=== PATIENT | male | born 1960 | race Caucasian/White ===

== ENCOUNTER 2017-11-21 17:58 | Emergency (ER) | payer BC ==
[2017-11-21 19:48] VITALS: BP 130/55
--- NOTE | 2017-11-21 21:09 | EDM.PDOC ---
ED HPI GENERAL MEDICAL PROBLEM - General Chief Complaint: Flank Pain Stated Complaint: HORRIBLE SIDE PAIN [id number] Time Seen by Provider: 11/21/17 20:55 Source of Information: Reports: Patient History Limitations: Reports: No Limitations - History of Present Illness INITIAL COMMENTS - FREE TEXT/NARRATIVE: This 57 yo male patient reports to the ED with right lower back/flank pain. The patient reports that his pain started on Wednesday (11/19/17) and has been intermittent since that time. The patient reports he has a history of kidney stones, but also reports he has had intermittent similar symptoms for the past year. Onset Date: 11/19/17 Duration: Intermittent Location: Reports: Back (right lower back) Quality: Reports: Ache Severity: Moderate Improves with: Reports: None Worsens with: Reports: None Associated Symptoms: Reports: No Other Symptoms Right Flank Pain Score (Numeric/FACES): 7 - Related Data Allergies Allergy/AdvReac Type Severity Reaction Status Date / Time sitagliptin Allergy Cannot Verified 11/21/17 18:54 Remember lisinopril AdvReac Mild Cough Verified 11/21/17 18:54 Home Meds: Home Meds Amiodarone HCl 200 mg PO BID 12/12/14 [History] Digoxin 0.125 mg PO DAILY 12/12/14 [History] Diltiazem HCl [Diltiazem 24Hr ER] 240 mg PO DAILY 12/12/14 [History] Furosemide 40 mg PO BID 12/12/14 [History] Liraglutide [Victoza] 1.8 mg SUBCUT DAILY 12/12/14 [History] Ammonium Lactate [Lac-Hydrin 12% Crm] 1 applic TOP ASDIRECTED PRN 08/04/15 [ History] Aspirin [Halfprin] 81 mg PO BRK 08/04/15 [History] Clobetasol [Temovate 0.05% Crm] 1 applic TOP BID 08/04/15 [History] Insulin Aspart [NovoLOG] 41 unit SUBCUT BID 08/04/15 [History] Nystatin [Nystatin Crm] 1 applic TOP BID 08/04/15 [History] Cyclobenzaprine [Flexeril] 10 mg PO TID PRN 01/18/16 [History] Metoprolol Tartrate [Metoprolol Tartrate] 75 mg PO BID 06/01/17 [History] Omeprazole [Omeprazole] 20 mg PO DAILY 06/01/17 [History] Pantoprazole [ProTONIX] 40 mg PO DAILY 06/01/17 [History] Valsartan 320 mg PO DAILY 06/01/17 [History] Past Medical History HEENT History: Reports: None Other HEENT History: ears are partly plugged Cardiovascular History: Reports: CAD, Heart Failure, High Cholesterol, Hypertension, [place], Pacemaker, SOB on Exertion Respiratory History: Reports: Sleep Apnea Other Respiratory History: Pt wears CPAP machine at night, O2 at night PRN Gastrointestinal History: Reports: GERD Other Gastrointestinal History: ELEVATED LIVER ENZYMES & FATTY LIVER Genitourinary History: Reports: None Musculoskeletal History: Reports: Arthritis, Fracture Other Musculoskeletal History: disk out for last 3 years; LEFT ANKLE FRACTURE Neurological History: Reports: None Psychiatric History: Reports: None Endocrine/Metabolic History: Reports: Diabetes, Type II, Obesity/BMI 30+ Hematologic History: Reports: None Immunologic History: Reports: None Oncologic (Cancer) History: Reports: Other (See Below) Other Oncologic History: testicular Dermatologic History: Reports: Other (See Below) Other Dermatologic History: from taking insulin shots in abdomen - Infectious Disease History Infectious Disease History: Reports: None Other Infectious Disease History: UNCERTAIN OF HISTORY - Past Surgical History Head Surgeries/Procedures: Reports: None HEENT Surgical History: Reports: Cataract Surgery Neurological Surgical History: Reports: None Social & Family History - Family History Cardiac: Reports: Afib, CAD, Heart Failure, High Cholesterol, Hypertension, [place], Stent Respiratory: Reports: COPD Endocrine/Metabolic: Reports: Obesity/MBI 30+ - Tobacco Use Smoking Status *Q: Never Smoker Second Hand Smoke Exposure: No - Caffeine Use Caffeine Use: Reports: None Other Caffeine Use: RARELY USES - Alcohol Use Days Per Week of Alcohol Use: 0 - Recreational Drug Use Recreational Drug Use: No Drug Use in Last 12 Months: No - Living Situation & Occupation Living situation: Reports: Single, with Family Occupation: Employed ED ROS GENERAL - Review of Systems Review Of Systems: ROS reveals no pertinent complaints other than HPI. ED EXAM,LOWER BACK PAIN/INJURY - Physical Exam Exam: See Below Exam Limited By: No Limitations General Appearance: Alert, WD/WN, Mild Distress Eye Exam: Bilateral Eye: EOMI, Normal Inspection, PERRL Ears: Normal External Exam, Normal Canal, Hearing Grossly Normal, Normal TMs Nose: Normal Inspection, Normal Mucosa, No Blood Throat/Mouth: Normal Inspection, Normal Lips, Normal Teeth, Normal Gums, Normal Oropharynx, Normal Voice, No Airway Compromise Head: Atraumatic, Normocephalic Neck: Normal Inspection, Supple, Non-Tender, Full Range of Motion Respiratory/Chest: No Respiratory Distress, Lungs Clear, Normal Breath Sounds, No Accessory Muscle Use, Chest Non-Tender Cardiovascular: Normal Peripheral Pulses, Regular Rate, Rhythm, No Edema, No Gallop, No JVD, No Murmur, No Rub GI/Abdominal: Normal Bowel Sounds, Soft, Non-Tender, No Organomegaly, No Distention, No Abnormal Bruit, No Mass (Male) Exam: Deferred Rectal (Males) Exam: Deferred Back Exam: CVA Tenderness (R), Paraspinal Tenderness (right upper lumbar spine) Extremities: Normal Inspection, Normal Range of Motion, Non-Tender, No Pedal Edema, Normal Capillary Refill Neurological: Alert, Normal Mood/Affect, Normal Dorsiflexion, CN II-XII Intact, Normal Plantar Flexion, Normal Gait, Normal Reflexes, No Motor/Sensory Deficits , Oriented x 3 Psychiatric: Normal Affect, Normal Mood Skin Exam: Warm, Dry, Intact, Normal Color, No Rash Lymphatic: No Adenopathy Course - Vital Signs Last Recorded V/S: Last Vital Signs Temp 35.8 C 11/21/17 19:47 Pulse 62 11/21/17 19:47 Resp 18 11/21/17 19:47 BP 130/55 L 11/21/17 19:47 Pulse Ox 97 11/21/17 19:47 - Orders/Labs/Meds Labs: Laboratory Tests 11/21/17 Range/Units 19:00 Urine Color Yellow (YELLOW) Urine Appearance Clear (CLEAR) Urine pH 5.5 (5.0-9.0) Ur Specific [place] 1.020 (1.005-1.030) Urine Protein Negative (NEGATIVE) Urine Glucose (UA) Negative (NEGATIVE) Urine Ketones Negative (NEGATIVE) Urine Occult Blood Trace-intact H (NEGATIVE) Urine Nitrite Negative (NEGATIVE) Urine Bilirubin Negative (NEGATIVE) Urine Urobilinogen 1.0 (0.2-1.0) mg/dL Ur Leukocyte Esterase Negative (NEGATIVE) Urine RBC 0-5 /HPF Urine WBC 0-5 (0-5/HPF) /HPF Ur Epithelial Cells Few /HPF Urine Bacteria Occasional (0-FEW/HPF) /HPF Departure - Departure Time of Disposition: 21:06 Disposition: Home, Self-Care 01 Condition: Fair Clinical Impression: Low back strain Qualifiers: Encounter type: initial encounter Qualified Code(s): S39.012A - Strain of muscle, fascia and tendon of lower back, initial encounter - Discharge Information Instructions: Back Pain, Adult, [id number] Care Plan Goals: The patient was advised of the examination, lab and CT results during the visit. The patient was encouraged to take his pain medications as directed. The patient was also encouraged to take Aleve for temporary symptom relief. The patient was also encouraged to rest the area of concern with either heat or ice. If the patient has any additional symptoms or concerns, the patient should follow-up with his primary care facility or return to the emergency department.
== END 2017-11-21 21:14 | disposition home or self-care (01) ==
LOC: DL.ED 17:58
DX: S39.012A Strain of muscle, fascia and tendon of lower back, initial encounter (principal); I11.0 Hypertensive heart disease with heart failure; I50.9 Heart failure, unspecified; I25.10 Atherosclerotic heart disease of native coronary artery without angina pectoris; E78.00 Pure hypercholesterolemia, unspecified; G47.30 Sleep apnea, unspecified; E11.9 Type 2 diabetes mellitus without complications; Z79.4 Long term (current) use of insulin; Z79.82 Long term (current) use of aspirin; Z79.899 Other long term (current) drug therapy; Z88.8 Allergy status to other drugs, medicaments and biological substances; X58.XXXA Exposure to other specified factors, initial encounter
CPT/HCPCS: 74176; 81001; 99284

== ENCOUNTER 2017-12-21 13:10 | Emergency (ER) | payer BC ==
[2017-12-21 14:22] VITALS: BP 130/51
--- NOTE | 2017-12-21 15:17 | EDM.PDOC ---
ED HPI GENERAL MEDICAL PROBLEM - General Chief Complaint: Back Pain or Injury Stated Complaint: THREW BACK OUT [id number] Time Seen by Provider: 12/21/17 14:00 Source of Information: Reports: Patient, RN, RN Notes Reviewed History Limitations: Reports: No Limitations - History of Present Illness INITIAL COMMENTS - FREE TEXT/NARRATIVE: Pt presents to the ER with c/o right flank pain/hip pain. Pt states he was pulling his pants up and buttoning them he felt a sharp jolt in the right side of his back. He states this has happened in the past. He states he has no numbness or tingling, involuntary loss of continence. Denies chest pain, sob, N/ V/D, fever or chills. Denies any urinary complications. Onset: Today, Sudden Duration: Constant Location: Reports: Back Quality: Reports: Sharp, Stabbing Severity: Moderate Improves with: Reports: None Worsens with: Reports: Movement Context: Denies: Lifting Associated Symptoms: Reports: No Other Symptoms Lower Back Pain Score (Numeric/FACES): 8 - Related Data Allergies Allergy/AdvReac Type Severity Reaction Status Date / Time sitagliptin Allergy Cannot Verified 12/21/17 14:23 Remember lisinopril AdvReac Mild Cough Verified 12/21/17 14:23 Home Meds: Home Meds Amiodarone HCl 200 mg PO BID 12/12/14 [History] Digoxin 0.125 mg PO DAILY 12/12/14 [History] Diltiazem HCl [Diltiazem 24Hr ER] 240 mg PO DAILY 12/12/14 [History] Furosemide 40 mg PO BID 12/12/14 [History] Liraglutide [Victoza] 1.8 mg SUBCUT DAILY 12/12/14 [History] Ammonium Lactate [Lac-Hydrin 12% Crm] 1 applic TOP ASDIRECTED PRN 08/04/15 [ History] Aspirin [Halfprin] 81 mg PO BRK 08/04/15 [History] Clobetasol [Temovate 0.05% Crm] 1 applic TOP BID 08/04/15 [History] Insulin Aspart [NovoLOG] 41 unit SUBCUT BID 08/04/15 [History] Nystatin [Nystatin Crm] 1 applic TOP BID 08/04/15 [History] Cyclobenzaprine [Flexeril] 10 mg PO TID PRN 01/18/16 [History] Metoprolol Tartrate [Metoprolol Tartrate] 75 mg PO BID 06/01/17 [History] Omeprazole [Omeprazole] 20 mg PO DAILY 06/01/17 [History] Pantoprazole [ProTONIX] 40 mg PO DAILY 06/01/17 [History] Valsartan 320 mg PO DAILY 06/01/17 [History] Past Medical History HEENT History: Reports: None Other HEENT History: ears are partly plugged Cardiovascular History: Reports: CAD, Heart Failure, High Cholesterol, Hypertension, [place], Pacemaker, SOB on Exertion Respiratory History: Reports: Sleep Apnea Other Respiratory History: Pt wears CPAP machine at night, O2 at night PRN Gastrointestinal History: Reports: GERD Other Gastrointestinal History: ELEVATED LIVER ENZYMES & FATTY LIVER Genitourinary History: Reports: None Musculoskeletal History: Reports: Arthritis, Fracture Other Musculoskeletal History: disk out for last 3 years; LEFT ANKLE FRACTURE Neurological History: Reports: None Psychiatric History: Reports: None Endocrine/Metabolic History: Reports: Diabetes, Type II, Obesity/BMI 30+ Hematologic History: Reports: None Immunologic History: Reports: None Oncologic (Cancer) History: Reports: Other (See Below) Other Oncologic History: testicular Dermatologic History: Reports: Other (See Below) Other Dermatologic History: from taking insulin shots in abdomen - Infectious Disease History Infectious Disease History: Reports: None Other Infectious Disease History: UNCERTAIN OF HISTORY - Past Surgical History Head Surgeries/Procedures: Reports: None HEENT Surgical History: Reports: Cataract Surgery Neurological Surgical History: Reports: None Social & Family History - Family History Cardiac: Reports: Afib, CAD, Heart Failure, High Cholesterol, Hypertension, [place], Stent Respiratory: Reports: COPD Endocrine/Metabolic: Reports: Obesity/MBI 30+ - Tobacco Use Smoking Status *Q: Never Smoker Second Hand Smoke Exposure: No - Caffeine Use Caffeine Use: Reports: None Other Caffeine Use: RARELY USES - Alcohol Use Days Per Week of Alcohol Use: 0 - Recreational Drug Use Recreational Drug Use: No Drug Use in Last 12 Months: No - Living Situation & Occupation Living situation: Reports: Single, with Family Occupation: Employed ED ROS GENERAL - Review of Systems Review Of Systems: ROS reveals no pertinent complaints other than HPI. ED EXAM,LOWER BACK PAIN/INJURY - Physical Exam Exam: See Below Exam Limited By: No Limitations General Appearance: Alert, WD/WN, Mild Distress Eye Exam: Bilateral Eye: EOMI, Normal Inspection, PERRL Ears: Normal External Exam, Hearing Grossly Normal Nose: Normal Inspection Throat/Mouth: Normal Inspection, Normal Voice, No Airway Compromise Head: Atraumatic, Normocephalic Neck: Normal Inspection, Supple, Non-Tender, Full Range of Motion Respiratory/Chest: No Respiratory Distress, Lungs Clear, Normal Breath Sounds, No Accessory Muscle Use, Chest Non-Tender Cardiovascular: Normal Peripheral Pulses, Regular Rate, Rhythm, No Edema, No Gallop, No JVD, No Murmur, No Rub GI/Abdominal: Normal Bowel Sounds, Soft, Non-Tender, No Organomegaly, No Distention, No Abnormal Bruit, No Mass (Male) Exam: Deferred Rectal (Males) Exam: Deferred Back Exam: Normal Inspection, CVA Tenderness (R), Decreased Range of Motion Extremities: Normal Inspection, Normal Range of Motion, Non-Tender, No Pedal Edema, Normal Capillary Refill Neurological: Alert, Normal Mood/Affect, Normal Dorsiflexion, CN II-XII Intact, Normal Plantar Flexion, Normal Gait, Normal Reflexes, No Motor/Sensory Deficits , Oriented x 3 Psychiatric: Normal Affect, Normal Mood Skin Exam: Warm, Dry, Intact, Normal Color, No Rash Lymphatic: No Adenopathy Course - Vital Signs Last Recorded V/S: Last Vital Signs Temp 97.8 F 12/21/17 13:50 Pulse 58 L 12/21/17 13:50 Resp 16 12/21/17 13:50 BP 130/51 L 12/21/17 13:50 Pulse Ox 94 L 12/21/17 13:50 - Orders/Labs/Meds Orders: Active Orders 24 hr Category Date Time Status Orphenadrine [Norflex] Med 12/21/17 15:30 Ordered 60 mg IM Q12H Medication Orders Orphenadrine Citrate (Norflex) 60 mg IM Q12H [facility] Labs: Laboratory Tests 12/21/17 Range/Units 14:40 Urine Color Yellow (YELLOW) Urine Appearance Slightly cloudy (CLEAR) Urine pH 6.5 (5.0-9.0) Ur Specific [place] 1.010 (1.005-1.030) Urine Protein Negative (NEGATIVE) Urine Glucose (UA) Negative (NEGATIVE) Urine Ketones Negative (NEGATIVE) Urine Occult Blood Negative (NEGATIVE) Urine Nitrite Negative (NEGATIVE) Urine Bilirubin Negative (NEGATIVE) Urine Urobilinogen 0.2 (0.2-1.0) mg/dL Ur Leukocyte Esterase Negative (NEGATIVE) Urine RBC 5-10 H /HPF Urine WBC 0-5 (0-5/HPF) /HPF Ur Epithelial Cells Few /HPF Urine Mucus Rare /LPF Meds: Medications Generic Name Dose Route Start Last Admin Trade Name Freq PRN Reason Stop Dose Admin Orphenadrine Citrate 60 mg 12/21/17 15:30 Norflex IM Q12H [facility] Discontinued Medications Generic Name Dose Route Start Last Admin Trade Name Freq PRN Reason Stop Dose Admin Ketorolac Tromethamine 60 mg 12/21/17 15:20 Toradol IM 12/21/17 15:21 ONETIME ONE Departure - Departure Time of Disposition: 15:23 Disposition: Home, Self-Care 01 Condition: Fair Clinical Impression: Low back strain Qualifiers: Encounter type: initial encounter Qualified Code(s): S39.012A - Strain of muscle, fascia and tendon of lower back, initial encounter - Discharge Information Instructions: Muscle Strain, [id number], Back Pain, Adult, [id number], Muscle Strain Forms: ED Department Discharge Additional Instructions: RX: Diclofenac, Norflex May take Tylenol as tolerated for pain, but DO NOT take ibuprofen when taking the diclofenac. Follow up with chiropractic and physical therapy Follow up with your primary care facility if no improvement Ice/heat the area as tolerated Rest - My Orders Last 24 Hours: My Active Orders 12/21/17 15:30 Orphenadrine [Norflex] 60 mg IM Q12H - Assessment/Plan Last 24 Hours: My Active Orders 12/21/17 15:30 Orphenadrine [Norflex] 60 mg IM Q12H
[2017-12-21] MEDS ORDERED: Ketorolac 30 MG/ML SDV IM ONE (15:20)
== END 2017-12-21 15:53 | disposition home or self-care (01) ==
LOC: DL.ED 13:10
DX: S39.012A Strain of muscle, fascia and tendon of lower back, initial encounter (principal); I11.0 Hypertensive heart disease with heart failure; I50.9 Heart failure, unspecified; E78.00 Pure hypercholesterolemia, unspecified; E11.9 Type 2 diabetes mellitus without complications; Z88.8 Allergy status to other drugs, medicaments and biological substances; Z79.899 Other long term (current) drug therapy; Z79.4 Long term (current) use of insulin; X58.XXXA Exposure to other specified factors, initial encounter
CPT/HCPCS: 81001; 96372; 99283; J1885; J2360

== ENCOUNTER 2018-02-27 21:04 | Emergency (ER) | payer MEDICARE, BC ==
[2018-02-27 21:25] VITALS: BP 111/75
[2018-02-27] MEDS ORDERED: HYDROmorphone 0.5 MG/0.5 ML Syringe IVPUSH ONE (21:50)
--- NOTE | 2018-02-27 21:58 | EDM.PDOC ---
ED HPI GENERAL MEDICAL PROBLEM - General Chief Complaint: Lower Extremity Injury/Pain Stated Complaint: [id number] NEEDS A SHOT FOR PAIN IN HIP Time Seen by Provider: 02/27/18 21:50 Source of Information: Reports: Patient History Limitations: Reports: No Limitations - History of Present Illness INITIAL COMMENTS - FREE TEXT/NARRATIVE: This 57 yo male patient reports to the ED with right hip pain over the past 2 days. The patient reports he fell while at home 2 days ago and twisted his right leg just after the fall. The patient reports his right hip pain is a 10/ 10 at this time. The patient reports he has had similar symptoms in the past, but normally comes to the ED to get a short of pain medication. The patient reports that he needs a shot of the "strongest pain medication made." The patient report his hip hurts even when sitting still. Duration: Day(s):, Constant, Getting Worse Location: Reports: Lower Extremity, Right (hip) Quality: Reports: Ache, Sharp Severity: Severe Improves with: Reports: None Worsens with: Reports: Movement Context: Reports: Other Associated Symptoms: Reports: No Other Symptoms Right Hip Pain Score (Numeric/FACES): 10 - Related Data Allergies Allergy/AdvReac Type Severity Reaction Status Date / Time sitagliptin Allergy Cannot Verified 02/27/18 21:11 Remember lisinopril AdvReac Mild Cough Verified 02/27/18 21:11 Home Meds: Home Meds Amiodarone HCl 200 mg PO BID 12/12/14 [History] Digoxin 0.125 mg PO DAILY 12/12/14 [History] Diltiazem HCl [Diltiazem 24Hr ER] 240 mg PO DAILY 12/12/14 [History] Furosemide 40 mg PO BID 12/12/14 [History] Liraglutide [Victoza] 1.8 mg SUBCUT DAILY 12/12/14 [History] Ammonium Lactate [Lac-Hydrin 12% Crm] 1 applic TOP ASDIRECTED PRN 08/04/15 [ History] Aspirin [Halfprin] 81 mg PO BRK 08/04/15 [History] Clobetasol [Temovate 0.05% Crm] 1 applic TOP BID 08/04/15 [History] Insulin Aspart [NovoLOG] 41 unit SUBCUT BID 08/04/15 [History] Nystatin [Nystatin Crm] 1 applic TOP BID 08/04/15 [History] Cyclobenzaprine [Flexeril] 10 mg PO TID PRN 01/18/16 [History] Metoprolol Tartrate 75 mg PO BID 06/01/17 [History] Omeprazole 20 mg PO DAILY 06/01/17 [History] Pantoprazole [ProTONIX] 40 mg PO DAILY 06/01/17 [History] Valsartan 320 mg PO DAILY 06/01/17 [History] Past Medical History HEENT History: Reports: None Other HEENT History: ears are partly plugged Cardiovascular History: Reports: CAD, Heart Failure, High Cholesterol, Hypertension, [place], Pacemaker, SOB on Exertion Respiratory History: Reports: Sleep Apnea Other Respiratory History: Pt wears CPAP machine at night, O2 at night PRN Gastrointestinal History: Reports: GERD Other Gastrointestinal History: ELEVATED LIVER ENZYMES & FATTY LIVER Genitourinary History: Reports: None Musculoskeletal History: Reports: Arthritis, Fracture Other Musculoskeletal History: disk out for last 3 years; LEFT ANKLE FRACTURE Neurological History: Reports: None Psychiatric History: Reports: None Endocrine/Metabolic History: Reports: Diabetes, Type II, Obesity/BMI 30+ Hematologic History: Reports: None Immunologic History: Reports: None Oncologic (Cancer) History: Reports: Other (See Below) Other Oncologic History: testicular Dermatologic History: Reports: Other (See Below) Other Dermatologic History: from taking insulin shots in abdomen - Infectious Disease History Infectious Disease History: Reports: None Other Infectious Disease History: UNCERTAIN OF HISTORY - Past Surgical History Head Surgeries/Procedures: Reports: None HEENT Surgical History: Reports: Cataract Surgery Neurological Surgical History: Reports: None Social & Family History - Family History Cardiac: Reports: Afib, CAD, Heart Failure, High Cholesterol, Hypertension, [place], Stent Respiratory: Reports: COPD Endocrine/Metabolic: Reports: Obesity/MBI 30+ - Tobacco Use Smoking Status *Q: Never Smoker Second Hand Smoke Exposure: No - Caffeine Use Caffeine Use: Reports: Soda Other Caffeine Use: RARELY USES - Recreational Drug Use Recreational Drug Use: No - Living Situation & Occupation Living situation: Reports: Single, with Family Occupation: Employed Review of Systems - Review of Systems Review Of Systems: ROS reveals no pertinent complaints other than HPI. ED EXAM, GENERAL - Physical Exam Exam: See Below Exam Limited By: No Limitations General Appearance: Alert, WD/WN, Lethargic, Moderate Distress Eye Exam: Bilateral Eye: EOMI, Normal Inspection, PERRL Ears: Normal External Exam, Normal Canal, Hearing Grossly Normal, Normal TMs Nose: Normal Inspection, Normal Mucosa, No Blood Throat/Mouth: Normal Inspection, Normal Lips, Normal Teeth, Normal Gums, Normal Oropharynx, Normal Voice, No Airway Compromise Head: Atraumatic, Normocephalic Neck: Normal Inspection, Supple, Non-Tender, Full Range of Motion Respiratory/Chest: No Respiratory Distress, Lungs Clear, Normal Breath Sounds, No Accessory Muscle Use, Chest Non-Tender Cardiovascular: Normal Peripheral Pulses, Regular Rate, Rhythm, No Edema, No Gallop, No JVD, No Murmur, No Rub GI/Abdominal: Normal Bowel Sounds, Soft, Non-Tender, No Organomegaly, No Distention, No Abnormal Bruit, No Mass, Other (obese) (Male) Exam: Deferred Rectal (Males) Exam: Deferred Back Exam: Vertebral Tenderness (lower back) Extremities: Leg Pain (right hip pain with movement and palpation) Neurological: Alert, Oriented, CN II-XII Intact, Normal Cognition Psychiatric: Normal Affect, Normal Mood Skin Exam: Warm, Dry, Intact, Normal Color, No Rash Lymphatic: No Adenopathy Course - Vital Signs Last Recorded V/S: Last Vital Signs Temp 36.9 C 02/27/18 21:16 Pulse 63 02/27/18 21:16 Resp 18 02/27/18 21:16 BP 111/75 02/27/18 21:16 Pulse Ox 95 02/27/18 21:16 - Orders/Labs/Meds Orders: Active Orders 24 hr Category Date Time Status Hip Min 1V w Pelvis Rt [CR] Stat Exams 02/27/18 21:48 Taken Meds: Medications Discontinued Medications Generic Name Dose Route Start Last Admin Trade Name Freq PRN Reason Stop Dose Admin Hydromorphone HCl 0.5 mg 02/27/18 21:50 02/27/18 22:08 Dilaudid IVPUSH 02/27/18 21:51 0.5 mg ONETIME ONE Administration Departure - Departure Time of Disposition: 23:13 Disposition: Home, Self-Care 01 Condition: Fair Clinical Impression: Right hip pain Degenerative joint disease of right hip Qualifiers: Osteoarthritis type: unspecified Qualified Code(s): M16.11 - Unilateral primary osteoarthritis, right hip - Discharge Information Instructions: Muscle Strain, [id number], Joint Pain, [id number] Referrals: Devon Beckham MD [Primary Care Provider] - Forms: ED Department Discharge Care Plan Goals: The patient was advised of the examination and x-ray results during the visit. The patient was given an IV dose of pain medication (Dilaudid) while in the ED which improved the pain. If the patient has any additional symptoms or concerns , the patient should follow-up with his primary care facility or return to the emergency department. - My Orders Last 24 Hours: My Active Orders 02/27/18 21:48 Hip Min 1V w Pelvis Rt [CR] Stat - Assessment/Plan Last 24 Hours: My Active Orders 02/27/18 21:48 Hip Min 1V w Pelvis Rt [CR] Stat
== END 2018-02-27 23:27 | disposition home or self-care (01) ==
LOC: DL.ED 21:04
DX: M16.11 Unilateral primary osteoarthritis, right hip (principal); I11.0 Hypertensive heart disease with heart failure; I50.9 Heart failure, unspecified; I25.2 Old myocardial infarction; E11.9 Type 2 diabetes mellitus without complications; K21.9 Gastro-esophageal reflux disease without esophagitis; Z88.8 Allergy status to other drugs, medicaments and biological substances; Z79.899 Other long term (current) drug therapy; Z79.82 Long term (current) use of aspirin; Z79.4 Long term (current) use of insulin
CPT/HCPCS: 73501; 96374; 99283; J1170

== ENCOUNTER 2018-03-16 18:36 | Emergency (ER) | payer MEDICARE, BC ==
[2018-03-16 18:57] VITALS: BP 113/45
--- NOTE | 2018-03-16 19:04 | EDM.PDOC ---
ED HPI GENERAL MEDICAL PROBLEM - General Chief Complaint: Lower Extremity Injury/Pain Stated Complaint: HIP PAIN Time Seen by Provider: 03/16/18 19:00 Source of Information: Reports: Patient History Limitations: Reports: No Limitations - History of Present Illness INITIAL COMMENTS - FREE TEXT/NARRATIVE: long h/o hip problem Tx with IV Rx. denies reinjury. Right Hip Pain Score (Numeric/FACES): 8 - Related Data Allergies Allergy/AdvReac Type Severity Reaction Status Date / Time sitagliptin Allergy Cannot Verified 03/16/18 18:53 Remember lisinopril AdvReac Mild Cough Verified 03/16/18 18:53 Home Meds: Home Meds Amiodarone HCl 200 mg PO BID 12/12/14 [History] Digoxin 0.125 mg PO DAILY 12/12/14 [History] Diltiazem HCl [Diltiazem 24Hr ER] 240 mg PO DAILY 12/12/14 [History] Furosemide 40 mg PO BID 12/12/14 [History] Liraglutide [Victoza] 1.8 mg SUBCUT DAILY 12/12/14 [History] Ammonium Lactate [Lac-Hydrin 12% Crm] 1 applic TOP ASDIRECTED PRN 08/04/15 [ History] Aspirin [Halfprin] 81 mg PO BRK 08/04/15 [History] Clobetasol [Temovate 0.05% Oint] 1 applic TOP BID 08/04/15 [History] Insulin Aspart [NovoLOG] 41 unit SUBCUT BID 08/04/15 [History] Nystatin [Nystatin Crm] 1 applic TOP BID 08/04/15 [History] Cyclobenzaprine [Flexeril] 10 mg PO TID PRN 01/18/16 [History] Metoprolol Tartrate 75 mg PO BID 06/01/17 [History] Omeprazole 20 mg PO DAILY 06/01/17 [History] Pantoprazole [ProTONIX] 40 mg PO DAILY 06/01/17 [History] Valsartan 320 mg PO DAILY 06/01/17 [History] Past Medical History HEENT History: Reports: None Other HEENT History: ears are partly plugged Cardiovascular History: Reports: CAD, Heart Failure, High Cholesterol, Hypertension, [place], Pacemaker, SOB on Exertion Respiratory History: Reports: Sleep Apnea Other Respiratory History: Pt wears CPAP machine at night, O2 at night PRN Gastrointestinal History: Reports: GERD Other Gastrointestinal History: ELEVATED LIVER ENZYMES & FATTY LIVER Genitourinary History: Reports: None Musculoskeletal History: Reports: Arthritis, Fracture Other Musculoskeletal History: disk out for last 3 years; LEFT ANKLE FRACTURE Neurological History: Reports: None Psychiatric History: Reports: None Endocrine/Metabolic History: Reports: Diabetes, Type II, Obesity/BMI 30+ Hematologic History: Reports: None Immunologic History: Reports: None Oncologic (Cancer) History: Reports: Other (See Below) Other Oncologic History: testicular Dermatologic History: Reports: Other (See Below) Other Dermatologic History: from taking insulin shots in abdomen - Infectious Disease History Infectious Disease History: Reports: None Other Infectious Disease History: UNCERTAIN OF HISTORY - Past Surgical History Head Surgeries/Procedures: Reports: None HEENT Surgical History: Reports: Cataract Surgery Neurological Surgical History: Reports: None Social & Family History - Family History Cardiac: Reports: Afib, CAD, Heart Failure, High Cholesterol, Hypertension, [place], Stent Respiratory: Reports: COPD Endocrine/Metabolic: Reports: Obesity/MBI 30+ - Caffeine Use Caffeine Use: Reports: Soda Other Caffeine Use: RARELY USES - Living Situation & Occupation Living situation: Reports: Single, with Family Occupation: Employed Review of Systems - Review of Systems Review Of Systems: ROS reveals no pertinent complaints other than HPI. ED EXAM, GENERAL - Physical Exam Exam: See Below Exam Limited By: No Limitations General Appearance: Alert, WD/WN, Mild Distress, Other (discomfort) Ears: Hearing Grossly Normal Throat/Mouth: Normal Voice, No Airway Compromise Head: Atraumatic Neck: Non-Tender, Full Range of Motion Respiratory/Chest: No Respiratory Distress Cardiovascular: Regular Rate, Rhythm GI/Abdominal: Soft, Non-Tender Neurological: Alert, Oriented, Normal Cognition, No Motor/Sensory Deficits Psychiatric: Anxious Skin Exam: Warm, Dry, Normal Color Lymphatic: No Adenopathy Course - Vital Signs Last Recorded V/S: Last Vital Signs Temp 36.7 C 03/16/18 18:54 Pulse 58 L 03/16/18 18:54 Resp 20 03/16/18 18:54 BP 113/45 L 03/16/18 18:54 Pulse Ox 96 03/16/18 18:54 - Orders/Labs/Meds Meds: Medications Discontinued Medications Generic Name Dose Route Start Last Admin Trade Name Freq PRN Reason Stop Dose Admin Hydromorphone HCl 0.5 mg 05/30/18 18:59 03/16/18 19:07 Dilaudid IVPUSH 03/16/18 19:00 0.5 mg ONETIME ONE Administration Departure - Departure Time of Disposition: 19:17 Disposition: Home, Self-Care 01 Condition: Fair Clinical Impression: Degenerative joint disease of right hip Qualifiers: Osteoarthritis type: unspecified Qualified Code(s): M16.11 - Unilateral primary osteoarthritis, right hip - Discharge Information Instructions: Hip Bursitis, [id number] Forms: ED Department Discharge Additional Instructions: 1) rest 2) follow up with family doctor
[2018-03-16] MEDS: HYDROmorphone 0.5 MG/0.5 ML Syringe IVPUSH ONE (19:07)
== END 2018-03-16 19:19 | disposition home or self-care (01) ==
LOC: DL.ED 18:36
DX: M16.11 Unilateral primary osteoarthritis, right hip (principal); I11.0 Hypertensive heart disease with heart failure; I50.9 Heart failure, unspecified; J44.9 Chronic obstructive pulmonary disease, unspecified; E11.9 Type 2 diabetes mellitus without complications; I25.2 Old myocardial infarction; Z79.82 Long term (current) use of aspirin; Z79.4 Long term (current) use of insulin; Z79.899 Other long term (current) drug therapy; Z88.8 Allergy status to other drugs, medicaments and biological substances
CPT/HCPCS: 96374; 99282; J1170

== ENCOUNTER 2018-12-24 09:13 | Emergency (ER) | payer MEDICARE, BC ==
[2018-12-24 09:21] VITALS: BP 118/70
--- NOTE | 2018-12-24 09:33 | EDM.PDOC ---
ED HPI GENERAL MEDICAL PROBLEM - General Chief Complaint: General Stated Complaint: STOMACH ACHE [id number] Time Seen by Provider: 12/24/18 09:29 Source of Information: Reports: Patient History Limitations: Reports: No Limitations - History of Present Illness INITIAL COMMENTS - FREE TEXT/NARRATIVE: onset last night with eyes not in focus and been sweaty and abd feels uncomfortable. ate breakfast of peanut butter sandwich. denies CP/SOB, denies blurred/double vision. no V/D. - Related Data Allergies Allergy/AdvReac Type Severity Reaction Status Date / Time sitagliptin Allergy Cannot Verified 12/24/18 09:18 Remember lisinopril AdvReac Mild Cough Verified 12/24/18 09:18 Home Meds: Home Meds Amiodarone HCl 200 mg PO BID 12/12/14 [History] Digoxin 0.125 mg PO DAILY 12/12/14 [History] Diltiazem HCl [Diltiazem 24Hr ER] 240 mg PO DAILY 12/12/14 [History] Furosemide 40 mg PO BID 12/12/14 [History] Liraglutide [Victoza] 1.8 mg SUBCUT DAILY 12/12/14 [History] Ammonium Lactate [Lac-Hydrin 12% Crm] 1 applic TOP ASDIRECTED PRN 08/04/15 [ History] Aspirin [Halfprin] 81 mg PO BRK 08/04/15 [History] Clobetasol [Temovate 0.05% Oint] 1 applic TOP BID 08/04/15 [History] Insulin Aspart [NovoLOG] 41 unit SUBCUT BID 08/04/15 [History] Nystatin [Nystatin Crm] 1 applic TOP BID 08/04/15 [History] Cyclobenzaprine [Flexeril] 10 mg PO TID PRN 01/18/16 [History] Metoprolol Tartrate 75 mg PO BID 06/01/17 [History] Omeprazole 20 mg PO DAILY 06/01/17 [History] Pantoprazole [ProTONIX] 40 mg PO DAILY 06/01/17 [History] Valsartan 320 mg PO DAILY 06/01/17 [History] Past Medical History HEENT History: Reports: None Other HEENT History: ears are partly plugged Cardiovascular History: Reports: CAD, Heart Failure, High Cholesterol, Hypertension, [place], Pacemaker, SOB on Exertion Respiratory History: Reports: Sleep Apnea Other Respiratory History: Pt wears CPAP machine at night, O2 at night PRN Gastrointestinal History: Reports: GERD Other Gastrointestinal History: ELEVATED LIVER ENZYMES & FATTY LIVER Genitourinary History: Reports: None Musculoskeletal History: Reports: Arthritis, Fracture Other Musculoskeletal History: disk out for last 3 years; LEFT ANKLE FRACTURE Neurological History: Reports: None Psychiatric History: Reports: None Endocrine/Metabolic History: Reports: Diabetes, Type II, Obesity/BMI 30+ Hematologic History: Reports: None Immunologic History: Reports: None Oncologic (Cancer) History: Reports: Other (See Below) Other Oncologic History: testicular Dermatologic History: Reports: Other (See Below) Other Dermatologic History: from taking insulin shots in abdomen - Infectious Disease History Infectious Disease History: Reports: None Other Infectious Disease History: UNCERTAIN OF HISTORY - Past Surgical History Head Surgeries/Procedures: Reports: None HEENT Surgical History: Reports: Cataract Surgery Neurological Surgical History: Reports: None Social & Family History - Family History Cardiac: Reports: Afib, CAD, Heart Failure, High Cholesterol, Hypertension, [place], Stent Respiratory: Reports: COPD Endocrine/Metabolic: Reports: Obesity/MBI 30+ - Tobacco Use Smoking Status *Q: Never Smoker Second Hand Smoke Exposure: No - Caffeine Use Caffeine Use: Reports: None Other Caffeine Use: RARELY USES - Recreational Drug Use Recreational Drug Use: No - Living Situation & Occupation Living situation: Reports: Single, with Family Occupation: Employed ED ROS GENERAL - Review of Systems Review Of Systems: ROS reveals no pertinent complaints other than HPI. ED EXAM, GENERAL - Physical Exam Exam: See Below Exam Limited By: No Limitations General Appearance: Alert, WD/WN, Mild Distress, Other (general discomfort) Eye Exam: Bilateral Eye: PERRL (pupils ess ER @ 4mm) Ears: Hearing Grossly Normal Throat/Mouth: Normal Voice, No Airway Compromise Head: Atraumatic Neck: Non-Tender, Full Range of Motion Respiratory/Chest: No Respiratory Distress Cardiovascular: Regular Rate, Rhythm GI/Abdominal: Soft, Non-Tender, Other (BS increased). No: Distended, Guarding, Rigid, Rebound, Tender Neurological: Alert, Oriented Psychiatric: Flat Affect Skin Exam: Warm, Dry, Normal Color Lymphatic: No Adenopathy Course - Vital Signs Last Recorded V/S: Last Vital Signs Temp 36.2 C 12/24/18 09:18 Pulse 68 12/24/18 09:18 Resp 18 12/24/18 09:18 BP 118/70 12/24/18 09:18 Pulse Ox 98 12/24/18 09:18 - Orders/Labs/Meds Labs: Laboratory Tests 12/24/18 12/24/18 12/24/18 Range/Units 09:35 09:35 09:35 WBC 9.1 (5.0-10.0) 10^3/uL RBC 4.78 (4.6-6.2) 10^6/uL Hgb 15.0 (14.0-18.0) g/dL Hct 45.5 (40.0-54.0) % MCV 95.2 (80-100) fL MCH 31.4 (27.0-34.0) pg MCHC 33.0 (33.0-35.0) g/dL Plt Count 243 (150-450) 10^3/uL Neut % (Auto) 74.5 (42.2-75.2) % Lymph % (Auto) 11.3 L (20.5-50.1) % [place] % (Auto) 9.6 H (2-8) % Eos % (Auto) 4.3 H (1.0-3.0) % Baso % (Auto) 0.3 (0.0-1.0) % Sodium 139 (135-145) mmol/L Potassium 4.1 (3.6-5.0) mmol/L Chloride 104 (101-111) mmol/L Carbon Dioxide 24.0 (21.0-31.0) mmol/L Anion Gap 15.1 BUN 41 H (7-18) mg/dL Creatinine 1.2 (0.6-1.3) mg/dL Est Cr Clr Drug Dosing 64.92 mL/min Estimated GFR (MDRD) > 60 BUN/Creatinine Ratio 34.16 Glucose 71 L (74-105) mg/dL Calcium 8.6 (8.4-10.2) mg/dl Total Bilirubin 0.8 (0.2-1.0) mg/dL AST 42 (10-42) IU/L ALT 56 (10-60) IU/L Alkaline Phosphatase 67 (42-121) IU/L Total Protein 7.4 (6.7-8.2) g/dl Albumin 3.6 (3.2-5.5) g/dl Globulin 3.8 Albumin/Globulin Ratio 0.95 Digoxin 0.2 (0-2.5) ng/ml - Re-Assessments/Exams Free Text/Narrative Re-Assessment/Exam: 12/24/18 10:51 results discussed with pt who is feeling much better presently. Departure - Departure Time of Disposition: 10:52 Disposition: Home, Self-Care 01 Clinical Impression: Diabetes Qualifiers: Diabetes mellitus type: type 2 Diabetes mellitus complication status: with hyperglycemia Qualified Code(s): E11.65 - Type 2 diabetes mellitus with hyperglycemia; Z79.4 - jail (current) use of insulin - Discharge Information Forms: ED Department Discharge Additional Instructions: 1) follow up with family doctor next week 2) recheck as needed
[2018-12-24 10:01] LABS: ANION GAP 15.1; CHLORIDE,CL 104 mmol/L (101-111); SODIUM,NA 139 mmol/L (135-145)
== END 2018-12-24 10:57 | disposition home or self-care (01) ==
LOC: DL.ED 09:13
DX: E11.65 Type 2 diabetes mellitus with hyperglycemia (principal); I11.0 Hypertensive heart disease with heart failure; I50.9 Heart failure, unspecified; I25.2 Old myocardial infarction; I25.10 Atherosclerotic heart disease of native coronary artery without angina pectoris; Z79.4 Long term (current) use of insulin; Z79.899 Other long term (current) drug therapy
CPT/HCPCS: 36415; 80053; 80162; 85025; 99283

== ENCOUNTER 2019-01-05 09:59 | Emergency (ER) | payer MEDICARE, BC ==
[2019-01-05 10:13] VITALS: BP 101/46
[2019-01-05] MEDS ORDERED: Ketorolac 30 MG/ML SDV IM ONE (10:42)
--- NOTE | 2019-01-05 10:49 | EDM.PDOC ---
ED HPI GENERAL MEDICAL PROBLEM - General Chief Complaint: Back Pain or Injury Stated Complaint: BACK PAINS [id number] Time Seen by Provider: 01/05/19 10:35 Source of Information: Reports: Patient History Limitations: Reports: No Limitations - History of Present Illness INITIAL COMMENTS - FREE TEXT/NARRATIVE: This 58 yo male patient reports to the ED with right lower back pain due to a slip on Wednesday. The patient reports he was unable to get out of bed this morning due to increased pain. The patient reports he has been taking a pain pill since the fall, but it has not taken all of the pain away. The patient has a history of lower back pain. Onset Date: 01/01/19 Duration: Constant, Getting Worse Location: Reports: Back (right lower back) Quality: Reports: Ache, Dull Severity: Moderate Improves with: Reports: None Worsens with: Reports: None Context: Reports: Other Associated Symptoms: Reports: No Other Symptoms Lower Back Pain Score (Numeric/FACES): 8 - Related Data Allergies Allergy/AdvReac Type Severity Reaction Status Date / Time sitagliptin Allergy Cannot Verified 01/05/19 10:14 Remember lisinopril AdvReac Mild Cough Verified 01/05/19 10:14 Home Meds: Home Meds Amiodarone HCl 200 mg PO BID 12/12/14 [History] Digoxin 0.125 mg PO DAILY 12/12/14 [History] Diltiazem HCl [Diltiazem 24Hr ER] 240 mg PO DAILY 12/12/14 [History] Furosemide 40 mg PO BID 12/12/14 [History] Liraglutide [Victoza] 1.8 mg SUBCUT DAILY 12/12/14 [History] Ammonium Lactate [Lac-Hydrin 12% Crm] 1 applic TOP ASDIRECTED PRN 08/04/15 [ History] Aspirin [Halfprin] 81 mg PO BRK 08/04/15 [History] Clobetasol [Temovate 0.05% Oint] 1 applic TOP BID 08/04/15 [History] Insulin Aspart [NovoLOG] 41 unit SUBCUT BID 08/04/15 [History] Nystatin [Nystatin Crm] 1 applic TOP BID 08/04/15 [History] Cyclobenzaprine [Flexeril] 10 mg PO TID PRN 01/18/16 [History] Metoprolol Tartrate 75 mg PO BID 06/01/17 [History] Omeprazole 20 mg PO DAILY 06/01/17 [History] Pantoprazole [ProTONIX] 40 mg PO DAILY 06/01/17 [History] Valsartan 320 mg PO DAILY 06/01/17 [History] Past Medical History HEENT History: Reports: None Other HEENT History: ears are partly plugged Cardiovascular History: Reports: CAD, Heart Failure, High Cholesterol, Hypertension, [place], Pacemaker, SOB on Exertion Respiratory History: Reports: Sleep Apnea Other Respiratory History: Pt wears CPAP machine at night, O2 at night PRN Gastrointestinal History: Reports: GERD Other Gastrointestinal History: ELEVATED LIVER ENZYMES & FATTY LIVER Genitourinary History: Reports: None Musculoskeletal History: Reports: Arthritis, Fracture Other Musculoskeletal History: disk out for last 3 years; LEFT ANKLE FRACTURE Neurological History: Reports: None Psychiatric History: Reports: None Endocrine/Metabolic History: Reports: Diabetes, Type II, Obesity/BMI 30+ Hematologic History: Reports: None Immunologic History: Reports: None Oncologic (Cancer) History: Reports: Other (See Below) Other Oncologic History: testicular Dermatologic History: Reports: Other (See Below) Other Dermatologic History: from taking insulin shots in abdomen - Infectious Disease History Infectious Disease History: Reports: None Other Infectious Disease History: UNCERTAIN OF HISTORY - Past Surgical History Head Surgeries/Procedures: Reports: None HEENT Surgical History: Reports: Cataract Surgery Neurological Surgical History: Reports: None Social & Family History - Family History Cardiac: Reports: Afib, CAD, Heart Failure, High Cholesterol, Hypertension, [place], Stent Respiratory: Reports: COPD Endocrine/Metabolic: Reports: Obesity/MBI 30+ - Tobacco Use Smoking Status *Q: Never Smoker Second Hand Smoke Exposure: No - Caffeine Use Caffeine Use: Reports: None Other Caffeine Use: RARELY USES - Recreational Drug Use Recreational Drug Use: No - Living Situation & Occupation Living situation: Reports: Single, with Family Occupation: Employed ED ROS GENERAL - Review of Systems Review Of Systems: ROS reveals no pertinent complaints other than HPI. ED EXAM,LOWER BACK PAIN/INJURY - Physical Exam Exam: See Below Exam Limited By: No Limitations General Appearance: Alert, WD/WN, Mild Distress Eye Exam: Bilateral Eye: EOMI, Normal Inspection, PERRL Ears: Normal External Exam, Normal Canal, Hearing Grossly Normal, Normal TMs Nose: Normal Inspection, Normal Mucosa, No Blood Throat/Mouth: Normal Inspection, Normal Lips, Normal Teeth, Normal Gums, Normal Oropharynx, Normal Voice, No Airway Compromise Head: Atraumatic, Normocephalic Neck: Normal Inspection, Supple, Non-Tender, Full Range of Motion Respiratory/Chest: No Respiratory Distress, Lungs Clear, Normal Breath Sounds, No Accessory Muscle Use, Chest Non-Tender Cardiovascular: Normal Peripheral Pulses, Regular Rate, Rhythm, No Edema, No Gallop, No JVD, No Murmur, No Rub GI/Abdominal: Normal Bowel Sounds, Soft, Non-Tender, No Organomegaly, No Distention, No Abnormal Bruit, No Mass (Male) Exam: Deferred Rectal (Males) Exam: Deferred Back Exam: Paraspinal Tenderness (right lower back ) Extremities: Normal Inspection, Normal Range of Motion, Non-Tender, No Pedal Edema, Normal Capillary Refill Neurological: Alert, Normal Mood/Affect, Normal Dorsiflexion, CN II-XII Intact, Normal Plantar Flexion, Normal Gait, Normal Reflexes, No Motor/Sensory Deficits , Oriented x 3 Psychiatric: Normal Affect, Normal Mood Skin Exam: Warm, Dry, Intact, Normal Color, No Rash Lymphatic: No Adenopathy Course - Vital Signs Last Recorded V/S: Last Vital Signs Temp 36.6 C 01/05/19 10:09 Pulse 65 01/05/19 10:09 Resp 18 01/05/19 10:09 BP 101/46 L 01/05/19 10:09 Pulse Ox 97 01/05/19 10:09 - Orders/Labs/Meds Orders: Active Orders 24 hr Category Date Time Status Ketorolac [Toradol] Med 01/05/19 10:42 Once 30 mg IM ONETIME ONE Medication Orders Ketorolac Tromethamine (Toradol) 30 mg IM ONETIME ONE Stop: 01/05/19 10:43 Meds: Medications Generic Name Dose Route Start Last Admin Trade Name Freq PRN Reason Stop Dose Admin Ketorolac Tromethamine 30 mg 01/05/19 10:42 Toradol IM 01/05/19 10:43 ONETIME ONE Departure - Departure Time of Disposition: 10:46 Disposition: Home, Self-Care 01 Condition: Fair Clinical Impression: Low back pain Qualifiers: Chronicity: acute Back pain laterality: right Sciatica presence: with sciatica Sciatica laterality: sciatica of right side Qualified Code(s): M54.41 - Lumbago with sciatica, right side - Discharge Information *PRESCRIPTION DRUG MONITORING PROGRAM REVIEWED*: Not Applicable *COPY OF PRESCRIPTION DRUG MONITORING REPORT IN PATIENT NASIR: Not Applicable Instructions: Back Pain, Adult, [id number] Care Plan Goals: The patient was advised of the examination results during the visit. The patient was given an injection of Toradol while in the ED. The patient was encouraged to follow-up with his primary care facility for continued evaluation and management. If the patient has any additional symptoms or concerns at this time. If the patient has any additional symptoms or concerns, the patient should either return to the emergency department or visit his primary care facility. - My Orders Last 24 Hours: My Active Orders 01/05/19 10:42 Ketorolac [Toradol] 30 mg IM ONETIME ONE - Assessment/Plan Last 24 Hours: My Active Orders 01/05/19 10:42 Ketorolac [Toradol] 30 mg IM ONETIME ONE
== END 2019-01-05 10:58 | disposition home or self-care (01) ==
LOC: DL.ED 09:59
DX: M54.41 Lumbago with sciatica, right side (principal); I11.0 Hypertensive heart disease with heart failure; I50.9 Heart failure, unspecified; I25.2 Old myocardial infarction; E78.00 Pure hypercholesterolemia, unspecified; K21.9 Gastro-esophageal reflux disease without esophagitis; E11.9 Type 2 diabetes mellitus without complications; Z79.4 Long term (current) use of insulin; Z79.82 Long term (current) use of aspirin; Z79.899 Other long term (current) drug therapy; Z88.8 Allergy status to other drugs, medicaments and biological substances
CPT/HCPCS: 96372; 99283; J1885

== ENCOUNTER 2019-04-02 08:08 | Emergency (ER) | payer MEDICARE, BC ==
[2019-04-02 08:17] VITALS: BP 105/66
--- NOTE | 2019-04-02 08:19 | EDM.PDOC ---
ED HPI GENERAL MEDICAL PROBLEM - General Chief Complaint: Back Pain or Injury Stated Complaint: back is out Time Seen by Provider: 04/02/19 08:18 Source of Information: Reports: Patient, RN, RN Notes Reviewed History Limitations: Reports: No Limitations, Physical Impairment (pt refuses to get out of wheelchair to the bed due to pain) - History of Present Illness INITIAL COMMENTS - FREE TEXT/NARRATIVE: Pt to ER with c/o low back pain. States he "threw his back out" yesterday while getting out of bed. States he has been using pain pills at home, which he cannot remember the name of. States this helps minimally. Patient denies trauma. Admits to weakness and severe pain in the left flank/hip area with standing. States he is fine if sitting or lying. Denies numbness or tingling, shooting pains down the leg/s. Onset: Sudden Onset Date: 04/01/19 Duration: Constant, Getting Worse Location: Reports: Back Quality: Reports: Stabbing, Throbbing Severity: Moderate Improves with: Reports: None Worsens with: Reports: None Associated Symptoms: Reports: Weakness Right Lower Back Pain Score (Numeric/FACES): 10 - Related Data Allergies Allergy/AdvReac Type Severity Reaction Status Date / Time sitagliptin Allergy Cannot Verified 04/02/19 08:13 Remember lisinopril AdvReac Mild Cough Verified 04/02/19 08:13 Home Meds: Home Meds Amiodarone HCl 200 mg PO BID 12/12/14 [History] Digoxin 0.125 mg PO DAILY 12/12/14 [History] Furosemide 40 mg PO BID 12/12/14 [History] Liraglutide [Victoza] 1.8 mg SUBCUT DAILY 12/12/14 [History] dilTIAZem HCl [Diltiazem 24Hr ER (Cd)] 240 mg PO DAILY 12/12/14 [History] Ammonium Lactate [Lac-Hydrin 12% Crm] 1 applic TOP ASDIRECTED PRN 08/04/15 [ History] Aspirin [Halfprin] 81 mg PO BRK 08/04/15 [History] Clobetasol [Temovate 0.05% Oint] 1 applic TOP BID 08/04/15 [History] Insulin Aspart [NovoLOG] 41 unit SUBCUT BID 08/04/15 [History] Nystatin [Nystatin Crm] 1 applic TOP BID 08/04/15 [History] Cyclobenzaprine [Flexeril] 10 mg PO TID PRN 01/18/16 [History] Metoprolol Tartrate 75 mg PO BID 06/01/17 [History] Omeprazole 20 mg PO DAILY 06/01/17 [History] Pantoprazole [ProTONIX] 40 mg PO DAILY 06/01/17 [History] Valsartan 320 mg PO DAILY 06/01/17 [History] Past Medical History HEENT History: Reports: None Other HEENT History: ears are partly plugged Cardiovascular History: Reports: CAD, Heart Failure, High Cholesterol, Hypertension, [place], Pacemaker, SOB on Exertion Respiratory History: Reports: Sleep Apnea Other Respiratory History: Pt wears CPAP machine at night, O2 at night PRN Gastrointestinal History: Reports: GERD Other Gastrointestinal History: ELEVATED LIVER ENZYMES & FATTY LIVER Genitourinary History: Reports: None Musculoskeletal History: Reports: Arthritis, Fracture Other Musculoskeletal History: disk out for last 3 years; LEFT ANKLE FRACTURE Neurological History: Reports: None Psychiatric History: Reports: None Endocrine/Metabolic History: Reports: Diabetes, Type II, Obesity/BMI 30+ Hematologic History: Reports: None Immunologic History: Reports: None Oncologic (Cancer) History: Reports: Other (See Below) Other Oncologic History: testicular Dermatologic History: Reports: Other (See Below) Other Dermatologic History: from taking insulin shots in abdomen - Infectious Disease History Infectious Disease History: Reports: None Other Infectious Disease History: UNCERTAIN OF HISTORY - Past Surgical History Head Surgeries/Procedures: Reports: None HEENT Surgical History: Reports: Cataract Surgery Neurological Surgical History: Reports: None Social & Family History - Family History Cardiac: Reports: Afib, CAD, Heart Failure, High Cholesterol, Hypertension, [place], Stent Respiratory: Reports: COPD Endocrine/Metabolic: Reports: Obesity/MBI 30+ - Tobacco Use Smoking Status *Q: Never Smoker - Caffeine Use Caffeine Use: Reports: None Other Caffeine Use: RARELY USES - Recreational Drug Use Recreational Drug Use: No - Living Situation & Occupation Living situation: Reports: Single, with Family Occupation: Employed ED ROS GENERAL - Review of Systems Review Of Systems: ROS reveals no pertinent complaints other than HPI. ED EXAM,LOWER BACK PAIN/INJURY - Physical Exam Exam: See Below Exam Limited By: No Limitations General Appearance: Alert, WD/WN, Moderate Distress Eye Exam: Bilateral Eye: EOMI, Normal Inspection Ears: Normal External Exam, Hearing Grossly Normal Nose: Normal Inspection Throat/Mouth: Normal Inspection, Normal Voice, No Airway Compromise Head: Atraumatic, Normocephalic Neck: Normal Inspection, Supple, Non-Tender, Full Range of Motion Respiratory/Chest: No Respiratory Distress, Lungs Clear, Normal Breath Sounds, No Accessory Muscle Use, Chest Non-Tender Cardiovascular: Normal Peripheral Pulses, Regular Rate, Rhythm, No Edema, No Gallop, No JVD, No Murmur, No Rub GI/Abdominal: Normal Bowel Sounds, Soft, Non-Tender, No Distention (Male) Exam: Deferred Rectal (Males) Exam: Deferred Back Exam: Normal Inspection, Decreased Range of Motion, Muscle Spasm Extremities: Normal Inspection, Non-Tender, Limited Range of Motion (legs) Neurological: Alert, Normal Mood/Affect, No Motor/Sensory Deficits, Oriented x 3 , Difficulty Walking (weakness with walking) Psychiatric: Normal Affect, Normal Mood Skin Exam: Warm, Dry, Intact, Normal Color, No Rash Lymphatic: No Adenopathy Course - Vital Signs Last Recorded V/S: Last Vital Signs Temp 97.6 F 04/02/19 08:16 Pulse 81 04/02/19 08:16 Resp 18 04/02/19 08:16 BP 105/66 04/02/19 08:16 Pulse Ox 98 04/02/19 08:16 - Orders/Labs/Meds Meds: Medications Discontinued Medications Generic Name Dose Route Start Last Admin Trade Name Jgq PRN Reason Stop Dose Admin Ketorolac Tromethamine 60 mg 04/02/19 08:22 04/02/19 08:32 Toradol IM 04/02/19 08:23 60 mg ONETIME ONE Administration Methylprednisolone Sodium Succinate 125 mg 04/02/19 08:22 04/02/19 08:33 Solu-Medrol IM 04/02/19 08:23 125 mg ONETIME ONE Administration Orphenadrine Citrate 60 mg 04/02/19 08:30 Norflex IM Q12H GLADYS Orphenadrine Citrate 60 mg 04/02/19 08:28 04/02/19 08:33 Norflex IM 04/02/19 08:29 60 mg ONETIME ONE Administration - Re-Assessments/Exams Free Text/Narrative Re-Assessment/Exam: 04/02/19 09:16 Patient states improvement of pain after medications given. Departure - Departure Time of Disposition: 09:02 Disposition: Home, Self-Care 01 Condition: Fair Clinical Impression: Muscle spasm Back pain Qualifiers: Back pain location: low back pain Chronicity: acute Back pain laterality: right Sciatica presence: without sciatica Qualified Code(s): M54.5 - Low back pain - Discharge Information *PRESCRIPTION DRUG MONITORING PROGRAM REVIEWED*: No *COPY OF PRESCRIPTION DRUG MONITORING REPORT IN PATIENT NASIR: No Instructions: Back Injury Prevention, [id number], Muscle Strain, [id number] , Back Exercises, [id number], Chronic Back Pain, [id number], Heat Therapy, Plbn-op-[id number] Forms: ED Department Discharge Additional Instructions: May use heat to the back as tolerated May use already prescribed muscle relaxers as directed May use Tylenol as directed for pain Rest Follow up with your primary care facility as necessary
[2019-04-02] MEDS ORDERED: Ketorolac 30 MG/ML SDV IM ONE (08:22)
[2019-04-02] MEDS ORDERED: methylPREDNISolone Sodium Succinate 125 MG/2 ML SDV IM ONE (08:22)
== END 2019-04-02 09:10 | disposition home or self-care (01) ==
LOC: DL.ED 08:08
DX: M54.5 Low back pain (principal); M62.830 Muscle spasm of back; I11.0 Hypertensive heart disease with heart failure; I50.9 Heart failure, unspecified; I25.10 Atherosclerotic heart disease of native coronary artery without angina pectoris; E11.9 Type 2 diabetes mellitus without complications; Z79.899 Other long term (current) drug therapy
CPT/HCPCS: 96372; 99283; J1885; J2360; J2930

== ENCOUNTER 2019-04-04 15:27 | Emergency (ER) | payer MEDICARE, BC ==
[2019-04-04 17:49] VITALS: BP 99/57
--- NOTE | 2019-04-04 17:50 | EDM.PDOC ---
Scribed by Merle Weston 04/04/19 [id number] for Álvaro Henry PA ED HPI GENERAL MEDICAL PROBLEM - General Chief Complaint: General Stated Complaint: PASSED OUT Time Seen by Provider: 04/04/19 15:45 Source of Information: Reports: Patient, RN, RN Notes Reviewed History Limitations: Reports: No Limitations - History of Present Illness INITIAL COMMENTS - FREE TEXT/NARRATIVE: Patient is a 59-year-old male who passed out this a.m. He fell to the floor. He has increased tiredness and weakness. His paemaker is regular and was checked 2 months ago. Onset: Today Duration: Constant Location: Reports: Generalized Severity: Moderate Improves with: Reports: None Worsens with: Reports: None Associated Symptoms: Reports: No Other Symptoms - Related Data Allergies Allergy/AdvReac Type Severity Reaction Status Date / Time sitagliptin Allergy Cannot Verified 04/04/19 15:39 Remember lisinopril AdvReac Mild Cough Verified 04/04/19 15:39 Home Meds: Home Meds Amiodarone HCl 200 mg PO BID 12/12/14 [History] Digoxin 0.125 mg PO DAILY 12/12/14 [History] Furosemide 40 mg PO BID 12/12/14 [History] Liraglutide [Victoza] 1.8 mg SUBCUT DAILY 12/12/14 [History] dilTIAZem HCl [Diltiazem 24Hr ER (Cd)] 240 mg PO DAILY 12/12/14 [History] Ammonium Lactate [Lac-Hydrin 12% Crm] 1 applic TOP ASDIRECTED PRN 08/04/15 [ History] Aspirin [Halfprin] 81 mg PO BRK 08/04/15 [History] Clobetasol [Temovate 0.05% Oint] 1 applic TOP BID PRN 08/04/15 [History] Insulin Aspart [NovoLOG] 41 unit SUBCUT BID 08/04/15 [History] Nystatin [Nystatin Crm] 1 applic TOP BID PRN 08/04/15 [History] Cyclobenzaprine [Flexeril] 10 mg PO TID PRN 01/18/16 [History] Omeprazole 20 mg PO DAILY 06/01/17 [History] Valsartan 320 mg PO DAILY 06/01/17 [History] Hydrocodone/Acetaminophen [Hydrocodon-Acetaminophn 10-325] 1 tab PO ASDIRECTED PRN 04/04/19 [History] Irbesartan 150 mg PO DAILY 04/04/19 [History] Levothyroxine 75 mcg PO DAILY 04/04/19 [History] Warfarin Sodium 3 mg PO ASDIRECTED 04/04/19 [History] atorvaSTATin Calcium [Atorvastatin Calcium] 20 mg PO DAILY 04/04/19 [History] Past Medical History HEENT History: Reports: None Other HEENT History: ears are partly plugged Cardiovascular History: Reports: CAD, Heart Failure, High Cholesterol, Hypertension, [place], Pacemaker, SOB on Exertion Respiratory History: Reports: Sleep Apnea Other Respiratory History: Pt wears CPAP machine at night, O2 at night PRN Gastrointestinal History: Reports: GERD Other Gastrointestinal History: ELEVATED LIVER ENZYMES & FATTY LIVER Genitourinary History: Reports: None Musculoskeletal History: Reports: Arthritis, Fracture Other Musculoskeletal History: disk out for last 3 years; LEFT ANKLE FRACTURE Neurological History: Reports: None Psychiatric History: Reports: None Endocrine/Metabolic History: Reports: Diabetes, Type II, Obesity/BMI 30+ Hematologic History: Reports: None Immunologic History: Reports: None Oncologic (Cancer) History: Reports: Other (See Below) Other Oncologic History: testicular Dermatologic History: Reports: Other (See Below) Other Dermatologic History: from taking insulin shots in abdomen - Infectious Disease History Infectious Disease History: Reports: None Other Infectious Disease History: UNCERTAIN OF HISTORY - Past Surgical History Head Surgeries/Procedures: Reports: None HEENT Surgical History: Reports: Cataract Surgery Neurological Surgical History: Reports: None Social & Family History - Family History Family Medical History: Noncontributory Cardiac: Reports: Afib, CAD, Heart Failure, High Cholesterol, Hypertension, [place], Stent Respiratory: Reports: COPD Endocrine/Metabolic: Reports: Obesity/MBI 30+ - Caffeine Use Caffeine Use: Reports: None Other Caffeine Use: RARELY USES - Living Situation & Occupation Living situation: Reports: Single, with Family Occupation: Employed ED ROS GENERAL - Review of Systems Review Of Systems: ROS reveals no pertinent complaints other than HPI. ED EXAM, GENERAL - Physical Exam Exam: See Below Exam Limited By: No Limitations General Appearance: Alert, WD/WN, No Apparent Distress Eye Exam: Bilateral Eye: EOMI, Normal Inspection, PERRL Ears: Normal External Exam, Normal Canal, Hearing Grossly Normal, Normal TMs Nose: Normal Inspection, Normal Mucosa, No Blood Throat/Mouth: Normal Inspection, Normal Lips, Normal Teeth, Normal Gums, Normal Oropharynx, Normal Voice, No Airway Compromise Head: Atraumatic, Normocephalic Neck: Normal Inspection, Supple, Non-Tender, Full Range of Motion Respiratory/Chest: No Respiratory Distress, Lungs Clear, Normal Breath Sounds, No Accessory Muscle Use, Chest Non-Tender Cardiovascular: Irregularly Irregular GI/Abdominal: Other (obese) (Male) Exam: Deferred Rectal (Males) Exam: Deferred Back Exam: Normal Inspection, Full Range of Motion, NT Extremities: Normal Inspection, Normal Range of Motion, Non-Tender, Normal Capillary Refill, No Pedal Edema Neurological: Alert, Oriented, CN II-XII Intact, Normal Cognition, Normal Gait, Normal Reflexes, No Motor/Sensory Deficits Psychiatric: Normal Affect, Normal Mood Skin Exam: Other (moderate pedal edema) Lymphatic: No Adenopathy Course - Vital Signs Last Recorded V/S: Last Vital Signs Temp 36.2 C 04/04/19 15:32 Pulse 83 04/04/19 15:32 Resp 27 H 04/04/19 15:32 BP 90/44 L 04/04/19 15:32 Pulse Ox 96 04/04/19 15:32 - Orders/Labs/Meds Orders: Active Orders 24 hr Category Date Time Status EKG Documentation Completion [RC] URGENT Care 04/04/19 15:52 Active Chest 1V Frontal [CR] Urgent Exams 04/04/19 15:52 Taken Labs: Laboratory Tests 04/04/19 04/04/19 04/04/19 Range/Units 15:58 15:58 15:58 WBC 8.6 (5.0-10.0) 10^3/uL RBC 5.28 (4.6-6.2) 10^6/uL Hgb 16.2 (14.0-18.0) g/dL Hct 49.9 (40.0-54.0) % MCV 94.5 (80-100) fL MCH 30.7 (27.0-34.0) pg MCHC 32.5 L (33.0-35.0) g/dL Plt Count 196 (150-450) 10^3/uL Neut % (Auto) 68.1 (42.2-75.2) % Lymph % (Auto) 18.4 L (20.5-50.1) % [place] % (Auto) 11.9 H (2-8) % Eos % (Auto) 1.3 (1.0-3.0) % Baso % (Auto) 0.3 (0.0-1.0) % PT 38.3 H D (9.0-12.0) SEC INR 4.0 H (0.9-1.2) Sodium 141 (135-145) mmol/L Potassium 4.0 (3.6-5.0) mmol/L Chloride 107 (101-111) mmol/L Carbon Dioxide 23.0 (21.0-31.0) mmol/L Anion Gap 15.0 BUN 74 H D (7-18) mg/dL Creatinine 1.3 (0.6-1.3) mg/dL Est Cr Clr Drug Dosing 55.21 mL/min Estimated GFR (MDRD) 57 BUN/Creatinine Ratio 56.92 Glucose 116 H (74-105) mg/dL Calcium 8.6 (8.4-10.2) mg/dl Total Bilirubin 0.6 (0.2-1.0) mg/dL AST 20 (10-42) IU/L ALT 27 (10-60) IU/L Alkaline Phosphatase 75 (42-121) IU/L Troponin I 0.02 (0.00-0.02) ng/ml Total Protein 7.5 (6.7-8.2) g/dl Albumin 3.7 (3.2-5.5) g/dl Globulin 3.8 Albumin/Globulin Ratio 0.97 Urine Color (YELLOW) Urine Appearance (CLEAR) Urine pH (5.0-9.0) Ur Specific [place] (1.005-1.030) Urine Protein (NEGATIVE) Urine Glucose (UA) (NEGATIVE) Urine Ketones (NEGATIVE) Urine Occult Blood (NEGATIVE) Urine Nitrite (NEGATIVE) Urine Bilirubin (NEGATIVE) Urine Urobilinogen (0.2-1.0) mg/dL Ur Leukocyte Esterase (NEGATIVE) Urine RBC /HPF Urine WBC (0-5/HPF) /HPF Ur Epithelial Cells (NOT SEEN) /HPF Urine Bacteria (0-FEW/HPF) /HPF 04/04/19 Range/Units 16:36 WBC (5.0-10.0) 10^3/uL RBC (4.6-6.2) 10^6/uL Hgb (14.0-18.0) g/dL Hct (40.0-54.0) % MCV (80-100) fL MCH (27.0-34.0) pg MCHC (33.0-35.0) g/dL Plt Count (150-450) 10^3/uL Neut % (Auto) (42.2-75.2) % Lymph % (Auto) (20.5-50.1) % [place] % (Auto) (2-8) % Eos % (Auto) (1.0-3.0) % Baso % (Auto) (0.0-1.0) % PT (9.0-12.0) SEC INR (0.9-1.2) Sodium (135-145) mmol/L Potassium (3.6-5.0) mmol/L Chloride (101-111) mmol/L Carbon Dioxide (21.0-31.0) mmol/L Anion Gap BUN (7-18) mg/dL Creatinine (0.6-1.3) mg/dL Est Cr Clr Drug Dosing mL/min Estimated GFR (MDRD) BUN/Creatinine Ratio Glucose (74-105) mg/dL Calcium (8.4-10.2) mg/dl Total Bilirubin (0.2-1.0) mg/dL AST (10-42) IU/L ALT (10-60) IU/L Alkaline Phosphatase (42-121) IU/L Troponin I (0.00-0.02) ng/ml Total Protein (6.7-8.2) g/dl Albumin (3.2-5.5) g/dl Globulin Albumin/Globulin Ratio Urine Color Yellow (YELLOW) Urine Appearance Clear (CLEAR) Urine pH 6.0 (5.0-9.0) Ur Specific [place] 1.015 (1.005-1.030) Urine Protein Negative (NEGATIVE) Urine Glucose (UA) Negative (NEGATIVE) Urine Ketones Negative (NEGATIVE) Urine Occult Blood Trace-lysed H (NEGATIVE) Urine Nitrite Negative (NEGATIVE) Urine Bilirubin Negative (NEGATIVE) Urine Urobilinogen 0.2 (0.2-1.0) mg/dL Ur Leukocyte Esterase Negative (NEGATIVE) Urine RBC 0-5 /HPF Urine WBC Not seen (0-5/HPF) /HPF Ur Epithelial Cells Rare (NOT SEEN) /HPF Urine Bacteria Rare (0-FEW/HPF) /HPF Departure - Departure Time of Disposition: 17:46 Disposition: Home, Self-Care 01 Condition: Good Clinical Impression: Generalized weakness Syncope Qualifiers: Syncope type: unspecified Qualified Code(s): R55 - Syncope and collapse - Discharge Information *PRESCRIPTION DRUG MONITORING PROGRAM REVIEWED*: Not Applicable *COPY OF PRESCRIPTION DRUG MONITORING REPORT IN PATIENT NASIR: Not Applicable Instructions: Weakness, [id number], Syncope, [id number] Forms: ED Department Discharge Care Plan Goals: The patient was advised of the examination, lab, EKG and x-ray results during the visit. The patient was encouraged to drink plenty of fluids and take it easy for the remainder of the day. The patient was encouraged to follow his primary care providers instructions for his medications. As the patient's blood was thin during the visit, the patient should not take his Coumadin in the morning. The patient is scheduled to have his INR checked in the morning and should follow instructions of his provider. If the patient has any additional symptoms or concerns, the patient should visit his primary care facility or return to the emergency department. - My Orders Last 24 Hours: My Active Orders 04/04/19 15:52 EKG Documentation Completion [RC] URGENT Chest 1V Frontal [CR] Urgent - Assessment/Plan Last 24 Hours: My Active Orders 04/04/19 15:52 EKG Documentation Completion [RC] URGENT Chest 1V Frontal [CR] Urgent I have read and agree with the documentation that has been completed regarding this visit. By signing this record, I attest that the documentation was completed in my physical presence and is an accurate record of the encounter.
== END 2019-04-04 17:47 | disposition home or self-care (01) ==
LOC: DL.ED 15:27
DX: R55 Syncope and collapse (principal); I11.0 Hypertensive heart disease with heart failure; I50.9 Heart failure, unspecified; E11.9 Type 2 diabetes mellitus without complications; E66.9 Obesity, unspecified; M19.90 Unspecified osteoarthritis, unspecified site; I25.2 Old myocardial infarction; Z95.0 Presence of cardiac pacemaker; I25.10 Atherosclerotic heart disease of native coronary artery without angina pectoris; K21.9 Gastro-esophageal reflux disease without esophagitis; Z79.82 Long term (current) use of aspirin; Z98.49 Cataract extraction status, unspecified eye; Z79.899 Other long term (current) drug therapy; Z79.4 Long term (current) use of insulin; Z79.01 Long term (current) use of anticoagulants; Z88.8 Allergy status to other drugs, medicaments and biological substances
CPT/HCPCS: 36415; 71045; 80053; 81001; 84484; 85025; 85610; 93005; 99285-25

== ENCOUNTER 2019-10-05 07:06 | Emergency (ER) | payer MEDICARE, BC ==
[2019-10-05] MEDS ORDERED: Sodium Chloride 0.9% 10 ML Syringe FLUSH PRN (07:16)
[2019-10-05 07:29] VITALS: BP 111/79; PULSE 110
--- NOTE | 2019-10-05 07:41 | EDM.PDOC ---
ED HPI GENERAL MEDICAL PROBLEM - General Chief Complaint: Respiratory Problem Stated Complaint: HARD TIME BREATHING Time Seen by Provider: 10/05/19 07:40 Source of Information: Reports: Patient History Limitations: Reports: No Limitations - History of Present Illness INITIAL COMMENTS - FREE TEXT/NARRATIVE: patient presents to ER with complaint of increasing shortness of breath. Patient states he has been somewhat short of breath for the past week, was seen in the clinic and given Lasix. He thought that did help for a while, but the shortness of breath continued to increase. Patient states he was nearly unable to walk down the [place] in his house this morning. Patient denies any pain including chest pain. Denies cough, recent illness, fever or chills, nausea, vomiting, diarrhea. Patient states he is on Coumadin and has a history of atrial fibrillation as well as a pacemaker. Patient admits to diabetes. Patient denies smoking. Onset: Gradual Duration: Constant, Getting Worse, Heavy - Related Data Allergies Allergy/AdvReac Type Severity Reaction Status Date / Time sitagliptin Allergy Cannot Verified 04/27/19 23:15 Remember lisinopril AdvReac Mild Cough Verified 04/27/19 23:15 Home Meds: Home Meds Amiodarone HCl 200 mg PO BID 12/12/14 [History] Digoxin 0.125 mg PO DAILY 12/12/14 [History] Furosemide 40 mg PO BID 12/12/14 [History] Liraglutide [Victoza] 1.8 mg SUBCUT DAILY 12/12/14 [History] dilTIAZem HCl [Diltiazem 24Hr ER (Cd)] 240 mg PO DAILY 12/12/14 [History] Ammonium Lactate [Lac-Hydrin 12% Crm] 1 applic TOP ASDIRECTED PRN 08/04/15 [ History] Aspirin [Halfprin] 81 mg PO BRK 08/04/15 [History] Clobetasol [Temovate 0.05% Oint] 1 applic TOP BID PRN 08/04/15 [History] Insulin Aspart [NovoLOG] 41 unit SUBCUT BID 08/04/15 [History] Nystatin [Nystatin Crm] 1 applic TOP BID PRN 08/04/15 [History] Cyclobenzaprine [Flexeril] 10 mg PO TID PRN 01/18/16 [History] Omeprazole 20 mg PO DAILY 08/15/17 [History] Valsartan 320 mg PO DAILY 06/01/17 [History] Hydrocodone/Acetaminophen [Hydrocodon-Acetaminophn 10-325] 1 tab PO ASDIRECTED PRN 04/04/19 [History] Irbesartan 150 mg PO DAILY 04/04/19 [History] Levothyroxine 75 mcg PO DAILY 04/04/19 [History] Warfarin Sodium 3 mg PO ASDIRECTED 04/04/19 [History] atorvaSTATin Calcium [Atorvastatin Calcium] 20 mg PO DAILY 04/04/19 [History] Past Medical History HEENT History: Reports: None Other HEENT History: ears are partly plugged Cardiovascular History: Reports: CAD, Heart Failure, High Cholesterol, Hypertension, [place], Pacemaker, SOB on Exertion Respiratory History: Reports: Sleep Apnea Other Respiratory History: Pt wears CPAP machine at night, O2 at night PRN Gastrointestinal History: Reports: GERD Other Gastrointestinal History: ELEVATED LIVER ENZYMES & FATTY LIVER Genitourinary History: Reports: None Musculoskeletal History: Reports: Arthritis, Fracture Other Musculoskeletal History: disk out for last 3 years; LEFT ANKLE FRACTURE Neurological History: Reports: None Psychiatric History: Reports: None Endocrine/Metabolic History: Reports: Diabetes, Type II, Obesity/BMI 30+ Hematologic History: Reports: None Immunologic History: Reports: None Oncologic (Cancer) History: Reports: Other (See Below) Other Oncologic History: testicular Dermatologic History: Reports: Other (See Below) Other Dermatologic History: from taking insulin shots in abdomen - Infectious Disease History Infectious Disease History: Reports: None Other Infectious Disease History: UNCERTAIN OF HISTORY - Past Surgical History Head Surgeries/Procedures: Reports: None HEENT Surgical History: Reports: Cataract Surgery Neurological Surgical History: Reports: None Social & Family History - Family History Family Medical History: Noncontributory Cardiac: Reports: Afib, CAD, Heart Failure, High Cholesterol, Hypertension, [place], Stent Respiratory: Reports: COPD Endocrine/Metabolic: Reports: Obesity/MBI 30+ - Caffeine Use Caffeine Use: Reports: None Other Caffeine Use: RARELY USES - Living Situation & Occupation Living situation: Reports: Single, with Family Occupation: Employed ED ROS GENERAL - Review of Systems Review Of Systems: Comprehensive ROS is negative, except as noted in HPI. ED EXAM, GENERAL - Physical Exam Exam: See Below Exam Limited By: No Limitations General Appearance: Alert, WD/WN, Mild Distress Eye Exam: Bilateral Eye: EOMI, Normal Inspection Ears: Normal External Exam, Hearing Grossly Normal Nose: Normal Inspection Throat/Mouth: Normal Inspection, Normal Voice, No Airway Compromise Head: Atraumatic, Normocephalic Neck: Normal Inspection, Supple, Non-Tender, Full Range of Motion Respiratory/Chest: No Respiratory Distress, No Accessory Muscle Use, Chest Non- Tender, Crackles (bases bilaterally) Cardiovascular: Normal Peripheral Pulses, No Gallop, No JVD, No Murmur, No Rub, Irregularly Irregular Peripheral Pulses: 2+: Radial (L), Radial (R) GI/Abdominal: Normal Bowel Sounds, Soft, Non-Tender (Male) Exam: Deferred Rectal (Males) Exam: Deferred Back Exam: Normal Inspection, Decreased Range of Motion Extremities: Normal Inspection, Normal Range of Motion, Non-Tender, Normal Capillary Refill, Pedal Edema (minimal edema to the ankles and feet) Neurological: Alert, Oriented, CN II-XII Intact, Normal Cognition, Normal Reflexes, No Motor/Sensory Deficits Psychiatric: Normal Affect, Normal Mood Skin Exam: Warm, Dry (very dry, scaly), Intact, Normal Color, No Rash Lymphatic: No Adenopathy Course - Vital Signs Last Recorded V/S: Last Vital Signs Temp 97.9 F 10/05/19 07:21 Pulse 110 H 10/05/19 07:21 Resp 18 10/05/19 07:21 BP 111/79 10/05/19 07:21 Pulse Ox 95 10/05/19 07:21 - Orders/Labs/Meds Orders: Active Orders 24 hr Category Date Time Status EKG Documentation Completion [RC] STAT Care 10/05/19 07:16 Active Peripheral IV Care [RC] . DIRECTED Care 10/05/19 07:17 Active Sodium Chloride 0.9% [Saline Flush] Med 10/05/19 07:16 Active 10 ml FLUSH ASDIRECTED PRN Peripheral IV Insertion Adult [OM.PC] Stat Oth 10/05/19 07:16 Ordered Medication Orders Sodium Chloride (Saline Flush) 10 ml FLUSH ASDIRECTED PRN PRN Reason: Keep Vein Open Last Admin: 10/05/19 07:32 Dose: 10 ml Labs: Laboratory Tests 10/05/19 10/05/19 10/05/19 Range/Units 07:30 07:30 07:30 WBC 7.7 (5.0-10.0) 10^3/uL RBC 4.72 (4.6-6.2) 10^6/uL Hgb 14.5 D (14.0-18.0) g/dL Hct 44.4 (40.0-54.0) % MCV 94.1 (80-100) fL MCH 30.7 (27.0-34.0) pg MCHC 32.7 L (33.0-35.0) g/dL Plt Count 165 (150-450) 10^3/uL Neut % (Auto) 75.4 H (42.2-75.2) % Lymph % (Auto) 11.9 L (20.5-50.1) % [place] % (Auto) 9.3 H (2-8) % Eos % (Auto) 2.9 (1.0-3.0) % Baso % (Auto) 0.5 (0.0-1.0) % D-Dimer, Quantitative < 100 (0-400) ng/mL Sodium 141 (135-145) mmol/L Potassium 4.6 (3.6-5.0) mmol/L Chloride 106 (101-111) mmol/L Carbon Dioxide 25.0 (21.0-31.0) mmol/L Anion Gap 14.6 BUN 41 H D (7-18) mg/dL Creatinine 1.1 (0.6-1.3) mg/dL Est Cr Clr Drug Dosing 69.95 mL/min Estimated GFR (MDRD) > 60 BUN/Creatinine Ratio 37.27 Glucose 182 H (74-105) mg/dL Calcium 9.0 (8.4-10.2) mg/dl Total Bilirubin 0.7 (0.2-1.0) mg/dL AST 22 (10-42) IU/L ALT 21 (10-60) IU/L Alkaline Phosphatase 58 (42-121) IU/L Troponin I 0.02 (0.00-0.02) ng/ml B-Natriuretic Peptide 474 H (0-100) pg/ml Total Protein 6.7 (6.7-8.2) g/dl Albumin 3.6 (3.2-5.5) g/dl Globulin 3.1 Albumin/Globulin Ratio 1.16 Meds: Medications Generic Name Dose Route Start Last Admin Trade Name Freq PRN Reason Stop Dose Admin Sodium Chloride 10 ml 10/05/19 07:16 10/05/19 07:32 Saline Flush FLUSH 10 ml ASDIRECTED PRN Administration Keep Vein Open Discontinued Medications Generic Name Dose Route Start Last Admin Trade Name Freq PRN Reason Stop Dose Admin Furosemide 80 mg 10/05/19 08:37 10/05/19 08:52 Lasix IVPUSH 10/05/19 08:38 80 mg NOW ONE Administration - Radiology Interpretation Free Text/Narrative:: chest x-ray: 1. Cardiac pacemaker 2. Chronic cardiomegaly as noted on previous comparison films 04 April 2019 and 24 November 2016 3. New evidence of cardiovascular decompensation i.e. pulmonary vascular congestion, fluid in the fissures and subtle blunting left costophrenic sulcus suggesting small effusion 4. Chronic asymmetric fullness of the right hilum. No new lung mass or hilar lymphadenopathy. 5. No focal lumbar pneumonia Conclusion abnormal. CHF. see radiologist's report - Re-Assessments/Exams Free Text/Narrative Re-Assessment/Exam: 10/05/19 09:19 Discussed patient case with Dr. Beckham, the patients primary care provider. Dr. Beckham who would like the patient to get a course of Augmentin and Medrol Dose pack in addition to the Lasix he was given in the ER. He would like the patient to follow up with him in the clinic next week. Departure - Departure Time of Disposition: 09:20 Disposition: Home, Self-Care 01 Condition: Fair Clinical Impression: Congestive heart failure Qualifiers: Heart failure type: unspecified Heart failure chronicity: acute Qualified Code( s): I50.9 - Heart failure, unspecified - Discharge Information *PRESCRIPTION DRUG MONITORING PROGRAM REVIEWED*: No *COPY OF PRESCRIPTION DRUG MONITORING REPORT IN PATIENT NASIR: No Instructions: Shortness of Breath, Adult, [id number], Heart Failure, Easy-to- Read Forms: ED Department Discharge Additional Instructions: RX: Augmentin, Medrol Dose pack Follow up with Dr. Beckham next week Return to the ER with any further problems. Sepsis Event Note - Evaluation Sepsis Screening Result: No Definite Risk - Focused Exam Vital Signs: Vital Signs Temp Pulse Resp BP Pulse Ox 10/05/19 07:21 97.9 F 110 H 18 111/79 95 Date Exam was Performed: 10/05/19 Time Exam was Performed: 09:19 - My Orders Last 24 Hours: My Active Orders 10/05/19 07:16 EKG Documentation Completion [RC] STAT Sodium Chloride 0.9% [Saline Flush] 10 ml FLUSH ASDIRECTED PRN Peripheral IV Insertion Adult [OM.PC] Stat 10/05/19 07:17 Peripheral IV Care [RC] . DIRECTED - Assessment/Plan Last 24 Hours: My Active Orders 10/05/19 07:16 EKG Documentation Completion [RC] STAT Sodium Chloride 0.9% [Saline Flush] 10 ml FLUSH ASDIRECTED PRN Peripheral IV Insertion Adult [OM.PC] Stat 10/05/19 07:17 Peripheral IV Care [RC] . DIRECTED
[2019-10-05 08:02] LABS: ANION GAP 14.6; CHLORIDE,CL 106 mmol/L (101-111); SODIUM,NA 141 mmol/L (135-145)
--- NOTE | 2019-10-05 08:14 | CR ---
EXAMINATION: Chest 2V SEX: Male AGE: 59 years CLINICAL HISTORY: 59-year-old obese male emergency department with SOB. INTERPRETATION: Evidence of old right chest trauma (rib fractures). 1. Cardiac pacemaker (single lead intact) 2. Chronic cardiomegaly as noted on previous comparison films 04 April 2019 and 24 November 2016. 3. New evidence of cardiovascular decompensation i.e. pulmonary vascular congestion, fluid in the fissures and subtle blunting left costophrenic sulcus suggesting small effusion. BNP? Weight? EKG? 4. Chronic asymmetric fullness of the right hilum. No new lung mass or hilar lymphadenopathy. 5. No focal lobar pneumonia. CONCLUSION: Abnormal. CHF.
[2019-10-05] MEDS ORDERED: Furosemide 40 MG/4 ML VIAL IVPUSH ONE (08:37)
== END 2019-10-05 09:30 | disposition home or self-care (01) ==
LOC: DL.ED 07:06
DX: I11.0 Hypertensive heart disease with heart failure (principal); I50.9 Heart failure, unspecified; E11.9 Type 2 diabetes mellitus without complications; I25.2 Old myocardial infarction; E03.9 Hypothyroidism, unspecified; Z79.899 Other long term (current) drug therapy; Z79.4 Long term (current) use of insulin; Z79.01 Long term (current) use of anticoagulants; Z79.82 Long term (current) use of aspirin; Z88.8 Allergy status to other drugs, medicaments and biological substances
CPT/HCPCS: 36415; 71046; 80053; 83880; 84484; 85025; 85379; 93005; 96374; 99284; 99285-25; J1940

== ENCOUNTER 2019-11-04 14:56 | Inpatient (IN) | payer MEDICARE, BC ==
[2019-11-04] MEDS ORDERED: Sodium Chloride 0.9% 10 ML Syringe FLUSH PRN ×2 (15:02→17:41)
[2019-11-04 16:01] LABS: CHLORIDE,CL 105 mmol/L (101-111); SODIUM,NA 143 mmol/L (135-145)
[2019-11-04] MEDS ORDERED: Furosemide 40 MG/4 ML VIAL IVPUSH ONE (16:25)
[2019-11-04] MEDS ORDERED: cefTRIAXone 1 GM in Sodium Chloride 0.9% 50 ML IV ONE (16:25)
--- NOTE | 2019-11-04 16:48 | EDM.PDOC ---
Scribed by Merle Weston 11/04/19 [id number] for Sherri Moore NP ED HPI GENERAL MEDICAL PROBLEM - General Chief Complaint: Respiratory Problem Stated Complaint: HARD TIME BREATHING Time Seen by Provider: 11/04/19 15:50 Source of Information: Reports: Patient, RN, RN Notes Reviewed History Limitations: Reports: No Limitations - History of Present Illness INITIAL COMMENTS - FREE TEXT/NARRATIVE: Patient presents to ER with complaint of shortness of breath. States has been having difficulty for the past several weeks. During the night the shortness of breath got worse. He states he feels the right side is the worst. He has a cough. No chest pains, recent illness, fever, chills, nausea, vomiting or diarrhea. He takes Lasix 40 mg daily. Onset: Gradual Duration: Getting Worse Location: Reports: Chest Severity: Moderate Improves with: Reports: None Worsens with: Reports: None Associated Symptoms: Reports: No Other Symptoms - Related Data Allergies Allergy/AdvReac Type Severity Reaction Status Date / Time sitagliptin Allergy Cannot Verified 11/04/19 15:03 Remember lisinopril AdvReac Mild Cough Verified 11/04/19 15:03 Home Meds: Home Meds Amiodarone HCl 200 mg PO BID 12/12/14 [History] Digoxin 0.125 mg PO DAILY 12/12/14 [History] Furosemide 40 mg PO BID 12/12/14 [History] Liraglutide [Victoza] 1.8 mg SUBCUT DAILY 12/12/14 [History] dilTIAZem HCl [Diltiazem 24Hr ER (Cd)] 240 mg PO DAILY 12/12/14 [History] Ammonium Lactate [Lac-Hydrin 12% Crm] 1 applic TOP ASDIRECTED PRN 08/04/15 [ History] Aspirin [Halfprin] 81 mg PO BRK 08/04/15 [History] Clobetasol [Temovate 0.05% Oint] 1 applic TOP BID PRN 08/04/15 [History] Insulin Aspart [NovoLOG] 41 unit SUBCUT BID 08/04/15 [History] Nystatin [Nystatin Crm] 1 applic TOP BID PRN 08/04/15 [History] Cyclobenzaprine [Flexeril] 10 mg PO TID PRN 01/18/16 [History] Omeprazole 20 mg PO DAILY 06/01/17 [History] Valsartan 320 mg PO DAILY 06/01/17 [History] Hydrocodone/Acetaminophen [Hydrocodon-Acetaminophn 10-325] 1 tab PO ASDIRECTED PRN 04/04/19 [History] Irbesartan 150 mg PO DAILY 04/04/19 [History] Levothyroxine 75 mcg PO DAILY 04/04/19 [History] Warfarin Sodium 3 mg PO ASDIRECTED 04/04/19 [History] atorvaSTATin Calcium [Atorvastatin Calcium] 20 mg PO DAILY 04/04/19 [History] Past Medical History HEENT History: Reports: None Other HEENT History: ears are partly plugged Cardiovascular History: Reports: Afib, CAD, Heart Failure, High Cholesterol, Hypertension, [place], Pacemaker, SOB on Exertion Respiratory History: Reports: Sleep Apnea Other Respiratory History: Pt wears CPAP machine at night, O2 at night PRN Gastrointestinal History: Reports: GERD Other Gastrointestinal History: ELEVATED LIVER ENZYMES & FATTY LIVER Genitourinary History: Reports: None Musculoskeletal History: Reports: Arthritis, Fracture Other Musculoskeletal History: disk out for last 3 years; LEFT ANKLE FRACTURE Neurological History: Reports: None Psychiatric History: Reports: None Endocrine/Metabolic History: Reports: Diabetes, Type II, Obesity/BMI 30+ Hematologic History: Reports: None Immunologic History: Reports: None Oncologic (Cancer) History: Reports: Other (See Below) Other Oncologic History: testicular Dermatologic History: Reports: Other (See Below) Other Dermatologic History: from taking insulin shots in abdomen - Infectious Disease History Infectious Disease History: Reports: None Other Infectious Disease History: UNCERTAIN OF HISTORY - Past Surgical History Head Surgeries/Procedures: Reports: None HEENT Surgical History: Reports: Cataract Surgery Neurological Surgical History: Reports: None Social & Family History - Family History Family Medical History: Noncontributory Cardiac: Reports: Afib, CAD, Heart Failure, High Cholesterol, Hypertension, [place], Stent Respiratory: Reports: COPD Endocrine/Metabolic: Reports: Obesity/MBI 30+ - Caffeine Use Caffeine Use: Reports: None Other Caffeine Use: RARELY USES - Living Situation & Occupation Living situation: Reports: Single, with Family Occupation: Employed ED ROS GENERAL - Review of Systems Review Of Systems: Comprehensive ROS is negative, except as noted in HPI. ED EXAM, GENERAL - Physical Exam Exam: See Below Exam Limited By: No Limitations General Appearance: Alert, WD/WN, No Apparent Distress Eye Exam: Bilateral Eye: EOMI, Normal Inspection, PERRL Ears: Normal External Exam, Normal Canal, Hearing Grossly Normal, Normal TMs Nose: Normal Inspection, Normal Mucosa, No Blood Throat/Mouth: Normal Inspection, Normal Lips, Normal Teeth, Normal Gums, Normal Oropharynx, Normal Voice, No Airway Compromise Head: Atraumatic, Normocephalic Neck: Normal Inspection, Supple, Non-Tender, Full Range of Motion Respiratory/Chest: Other (diminished breath sounds\) Cardiovascular: Other (irregular A-fib.) GI/Abdominal: Normal Bowel Sounds, Soft, Non-Tender, No Organomegaly, No Distention, No Abnormal Bruit, No Mass (Male) Exam: Deferred Rectal (Males) Exam: Deferred Back Exam: Normal Inspection, Full Range of Motion, NT Extremities: Normal Inspection, Normal Range of Motion, Non-Tender, Normal Capillary Refill, No Pedal Edema Neurological: Alert, Oriented, CN II-XII Intact, Normal Cognition, Normal Gait, Normal Reflexes, No Motor/Sensory Deficits Psychiatric: Normal Affect, Normal Mood Skin Exam: Dry (very) Lymphatic: No Adenopathy Course - Vital Signs Last Recorded V/S: Last Vital Signs Temp 96.4 F 11/04/19 14:57 Pulse 117 H 11/04/19 14:57 Resp 20 11/04/19 14:57 BP 106/77 11/04/19 14:57 Pulse Ox 90 L 11/04/19 14:57 - Orders/Labs/Meds Orders: Active Orders 24 hr Category Date Time Status EKG Documentation Completion [RC] STAT Care 11/04/19 15:02 Active Peripheral IV Care [RC] . DIRECTED Care 11/04/19 15:04 Active CULTURE BLOOD [BC] Stat Lab 11/04/19 16:25 Ordered CULTURE BLOOD [BC] Stat Lab 11/04/19 16:25 Ordered Furosemide [Lasix] Med 11/04/19 16:25 Once 80 mg IVPUSH NOW ONE Sodium Chloride 0.9% [Saline Flush] Med 11/04/19 15:02 Active 10 ml FLUSH ASDIRECTED PRN cefTRIAXone [Rocephin] 1 gm Med 11/04/19 16:25 Ordered Sodium Chloride 0.9% [Normal Saline] 50 ml IV ONETIME Blood Culture x2 Reflex Set [OM.PC] Stat Oth 11/04/19 16:24 Ordered Peripheral IV Insertion Adult [OM.PC] Stat Oth 11/04/19 15:02 Ordered Medication Orders Sodium Chloride (Saline Flush) 10 ml FLUSH ASDIRECTED PRN PRN Reason: Keep Vein Open Labs: Laboratory Tests 11/04/19 11/04/19 11/04/19 Range/Units 15:19 15:19 15:19 WBC 6.3 (5.0-10.0) 10^3/uL RBC 5.11 (4.6-6.2) 10^6/uL Hgb 15.6 (14.0-18.0) g/dL Hct 48.2 (40.0-54.0) % MCV 94.3 (80-100) fL MCH 30.5 (27.0-34.0) pg MCHC 32.4 L (33.0-35.0) g/dL Plt Count 173 (150-450) 10^3/uL Neut % (Auto) 62.1 (42.2-75.2) % Lymph % (Auto) 24.1 (20.5-50.1) % [place] % (Auto) 10.4 H (2-8) % Eos % (Auto) 2.8 (1.0-3.0) % Baso % (Auto) 0.6 (0.0-1.0) % PT 20.6 H D (9.0-12.0) SEC INR 2.1 H (0.9-1.2) Sodium 143 (135-145) mmol/L Potassium 4.0 (3.6-5.0) mmol/L Chloride 105 (101-111) mmol/L Carbon Dioxide 25.0 (21.0-31.0) mmol/L Anion Gap 17.0 BUN 45 H (7-18) mg/dL Creatinine 1.0 (0.6-1.3) mg/dL Est Cr Clr Drug Dosing 76.95 mL/min Estimated GFR (MDRD) > 60 BUN/Creatinine Ratio 45.00 Glucose 154 H (74-105) mg/dL Calcium 8.9 (8.4-10.2) mg/dl Total Bilirubin 0.7 (0.2-1.0) mg/dL AST 21 (10-42) IU/L ALT 20 (10-60) IU/L Alkaline Phosphatase 49 (42-121) IU/L Troponin I 0.02 (0.00-0.02) ng/ml B-Natriuretic Peptide 761 H (0-100) pg/ml Total Protein 7.1 (6.7-8.2) g/dl Albumin 3.6 (3.2-5.5) g/dl Globulin 3.5 Albumin/Globulin Ratio 1.03 Meds: Medications Generic Name Dose Route Start Last Admin Trade Name Freq PRN Reason Stop Dose Admin Sodium Chloride 10 ml 11/04/19 15:02 Saline Flush FLUSH ASDIRECTED PRN Keep Vein Open - Radiology Interpretation Free Text/Narrative:: Chest xray: FINDINGS: Tubes, catheters and devices: A pacemaker device is present, and its leads are in appropriate position. Lungs: Nonspecific bibasilar consolidation is present, consistent with atelectasis, edema, or pneumonia. Pleural space: Small bilateral pleural effusions are present. Heart/Mediastinum: The heart demonstrates mild diffuse enlargement. Bones/joints: Old right rib fractures are present. The thoracic spine demonstrates mild degenerative changes at multiple levels. IMPRESSION: Nonspecific bibasilar consolidation is present, consistent with atelectasis, edema, or pneumonia. Thank you for allowing us to participate in the care of your patient. Dictated and Authenticated by: Gurmeet Harris DO 11/04/2019 3:58 PM Central Time ([place] & [place]) See rad report - Re-Assessments/Exams Free Text/Narrative Re-Assessment/Exam: 11/04/19 16:26 Discussed patient case with Dr. Beckham who agreed to accept the patient for inpatient admission. Departure - Departure Time of Disposition: 16:27 Disposition: Admitted As Inpatient 66 Condition: Fair Clinical Impression: CHF (congestive heart failure) Qualifiers: Heart failure type: unspecified Heart failure chronicity: acute Qualified Code( s): I50.9 - Heart failure, unspecified Pneumonia Qualifiers: Pneumonia type: due to unspecified organism Laterality: bilateral Lung location : unspecified part of lung Qualified Code(s): J18.9 - Pneumonia, unspecified organism - Discharge Information *PRESCRIPTION DRUG MONITORING PROGRAM REVIEWED*: No *COPY OF PRESCRIPTION DRUG MONITORING REPORT IN PATIENT NASIR: No Forms: ED Department Discharge Sepsis Event Note - Focused Exam Vital Signs: Vital Signs Temp Pulse Resp BP Pulse Ox 11/04/19 14:57 96.4 F 117 H 20 106/77 90 L Date Exam was Performed: 11/04/19 Time Exam was Performed: 16:26 - My Orders Last 24 Hours: My Active Orders 11/04/19 15:02 EKG Documentation Completion [RC] STAT Sodium Chloride 0.9% [Saline Flush] 10 ml FLUSH ASDIRECTED PRN Peripheral IV Insertion Adult [OM.PC] Stat 11/04/19 15:04 Peripheral IV Care [RC] . DIRECTED 11/04/19 16:24 Blood Culture x2 Reflex Set [OM.PC] Stat 11/04/19 16:25 CULTURE BLOOD [BC] Stat CULTURE BLOOD [BC] Stat Furosemide [Lasix] 80 mg IVPUSH NOW ONE cefTRIAXone [Rocephin] 1 gm Sodium Chloride 0.9% [Normal Saline] 50 ml IV ONETIME - Assessment/Plan Last 24 Hours: My Active Orders 11/04/19 15:02 EKG Documentation Completion [RC] STAT Sodium Chloride 0.9% [Saline Flush] 10 ml FLUSH ASDIRECTED PRN Peripheral IV Insertion Adult [OM.PC] Stat 11/04/19 15:04 Peripheral IV Care [RC] . DIRECTED 11/04/19 16:24 Blood Culture x2 Reflex Set [OM.PC] Stat 11/04/19 16:25 CULTURE BLOOD [BC] Stat CULTURE BLOOD [BC] Stat Furosemide [Lasix] 80 mg IVPUSH NOW ONE cefTRIAXone [Rocephin] 1 gm Sodium Chloride 0.9% [Normal Saline] 50 ml IV ONETIME I have read and agree with the documentation that has been completed regarding this visit. By signing this record, I attest that the documentation was completed in my physical presence and is an accurate record of the encounter.
[2019-11-04] MEDS ORDERED: Acetaminophen/oxyCODONE 325-5 MG Tab PO PRN (17:41)
[2019-11-04] MEDS ORDERED: Acetaminophen 325 MG Tab PO PRN (17:41)
[2019-11-04] MEDS ORDERED: Docusate Sodium 100 MG Cap PO PRN (17:41)
--- NOTE | 2019-11-04 17:52 | HP ---
CHIEF COMPLAINT: Shortness of breath. HISTORY OF PRESENT ILLNESS: The patient is a 59-year-old gentleman with past medical history of coronary artery disease, atrial fibrillation, CHF, type 2 diabetes mellitus, obesity, obstructive sleep apnea who was admitted through the emergency room because of increasing shortness of breath that has been going on for the last several weeks. The patient has been compliant with his medication, and he mentioned that the shortness of breath is a little bit worse during the night. He admits that he has some congested cough, but he denies any chest pain, fever, chills, abdominal pain, nausea, vomiting, nor any other complaints. He mentioned that he has been compliant with his medication. Because of the above, he had a workup in the emergency room and chest x-ray was remarkable for atelectasis, congestion, and possible infiltrate on both lower lung sales. His BNP was elevated at 700+. Because of this, he was then admitted for further evaluation and management. PAST MEDICAL HISTORY: As in HPI. FAMILY HISTORY: Noncontributory. SOCIAL HISTORY: The patient is single, lives with his siblings who are also single. He is not alcohol drinker and nonsmoker. REVIEW OF SYSTEMS: As in HPI. The rest of the review of systems is negative. HOME MEDICATIONS: Diltiazem, Lipitor, Coumadin, valsartan, omeprazole, Victoza, levothyroxine, NovoLog, Lasix, digoxin, cyclobenzaprine, aspirin, amiodarone. ALLERGIES: Lisinopril and sitagliptin. PHYSICAL EXAMINATION: General: The patient is alert and oriented. He is not in any acute respiratory distress. Vital Signs: Blood pressure is 106/77, pulse of 117, respirations of 20, temperature of 96.4, saturation is 90%. SHEENT: Normocephalic. There are pink palpebral conjunctivae. Sclerae anicteric. There is mild hepatojugular reflux. Neck: Supple. Heart: Regular. Ventricular response slightly elevated. Lungs: Remarkable for some faint crackles on both lower lung sales. No wheezing. Abdomen: Obese, otherwise soft, nontender. Bowel sounds positive. Extremities: Remarkable for 1+ bilateral pedal edema. No calf tenderness. No signs of cellulitis. LABORATORY DATA: CBC: WBC 6.3, hemoglobin is 15.6, hematocrit is 48.2, platelets are 173. Pro time is 20.6, INR is 2.1. Comp panel: BUN is 45, glucose is 154. The rest of the panel unremarkable. Troponin is 0.02 and BNP is 761 which is elevated. ADMITTING DIAGNOSES: 1. Congestive heart failure exacerbation. 2. Pneumonitis. 3. Type 2 diabetes mellitus. 4. Atrial fibrillation, on Coumadin. 5. Obesity. 6. Obstructive sleep apnea. TREATMENT PLAN: The patient is going to be admitted to General Medicine floor. He will be empirically started on IV antibiotics. He will be given IV Lasix, and he will be resumed on his insulin and the rest of his other medication as needed. The patient is a full code. [facility] /[id number]
[2019-11-04] MEDS: Insulin Lispro 100 Units/ML 3 ML Vial SUBCUT SCH ×3 (20:36→20:51)
[2019-11-04] MEDS: Azithromycin 500 MG in Sodium Chloride 0.9% 250 ML IV SCH (20:52)
[2019-11-04] MEDS: Furosemide 40 MG/4 ML VIAL IVPUSH SCH (21:17)
[2019-11-04] MEDS ORDERED: Digoxin 500 MCG/2 ML Amp IVPUSH ONE (21:17)
[2019-11-04] MEDS: Insulin Glarg,Human.Rec.Analog 100 Unit/ML SUBCUT SCH (21:36)
[2019-11-04] MEDS: Albuterol/Ipratropium 3.0-0.5 MG/3 ML Neb Soln NEB SCH (23:00)
[2019-11-05 07:39] LABS: ANION GAP 13.8; CHLORIDE,CL 108 mmol/L (101-111); SODIUM,NA 146 mmol/L (135-145)
[2019-11-05] MEDS: Albuterol/Ipratropium 3.0-0.5 MG/3 ML Neb Soln NEB SCH ×3 (07:59→23:12)
[2019-11-05] MEDS: Aspirin 81 MG Tab.EC PO SCH (08:36)
[2019-11-05] MEDS: Insulin Lispro 100 Units/ML 3 ML Vial SUBCUT SCH ×6 (08:36→21:38)
[2019-11-05] MEDS: Diltiazem 120 MG Cap.CD PO SCH (08:37)
[2019-11-05] MEDS: Levothyroxine 75 MCG Tab PO SCH (08:37)
[2019-11-05] MEDS: atorvaSTATin 20 MG Tab PO SCH (08:38)
[2019-11-05] MEDS: Irbesartan 150 MG Tab PO SCH (08:38)
[2019-11-05] MEDS: Omeprazole 20 MG Cap.CR PO SCH (08:39)
[2019-11-05] MEDS: Furosemide 40 MG/4 ML VIAL IVPUSH SCH ×2 (08:40→14:41)
[2019-11-05] MEDS: Metoprolol Succinate 50 MG Tab.ER PO SCH (08:58)
[2019-11-05] MEDS: Digoxin 125 MCG Tab PO SCH (08:59)
[2019-11-05] MEDS ORDERED: Metoprolol Tartrate 50 MG Tab PO SCH (09:00)
[2019-11-05] MEDS ORDERED: cefTRIAXone 1 GM in Sodium Chloride 0.9% 50 ML IV SCH (18:00)
[2019-11-05] MEDS: Azithromycin 500 MG in Sodium Chloride 0.9% 250 ML IV SCH (18:29)
[2019-11-05] MEDS: Insulin Glarg,Human.Rec.Analog 100 Unit/ML SUBCUT SCH (21:40)
[2019-11-05] MEDS ORDERED: LORazepam 1 MG Tab PO ONE (22:01)
[2019-11-06] MEDS: Albuterol/Ipratropium 3.0-0.5 MG/3 ML Neb Soln NEB SCH (07:27)
[2019-11-06] MEDS: Insulin Lispro 100 Units/ML 3 ML Vial SUBCUT SCH ×4 (08:35→13:28)
[2019-11-06] MEDS: Aspirin 81 MG Tab.EC PO SCH (09:11)
[2019-11-06] MEDS: Irbesartan 150 MG Tab PO SCH (09:12)
[2019-11-06] MEDS: Diltiazem 120 MG Cap.CD PO SCH (09:13)
[2019-11-06] MEDS: Digoxin 125 MCG Tab PO SCH (09:13)
[2019-11-06] MEDS: Levothyroxine 75 MCG Tab PO SCH (09:14)
[2019-11-06] MEDS: Furosemide 40 MG/4 ML VIAL IVPUSH SCH (09:14)
[2019-11-06] MEDS: Metoprolol Succinate 50 MG Tab.ER PO SCH (09:15)
[2019-11-06] MEDS: atorvaSTATin 20 MG Tab PO SCH (09:15)
[2019-11-06] MEDS: Omeprazole 20 MG Cap.CR PO SCH (09:15)
--- NOTE | 2019-11-06 11:08 | PN ---
DATE: 11/05/2019 SUBJECTIVE: The patient this morning is feeling slightly better with regard to his breathing. Telemetry does show atrial fibrillation with ventricular response slightly elevated. He denies any chest pain. Denies any fever, chills, abdominal pain, or any other complaints. LABORATORY DATA: Lab workup this morning; CBC is unremarkable. Chem-6: Sodium is 146, BUN is 37, and glucose is 117. The rest of the panel unremarkable. OBJECTIVE: Vital Signs: Blood pressure is 120/77, pulse of 104, respirations 20, saturation is 94% on 2 L per nasal cannula, temperature is 96.8. Heart: Irregular, ventricular response slightly elevated. Lungs: Diminished breath sounds on both bases, but no significant crackles. No wheezing. Abdomen: Obese, soft, nontender. Extremities: Remarkable for trace bilateral pedal edema. PLAN: We will continue with his IV antibiotics and continue with IV Lasix. I am also going to add digoxin 0.125 mg daily to his current regimen. [facility] /[id number]
[2019-11-06 11:27] VITALS: BP 110/46; PULSE 116
--- NOTE | 2019-11-06 11:27 | DISCH ---
FINAL DIAGNOSES: 1. Pneumonia. 2. Congestive heart failure. 3. Atrial fibrillation with rapid ventricular response. 4. Type 2 diabetes mellitus. 5. Obesity. 6. Obstructive sleep apnea. BRIEF HISTORY OF PRESENT ILLNESS: Please see H and P. PERTINENT LABS, X-RAY AND OTHER TESTS: Please see H and P. HOSPITAL COURSE: The patient was admitted to General Medicine floor on telemetry. He was started on IV antibiotics, Zithromax IV and ceftriaxone IV, and IV Lasix. The patient did well with the above regimen. The patient's shortness of breath improved, but his heart rate was moderately elevated, and because of this, the patient was given and started on oral digoxin. The rest of the hospital course was unremarkable and uneventful, and he was subsequently discharged. CONDITION ON DISCHARGE: Improved. DISCHARGE INSTRUCTION: He is going to follow up with me in 7 to 10 days with a recheck of his BNP, chest x-ray, CBC, and basic metabolic panel and INR. We will also check a digoxin level. We will continue with oral antibiotics, Augmentin 875 mg b.i.d. for the next 7 days. [facility] /[id number]
--- NOTE | 2019-11-06 12:36 | PN ---
DATE: 11/06/2019 SUBJECTIVE: The patient had a good night sleep last night, and he received an Ativan 1 mg p.o. x1 prior to bedtime. He mentioned that he has not slept so good like this for a long time. He is feeling much better. He denies any chest pain, palpitation, orthopnea, PND, nor any other complaints and he mentioned that he is ready to go home. OBJECTIVE: Vital Signs: Blood pressure is 100/69, pulse is 105, respirations 20, and saturation is 97% on 1 L per nasal cannula. Heart: Irregular, ventricular response slightly elevated. Lungs: Have diminished breath sounds on both bases but no crackles, no wheezing. Abdomen: Obese, soft, and nontender. Extremities: Negative for any pedal edema. No calf tenderness. PLAN: We will discharge patient home today, and we will continue with oral antibiotics for the next 7 days, and we will also increase his Lasix to 60 mg b.i.d. and continue with digoxin on discharge. Otherwise, we will resume the rest of his other medications. [facility] /[id number]
[2019-11-06] MEDS ORDERED: Warfarin 2 MG Tab PO ONE (14:00)
== END 2019-11-06 13:05 | disposition home or self-care (01) | DRG 291 ==
LOC: DL.ED 14:56 → DL.MS 16:55
PROVIDERS: ADMIT Internal Medicine; ATTEND Internal Medicine
DX: I11.0 Hypertensive heart disease with heart failure (principal); J18.9 Pneumonia, unspecified organism; Z68.41 Body mass index [BMI] 40.0-44.9, adult; I50.9 Heart failure, unspecified; I48.91 Unspecified atrial fibrillation; G47.33 Obstructive sleep apnea (adult) (pediatric); G47.30 Sleep apnea, unspecified; I25.10 Atherosclerotic heart disease of native coronary artery without angina pectoris; K76.0 Fatty (change of) liver, not elsewhere classified; M19.90 Unspecified osteoarthritis, unspecified site; E78.00 Pure hypercholesterolemia, unspecified; K21.9 Gastro-esophageal reflux disease without esophagitis; Z79.4 Long term (current) use of insulin; Z99.81 Dependence on supplemental oxygen; Z88.8 Allergy status to other drugs, medicaments and biological substances; E11.9 Type 2 diabetes mellitus without complications; Z79.82 Long term (current) use of aspirin; E66.9 Obesity, unspecified; I25.2 Old myocardial infarction; Z95.0 Presence of cardiac pacemaker; Z79.01 Long term (current) use of anticoagulants; Z79.890 Hormone replacement therapy; Z79.899 Other long term (current) drug therapy
CPT/HCPCS: 36415; 71046; 80053; 83880; 84484; 85025; 85610; 87040; 93005; J1940; 80048; 82962; 85027; 94640; 96374; 99285-25; A9270-GY; J0456; J0696; J1160; J1815; J1815-GY; J7050; J7620-GY

== ENCOUNTER 2019-12-03 08:14 | Emergency (ER) | payer MEDICARE, BC ==
[2019-12-03 08:38] VITALS: BP 110/70; PULSE 90
[2019-12-03 09:43] LABS: ANION GAP 13.9; CHLORIDE,CL 106 mmol/L (101-111); SODIUM,NA 142 mmol/L (135-145)
--- NOTE | 2019-12-03 10:33 | EDM.PDOC ---
Scribed by Merle Weston 12/03/19 1033 for Ina Barth NP ED HPI GENERAL MEDICAL PROBLEM - General Chief Complaint: Back Pain or Injury Stated Complaint: UPPER BACK PAIN Time Seen by Provider: 12/03/19 08:51 Source of Information: Reports: Patient, RN, RN Notes Reviewed History Limitations: Reports: No Limitations - History of Present Illness INITIAL COMMENTS - FREE TEXT/NARRATIVE: A 59-year-old gentleman who presents to the ER with bilateral shoulder blade pain for the past 1 week on and off. He reports the pain was present last night when he was watching television and he just wants to be evaluated. He reports the last incidental shoulder pain he had was a heart attack. Pain is not present at this time. Denies shortness of breath, chest pain, fever, chills, nausea, vomiting and abdominal pain. Significant cardiac history with comorbidities. Onset Date: 12/02/19 Duration: Constant Upper Back Pain Score (Numeric/FACES): 7 - Related Data Allergies Allergy/AdvReac Type Severity Reaction Status Date / Time sitagliptin Allergy Cannot Verified 12/03/19 08:39 Remember lisinopril AdvReac Mild Cough Verified 12/03/19 08:39 Home Meds: Home Meds Liraglutide [Victoza] 1.8 mg SUBCUT DAILY 12/12/14 [History] dilTIAZem HCl [Diltiazem 24Hr ER (Cd)] 240 mg PO DAILY 12/12/14 [History] Ammonium Lactate [Lac-Hydrin 12% Crm] 1 applic TOP ASDIRECTED PRN 08/04/15 [ History] Aspirin [Halfprin] 81 mg PO BRK 08/04/15 [History] Clobetasol [Temovate 0.05% Oint] 1 applic TOP BID PRN 08/04/15 [History] Insulin Aspart [NovoLOG] 41 unit SUBCUT BID 08/04/15 [History] Omeprazole 20 mg PO DAILY 06/01/17 [History] Hydrocodone/Acetaminophen [Hydrocodon-Acetaminophn 10-325] 1 tab PO ASDIRECTED PRN 04/04/19 [History] Irbesartan 150 mg PO DAILY 04/04/19 [History] Levothyroxine 75 mcg PO DAILY 04/04/19 [History] Warfarin Sodium 3 mg PO DAILY 04/04/19 [History] atorvaSTATin Calcium [Atorvastatin Calcium] 20 mg PO DAILY 04/04/19 [History] Insulin Degludec [Tresiba] 98 unit SQ BEDTIME 11/04/19 [History] methocarbamoL [Methocarbamol] 750 mg PO DAILY 11/04/19 [History] Amoxicillin/Clavulanate K [Augmentin 875-125 MG] 1 tab PO BID #14 tablet [Rx] Digoxin 0.125 mg PO DAILY #30 ml 11/06/19 [Rx] Furosemide [Lasix] 60 mg PO BID 30 Days #60 tab 11/06/19 [Rx] Insulin Lispro [HumaLOG] 0 unit SUBCUT WITHMEALSANDBED vial 11/06/19 [Rx] Metoprolol Succinate [Toprol XL 50mg] 50 mg PO DAILY 30 Days #30 tab.er [Rx] Past Medical History HEENT History: Reports: Cataract Other HEENT History: ears are partly plugged Cardiovascular History: Reports: Afib, CAD, Heart Failure, High Cholesterol, Hypertension, [place], Pacemaker, SOB on Exertion Respiratory History: Reports: Sleep Apnea Other Respiratory History: Pt wears CPAP machine at night, O2 at night PRN Gastrointestinal History: Reports: GERD Other Gastrointestinal History: ELEVATED LIVER ENZYMES & FATTY LIVER Genitourinary History: Reports: None Musculoskeletal History: Reports: Arthritis, Fracture Other Musculoskeletal History: disk out for last 3 years; LEFT ANKLE FRACTURE Neurological History: Reports: None Psychiatric History: Reports: None Endocrine/Metabolic History: Reports: Diabetes, Type II, Obesity/BMI 30+ Hematologic History: Reports: None Immunologic History: Reports: None Oncologic (Cancer) History: Reports: Other (See Below) Other Oncologic History: testicular-both testicles removed Dermatologic History: Reports: Other (See Below) Other Dermatologic History: dry skin - Infectious Disease History Infectious Disease History: Reports: None Other Infectious Disease History: UNCERTAIN OF HISTORY - Past Surgical History Head Surgeries/Procedures: Reports: None HEENT Surgical History: Reports: Cataract Surgery Cardiovascular Surgical History: Reports: Pacer Respiratory Surgical History: Reports: None GI Surgical History: Reports: Appendectomy Male Surgical History: Reports: Other (See Below) Other Male Surgeries/Procedures: Testicular cancer- both testicles removed Endocrine Surgical History: Reports: None Neurological Surgical History: Reports: None Musculoskeletal Surgical History: Reports: None Oncologic Surgical History: Reports: Other (See Below) Other Oncologic Surgeries/Procedures: testicular-both testicles removed Dermatological Surgical History: Reports: None Social & Family History - Family History Family Medical History: Noncontributory Cardiac: Reports: Afib, CAD, Heart Failure, High Cholesterol, Hypertension, [place], Stent Respiratory: Reports: COPD Endocrine/Metabolic: Reports: Obesity/MBI 30+ - Tobacco Use Smoking Status *Q: Never Smoker - Caffeine Use Caffeine Use: Reports: None Other Caffeine Use: RARELY USES - Recreational Drug Use Recreational Drug Use: No - Living Situation & Occupation Living situation: Reports: Single, with Family Occupation: Employed ED ROS GENERAL - Review of Systems Review Of Systems: Comprehensive ROS is negative, except as noted in HPI. ED EXAM, GENERAL - Physical Exam Exam: See Below Exam Limited By: No Limitations General Appearance: Alert, WD/WN, No Apparent Distress Head: Atraumatic, Normocephalic Neck: Normal Inspection, Supple, Non-Tender, Full Range of Motion Respiratory/Chest: No Respiratory Distress, Lungs Clear, Normal Breath Sounds, No Accessory Muscle Use, Chest Non-Tender Cardiovascular: Normal Peripheral Pulses, Regular Rate, Rhythm, No Edema, No Gallop, No JVD, No Murmur, No Rub Peripheral Pulses: 3+: Posterior Tibial (L), Posterior Tibial (R), Dorsalis Pedis (L), Dorsalis Pedis (R) GI/Abdominal: Normal Bowel Sounds, Soft, Non-Tender, No Organomegaly, No Distention, No Abnormal Bruit, No Mass (Male) Exam: Deferred Rectal (Males) Exam: Deferred Back Exam: Normal Inspection, Full Range of Motion, NT Extremities: Pedal Edema (mild, non pitting) Neurological: Alert, Oriented, CN II-XII Intact, Normal Cognition, Normal Gait, Normal Reflexes, No Motor/Sensory Deficits Psychiatric: Normal Affect, Normal Mood Skin Exam: Dry (extremely. Dry skin that is hyperkeratotic. Diffuse callous noted on feet and toes. ) Lymphatic: No Adenopathy Course - Vital Signs Last Recorded V/S: Last Vital Signs Temp 96.8 F L 12/03/19 08:29 Pulse 90 12/03/19 08:29 Resp 20 12/03/19 08:29 BP 110/70 12/03/19 08:29 Pulse Ox 98 12/03/19 08:29 - Orders/Labs/Meds Orders: Active Orders 24 hr Category Date Time Status Cardiac Monitoring [RC] STAT Care 12/03/19 09:18 Ordered Communication Order [RC] PER UNIT ROUTINE Care 12/03/19 09:18 Ordered Communication Order [RC] PER UNIT ROUTINE Care 12/03/19 09:18 Ordered Labs: Laboratory Tests 12/03/19 12/03/19 12/03/19 Range/Units 09:00 09:00 09:18 WBC 5.4 (5.0-10.0) 10^3/uL RBC 4.87 (4.6-6.2) 10^6/uL Hgb 14.9 (14.0-18.0) g/dL Hct 45.1 (40.0-54.0) % MCV 92.6 D (80-100) fL MCH 30.6 (27.0-34.0) pg MCHC 33.0 (33.0-35.0) g/dL Plt Count 143 L (150-450) 10^3/uL Neut % (Auto) 65.6 (42.2-75.2) % Lymph % (Auto) 15.4 L (20.5-50.1) % [place] % (Auto) 13.4 H (2-8) % Eos % (Auto) 5.2 H (1.0-3.0) % Baso % (Auto) 0.4 (0.0-1.0) % PT 30.6 H D (9.0-12.0) SEC INR 3.2 H (0.9-1.2) APTT 35.4 H (22.0-34.0) SEC Sodium 142 (135-145) mmol/L Potassium 3.9 (3.6-5.0) mmol/L Chloride 106 (101-111) mmol/L Carbon Dioxide 26.0 (21.0-31.0) mmol/L Anion Gap 13.9 BUN 24 H (7-18) mg/dL Creatinine 0.9 (0.6-1.3) mg/dL Est Cr Clr Drug Dosing 85.50 mL/min Estimated GFR (MDRD) > 60 Glucose 110 H (74-105) mg/dL Calcium 9.1 (8.4-10.2) mg/dl Troponin I 0.07 H* (0.00-0.02) ng/ml B-Natriuretic Peptide 424 H (0-100) pg/ml - Re-Assessments/Exams Free Text/Narrative Re-Assessment/Exam: 12/03/19 10:17 Lab results reviewed with patient. [facility] called and talked to Dr. Hernández who accepted patient in transfer. Patient in agreement with transfer. Departure - Departure Time of Disposition: 10:30 Disposition: DC/Tfer to Acute Hospital 02 Condition: Fair Clinical Impression: Non-STEMI (non-ST elevated myocardial infarction) CHF (congestive heart failure) Qualifiers: Heart failure type: other Qualified Code(s): I50.9 - Heart failure, unspecified - Discharge Information Forms: ED Department Discharge, Interfacility Transfer EMTALA Sepsis Event Note - Evaluation Sepsis Screening Result: No Definite Risk - Focused Exam Vital Signs: Vital Signs Temp Pulse Resp BP Pulse Ox 12/03/19 08:29 96.8 F L 90 20 110/70 98 Date Exam was Performed: 12/03/19 Time Exam was Performed: 10:32 - My Orders Last 24 Hours: My Active Orders 12/03/19 09:18 Cardiac Monitoring [RC] STAT Communication Order [RC] PER UNIT ROUTINE Communication Order [RC] PER UNIT ROUTINE - Assessment/Plan Last 24 Hours: My Active Orders 12/03/19 09:18 Cardiac Monitoring [RC] STAT Communication Order [RC] PER UNIT ROUTINE Communication Order [RC] PER UNIT ROUTINE I have read and agree with the documentation that has been completed regarding this visit. By signing this record, I attest that the documentation was completed in my physical presence and is an accurate record of the encounter.
== END 2019-12-03 11:25 ==
LOC: DL.ED 08:14
DX: I21.4 Non-ST elevation (NSTEMI) myocardial infarction (principal); I11.0 Hypertensive heart disease with heart failure; I50.9 Heart failure, unspecified; I25.2 Old myocardial infarction; E78.00 Pure hypercholesterolemia, unspecified; E11.9 Type 2 diabetes mellitus without complications; E66.9 Obesity, unspecified; Z88.8 Allergy status to other drugs, medicaments and biological substances; Z79.82 Long term (current) use of aspirin; Z79.4 Long term (current) use of insulin; Z79.899 Other long term (current) drug therapy; Z79.01 Long term (current) use of anticoagulants; Z68.41 Body mass index [BMI] 40.0-44.9, adult
CPT/HCPCS: 36415; 80048; 83880; 84484; 85025; 85610; 85730; 99284; 99285

== ENCOUNTER 2019-12-24 21:08 | Emergency (ER) | payer MEDICARE, BC ==
[2019-12-24 21:16] VITALS: BP 124/69; PULSE 102
[2019-12-24] MEDS ORDERED: Orphenadrine 60 MG/2 ML Inj IM ONE (21:29)
--- NOTE | 2019-12-24 21:29 | EDM.PDOC ---
ED HPI GENERAL MEDICAL PROBLEM - General Chief Complaint: Lower Extremity Injury/Pain Stated Complaint: JOSÉ HERRERA IN BACK CANT WALK Time Seen by Provider: 12/24/19 21:20 Source of Information: Reports: Patient, RN, RN Notes Reviewed History Limitations: Reports: No Limitations - History of Present Illness INITIAL COMMENTS - FREE TEXT/NARRATIVE: patient presents to ER with complaint of lower back pain with numbness and tingling to the outside of the legs bilaterally. Patient states he has chronic back pain, and injured his back today but is unsure if he twisted or bent over. Patient denies any heavy lifting or trauma to the back. Patient states he has seen a specialist in the past in [place]. Patient denies saddle anesthesia or bladder or bowel incontinence. He states he did take a pain pill at home. States it's becoming difficult to walk as he feels weak like his legs are going to give out. Onset: Today, Gradual Bilateral Leg Pain Score (Numeric/FACES): 6 - Related Data Allergies Allergy/AdvReac Type Severity Reaction Status Date / Time sitagliptin Allergy Cannot Verified 12/03/19 08:39 Remember lisinopril AdvReac Mild Cough Verified 12/03/19 08:39 Home Meds: Home Meds Liraglutide [Victoza] 1.8 mg SUBCUT DAILY 12/12/14 [History] dilTIAZem HCl [Diltiazem 24Hr ER (Cd)] 240 mg PO DAILY 12/12/14 [History] Ammonium Lactate [Lac-Hydrin 12% Crm] 1 applic TOP ASDIRECTED PRN 08/04/15 [ History] Aspirin [Halfprin] 81 mg PO BRK 08/04/15 [History] Clobetasol [Temovate 0.05% Oint] 1 applic TOP BID PRN 08/04/15 [History] Insulin Aspart [NovoLOG] 41 unit SUBCUT BID 08/04/15 [History] Omeprazole 20 mg PO DAILY 06/01/17 [History] Hydrocodone/Acetaminophen [Hydrocodon-Acetaminophn 10-325] 1 tab PO ASDIRECTED PRN 04/04/19 [History] Irbesartan 150 mg PO DAILY 04/04/19 [History] Levothyroxine 75 mcg PO DAILY 04/04/19 [History] Warfarin Sodium 3 mg PO DAILY 04/04/19 [History] atorvaSTATin Calcium [Atorvastatin Calcium] 20 mg PO DAILY 04/04/19 [History] Insulin Degludec [Tresiba] 98 unit SQ BEDTIME 11/04/19 [History] methocarbamoL [Methocarbamol] 750 mg PO DAILY 11/04/19 [History] Amoxicillin/Clavulanate K [Augmentin 875-125 MG] 1 tab PO BID #14 tablet [Rx] Digoxin 0.125 mg PO DAILY #30 ml 11/06/19 [Rx] Furosemide [Lasix] 60 mg PO BID 30 Days #60 tab 11/06/19 [Rx] Insulin Lispro [HumaLOG] 0 unit SUBCUT WITHMEALSANDBED vial 11/06/19 [Rx] Metoprolol Succinate [Toprol XL 50mg] 50 mg PO DAILY 30 Days #30 tab.er [Rx] Past Medical History HEENT History: Reports: Cataract Other HEENT History: ears are partly plugged Cardiovascular History: Reports: Afib, CAD, Heart Failure, High Cholesterol, Hypertension, [place], Pacemaker, SOB on Exertion Respiratory History: Reports: Sleep Apnea Other Respiratory History: Pt wears CPAP machine at night, O2 at night PRN Gastrointestinal History: Reports: GERD Other Gastrointestinal History: ELEVATED LIVER ENZYMES & FATTY LIVER Genitourinary History: Reports: None Musculoskeletal History: Reports: Arthritis, Fracture Other Musculoskeletal History: disk out for last 3 years; LEFT ANKLE FRACTURE Neurological History: Reports: None Psychiatric History: Reports: None Endocrine/Metabolic History: Reports: Diabetes, Type II, Obesity/BMI 30+ Hematologic History: Reports: None Immunologic History: Reports: None Oncologic (Cancer) History: Reports: Other (See Below) Other Oncologic History: testicular-both testicles removed Dermatologic History: Reports: Other (See Below) Other Dermatologic History: dry skin - Infectious Disease History Infectious Disease History: Reports: None Other Infectious Disease History: UNCERTAIN OF HISTORY - Past Surgical History Head Surgeries/Procedures: Reports: None HEENT Surgical History: Reports: Cataract Surgery Cardiovascular Surgical History: Reports: Pacer Respiratory Surgical History: Reports: None GI Surgical History: Reports: Appendectomy Male Surgical History: Reports: Other (See Below) Other Male Surgeries/Procedures: Testicular cancer- both testicles removed Endocrine Surgical History: Reports: None Neurological Surgical History: Reports: None Musculoskeletal Surgical History: Reports: None Oncologic Surgical History: Reports: Other (See Below) Other Oncologic Surgeries/Procedures: testicular-both testicles removed Dermatological Surgical History: Reports: None Social & Family History - Family History Family Medical History: Noncontributory Cardiac: Reports: Afib, CAD, Heart Failure, High Cholesterol, Hypertension, [place], Stent Respiratory: Reports: COPD Endocrine/Metabolic: Reports: Obesity/MBI 30+ - Tobacco Use Smoking Status *Q: Never Smoker Second Hand Smoke Exposure: No - Caffeine Use Caffeine Use: Reports: None Other Caffeine Use: RARELY USES - Recreational Drug Use Recreational Drug Use: No - Living Situation & Occupation Living situation: Reports: Single, with Family Occupation: Employed Review of Systems - Review of Systems Review Of Systems: Comprehensive ROS is negative, except as noted in HPI. ED EXAM, GENERAL - Physical Exam Exam: See Below Exam Limited By: No Limitations General Appearance: Alert, WD/WN, Mild Distress Eye Exam: Bilateral Eye: EOMI, Normal Inspection Ears: Normal External Exam, Hearing Grossly Normal Nose: Normal Inspection Throat/Mouth: Normal Inspection, Normal Voice, No Airway Compromise Head: Atraumatic, Normocephalic Neck: Normal Inspection, Supple, Non-Tender, Full Range of Motion Respiratory/Chest: No Respiratory Distress, Normal Breath Sounds, No Accessory Muscle Use, Chest Non-Tender, Crackles (fine, bases bilaterally) Cardiovascular: Normal Peripheral Pulses, No Gallop, No JVD, No Murmur, No Rub, Irregularly Irregular Peripheral Pulses: 2+: Radial (L), Radial (R) GI/Abdominal: Normal Bowel Sounds, Soft, Non-Tender (Male) Exam: Deferred Rectal (Males) Exam: Deferred Back Exam: Normal Inspection, Decreased Range of Motion, Muscle Spasm, Paraspinal Tenderness Extremities: Normal Inspection, Normal Range of Motion, Non-Tender, No Pedal Edema, Normal Capillary Refill, Other (Numbness/tingling to the lateral portion of the legs bilaterally) Neurological: Alert, Oriented, CN II-XII Intact, Normal Cognition Psychiatric: Normal Affect, Normal Mood Skin Exam: Warm, Dry, Intact, Normal Color, No Rash Lymphatic: No Adenopathy Course - Vital Signs Last Recorded V/S: Last Vital Signs Temp 97.1 F 12/24/19 21:11 Pulse 102 H 12/24/19 21:11 Resp 18 12/24/19 21:11 BP 124/69 12/24/19 21:11 Pulse Ox 95 12/24/19 21:11 - Orders/Labs/Meds Meds: Medications Discontinued Medications Generic Name Dose Route Start Last Admin Trade Name Macrina TALAMANTES Reason Stop Dose Admin Dexamethasone 16 mg 12/24/19 21:30 Dexamethasone IM 12/24/19 21:31 ONETIME ONE Orphenadrine Citrate 60 mg 12/24/19 21:29 Norflex IM 12/24/19 21:30 ONETIME ONE Departure - Departure Time of Disposition: 22:00 Disposition: Home, Self-Care 01 Condition: Fair Clinical Impression: Lumbar radicular pain Sciatica Qualifiers: Laterality: bilateral Qualified Code(s): M54.31 - Sciatica, right side; M54.32 - Sciatica, left side - Discharge Information *PRESCRIPTION DRUG MONITORING PROGRAM REVIEWED*: No *COPY OF PRESCRIPTION DRUG MONITORING REPORT IN PATIENT NASIR: No Instructions: Muscle Strain, [id number], Back Exercises, [id number], Sciatica, [id number], Radicular Pain Forms: ED Department Discharge Additional Instructions: May use heat to the area as tolerated RX: Dexamethasone May use already prescribed muscle relaxants as directed Follow up with your primary care facility if no improvement Sepsis Event Note - Evaluation Sepsis Screening Result: No Definite Risk - Focused Exam Vital Signs: Vital Signs Temp Pulse Resp BP Pulse Ox 12/24/19 21:11 97.1 F 102 H 18 124/69 95 Date Exam was Performed: 12/24/19 Time Exam was Performed: 21:31
[2019-12-24] MEDS ORDERED: Dexamethasone 4 MG/ML SDV IM ONE (21:30)
== END 2019-12-24 21:59 | disposition home or self-care (01) ==
LOC: DL.ED 21:08
DX: M54.42 Lumbago with sciatica, left side (principal); M54.41 Lumbago with sciatica, right side; I48.91 Unspecified atrial fibrillation; I25.10 Atherosclerotic heart disease of native coronary artery without angina pectoris; I11.0 Hypertensive heart disease with heart failure; I50.9 Heart failure, unspecified; E78.00 Pure hypercholesterolemia, unspecified; I25.2 Old myocardial infarction; E11.9 Type 2 diabetes mellitus without complications; K21.9 Gastro-esophageal reflux disease without esophagitis; E66.9 Obesity, unspecified; M19.90 Unspecified osteoarthritis, unspecified site; Z79.4 Long term (current) use of insulin; Z79.82 Long term (current) use of aspirin; Z88.8 Allergy status to other drugs, medicaments and biological substances; Z79.899 Other long term (current) drug therapy; Z79.01 Long term (current) use of anticoagulants; Z68.41 Body mass index [BMI] 40.0-44.9, adult
CPT/HCPCS: 96372; 99283; J1100; J2360

== ENCOUNTER 2020-01-13 11:11 | Emergency (ER) | payer MEDICARE, BC ==
[~2020-01-13 11:11] MED LIST: Sodium Chloride 0.9% 10 ML Syringe FLUSH PRN
[2020-01-13 11:32] VITALS: BP 143/64; PULSE 117
[2020-01-13] MEDS ORDERED: LORazepam 2 MG/ML SDV IVPUSH ONE (11:45)
[2020-01-13 11:49] LABS: ANION GAP 14.8 mEq/L (7-13); CHLORIDE,CL 103 mmol/L (98-107); SODIUM,NA 142 mmol/L (136-145)
--- NOTE | 2020-01-13 13:06 | EDM.PDOC ---
Scribed by Merle Weston 01/13/20 [id number] for Sherri Moore NP ED HPI GENERAL MEDICAL PROBLEM - General Chief Complaint: Cardiovascular Problem Stated Complaint: AMBULANCE Time Seen by Provider: 01/13/20 11:12 Source of Information: Reports: Patient, EMS, EMS Notes Reviewed, RN, RN Notes Reviewed History Limitations: Reports: No Limitations - History of Present Illness INITIAL COMMENTS - FREE TEXT/NARRATIVE: Patient presents to ER per [facility] with complaint that AICD had gone off 4 times. Patient states he was feeling "off" today and he was very worried. He has had no chest pains, shortness of breath or any recent illness. He states his meds were changed last week. He has history of atrial fibrillation with RVR and diabetes mellitus II. He vomited in the ER. He is very anxious. Onset: Today Location: Reports: Generalized Quality: Reports: Ache Severity: Moderate Improves with: Reports: None Worsens with: Reports: None Associated Symptoms: Reports: No Other Symptoms - Related Data Allergies Allergy/AdvReac Type Severity Reaction Status Date / Time sitagliptin Allergy Cannot Verified 12/03/19 08:39 Remember lisinopril AdvReac Mild Cough Verified 12/03/19 08:39 Home Meds: Home Meds Liraglutide [Victoza] 1.8 mg SUBCUT DAILY 12/12/14 [History] dilTIAZem HCl [Diltiazem 24Hr ER (Cd)] 240 mg PO DAILY 12/12/14 [History] Ammonium Lactate [Lac-Hydrin 12% Crm] 1 applic TOP ASDIRECTED PRN 08/04/15 [ History] Aspirin [Halfprin] 81 mg PO BRK 08/04/15 [History] Clobetasol [Temovate 0.05% Oint] 1 applic TOP BID PRN 08/04/15 [History] Insulin Aspart [NovoLOG] 41 unit SUBCUT BID 08/04/15 [History] Omeprazole 20 mg PO DAILY 06/01/17 [History] Hydrocodone/Acetaminophen [Hydrocodon-Acetaminophn 10-325] 1 tab PO ASDIRECTED PRN 04/04/19 [History] Irbesartan 150 mg PO DAILY 04/04/19 [History] Levothyroxine 75 mcg PO DAILY 04/04/19 [History] Warfarin Sodium 3 mg PO DAILY 04/04/19 [History] atorvaSTATin Calcium [Atorvastatin Calcium] 20 mg PO DAILY 04/04/19 [History] Insulin Degludec [Tresiba] 98 unit SQ BEDTIME 11/04/19 [History] methocarbamoL [Methocarbamol] 750 mg PO DAILY 11/04/19 [History] Amoxicillin/Clavulanate K [Augmentin 875-125 MG] 1 tab PO BID #14 tablet [Rx] Digoxin 0.125 mg PO DAILY #30 ml 11/06/19 [Rx] Furosemide [Lasix] 60 mg PO BID 30 Days #60 tab 11/06/19 [Rx] Insulin Lispro [HumaLOG] 0 unit SUBCUT WITHMEALSANDBED vial 11/06/19 [Rx] Metoprolol Succinate [Toprol XL 50mg] 50 mg PO DAILY 30 Days #30 tab.er [Rx] Past Medical History HEENT History: Reports: Cataract Other HEENT History: ears are partly plugged Cardiovascular History: Reports: Afib, CAD, Heart Failure, High Cholesterol, Hypertension, [place], Pacemaker, SOB on Exertion Respiratory History: Reports: Sleep Apnea Other Respiratory History: Pt wears CPAP machine at night, O2 at night PRN Gastrointestinal History: Reports: GERD Other Gastrointestinal History: ELEVATED LIVER ENZYMES & FATTY LIVER Genitourinary History: Reports: None Musculoskeletal History: Reports: Arthritis, Fracture Other Musculoskeletal History: disk out for last 3 years; LEFT ANKLE FRACTURE Neurological History: Reports: None Psychiatric History: Reports: None Endocrine/Metabolic History: Reports: Diabetes, Type II, Obesity/BMI 30+ Hematologic History: Reports: None Immunologic History: Reports: None Oncologic (Cancer) History: Reports: Other (See Below) Other Oncologic History: testicular-both testicles removed Dermatologic History: Reports: Other (See Below) Other Dermatologic History: dry skin - Infectious Disease History Infectious Disease History: Reports: None Other Infectious Disease History: UNCERTAIN OF HISTORY - Past Surgical History Head Surgeries/Procedures: Reports: None HEENT Surgical History: Reports: Cataract Surgery Cardiovascular Surgical History: Reports: Pacer Respiratory Surgical History: Reports: None GI Surgical History: Reports: Appendectomy Male Surgical History: Reports: Other (See Below) Other Male Surgeries/Procedures: Testicular cancer- both testicles removed Endocrine Surgical History: Reports: None Neurological Surgical History: Reports: None Musculoskeletal Surgical History: Reports: None Oncologic Surgical History: Reports: Other (See Below) Other Oncologic Surgeries/Procedures: testicular-both testicles removed Dermatological Surgical History: Reports: None Social & Family History - Family History Family Medical History: Noncontributory Cardiac: Reports: Afib, CAD, Heart Failure, High Cholesterol, Hypertension, NH, Stent Respiratory: Reports: COPD Endocrine/Metabolic: Reports: Obesity/MBI 30+ - Caffeine Use Caffeine Use: Reports: None Other Caffeine Use: RARELY USES - Living Situation & Occupation Living situation: Reports: Single, with Family Occupation: Employed ED ROS GENERAL - Review of Systems Review Of Systems: Comprehensive ROS is negative, except as noted in HPI. ED EXAM, GENERAL - Physical Exam Exam: See Below Exam Limited By: No Limitations General Appearance: Alert (and orientated), Anxious (very and tearful) Eye Exam: Bilateral Eye: EOMI, Normal Inspection, PERRL Ears: Normal External Exam, Normal Canal, Hearing Grossly Normal, Normal TMs Nose: Normal Inspection, Normal Mucosa, No Blood Throat/Mouth: Normal Inspection, Normal Lips, Normal Teeth, Normal Gums, Normal Oropharynx, Normal Voice, No Airway Compromise Head: Atraumatic, Normocephalic Neck: Normal Inspection, Supple, Non-Tender, Full Range of Motion Respiratory/Chest: No Respiratory Distress, Lungs Clear, Normal Breath Sounds, No Accessory Muscle Use, Chest Non-Tender Cardiovascular: Normal Peripheral Pulses, Regular Rate, Rhythm, No Edema, No Gallop, No JVD, No Murmur, No Rub GI/Abdominal: Normal Bowel Sounds, Soft, Non-Tender, No Organomegaly, No Distention, No Abnormal Bruit, No Mass (Male) Exam: Deferred Rectal (Males) Exam: Deferred Back Exam: Normal Inspection, Full Range of Motion, NT Extremities: Normal Inspection, Normal Range of Motion, Non-Tender, Normal Capillary Refill, No Pedal Edema Neurological: Alert, Oriented, CN II-XII Intact, Normal Cognition, Normal Gait, Normal Reflexes, No Motor/Sensory Deficits Psychiatric: Anxious, Tearful Skin Exam: Dry (very) Lymphatic: No Adenopathy Course - Vital Signs Last Recorded V/S: Last Vital Signs Temp 97.6 F 01/13/20 11:11 Pulse 117 H 01/13/20 11:11 Resp 14 01/13/20 11:11 BP 143/64 H 01/13/20 11:11 Pulse Ox 97 01/13/20 11:11 - Orders/Labs/Meds Orders: Active Orders 24 hr Category Date Time Status EKG Documentation Completion [RC] STAT Care 01/13/20 11:07 Active Peripheral IV Care [RC] . DIRECTED Care 01/13/20 11:07 Active Peripheral IV Insertion Adult [OM.PC] Stat Oth 01/13/20 11:07 Ordered Labs: Laboratory Tests 01/13/20 01/13/20 01/13/20 Range/Units 11:21 11:21 11:21 WBC 6.5 (5.0-10.0) 10^3/uL RBC 4.68 (4.6-6.2) 10^6/uL Hgb 14.3 (14.0-18.0) g/dL Hct 42.6 (40.0-54.0) % MCV 91.0 (80-100) fL MCH 30.6 (27.0-34.0) pg MCHC 33.6 (33.0-35.0) g/dL Plt Count 125 L (150-450) 10^3/uL Neut % (Auto) 78.9 H (42.2-75.2) % Lymph % (Auto) 9.7 L (20.5-50.1) % [place] % (Auto) 7.6 (2-8) % Eos % (Auto) 3.5 H (1.0-3.0) % Baso % (Auto) 0.3 (0.0-1.0) % PT 12.3 H D (9.0-12.0) SEC INR 1.3 H (0.9-1.2) Sodium 142 (136-145) mmol/L Potassium 3.8 (3.5-5.1) mmol/L Chloride 103 (98-107) mmol/L Carbon Dioxide 28 (21-32) mmol/L Anion Gap 14.8 H (7-13) mEq/L BUN 43 H (7-18) mg/dL Creatinine 1.00 (0.70-1.30) mg/dL Est Cr Clr Drug Dosing 76.95 mL/min Estimated GFR (MDRD) > 60 BUN/Creatinine Ratio 43.0 (No establ ref range) Glucose 147 H (74-99) mg/dL Calcium 8.8 (8.5-10.1) mg/dL Total Bilirubin 0.7 (0.2-1.0) mg/dL AST 40 H (15-37) U/L ALT 51 (16-63) U/L Alkaline Phosphatase 66 (46-116) U/L Troponin I < 0.017 (0.000-0.056) ng/mL B-Natriuretic Peptide 229 H (0-100) pg/ml Total Protein 6.7 (6.4-8.2) g/dL Albumin 3.1 L (3.4-5.0) g/dL Globulin 3.6 Albumin/Globulin Ratio 0.86 Meds: Medications Discontinued Medications Generic Name Dose Route Start Last Admin Trade Name Freq PRN Reason Stop Dose Admin Lorazepam 1 mg 01/13/20 11:45 01/13/20 12:07 Ativan IVPUSH 01/13/20 11:46 1 mg ONETIME ONE Administration Sodium Chloride 10 ml 01/13/20 11:07 01/13/20 11:32 Saline Flush FLUSH 10 ml ASDIRECTED PRN Administration Keep Vein Open - Radiology Interpretation Free Text/Narrative:: Chest xray: FINDINGS: Tubes, catheters and devices: A left-sided AICD is again present. Lungs: Previous bibasilar consolidation has resolved, and there is now minor streaky bibasilar atelectasis. The lungs are otherwise clear. Pleural space: Unremarkable. No pleural effusion. No pneumothorax. Heart/Mediastinum: The cardiomediastinal silhouette is fairly stable in appearance. Bones/joints: Degenerative changes again involve the spine. Some chronic right rib fractures are again present. IMPRESSION: No evidence for acute pulmonary disease. Thank you for allowing us to participate in the care of your patient. Dictated and Authenticated by: Pascual Park MD 01/13/2020 12:00 PM Central Time ([place] & [place]) See rad report - Re-Assessments/Exams Free Text/Narrative Re-Assessment/Exam: 01/13/20 12:58 patient case discussed with Dr. Mayers who agreed to accept the patient for transfer to [facility]. 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 Diabetes mellitus complication status: without complication Qualified Code(s): E11.9 - Type 2 diabetes mellitus without complications; Z79.4 - shelter (current) use of insulin Referrals: PCP,Unobtain [Primary Care Provider] - Forms: ED Department Discharge, Interfacility Transfer EMTALA Sepsis Event Note - Focused Exam Vital Signs: Vital Signs Temp Pulse Resp BP Pulse Ox 01/13/20 11:11 97.6 F 117 H 14 143/64 H 97 Date Exam was Performed: 01/13/20 Time Exam was Performed: 14:39 - My Orders Last 24 Hours: My Active Orders 01/13/20 11:07 EKG Documentation Completion [RC] STAT Peripheral IV Care [RC] . DIRECTED Peripheral IV Insertion Adult [OM.PC] Stat - Assessment/Plan Last 24 Hours: My Active Orders 01/13/20 11:07 EKG Documentation Completion [RC] STAT Peripheral IV Care [RC] . DIRECTED Peripheral IV Insertion Adult [OM.PC] Stat I have read and agree with the documentation that has been completed regarding this visit. By signing this record, I attest that the documentation was completed in my physical presence and is an accurate record of the encounter.
== END 2020-01-13 14:13 ==
LOC: DL.ED 11:11
DX: T82.897A Other specified complication of cardiac prosthetic devices, implants and grafts, initial encounter (principal); I49.3 Ventricular premature depolarization; I48.11 Longstanding persistent atrial fibrillation; E11.9 Type 2 diabetes mellitus without complications; Z79.4 Long term (current) use of insulin; Z79.01 Long term (current) use of anticoagulants; I11.0 Hypertensive heart disease with heart failure; I50.9 Heart failure, unspecified; I25.10 Atherosclerotic heart disease of native coronary artery without angina pectoris; K21.9 Gastro-esophageal reflux disease without esophagitis; E66.9 Obesity, unspecified; Z79.899 Other long term (current) drug therapy; Z79.82 Long term (current) use of aspirin; Z88.8 Allergy status to other drugs, medicaments and biological substances; Z95.810 Presence of automatic (implantable) cardiac defibrillator
CPT/HCPCS: 36415; 71045; 80053; 83880; 84484; 85025; 85610; 93005; 96374; 99284; 99285; J2060

== ENCOUNTER 2020-02-10 08:14 | Emergency (ER) | payer MEDICARE, BC ==
[2020-02-10 08:36] VITALS: BP 103/52; PULSE 77
[2020-02-10] MEDS ORDERED: Dexamethasone 4 MG/ML SDV IM ONE (08:36)
--- NOTE | 2020-02-10 08:43 | EDM.PDOC ---
ED HPI GENERAL MEDICAL PROBLEM - General Chief Complaint: Back Pain or Injury Stated Complaint: back pain Time Seen by Provider: 02/10/20 08:35 Source of Information: Reports: Patient, RN, RN Notes Reviewed History Limitations: Reports: Physical Impairment - History of Present Illness INITIAL COMMENTS - FREE TEXT/NARRATIVE: Patient presents to ER with complaint of left-sided lower back pain. Patient states he generally has back pain on the right side, but this feels the same as the back pain he generally has. Patient states he has not fallen, has not lifted anything heavy or injured his back. Patient denies any numbness or tingling, or sharp shooting pains down the left leg. Onset: Gradual Duration: Constant, Getting Worse Location: Reports: Back Quality: Reports: Sharp Left Back Pain Score (Numeric/FACES): 9 - Related Data Allergies Allergy/AdvReac Type Severity Reaction Status Date / Time sitagliptin Allergy Cannot Verified 02/10/20 08:30 Remember lisinopril AdvReac Mild Cough Verified 02/10/20 08:30 Home Meds: Home Meds Liraglutide [Victoza] 1.8 mg SUBCUT DAILY 12/12/14 [History] dilTIAZem HCl [Diltiazem 24Hr ER (Cd)] 240 mg PO DAILY 12/12/14 [History] Ammonium Lactate [Lac-Hydrin 12% Crm] 1 applic TOP ASDIRECTED PRN 08/04/15 [ History] Aspirin [Halfprin] 81 mg PO BRK 08/04/15 [History] Clobetasol [Temovate 0.05% Oint] 1 applic TOP BID PRN 08/04/15 [History] Insulin Aspart [NovoLOG] 41 unit SUBCUT BID 08/04/15 [History] Omeprazole 20 mg PO DAILY 06/01/17 [History] Hydrocodone/Acetaminophen [Hydrocodone-Acetamin 10-325 mg] 1 tab PO ASDIRECTED PRN 04/04/19 [History] Irbesartan 150 mg PO DAILY 04/04/19 [History] Levothyroxine 75 mcg PO DAILY 04/04/19 [History] Warfarin Sodium 3 mg PO DAILY 04/04/19 [History] atorvaSTATin Calcium [Atorvastatin Calcium] 20 mg PO DAILY 04/04/19 [History] Insulin Degludec [Tresiba] 98 unit SQ BEDTIME 11/04/19 [History] methocarbamoL [Methocarbamol] 750 mg PO DAILY 11/04/19 [History] Amoxicillin/Clavulanate K [Augmentin 875-125 MG] 1 tab PO BID #14 tablet [Rx] Digoxin 0.125 mg PO DAILY #30 ml 11/06/19 [Rx] Furosemide [Lasix] 60 mg PO BID 30 Days #60 tab 11/06/19 [Rx] Insulin Lispro [HumaLOG] 0 unit SUBCUT WITHMEALSANDBED vial 11/06/19 [Rx] Metoprolol Succinate [Toprol XL 50mg] 50 mg PO DAILY 30 Days #30 tab.er [Rx] Past Medical History HEENT History: Reports: Cataract Other HEENT History: ears are partly plugged Cardiovascular History: Reports: Afib, CAD, Heart Failure, High Cholesterol, Hypertension, MS, Pacemaker, SOB on Exertion Respiratory History: Reports: Sleep Apnea Other Respiratory History: Pt wears CPAP machine at night, O2 at night PRN Gastrointestinal History: Reports: GERD Other Gastrointestinal History: ELEVATED LIVER ENZYMES & FATTY LIVER Genitourinary History: Reports: None Musculoskeletal History: Reports: Arthritis, Fracture Other Musculoskeletal History: disk out for last 3 years; LEFT ANKLE FRACTURE Neurological History: Reports: None Psychiatric History: Reports: None Endocrine/Metabolic History: Reports: Diabetes, Type II, Obesity/BMI 30+ Hematologic History: Reports: None Immunologic History: Reports: None Oncologic (Cancer) History: Reports: Other (See Below) Other Oncologic History: testicular-both testicles removed Dermatologic History: Reports: Other (See Below) Other Dermatologic History: dry skin - Infectious Disease History Infectious Disease History: Reports: None Other Infectious Disease History: UNCERTAIN OF HISTORY - Past Surgical History Head Surgeries/Procedures: Reports: None HEENT Surgical History: Reports: Cataract Surgery Cardiovascular Surgical History: Reports: Pacer Respiratory Surgical History: Reports: None GI Surgical History: Reports: Appendectomy Male Surgical History: Reports: Other (See Below) Other Male Surgeries/Procedures: Testicular cancer- both testicles removed Endocrine Surgical History: Reports: None Neurological Surgical History: Reports: None Musculoskeletal Surgical History: Reports: None Oncologic Surgical History: Reports: Other (See Below) Other Oncologic Surgeries/Procedures: testicular-both testicles removed Dermatological Surgical History: Reports: None Social & Family History - Family History Family Medical History: Noncontributory Cardiac: Reports: Afib, CAD, Heart Failure, High Cholesterol, Hypertension, MS, Stent Respiratory: Reports: COPD Endocrine/Metabolic: Reports: Obesity/MBI 30+ - Tobacco Use Smoking Status *Q: Never Smoker - Caffeine Use Caffeine Use: Reports: None Other Caffeine Use: RARELY USES - Recreational Drug Use Recreational Drug Use: No - Living Situation & Occupation Living situation: Reports: Single, with Family Occupation: Employed ED ROS GENERAL - Review of Systems Review Of Systems: Comprehensive ROS is negative, except as noted in HPI. ED EXAM,LOWER BACK PAIN/INJURY - Physical Exam Exam: See Below Exam Limited By: No Limitations General Appearance: Alert, WD/WN, Anxious, Moderate Distress Eye Exam: Bilateral Eye: EOMI, Normal Inspection Ears: Normal External Exam, Hearing Grossly Normal Nose: Normal Inspection Throat/Mouth: Normal Inspection, Normal Voice, No Airway Compromise Head: Atraumatic, Normocephalic Neck: Normal Inspection, Supple, Non-Tender, Full Range of Motion Respiratory/Chest: No Respiratory Distress, Lungs Clear, No Accessory Muscle Use , Chest Non-Tender, Decreased Breath Sounds Cardiovascular: Normal Peripheral Pulses, Regular Rate, Rhythm, No Edema, No Gallop, No JVD, No Murmur, No Rub GI/Abdominal: Normal Bowel Sounds, Soft, Non-Tender, No Organomegaly, No Distention, No Abnormal Bruit, No Mass (Male) Exam: Deferred Rectal (Males) Exam: Deferred Back Exam: Normal Inspection, Decreased Range of Motion Extremities: Normal Inspection, Non-Tender, No Pedal Edema, Normal Capillary Refill, Limited Range of Motion (legs bilaterally) Neurological: Alert, Normal Mood/Affect, CN II-XII Intact, No Motor/Sensory Deficits, Oriented x 3 Psychiatric: Normal Affect, Normal Mood, Anxious Skin Exam: Warm, Dry, Intact, Normal Color, No Rash Lymphatic: No Adenopathy Course - Vital Signs Last Recorded V/S: Last Vital Signs Temp 97.1 F 02/10/20 08:30 Pulse 77 02/10/20 08:30 Resp 16 02/10/20 08:30 BP 103/52 L 02/10/20 08:30 Pulse Ox 96 02/10/20 08:30 - Orders/Labs/Meds Meds: Medications Discontinued Medications Generic Name Dose Route Start Last Admin Trade Name Freq PRN Reason Stop Dose Admin Dexamethasone 12 mg 04/25/20 08:36 02/10/20 08:44 Dexamethasone IM 02/10/20 08:37 12 mg ONETIME ONE Administration Hydromorphone HCl 1 mg 02/10/20 09:12 02/10/20 09:23 Dilaudid IVPUSH 02/10/20 09:13 1 mg ONETIME ONE Administration Orphenadrine Citrate 60 mg 02/10/20 08:35 02/10/20 08:44 Norflex IM 02/10/20 08:36 60 mg ONETIME ONE Administration Departure - Departure Time of Disposition: 09:53 Disposition: Home, Self-Care 01 Condition: Fair Clinical Impression: Low back pain Qualifiers: Chronicity: acute Back pain laterality: right Sciatica presence: with sciatica Sciatica laterality: sciatica of right side Qualified Code(s): M54.41 - Lumbago with sciatica, right side - Discharge Information *PRESCRIPTION DRUG MONITORING PROGRAM REVIEWED*: No *COPY OF PRESCRIPTION DRUG MONITORING REPORT IN PATIENT NASIR: No Instructions: Back Injury Prevention, [id number], Muscle Strain, [id number] , Back Exercises, [id number], Heat Therapy, [id number] Forms: ED Department Discharge Additional Instructions: Rest Heat to the area as tolerated RX: Flexeril, Dexamethasone Follow up with your primary care facility Sepsis Event Note - Evaluation Sepsis Screening Result: No Definite Risk - Focused Exam Vital Signs: Vital Signs Temp Pulse Resp BP Pulse Ox 02/10/20 08:30 97.1 F 77 16 103/52 L 96 Date Exam was Performed: 02/10/20 Time Exam was Performed: 10:22
[2020-02-10] MEDS ORDERED: HYDROmorphone 0.5 MG/0.5 ML Syringe IVPUSH ONE (09:12)
== END 2020-02-10 09:54 | disposition home or self-care (01) ==
LOC: DL.ED 08:14
DX: M54.41 Lumbago with sciatica, right side (principal); I48.91 Unspecified atrial fibrillation; I25.10 Atherosclerotic heart disease of native coronary artery without angina pectoris; I11.0 Hypertensive heart disease with heart failure; I50.9 Heart failure, unspecified; E78.00 Pure hypercholesterolemia, unspecified; I25.2 Old myocardial infarction; K21.9 Gastro-esophageal reflux disease without esophagitis; E11.9 Type 2 diabetes mellitus without complications; E66.9 Obesity, unspecified; Z68.41 Body mass index [BMI] 40.0-44.9, adult; Z88.8 Allergy status to other drugs, medicaments and biological substances; Z79.4 Long term (current) use of insulin; Z79.82 Long term (current) use of aspirin; Z79.899 Other long term (current) drug therapy; Z79.01 Long term (current) use of anticoagulants
CPT/HCPCS: 96372; 96374; 99283; J1100; J1170; J2360

== ENCOUNTER 2020-02-16 18:08 | Emergency (ER) | payer MEDICARE, BC ==
[2020-02-16] MEDS ORDERED: Sodium Chloride 0.9% 10 ML Syringe FLUSH PRN (18:23)
[2020-02-16 18:24] VITALS: BP 114/61; PULSE 90
--- NOTE | 2020-02-16 18:35 | EDM.PDOC ---
ED HPI GENERAL MEDICAL PROBLEM - General Source of Information: Reports: Patient, Old Records, RN, RN Notes Reviewed History Limitations: Reports: No Limitations - History of Present Illness Onset: Today Duration: Constant, Waxing/Waning Location: Reports: Generalized Severity: Severe Improves with: Reports: Rest Worsens with: Reports: Other (Walking) Associated Symptoms: Reports: No Other Symptoms <Gutierrez Siddiqui - Last Filed: 02/16/20 18:29> <Sherri Moore - Last Filed: 02/16/20 19:58> - General Chief Complaint: Syncope Stated Complaint: OVER ALL NOT FEELING WELLS, FLUSHED ETC... Time Seen by Provider: 02/16/20 18:29 - History of Present Illness INITIAL COMMENTS - FREE TEXT/NARRATIVE: González presents to ER from home by POV with c/o of recurrent lightheadedness today. He says he has not fainted but felt as if he might several time today. He describes several episodes of near syncope today. He feels better when sitting, but still feels "off" somehow. When he stands and walks he becomes very lightheaded and slightly short of breath. Denies chest pain, palpitations, edema, orthopnea, headache, vision changes, cough, wheezing, fever, chills, N/V/ D, or dysuria. (Gutierrez Siddiqui) - Related Data Allergies Allergy/AdvReac Type Severity Reaction Status Date / Time sitagliptin Allergy Cannot Verified 02/16/20 18:21 Remember lisinopril AdvReac Mild Cough Verified 02/16/20 18:21 Home Meds: Home Meds Liraglutide [Victoza] 1.8 mg SUBCUT DAILY 12/12/14 [History] dilTIAZem HCl [Diltiazem 24Hr ER (Cd)] 240 mg PO DAILY 12/12/14 [History] Ammonium Lactate [Lac-Hydrin 12% Crm] 1 applic TOP ASDIRECTED PRN 08/04/15 [ History] Aspirin [Halfprin] 81 mg PO BRK 08/04/15 [History] Clobetasol [Temovate 0.05% Oint] 1 applic TOP BID PRN 08/04/15 [History] Insulin Aspart [NovoLOG] 41 unit SUBCUT BID 08/04/15 [History] Omeprazole 20 mg PO DAILY 06/01/17 [History] Hydrocodone/Acetaminophen [Hydrocodone-Acetamin 10-325 mg] 1 tab PO ASDIRECTED PRN 04/04/19 [History] Irbesartan 150 mg PO DAILY 04/04/19 [History] Levothyroxine 75 mcg PO DAILY 04/04/19 [History] Warfarin Sodium 3 mg PO DAILY 04/04/19 [History] atorvaSTATin Calcium [Atorvastatin Calcium] 20 mg PO DAILY 04/04/19 [History] Insulin Degludec [Tresiba] 98 unit SQ BEDTIME 11/04/19 [History] methocarbamoL [Methocarbamol] 750 mg PO DAILY 11/04/19 [History] Amoxicillin/Clavulanate K [Augmentin 875-125 MG] 1 tab PO BID #14 tablet [Rx] Digoxin 0.125 mg PO DAILY #30 ml 11/06/19 [Rx] Furosemide [Lasix] 60 mg PO BID 30 Days #60 tab 11/06/19 [Rx] Insulin Lispro [HumaLOG] 0 unit SUBCUT WITHMEALSANDBED vial 11/06/19 [Rx] Metoprolol Succinate [Toprol XL 50mg] 50 mg PO DAILY 30 Days #30 tab.er [Rx] Past Medical History HEENT History: Reports: Cataract Other HEENT History: ears are partly plugged Cardiovascular History: Reports: Afib, CAD, Heart Failure, High Cholesterol, Hypertension, PA, Pacemaker, SOB on Exertion Respiratory History: Reports: Sleep Apnea Other Respiratory History: Pt wears CPAP machine at night, O2 at night PRN Gastrointestinal History: Reports: GERD Other Gastrointestinal History: ELEVATED LIVER ENZYMES & FATTY LIVER Genitourinary History: Reports: None Musculoskeletal History: Reports: Arthritis, Fracture Other Musculoskeletal History: disk out for last 3 years; LEFT ANKLE FRACTURE Neurological History: Reports: None Psychiatric History: Reports: Anxiety Endocrine/Metabolic History: Reports: Diabetes, Type II, Obesity/BMI 30+ Hematologic History: Reports: None Immunologic History: Reports: None Oncologic (Cancer) History: Reports: Other (See Below) Other Oncologic History: testicular-both testicles removed Dermatologic History: Reports: Other (See Below) Other Dermatologic History: dry skin - Infectious Disease History Infectious Disease History: Reports: None Other Infectious Disease History: UNCERTAIN OF HISTORY - Past Surgical History Head Surgeries/Procedures: Reports: None HEENT Surgical History: Reports: Cataract Surgery Cardiovascular Surgical History: Reports: Pacer Respiratory Surgical History: Reports: None GI Surgical History: Reports: Appendectomy Male Surgical History: Reports: Other (See Below) Other Male Surgeries/Procedures: Testicular cancer- both testicles removed Endocrine Surgical History: Reports: None Neurological Surgical History: Reports: None Musculoskeletal Surgical History: Reports: None Oncologic Surgical History: Reports: Other (See Below) Other Oncologic Surgeries/Procedures: testicular-both testicles removed Dermatological Surgical History: Reports: None <Gutierrez Siddiqui - Last Filed: 02/16/20 18:29> Social & Family History - Family History Family Medical History: Noncontributory Cardiac: Reports: Afib, CAD, Heart Failure, High Cholesterol, Hypertension, PA, Stent Respiratory: Reports: COPD Endocrine/Metabolic: Reports: Obesity/MBI 30+ - Tobacco Use Smoking Status *Q: Never Smoker Second Hand Smoke Exposure: No - Caffeine Use Caffeine Use: Reports: None Other Caffeine Use: RARELY USES - Recreational Drug Use Recreational Drug Use: No - Living Situation & Occupation Living situation: Reports: Single, with Family Occupation: Employed <Gutierrez Siddiqui - Last Filed: 02/16/20 18:29> ED ROS GENERAL - Review of Systems Review Of Systems: Comprehensive ROS is negative, except as noted in HPI. <Gutierrez Siddiqui Diego Filed: 02/16/20 18:29> - Physical Exam Exam: See Below Exam Limited By: No Limitations General Appearance: Alert, No Apparent Distress, Anxious, Obese Eye Exam: Bilateral Eye: EOMI, Normal Inspection, PERRL Ears: Normal External Exam, Hearing Grossly Normal Nose: Normal Inspection, Normal Mucosa, No Blood Throat/Mouth: Normal Inspection, Normal Lips, Normal Voice, No Airway Compromise Head Exam: Atraumatic, Normocephalic Neck: Normal Inspection, Supple, Non-Tender, Full Range of Motion Respiratory/Chest: No Respiratory Distress, Lungs Clear, No Accessory Muscle Use , Chest Non-Tender, Decreased Breath Sounds Cardiovascular: Normal Peripheral Pulses, Regular Rate, Rhythm, No Edema GI/Abdominal: Normal Bowel Sounds, Soft, Non-Tender, Other (Benign obese abdomen ) (Male) Exam: Deferred Rectal (Males) Exam: Deferred Neuro Exam (Abbreviated): Alert, Oriented, CN II-XII Intact, Normal Cognition, Normal Gait, No Motor/Sensory Deficits Back Exam: Normal Inspection Extremities: Normal Inspection, Normal Range of Motion, Non-Tender, No Pedal Edema, Normal Capillary Refill Psychiatric: Anxious Skin Exam: Warm, Dry (Very dry skin), Intact, Normal Color, No Rash <Gutierrez Siddiqui - Last Filed: 02/16/20 18:29> EKG INTERPRETATION EKG Date: 02/16/20 Time: 08:24 Rhythm: A-Flutter (PACED: no further interpretation) Rate (Beats/Min): 71 Comparison: No Change <Gutierrez Siddiqui - Last Filed: 02/16/20 18:29> Course <Gutierrez Siddiqui - Last Filed: 02/16/20 18:29> <Sherri Moore - Last Filed: 02/16/20 19:58> - Vital Signs Last Recorded V/S: Last Vital Signs Temp 96.8 F L 02/16/20 18:22 Pulse 90 02/16/20 18:22 Resp 20 02/16/20 18:22 BP 114/61 02/16/20 18:22 Pulse Ox 98 02/16/20 18:22 Orthostatic Blood Pressure [ 104/39 Standing] Orthostatic Blood Pressure [ 113/64 Sitting] Orthostatic Blood Pressure [ 100/59 Supine] Not orthostatic. (Gutierrez Siddiqui) - Orders/Labs/Meds Orders: Active Orders 24 hr Category Date Time Status Blood Glucose Check, Bedside [RC] ONETIME Care 02/16/20 18:23 Active EKG 12 Lead [EKG Documentation Completion] [RC] STAT Care 02/16/20 18:21 Active Orthostatic Vital Signs [RC] ASDIRECTED Care 02/16/20 18:21 Active Peripheral IV Care [RC] . DIRECTED Care 02/16/20 18:24 Active DRUG SCREEN URINE BIORAD [URCHEM] Stat Lab 02/16/20 18:23 Ordered UA RFX JESSICA AND CULT IF INDIC [URIN] Stat Lab 02/16/20 18:23 Ordered Sodium Chloride 0.9% [Saline Flush] Med 02/16/20 18:23 Active 10 ml FLUSH ASDIRECTED PRN Peripheral IV Insertion Adult [OM.PC] Stat Oth 02/16/20 18:22 Ordered Medication Orders Sodium Chloride (Saline Flush) 10 ml FLUSH ASDIRECTED PRN PRN Reason: Keep Vein Open Last Admin: 02/16/20 19:05 Dose: 10 ml Labs: Laboratory Tests 02/16/20 02/16/20 02/16/20 Range/Units 18:31 18:31 18:31 WBC 10.8 H (5.0-10.0) 10^3/uL RBC 4.40 L (4.6-6.2) 10^6/uL Hgb 13.5 L (14.0-18.0) g/dL Hct 40.3 (40.0-54.0) % MCV 91.6 (80-100) fL MCH 30.7 (27.0-34.0) pg MCHC 33.5 (33.0-35.0) g/dL Plt Count 171 (150-450) 10^3/uL Neut % (Auto) 72.5 (42.2-75.2) % Lymph % (Auto) 16.6 L (20.5-50.1) % [place] % (Auto) 7.3 (2-8) % Eos % (Auto) 3.5 H (1.0-3.0) % Baso % (Auto) 0.1 (0.0-1.0) % PT 17.8 H D (9.0-12.0) SEC INR 1.9 H (0.9-1.2) Sodium 139 (136-145) mmol/L Potassium 4.5 (3.5-5.1) mmol/L Chloride 105 (98-107) mmol/L Carbon Dioxide 29 (21-32) mmol/L Anion Gap 9.5 (7-13) mEq/L BUN 50 H (7-18) mg/dL Creatinine 1.13 (0.70-1.30) mg/dL Est Cr Clr Drug Dosing 68.10 mL/min Estimated GFR (MDRD) > 60 BUN/Creatinine Ratio 44.2 (No establ ref range) Glucose 172 H (74-99) mg/dL Calcium 8.2 L (8.5-10.1) mg/dL Magnesium 2.0 (1.8-2.4) mg/dL Total Bilirubin 0.3 (0.2-1.0) mg/dL AST 16 (15-37) U/L ALT 30 (16-63) U/L Alkaline Phosphatase 84 (46-116) U/L Troponin I 0.025 (0.000-0.056) ng/mL B-Natriuretic Peptide 262 H (0-100) pg/ml Total Protein 6.5 (6.4-8.2) g/dL Albumin 3.0 L (3.4-5.0) g/dL Globulin 3.5 Albumin/Globulin Ratio 0.86 TSH, Ultra Sensitive 0.01 L (0.36-3.74) uIU/mL Digoxin (0.9-2.0) ng/mL 02/16/20 Range/Units 18:31 WBC (5.0-10.0) 10^3/uL RBC (4.6-6.2) 10^6/uL Hgb (14.0-18.0) g/dL Hct (40.0-54.0) % MCV (80-100) fL MCH (27.0-34.0) pg MCHC (33.0-35.0) g/dL Plt Count (150-450) 10^3/uL Neut % (Auto) (42.2-75.2) % Lymph % (Auto) (20.5-50.1) % [place] % (Auto) (2-8) % Eos % (Auto) (1.0-3.0) % Baso % (Auto) (0.0-1.0) % PT (9.0-12.0) SEC INR (0.9-1.2) Sodium (136-145) mmol/L Potassium (3.5-5.1) mmol/L Chloride (98-107) mmol/L Carbon Dioxide (21-32) mmol/L Anion Gap (7-13) mEq/L BUN (7-18) mg/dL Creatinine (0.70-1.30) mg/dL Est Cr Clr Drug Dosing mL/min Estimated GFR (MDRD) BUN/Creatinine Ratio (No establ ref range) Glucose (74-99) mg/dL Calcium (8.5-10.1) mg/dL Magnesium (1.8-2.4) mg/dL Total Bilirubin (0.2-1.0) mg/dL AST (15-37) U/L ALT (16-63) U/L Alkaline Phosphatase (46-116) U/L Troponin I (0.000-0.056) ng/mL B-Natriuretic Peptide (0-100) pg/ml Total Protein (6.4-8.2) g/dL Albumin (3.4-5.0) g/dL Globulin Albumin/Globulin Ratio TSH, Ultra Sensitive (0.36-3.74) uIU/mL Digoxin < 0.2 L (0.9-2.0) ng/mL Meds: Medications Generic Name Dose Route Start Last Admin Trade Name Freq PRN Reason Stop Dose Admin Sodium Chloride 10 ml 02/16/20 18:23 02/16/20 19:05 Saline Flush FLUSH 10 ml ASDIRECTED PRN Administration Keep Vein Open - Radiology Interpretation Free Text/Narrative:: Chest xray: FINDINGS: Tubes, catheters and devices: There is an AICD in stable position. Additional wiring has been added since the prior study. Lungs: There is linear atelectasis versus scarring in the left midlung zone. No pneumonia is appreciated. Pleural space: There are no pleural effusions. There is no pneumothorax. Heart/Mediastinum: The heart is stable. The mediastinal and hilar contours are within normal limits. The pulmonary vessels are normal. Bones/joints: No acute osseous pathology is identified. Note is again made of old right-sided rib fractures. IMPRESSION: No acute cardiopulmonary disease process identified. Thank you for allowing us to participate in the care of your patient. Dictated and Authenticated by: Katlin Stewart MD See rad report (Sherri Moore) - Re-Assessments/Exams Free Text/Narrative Re-Assessment/Exam: 02/16/20 19:00 Care of pt transferred to Sherri Moore NEWS WIRE PHOTO OPERATOR at shift change. (Gutierrez Siddiqui) Departure <Gutierrez Siddiqui - Last Filed: 02/16/20 18:29> - Departure Time of Disposition: 19:51 Condition: Fair - Discharge Information *PRESCRIPTION DRUG MONITORING PROGRAM REVIEWED*: No *COPY OF PRESCRIPTION DRUG MONITORING REPORT IN PATIENT NASIR: No <Sherri Moore - Last Filed: 02/16/20 19:58> - Departure Disposition: Home, Self-Care 01 Clinical Impression: Dizziness on standing - Discharge Information Instructions: Hypotension, [id number], Dizziness, [id number], Near-Syncope , [id number], Dehydration, Elderly, [id number] Forms: ED Department Discharge Additional Instructions: Drink water Sit on the edge of the chair or bed until dizziness lessens before standing Do not drive if feeling dizzy Make an appointment with Dr. Beckham next week Return to the ER with any worsening of problem Sepsis Event Note - Evaluation Sepsis Screening Result: No Definite Risk - Focused Exam Date Exam was Performed: 02/16/20 Time Exam was Performed: 18:29 <Gutierrez Siddiqui - Last Filed: 02/16/20 18:29> - Focused Exam Date Exam was Performed: 02/16/20 Time Exam was Performed: 19:51 <Sherri Moore - Last Filed: 02/16/20 19:58> - Focused Exam Vital Signs: Vital Signs Temp Pulse Resp BP Pulse Ox 02/16/20 18:22 96.8 F L 90 20 114/61 98
[2020-02-16 19:03] LABS: ANION GAP 9.5 mEq/L (7-13); CHLORIDE,CL 105 mmol/L (98-107); SODIUM,NA 139 mmol/L (136-145)
== END 2020-02-16 20:08 | disposition home or self-care (01) ==
LOC: DL.ED 18:08
DX: R42 Dizziness and giddiness (principal); I48.91 Unspecified atrial fibrillation; I25.10 Atherosclerotic heart disease of native coronary artery without angina pectoris; I11.0 Hypertensive heart disease with heart failure; I50.9 Heart failure, unspecified; I25.2 Old myocardial infarction; K21.9 Gastro-esophageal reflux disease without esophagitis; M19.90 Unspecified osteoarthritis, unspecified site; F41.9 Anxiety disorder, unspecified; E11.9 Type 2 diabetes mellitus without complications; E78.00 Pure hypercholesterolemia, unspecified; E66.9 Obesity, unspecified; Z68.39 Body mass index [BMI] 39.0-39.9, adult; Z88.8 Allergy status to other drugs, medicaments and biological substances; Z79.01 Long term (current) use of anticoagulants; Z79.82 Long term (current) use of aspirin; Z79.899 Other long term (current) drug therapy
CPT/HCPCS: 36415; 71045; 80053; 80162; 82962; 83735; 83880; 84443; 84484; 85025; 85610; 93005; 99284-25

== ENCOUNTER 2020-02-18 15:30 | Emergency (ER) | payer MEDICARE, BC ==
[2020-02-18 15:40] VITALS: BP 106/58; PULSE 88
--- NOTE | 2020-02-18 15:45 | EDM.PDOC ---
ED HPI GENERAL MEDICAL PROBLEM - General Chief Complaint: General Stated Complaint: NOT FEELLING WELL, FLUSHED ETC. Time Seen by Provider: 02/18/20 15:45 Source of Information: Reports: Patient, Old Records, RN, RN Notes Reviewed History Limitations: Reports: No Limitations - History of Present Illness INITIAL COMMENTS - FREE TEXT/NARRATIVE: Pt presents to ER from home for the second time this week with c/o "I just don' t feel right". Pt reports fatigue, random flushing/hot flashes, anxiety, and lightheadedness. He states he as intentionally lost 60lbs in the past 2 years and has not had any of his chronic medications adjusted during that time. He denies chest pain, shortness of breath, nausea, vomiting, diarrhea, constipation , excessive sweating, cough, fever, chills, edema, or palpitations. Onset: Gradual Duration: Chronic, Constant, Getting Worse Location: Reports: Generalized Severity: Severe Improves with: Reports: None Worsens with: Reports: None Associated Symptoms: Reports: No Other Symptoms - Related Data Allergies Allergy/AdvReac Type Severity Reaction Status Date / Time sitagliptin Allergy Cannot Verified 02/18/20 15:34 Remember lisinopril AdvReac Mild Cough Verified 02/18/20 15:34 Home Meds: Home Meds Liraglutide [Victoza] 1.8 mg SUBCUT DAILY 12/12/14 [History] dilTIAZem HCl [Diltiazem 24Hr ER (Cd)] 240 mg PO DAILY 12/12/14 [History] Ammonium Lactate [Lac-Hydrin 12% Crm] 1 applic TOP ASDIRECTED PRN 08/04/15 [ History] Aspirin [Halfprin] 81 mg PO BRK 08/04/15 [History] Clobetasol [Temovate 0.05% Oint] 1 applic TOP BID PRN 08/04/15 [History] Insulin Aspart [NovoLOG] 41 unit SUBCUT BID 08/04/15 [History] Omeprazole 20 mg PO DAILY 06/01/17 [History] Hydrocodone/Acetaminophen [Hydrocodone-Acetamin 10-325 mg] 1 tab PO ASDIRECTED PRN 04/04/19 [History] Irbesartan 150 mg PO DAILY 04/04/19 [History] Levothyroxine 75 mcg PO DAILY 04/04/19 [History] Warfarin Sodium 3 mg PO DAILY 04/04/19 [History] atorvaSTATin Calcium [Atorvastatin Calcium] 20 mg PO DAILY 04/04/19 [History] Insulin Degludec [Tresiba] 98 unit SQ BEDTIME 11/04/19 [History] methocarbamoL [Methocarbamol] 750 mg PO DAILY 11/04/19 [History] Amoxicillin/Clavulanate K [Augmentin 875-125 MG] 1 tab PO BID #14 tablet [Rx] Digoxin 0.125 mg PO DAILY #30 ml 11/06/19 [Rx] Furosemide [Lasix] 60 mg PO BID 30 Days #60 tab 11/06/19 [Rx] Insulin Lispro [HumaLOG] 0 unit SUBCUT WITHMEALSANDBED vial 11/06/19 [Rx] Metoprolol Succinate [Toprol XL 50mg] 50 mg PO DAILY 30 Days #30 tab.er [Rx] Past Medical History HEENT History: Reports: Cataract Other HEENT History: ears are partly plugged Cardiovascular History: Reports: Afib, Automatic Implantable Cardioverter Defibrillators, CAD, Heart Failure, High Cholesterol, Hypertension, [place], Pacemaker, SOB on Exertion Respiratory History: Reports: Sleep Apnea Other Respiratory History: Pt wears CPAP machine at night, O2 at night PRN Gastrointestinal History: Reports: None, GERD Other Gastrointestinal History: ELEVATED LIVER ENZYMES & FATTY LIVER Genitourinary History: Reports: None Musculoskeletal History: Reports: Arthritis, Fracture Other Musculoskeletal History: disk out for last 3 years; LEFT ANKLE FRACTURE Neurological History: Reports: None Psychiatric History: Reports: Anxiety Endocrine/Metabolic History: Reports: Diabetes, Type II, Hypothyroidism, Obesity /BMI 30+ Hematologic History: Reports: None Immunologic History: Reports: None Oncologic (Cancer) History: Reports: Other (See Below) Other Oncologic History: testicular-both testicles removed Dermatologic History: Reports: Other (See Below) Other Dermatologic History: dry skin - Infectious Disease History Infectious Disease History: Reports: None Other Infectious Disease History: UNCERTAIN OF HISTORY - Past Surgical History Head Surgeries/Procedures: Reports: None HEENT Surgical History: Reports: Cataract Surgery Cardiovascular Surgical History: Reports: Pacer Respiratory Surgical History: Reports: None GI Surgical History: Reports: Appendectomy Male Surgical History: Reports: Other (See Below) Other Male Surgeries/Procedures: Testicular cancer- both testicles removed Endocrine Surgical History: Reports: None Neurological Surgical History: Reports: None Musculoskeletal Surgical History: Reports: None Oncologic Surgical History: Reports: Other (See Below) Other Oncologic Surgeries/Procedures: testicular-both testicles removed Dermatological Surgical History: Reports: None Social & Family History - Family History Family Medical History: Noncontributory Cardiac: Reports: Afib, CAD, Heart Failure, High Cholesterol, Hypertension, NH, Stent Respiratory: Reports: COPD Endocrine/Metabolic: Reports: Obesity/MBI 30+ - Tobacco Use Smoking Status *Q: Never Smoker Second Hand Smoke Exposure: No - Caffeine Use Caffeine Use: Reports: Coffee Other Caffeine Use: RARELY USES - Recreational Drug Use Recreational Drug Use: No - Living Situation & Occupation Living situation: Reports: Single, with Family Occupation: Employed ED ROS GENERAL - Review of Systems Review Of Systems: Comprehensive ROS is negative, except as noted in HPI. ED EXAM, GENERAL - Physical Exam Exam: See Below Exam Limited By: No Limitations General Appearance: Alert, No Apparent Distress, Anxious, Obese Eye Exam: Bilateral Eye: Normal Inspection Nose: Normal Inspection Throat/Mouth: Normal Inspection, Normal Lips, Normal Voice, No Airway Compromise Head: Atraumatic, Normocephalic Neck: Normal Inspection, Supple, Non-Tender, Full Range of Motion Respiratory/Chest: No Respiratory Distress, Lungs Clear, Normal Breath Sounds, No Accessory Muscle Use, Chest Non-Tender Cardiovascular: Regular Rate, Rhythm, No Edema GI/Abdominal: Normal Bowel Sounds, Soft, Non-Tender, No Organomegaly, No Distention, No Abnormal Bruit, No Mass Back Exam: Normal Inspection Extremities: Normal Inspection, Normal Range of Motion, Non-Tender, Normal Capillary Refill, No Pedal Edema Neurological: Alert, Oriented, CN II-XII Intact, Normal Cognition, Normal Gait, No Motor/Sensory Deficits Psychiatric: Anxious Skin Exam: Warm, Dry (very dry skin), Intact, Normal Color, No Rash Course - Vital Signs Last Recorded V/S: Last Vital Signs Temp 97.5 F 02/18/20 15:34 Pulse 88 02/18/20 15:34 Resp 18 02/18/20 15:34 BP 106/58 L 02/18/20 15:34 Pulse Ox 100 02/18/20 15:34 Orthostatic Blood Pressure [ 106/53 Standing] Orthostatic Blood Pressure [ 106/67 Sitting] Orthostatic Blood Pressure [ 101/46 Supine] - Orders/Labs/Meds Orders: Active Orders 24 hr Category Date Time Status Orthostatic Vital Signs [RC] ONETIME Care 02/18/20 16:43 Active FREE T3 [REF] Stat Lab 02/18/20 16:12 Received TESTOSTERONE, TOTAL [REF] Stat Lab 02/18/20 16:12 Received Labs: Laboratory Tests 02/18/20 02/18/20 02/18/20 Range/Units 16:12 16:12 16:12 WBC 9.1 (5.0-10.0) 10^3/uL RBC 4.42 L (4.6-6.2) 10^6/uL Hgb 13.5 L (14.0-18.0) g/dL Hct 40.7 (40.0-54.0) % MCV 92.1 (80-100) fL MCH 30.5 (27.0-34.0) pg MCHC 33.2 (33.0-35.0) g/dL Plt Count 162 (150-450) 10^3/uL Neut % (Auto) 74.4 (42.2-75.2) % Lymph % (Auto) 14.5 L (20.5-50.1) % [place] % (Auto) 7.8 (2-8) % Eos % (Auto) 3.2 H (1.0-3.0) % Baso % (Auto) 0.1 (0.0-1.0) % PT 15.5 H (9.0-12.0) SEC INR 1.6 H (0.9-1.2) Sodium 138 (136-145) mmol/L Potassium 4.3 (3.5-5.1) mmol/L Chloride 101 (98-107) mmol/L Carbon Dioxide 28 (21-32) mmol/L Anion Gap 13.3 H (7-13) mEq/L BUN 42 H (7-18) mg/dL Creatinine 1.15 (0.70-1.30) mg/dL Est Cr Clr Drug Dosing 66.91 mL/min Estimated GFR (MDRD) > 60 BUN/Creatinine Ratio 36.5 (No establ ref range) Glucose 199 H (74-99) mg/dL Calcium 8.6 (8.5-10.1) mg/dL Total Bilirubin 0.5 (0.2-1.0) mg/dL AST 19 (15-37) U/L ALT 33 (16-63) U/L Alkaline Phosphatase 78 (46-116) U/L C-Reactive Protein 0.8 (0.0-0.9) mg/dL Total Protein 6.6 (6.4-8.2) g/dL Albumin 3.1 L (3.4-5.0) g/dL Globulin 3.5 Albumin/Globulin Ratio 0.89 Free T4 1.59 H (0.76-1.46) ng/dL TSH, Ultra Sensitive 0.02 L (0.36-3.74) uIU/mL Digoxin (0.9-2.0) ng/mL 02/18/20 Range/Units 16:12 WBC (5.0-10.0) 10^3/uL RBC (4.6-6.2) 10^6/uL Hgb (14.0-18.0) g/dL Hct (40.0-54.0) % MCV (80-100) fL MCH (27.0-34.0) pg MCHC (33.0-35.0) g/dL Plt Count (150-450) 10^3/uL Neut % (Auto) (42.2-75.2) % Lymph % (Auto) (20.5-50.1) % [place] % (Auto) (2-8) % Eos % (Auto) (1.0-3.0) % Baso % (Auto) (0.0-1.0) % PT (9.0-12.0) SEC INR (0.9-1.2) Sodium (136-145) mmol/L Potassium (3.5-5.1) mmol/L Chloride (98-107) mmol/L Carbon Dioxide (21-32) mmol/L Anion Gap (7-13) mEq/L BUN (7-18) mg/dL Creatinine (0.70-1.30) mg/dL Est Cr Clr Drug Dosing mL/min Estimated GFR (MDRD) BUN/Creatinine Ratio (No establ ref range) Glucose (74-99) mg/dL Calcium (8.5-10.1) mg/dL Total Bilirubin (0.2-1.0) mg/dL AST (15-37) U/L ALT (16-63) U/L Alkaline Phosphatase (46-116) U/L C-Reactive Protein (0.0-0.9) mg/dL Total Protein (6.4-8.2) g/dL Albumin (3.4-5.0) g/dL Globulin Albumin/Globulin Ratio Free T4 (0.76-1.46) ng/dL TSH, Ultra Sensitive (0.36-3.74) uIU/mL Digoxin < 0.2 L (0.9-2.0) ng/mL Departure - Departure Time of Disposition: 16:59 Disposition: Home, Self-Care 01 Condition: Fair Clinical Impression: Hypotension due to medication Hypothyroidism Qualifiers: Hypothyroidism type: unspecified Qualified Code(s): E03.9 - Hypothyroidism, unspecified - Discharge Information *PRESCRIPTION DRUG MONITORING PROGRAM REVIEWED*: Not Applicable *COPY OF PRESCRIPTION DRUG MONITORING REPORT IN PATIENT NASIR: Not Applicable Instructions: Hyperthyroidism, Hypotension, [id number], Hypothyroidism Forms: ED Department Discharge Additional Instructions: Follow up in clinic with Dr. Beckham to discuss your symptoms and lower than usual blood pressure, and possible thyroid adjustment. Sepsis Event Note - Evaluation Sepsis Screening Result: No Definite Risk - Focused Exam Vital Signs: Vital Signs Temp Pulse Resp BP Pulse Ox 02/18/20 15:34 97.5 F 88 18 106/58 L 100 Date Exam was Performed: 02/18/20 Time Exam was Performed: 17:05 - My Orders Last 24 Hours: My Active Orders 02/18/20 16:12 FREE T3 [REF] Stat TESTOSTERONE, TOTAL [REF] Stat 02/18/20 16:43 Orthostatic Vital Signs [RC] ONETIME - Assessment/Plan Last 24 Hours: My Active Orders 02/18/20 16:12 FREE T3 [REF] Stat TESTOSTERONE, TOTAL [REF] Stat 02/18/20 16:43 Orthostatic Vital Signs [RC] ONETIME
[2020-02-18 16:50] LABS: ANION GAP 13.3 mEq/L (7-13); CHLORIDE,CL 101 mmol/L (98-107); SODIUM,NA 138 mmol/L (136-145)
== END 2020-02-18 17:09 | disposition home or self-care (01) ==
LOC: DL.ED 15:30
DX: I95.2 Hypotension due to drugs (principal); T50.905A Adverse effect of unspecified drugs, medicaments and biological substances, initial encounter; E03.9 Hypothyroidism, unspecified; I25.10 Atherosclerotic heart disease of native coronary artery without angina pectoris; I48.91 Unspecified atrial fibrillation; I11.0 Hypertensive heart disease with heart failure; I50.9 Heart failure, unspecified; E78.00 Pure hypercholesterolemia, unspecified; I25.2 Old myocardial infarction; K21.9 Gastro-esophageal reflux disease without esophagitis; E11.9 Type 2 diabetes mellitus without complications; E66.9 Obesity, unspecified; Z88.8 Allergy status to other drugs, medicaments and biological substances; Z79.899 Other long term (current) drug therapy; Z79.82 Long term (current) use of aspirin; Z79.4 Long term (current) use of insulin; Z79.01 Long term (current) use of anticoagulants; Z95.810 Presence of automatic (implantable) cardiac defibrillator; Z68.39 Body mass index [BMI] 39.0-39.9, adult
CPT/HCPCS: 36415; 80053; 80162; 84403; 84439; 84443; 84481; 85025; 85610; 86140; 99283

== ENCOUNTER 2020-03-14 14:41 | Observation (INO) | payer MEDICARE, BC ==
--- NOTE | 2020-03-14 15:58 | CR ---
EXAMINATION: Chest 1V Frontal SEX: Male AGE: 59 years CLINICAL HISTORY: 59-year-old obese male with hypotension (near syncope). INTERPRETATION: 1. Old healed fracture deformity right sixth rib. 2. Prominent cardiac silhouette accentuated by less than optimal inspiratory effort. 3. Cardiac pacemaker leads intact and unchanged since 16 Feb 2020. External quality assurance monitor body leads. 4. No new evidence pulmonary vascular congestion, cephalization of flow or alveolar edema. No pleural effusions. 5. Chronic lingular atelectasis. 6. No new lung mass or focal lobar pneumonia. 7. No pneumothorax or pneumomediastinum. CONCLUSION: No acute new cardiopulmonary abnormality.
[2020-03-14 15:59] LABS: ANION GAP 14.7 mEq/L (7-13); CHLORIDE,CL 101 mmol/L (98-107); SODIUM,NA 137 mmol/L (136-145)
--- NOTE | 2020-03-14 17:24 | EDM.PDOC ---
ED HPI GENERAL MEDICAL PROBLEM - General Chief Complaint: General Stated Complaint: FEELS DIFFERENT/"DON'T REALLY KNOW" Time Seen by Provider: 03/14/20 15:10 Source of Information: Reports: Patient History Limitations: Reports: No Limitations - History of Present Illness INITIAL COMMENTS - FREE TEXT/NARRATIVE: This 59 yo male patient reports to the ED stating 'I don't feel right, I haven' t since my heart attack in December and new pacemaker'. Pt called PCP nurse and she recommended coming to ER. No complaints of pain. Pt states no new edema. No fever, no cough, no covid exposure. Pt scheduled to have echo in April with cardiology followup. The patient was seen in the ED on 02/09, 02/15, 02/17 and today for similar symptoms. The patient has followed up with his primary care facility (Dr. Beckham) and was advised to reduce his metoprolol, but his medications are being filled by [facility] with no change in dosage listed on the script. The patient reports he has been only taking 1/2 of the Metoprolol ( 200 mg) 1 time per day, but he has continued to feel poorly. Duration: Week(s):, Intermittent Location: Reports: Generalized Quality: Reports: Other Severity: Moderate Improves with: Reports: None Worsens with: Reports: None Context: Reports: Other Associated Symptoms: Reports: Weakness - Related Data Allergies Allergy/AdvReac Type Severity Reaction Status Date / Time sitagliptin Allergy Cannot Verified 03/14/20 15:00 Remember lisinopril AdvReac Mild Cough Verified 03/14/20 15:00 Home Meds: Home Meds Liraglutide [Victoza] 1.8 mg SUBCUT DAILY 12/12/14 [History] dilTIAZem HCl [Diltiazem 24Hr ER (Cd)] 240 mg PO DAILY 12/12/14 [History] Ammonium Lactate [Lac-Hydrin 12% Crm] 1 applic TOP ASDIRECTED PRN 08/04/15 [ History] Aspirin [Halfprin] 81 mg PO BRK 08/04/15 [History] Clobetasol [Temovate 0.05% Oint] 1 applic TOP BID PRN 08/04/15 [History] Insulin Aspart [NovoLOG] 15 unit SUBCUT BID 08/04/15 [History] Omeprazole 20 mg PO DAILY 06/01/17 [History] Hydrocodone/Acetaminophen [Hydrocodone-Acetamin 10-325 mg] 1 tab PO ASDIRECTED PRN 04/04/19 [History] Levothyroxine 75 mcg PO DAILY 04/04/19 [History] Warfarin Sodium 3 mg PO DAILY 04/04/19 [History] atorvaSTATin Calcium [Atorvastatin Calcium] 20 mg PO DAILY 04/04/19 [History] Insulin Degludec [Tresiba] 45 unit SQ BEDTIME 11/04/19 [History] methocarbamoL [Methocarbamol] 750 mg PO DAILY 11/04/19 [History] Digoxin 0.125 mg PO DAILY #30 ml 11/06/19 [Rx] Furosemide [Lasix] 60 mg PO DAILY 03/14/20 [History] Losartan Potassium 100 mg PO DAILY 03/14/20 [History] Metoprolol Succinate [Toprol XL] 200 mg PO DAILY 03/14/20 [History] Past Medical History HEENT History: Reports: Cataract Other HEENT History: ears are partly plugged Cardiovascular History: Reports: Afib, Automatic Implantable Cardioverter Defibrillators, CAD, Heart Failure, High Cholesterol, Hypertension, NM, Pacemaker, SOB on Exertion Respiratory History: Reports: Sleep Apnea Other Respiratory History: Pt wears CPAP machine at night, O2 at night PRN Gastrointestinal History: Reports: None, GERD Other Gastrointestinal History: ELEVATED LIVER ENZYMES & FATTY LIVER Genitourinary History: Reports: None Musculoskeletal History: Reports: Arthritis, Fracture Other Musculoskeletal History: disk out for last 3 years; LEFT ANKLE FRACTURE Neurological History: Reports: None Psychiatric History: Reports: Anxiety Endocrine/Metabolic History: Reports: Diabetes, Type II, Hypothyroidism, Obesity /BMI 30+ Hematologic History: Reports: None Immunologic History: Reports: None Oncologic (Cancer) History: Reports: Other (See Below) Other Oncologic History: testicular-both testicles removed Dermatologic History: Reports: Other (See Below) Other Dermatologic History: dry skin - Infectious Disease History Infectious Disease History: Reports: None Other Infectious Disease History: UNCERTAIN OF HISTORY - Past Surgical History Head Surgeries/Procedures: Reports: None HEENT Surgical History: Reports: Cataract Surgery Cardiovascular Surgical History: Reports: Pacer Respiratory Surgical History: Reports: None GI Surgical History: Reports: Appendectomy Male Surgical History: Reports: Other (See Below) Other Male Surgeries/Procedures: Testicular cancer- both testicles removed Endocrine Surgical History: Reports: None Neurological Surgical History: Reports: None Musculoskeletal Surgical History: Reports: None Oncologic Surgical History: Reports: Other (See Below) Other Oncologic Surgeries/Procedures: testicular-both testicles removed Dermatological Surgical History: Reports: None Social & Family History - Family History Family Medical History: Noncontributory Cardiac: Reports: Afib, CAD, Heart Failure, High Cholesterol, Hypertension, NM, Stent Respiratory: Reports: COPD Endocrine/Metabolic: Reports: Obesity/MBI 30+ - Tobacco Use Smoking Status *Q: Never Smoker Second Hand Smoke Exposure: No - Caffeine Use Caffeine Use: Reports: None Other Caffeine Use: RARELY USES - Recreational Drug Use Recreational Drug Use: No - Living Situation & Occupation Living situation: Reports: Single, with Family Occupation: Employed ED ROS GENERAL - Review of Systems Review Of Systems: Comprehensive ROS is negative, except as noted in HPI. ED EXAM, GENERAL - Physical Exam Exam: See Below Exam Limited By: No Limitations General Appearance: Alert, WD/WN, Moderate Distress Eye Exam: Bilateral Eye: EOMI, Normal Inspection, PERRL Ears: Normal External Exam, Normal Canal, Hearing Grossly Normal, Normal TMs Nose: Normal Inspection, Normal Mucosa, No Blood Throat/Mouth: Normal Inspection, Normal Lips, Normal Teeth, Normal Gums, Normal Oropharynx, Normal Voice, No Airway Compromise Head: Atraumatic, Normocephalic Neck: Normal Inspection, Supple, Non-Tender, Full Range of Motion Respiratory/Chest: No Respiratory Distress, Lungs Clear, Normal Breath Sounds, No Accessory Muscle Use, Chest Non-Tender Cardiovascular: Normal Peripheral Pulses, Regular Rate, Rhythm, No Edema, No Gallop, No JVD, No Murmur, No Rub GI/Abdominal: Normal Bowel Sounds, Soft, Non-Tender, No Organomegaly, No Distention, No Abnormal Bruit, No Mass (Male) Exam: Deferred Rectal (Males) Exam: Deferred Back Exam: Normal Inspection, Full Range of Motion, NT Extremities: Normal Inspection, Normal Range of Motion, Non-Tender, Normal Capillary Refill, No Pedal Edema Neurological: Alert, Oriented, CN II-XII Intact, Normal Cognition, Normal Gait, Normal Reflexes, No Motor/Sensory Deficits Psychiatric: Normal Affect Skin Exam: Warm, Dry, Intact, Normal Color, No Rash Lymphatic: No Adenopathy Course - Vital Signs Last Recorded V/S: Last Vital Signs Temp 36.3 C 03/14/20 14:57 Pulse 79 03/14/20 14:57 Resp 18 03/14/20 14:57 BP 98/63 03/14/20 14:57 Pulse Ox 99 03/14/20 14:57 - Orders/Labs/Meds Orders: Active Orders 24 hr Category Date Time Status Admission Diagnosis [ADT] Urgent ADT 03/14/20 17:17 Ordered Admission Status [Patient Status] [ADT] Routine ADT 03/14/20 17:17 Active EKG Documentation Completion [RC] STAT Care 03/14/20 15:19 Active Labs: Laboratory Tests 03/14/20 03/14/20 Range/Units 15:30 15:30 WBC 8.6 (5.0-10.0) 10^3/uL RBC 4.74 (4.6-6.2) 10^6/uL Hgb 14.6 (14.0-18.0) g/dL Hct 43.8 (40.0-54.0) % MCV 92.4 (80-100) fL MCH 30.8 (27.0-34.0) pg MCHC 33.3 (33.0-35.0) g/dL Plt Count 200 (150-450) 10^3/uL Neut % (Auto) 73.9 (42.2-75.2) % Lymph % (Auto) 13.4 L (20.5-50.1) % [place] % (Auto) 9.1 H (2-8) % Eos % (Auto) 3.0 (1.0-3.0) % Baso % (Auto) 0.6 (0.0-1.0) % Sodium 137 (136-145) mmol/L Potassium 4.7 (3.5-5.1) mmol/L Chloride 101 (98-107) mmol/L Carbon Dioxide 26 (21-32) mmol/L Anion Gap 14.7 H (7-13) mEq/L BUN 43 H (7-18) mg/dL Creatinine 1.31 H (0.70-1.30) mg/dL Est Cr Clr Drug Dosing 58.74 mL/min Estimated GFR (MDRD) 56 BUN/Creatinine Ratio 32.8 (No establ ref range) Glucose 227 H (74-99) mg/dL Calcium 8.7 (8.5-10.1) mg/dL Total Bilirubin 0.4 (0.2-1.0) mg/dL AST 24 (15-37) U/L ALT 33 (16-63) U/L Alkaline Phosphatase 92 (46-116) U/L Troponin I < 0.017 (0.000-0.056) ng/mL Total Protein 7.3 (6.4-8.2) g/dL Albumin 3.5 (3.4-5.0) g/dL Globulin 3.8 Albumin/Globulin Ratio 0.9 Departure - Departure Time of Disposition: 17:24 Disposition: Refer to Observation Condition: Fair Clinical Impression: Hypotension Qualifiers: Hypotension type: unspecified hypotension type Qualified Code(s): I95.9 - Hypotension, unspecified - Discharge Information *PRESCRIPTION DRUG MONITORING PROGRAM REVIEWED*: Not Applicable *COPY OF PRESCRIPTION DRUG MONITORING REPORT IN PATIENT NASIR: Not Applicable Care Plan Goals: Discussed the patient's history, examination, lab and EKG results with Dr. Hernández. Dr. Hernández accepted the patient for continued evaluation and management as an observation patient here at [facility]. Sepsis Event Note - Evaluation Sepsis Screening Result: No Definite Risk - Focused Exam Vital Signs: Vital Signs Temp Pulse Resp BP Pulse Ox 03/14/20 14:57 36.3 C 79 18 98/63 99 Date Exam was Performed: 03/14/20 Time Exam was Performed: 17:19 - My Orders Last 24 Hours: My Active Orders 03/14/20 15:19 EKG Documentation Completion [RC] STAT 03/14/20 17:17 Admission Diagnosis [ADT] Urgent Admission Status [Patient Status] [ADT] Routine - Assessment/Plan Last 24 Hours: My Active Orders 03/14/20 15:19 EKG Documentation Completion [RC] STAT 03/14/20 17:17 Admission Diagnosis [ADT] Urgent Admission Status [Patient Status] [ADT] Routine
[2020-03-14] MEDS ORDERED: Acetaminophen/HYDROcodone 325-10 MG Tab PO PRN (17:57)
[2020-03-14] MEDS ORDERED: Zolpidem 5 MG Tab PO PRN (18:25)
[2020-03-14] MEDS ORDERED: Ondansetron 4 MG Tab.DIS PO PRN (18:25)
[2020-03-14] MEDS ORDERED: Sodium Chloride 0.9% 10 ML Syringe FLUSH PRN (18:25)
[2020-03-14] MEDS ORDERED: Docusate Sodium 100 MG Cap PO PRN (18:25)
--- NOTE | 2020-03-14 18:34 | PCM.HP ---
H&P History of Present Illness - General Date of Service: 03/14/20 Admit Problem/Dx: Admission Diagnosis/Problem Admission Diagnosis/Problem Hypotension Source of Information: Patient, Provider (er) - History of Present Illness Initial Comments - Free Text/Narative: The patient presents with the nonspecific symptoms of episodic weakness. He denies shortness of breath, feels no energy. This has been happening for about 2 months, has been on multiple medications that has been changed but he is not clear how. He is not sure if he is taking digoxin or not what is the metoprolol dose he is taking. He has been going to see Dr. Beckham on his primary care doctor and also cardiology. He can poorly following up what exactly he is supposed to do now with so many changes. He reports no specific complaints of chest pain, shortness of breath, fever or chills. He has been checking his blood pressures twice a day at home he usually gets between 100-120 systolic. Came into the emergency room and blood pressure was noted that in the mid 90s, may be on some readings in the 80s. - Related Data Allergies/Adverse Reactions: Allergies Allergy/AdvReac Type Severity Reaction Status Date / Time sitagliptin Allergy Cannot Verified 03/14/20 18:09 Remember lisinopril AdvReac Mild Cough Verified 03/14/20 18:09 Home Medications: Home Meds Liraglutide [Victoza] 1.8 mg SUBCUT DAILY 12/12/14 [History] dilTIAZem HCl [Diltiazem 24Hr ER (Cd)] 240 mg PO DAILY 12/12/14 [History] Ammonium Lactate [Lac-Hydrin 12% Crm] 1 applic TOP ASDIRECTED PRN 08/04/15 [ History] Aspirin [Halfprin] 81 mg PO BRK 08/04/15 [History] Clobetasol [Temovate 0.05% Oint] 1 applic TOP BID PRN 08/04/15 [History] Insulin Aspart [NovoLOG] 15 unit SUBCUT BID 08/04/15 [History] Omeprazole 20 mg PO DAILY 06/01/17 [History] Hydrocodone/Acetaminophen [Hydrocodone-Acetamin 10-325 mg] 1 tab PO ASDIRECTED PRN 04/04/19 [History] Levothyroxine 75 mcg PO DAILY 04/04/19 [History] Warfarin Sodium 3 mg PO DAILY 04/04/19 [History] atorvaSTATin Calcium [Atorvastatin Calcium] 20 mg PO DAILY 04/04/19 [History] Insulin Degludec [Tresiba] 45 unit SQ BEDTIME 11/04/19 [History] methocarbamoL [Methocarbamol] 750 mg PO DAILY 11/04/19 [History] Digoxin 0.125 mg PO DAILY #30 ml 11/06/19 [Rx] Furosemide [Lasix] 60 mg PO DAILY 03/14/20 [History] Losartan Potassium 100 mg PO DAILY 03/14/20 [History] Metoprolol Succinate [Toprol XL] 200 mg PO DAILY 03/14/20 [History] Past Medical History HEENT History: Reports: Cataract Other HEENT History: ears are partly plugged Cardiovascular History: Reports: Afib, Automatic Implantable Cardioverter Defibrillators, CAD, Heart Failure, High Cholesterol, Hypertension, PR, Pacemaker, SOB on Exertion Respiratory History: Reports: Sleep Apnea Other Respiratory History: Pt wears CPAP machine at night, O2 at night PRN Gastrointestinal History: Reports: None, GERD Other Gastrointestinal History: ELEVATED LIVER ENZYMES & FATTY LIVER Genitourinary History: Reports: None Musculoskeletal History: Reports: Arthritis, Fracture Other Musculoskeletal History: disk out for last 3 years; LEFT ANKLE FRACTURE Neurological History: Reports: None Psychiatric History: Reports: Anxiety Endocrine/Metabolic History: Reports: Diabetes, Type II, Hypothyroidism, Obesity /BMI 30+ Hematologic History: Reports: None Immunologic History: Reports: None Oncologic (Cancer) History: Reports: Other (See Below) Other Oncologic History: testicular-both testicles removed Dermatologic History: Reports: Other (See Below) Other Dermatologic History: dry skin - Infectious Disease History Infectious Disease History: Reports: None Other Infectious Disease History: UNCERTAIN OF HISTORY - Past Surgical History Head Surgeries/Procedures: Reports: None HEENT Surgical History: Reports: Cataract Surgery Cardiovascular Surgical History: Reports: Pacer Respiratory Surgical History: Reports: None GI Surgical History: Reports: Appendectomy Male Surgical History: Reports: Other (See Below) Other Male Surgeries/Procedures: Testicular cancer- both testicles removed Endocrine Surgical History: Reports: None Neurological Surgical History: Reports: None Musculoskeletal Surgical History: Reports: None Oncologic Surgical History: Reports: Other (See Below) Other Oncologic Surgeries/Procedures: testicular-both testicles removed Dermatological Surgical History: Reports: None Social & Family History - Family History Family Medical History: Noncontributory Cardiac: Reports: Afib, CAD, Heart Failure, High Cholesterol, Hypertension, PR, Stent Respiratory: Reports: COPD Endocrine/Metabolic: Reports: Obesity/MBI 30+ - Tobacco Use Smoking Status *Q: Never Smoker Second Hand Smoke Exposure: No - Caffeine Use Caffeine Use: Reports: None Other Caffeine Use: RARELY USES - Recreational Drug Use Recreational Drug Use: No - Living Situation & Occupation Living situation: Reports: Single, with Family Occupation: Employed H&P Review of Systems - Review of Systems: Review Of Systems: See Below General: Reports: Malaise, Weakness. Denies: Fever, Chills Pulmonary: Denies: Shortness of Breath Cardiovascular: Denies: Chest Pain Gastrointestinal: Denies: Abdominal Pain Genitourinary: Denies: Dysuria, Frequency Psychiatric: Reports: Anxiety. Denies: Confusion Exam - Exam Exam: See Below - Vital Signs Vital Signs: Last Vital Signs Temp 97.4 F 03/14/20 14:57 Pulse 79 03/14/20 14:57 Resp 18 03/14/20 14:57 BP 98/63 03/14/20 14:57 Pulse Ox 99 03/14/20 14:57 Weight: 265 lb 3.2 oz - Exam General: Alert, Oriented Neck: Supple Lungs: Clear to Auscultation, Normal Respiratory Effort Cardiovascular: Regular Rate, Regular Rhythm GI/Abdominal Exam: Normal Bowel Sounds, Soft, Non-Tender Extremities: Pedal Edema (trace bilateral le edema) - Patient Data Lab Results Last 24 hrs: Laboratory Results - last 24 hr 03/14/20 03/14/20 03/14/20 Range/Units 15:30 15:30 17:58 WBC 8.6 (5.0-10.0) 10^3/uL RBC 4.74 (4.6-6.2) 10^6/uL Hgb 14.6 (14.0-18.0) g/dL Hct 43.8 (40.0-54.0) % MCV 92.4 (80-100) fL MCH 30.8 (27.0-34.0) pg MCHC 33.3 (33.0-35.0) g/dL Plt Count 200 (150-450) 10^3/uL Neut % (Auto) 73.9 (42.2-75.2) % Lymph % (Auto) 13.4 L (20.5-50.1) % [place] % (Auto) 9.1 H (2-8) % Eos % (Auto) 3.0 (1.0-3.0) % Baso % (Auto) 0.6 (0.0-1.0) % Sodium 137 (136-145) mmol/L Potassium 4.7 (3.5-5.1) mmol/L Chloride 101 (98-107) mmol/L Carbon Dioxide 26 (21-32) mmol/L Anion Gap 14.7 H (7-13) mEq/L BUN 43 H (7-18) mg/dL Creatinine 1.31 H (0.70-1.30) mg/dL Est Cr Clr Drug Dosing 58.74 mL/min Estimated GFR (MDRD) 56 BUN/Creatinine Ratio 32.8 (No establ ref range) Glucose 227 H (74-99) mg/dL POC Glucose 149 H (70-105) mg/dl Calcium 8.7 (8.5-10.1) mg/dL Total Bilirubin 0.4 (0.2-1.0) mg/dL AST 24 (15-37) U/L ALT 33 (16-63) U/L Alkaline Phosphatase 92 (46-116) U/L Troponin I < 0.017 (0.000-0.056) ng/mL Total Protein 7.3 (6.4-8.2) g/dL Albumin 3.5 (3.4-5.0) g/dL Globulin 3.8 Albumin/Globulin Ratio 0.9 Result Diagrams: 03/14/20 15:30 03/14/20 15:30 EKG INTERPRETATION Rhythm: A-Flutter EKG Interpretation Comments: a flutter with V paced rythm - Problem List (1) Hypotension SNOMED Code(s): 48235861 ICD Code: I95.9 - HYPOTENSION, UNSPECIFIED Status: Acute Current Visit: Yes Qualifiers: Hypotension type: unspecified hypotension type Qualified Code(s): I95.9 - Hypotension, unspecified (2) Atrial fibrillation SNOMED Code(s): 46123799 ICD Code: I48.91 - UNSPECIFIED ATRIAL FIBRILLATION Status: Acute Current Visit: No Qualifiers: Atrial fibrillation type: longstanding persistent Qualified Code(s): I48.11 - Longstanding persistent atrial fibrillation (3) CAD (coronary artery disease) SNOMED Code(s): 34723241 ICD Code: I25.10 - ATHSCL HEART DISEASE OF [place] CORONARY ARTERY W/O ANG PCTRS Status: Acute Current Visit: No Qualifiers: Coronary Disease-Associated Artery/Lesion type: unspecified vessel or lesion type [place] vs. transplanted heart: [place] heart Associated angina: with unstable angina Qualified Code(s): I25.110 - Atherosclerotic heart disease of [place] coronary artery with unstable angina pectoris (4) Chronic back pain greater than 3 months duration SNOMED Code(s): 015912938901 ICD Code: M54.9 - DORSALGIA, UNSPECIFIED; G89.29 - OTHER CHRONIC PAIN Status: Acute Priority: Medium Current Visit: No Onset Date: 08/04/15 (5) Congestive heart failure SNOMED Code(s): 07237388 ICD Code: I50.9 - HEART FAILURE, UNSPECIFIED Status: Acute Current Visit : No Qualifiers: Heart failure type: other Qualified Code(s): I50.9 - Heart failure, unspecified (6) Generalized weakness SNOMED Code(s): 10503440 ICD Code: R53.1 - WEAKNESS Status: Acute Current Visit: No (7) Hyperglycemia due to type 2 diabetes mellitus SNOMED Code(s): 329357890492070, 815301637791232 ICD Code: E11.65 - TYPE 2 DIABETES MELLITUS WITH HYPERGLYCEMIA Status: Acute Current Visit: No (8) Hypotension due to medication Status: Acute Current Visit: No (9) Hypothyroidism SNOMED Code(s): 54326062 ICD Code: E03.9 - HYPOTHYROIDISM, UNSPECIFIED Status: Acute Current Visit : No Qualifiers: Hypothyroidism type: unspecified Qualified Code(s): E03.9 - Hypothyroidism , unspecified Problem List Initiated/Reviewed/Updated: Yes Orders Last 24hrs: Active Orders 24 hr Category Date Time Status Admission Diagnosis [ADT] Urgent ADT 03/14/20 17:17 Ordered Admission Status [Patient Status] [ADT] Routine ADT 03/14/20 17:17 Active Antiembolic Devices [RC] PER UNIT ROUTINE Care 03/14/20 18:27 Ordered EKG Documentation Completion [RC] STAT Care 03/14/20 15:19 Active Glucose [Blood Glucose Check, Bedside] [RC] QIDACANDBED Care 03/14/20 17:56 Active Oxygen Therapy [RC] PRN Care 03/14/20 18:26 Ordered Peripheral IV Care [RC] . DIRECTED Care 03/14/20 18:27 Ordered Telemetry Monitoring [Cardiac Monitoring] [RC] . Care 03/14/20 18:14 Active DIRECTED Up With Assistance [RC] ASDIRECTED Care 03/14/20 18:25 Ordered VTE/DVT Education [RC] PER UNIT ROUTINE Care 03/14/20 18:26 Ordered Vital Signs [RC] Q4H Care 03/14/20 18:26 Ordered 2 Gram Sodium Diet [DIET] Diet 03/14/20 Breakfast Ordered BASIC METABOLIC PANEL,BMP [CHEM] AM Lab 03/15/20 05:15 Ordered CBC WITH AUTO DIFF [HEME] AM Lab 03/15/20 05:15 Ordered DIGOXIN [CHEM] AM Lab 03/15/20 05:11 Ordered TSH ULTRASENSITIVE [CHEM] AM Lab 03/15/20 05:11 Ordered Acetaminophen/HYDROcodone [Cotati 325-10 MG] Med 03/14/20 17:57 Active 1 tab PO Q6H PRN Aspirin [Halfprin] Med 03/15/20 08:00 Active 81 mg PO BRK Digoxin [Digoxin] Med 03/15/20 09:00 Ordered 0.125 mg PO DAILY Docusate Sodium [Colace] Med 03/14/20 18:25 Ordered 100 mg PO BID PRN Furosemide [Lasix] Med 03/15/20 09:00 Active 40 mg PO DAILY Insulin Aspart [NovoLOG] Med 03/14/20 21:00 Ordered 15 unit SUBCUT BID Insulin Glarg,Human.Rec.Analog [LantUS] Med 03/14/20 21:00 Active 35 unit SUBCUT BEDTIME Insulin Lispro [HumaLOG] Med 03/14/20 21:00 Active See Protocol SUBCUT ACBED Levothyroxine Med 03/15/20 06:00 Active 75 mcg PO ACBREAKFAST Losartan Potassium [Losartan Potassium] Med 03/15/20 09:00 Ordered 50 mg PO DAILY Metoprolol Succinate [Toprol XL] Med 03/15/20 09:00 Ordered 200 mg PO DAILY Omeprazole Med 03/15/20 06:00 Active 20 mg PO ACBREAKFAST Ondansetron [Zofran ODT] Med 03/14/20 18:25 Ordered 4 mg PO Q6H PRN Pharmacy to Dose - Warfarin Med 03/14/20 18:15 Ordered 1 dose .XX ASDIRECTED Sodium Chloride 0.9% [Saline Flush] Med 03/14/20 18:25 Ordered 10 ml FLUSH ASDIRECTED PRN Zolpidem [Ambien] Med 03/14/20 18:25 Ordered 5 mg PO BEDTIME PRN atorvaSTATin [Lipitor] Med 03/15/20 09:00 Active 20 mg PO DAILY Antiembolic Hose [OM.PC] Per Unit Routine Oth 03/14/20 18:26 Ordered Peripheral IV Insertion Adult [OM.PC] Routine Oth 03/14/20 18:25 Ordered Saline Lock Insert [OM.PC] Routine Oth 03/14/20 18:25 Ordered Resuscitation Status Routine Resus Stat 03/14/20 18:25 Ordered Medication Orders Hydrocodone Bitart/Acetaminophen (Cotati 325-10 Mg) 1 tab PO Q6H PRN PRN Reason: mod Pain Aspirin (Halfprin) 81 mg PO BRK [facility] Atorvastatin Calcium (Lipitor) 20 mg PO DAILY [facility] Docusate Sodium (Colace) 100 mg PO BID PRN PRN Reason: Constipation Furosemide (Lasix) 40 mg PO DAILY [facility] Insulin Glargine (Lantus) 35 unit SUBCUT BEDTIME [facility] Insulin Human Lispro (Humalog) 0 unit SUBCUT ACBED [facility]; Protocol Levothyroxine Sodium (Levothyroxine) 75 mcg PO ACBREAKFAST [facility] Non-Formulary Medication (Digoxin [Digoxin]) 0.125 mg PO DAILY [facility] Non-Formulary Medication (Insulin Aspart [Novolog]) 15 unit SUBCUT BID [facility] Non-Formulary Medication (Losartan Potassium [Losartan Potassium]) 50 mg PO DAILY [facility] Non-Formulary Medication (Metoprolol Succinate [Toprol Xl]) 200 mg PO DAILY [facility] Omeprazole (Omeprazole) 20 mg PO ACBREAKFAST [facility] Ondansetron HCl (Zofran Odt) 4 mg PO Q6H PRN PRN Reason: nausea, able to take PO Sodium Chloride (Saline Flush) 10 ml FLUSH ASDIRECTED PRN PRN Reason: Keep Vein Open Warfarin Sodium (Pharmacy To Dose - Warfarin) 1 dose .XX ASDIRECTED [facility] Zolpidem Tartrate (Ambien) 5 mg PO BEDTIME PRN PRN Reason: Sleep Assessment/Plan Comment:: Presented with nonspecific symptoms of weakness. The patient is on multiple medications prescribed by multiple providers including ER, cardiology, primary care. The patient himself is not sure what exactly he is taking. Lower blood pressures are noted in the emergency room. Hypertension Now with hypotension Decrease losartan cont atenolol Stop diltiazem Monitor on telemetry has pacemaker with digoxin, diltiazem, atenolol combination stop diltiazem Check digoxin level Diabetes Continue long-acting insulin Substitute Tresiba with Lantus follow for possible hypoglycemia Hold Victoza Coronary artery disease Continue aspirin, Lipitor, beta adeola Stop diltiazem Atrial fibrillation Anticoagulation with Coumadin Cont metoprolol Stop diltiazem Continue digoxin, check digoxin level Chronic kidney disease stage III, chronic chf Decrease Lasix from 60 mg to 40 mg daily Decrease losartan Hypothyroidism Check TSH Continue levothyroxine dvt prophylaxis full dose warfarin
[2020-03-14] MEDS ORDERED: Insulin Glarg,Human.Rec.Analog 100 Unit/ML SUBCUT SCH (21:00)
[2020-03-14] MEDS: Insulin Lispro 100 Units/ML 3 ML Vial SUBCUT SCH (21:43)
[2020-03-15] MEDS ORDERED: Levothyroxine 75 MCG Tab PO SCH (06:00)
[2020-03-15] MEDS ORDERED: Omeprazole 20 MG Cap.CR PO SCH (06:00)
[2020-03-15 06:45] LABS: ANION GAP 14.7 mEq/L (7-13); CHLORIDE,CL 105 mmol/L (98-107); SODIUM,NA 140 mmol/L (136-145)
[2020-03-15] MEDS ORDERED: Aspirin 81 MG Tab.EC PO SCH (08:00)
[2020-03-15] MEDS ORDERED: Digoxin 125 MCG Tab PO SCH (08:00)
[2020-03-15] MEDS ORDERED: Insulin Lispro 100 Units/ML 3 ML Vial SUBCUT SCH (08:00)
[2020-03-15] MEDS ORDERED: atorvaSTATin 20 MG Tab PO SCH (09:00)
[2020-03-15] MEDS ORDERED: Furosemide 20 MG Tab PO SCH (09:00)
[2020-03-15] MEDS ORDERED: Non-Formulary Medication 1 Each (Metoprolol Succinate [Toprol Xl] 100 MG) PO SCH (09:00)
[2020-03-15] MEDS ORDERED: Metoprolol Succinate 50 MG Tab.ER PO SCH (09:00)
[2020-03-15] MEDS ORDERED: Losartan 50 MG Tab PO SCH (09:00)
[2020-03-15] MEDS: Insulin Lispro 100 Units/ML 3 ML Vial SUBCUT SCH (09:41)
--- NOTE | 2020-03-15 10:16 | PCM.DCSUM1 ---
Discharge Summary - Hospital Course Free Text/Narrative:: Presented with nonspecific symptoms of weakness. The patient is on multiple medications prescribed by multiple providers including ER, cardiology, primary care. The patient himself is not sure what exactly he is taking. Lower blood pressures 80s systolic are noted in the emergency room. Hypertension Now with hypotension Decrease losartan decreased metoprolol Stop diltiazem pt is not sure what medications he is taking, he has difficulty following orders of multiple physician encounters (PMD, card, er) will set up home care, fdc for medication management, he is homebound, not able to leave the house, disabled Diabetes Continue long-acting insulin, Tresiba resume Victoza Coronary artery disease Continue aspirin, Lipitor, beta adeola Atrial fibrillation Anticoagulation with Coumadin Cont metoprolol Stop diltiazem, digoxin, Chronic kidney disease stage III, chronic chf cont lasix, spironolactone Decrease losartan Hypothyroidism TSH minimally below normal - follow as out pt Continue levothyroxine Diagnosis: Stroke: No - Discharge Data Discharge Date: 03/15/20 Discharge Disposition: Home, Self-Care 01 Condition: Good - Referral to Home Health Primary Care Physician: PCP Unobtainable - Discharge Diagnosis/Problem(s) (1) Hypotension SNOMED Code(s): 57301891 ICD Code: I95.9 - HYPOTENSION, UNSPECIFIED Status: Acute Current Visit: Yes Qualifiers: Hypotension type: unspecified hypotension type Qualified Code(s): I95.9 - Hypotension, unspecified (2) Atrial fibrillation SNOMED Code(s): 06501692 ICD Code: I48.91 - UNSPECIFIED ATRIAL FIBRILLATION Status: Acute Current Visit: No Qualifiers: Atrial fibrillation type: longstanding persistent Qualified Code(s): I48.11 - Longstanding persistent atrial fibrillation (3) CAD (coronary artery disease) SNOMED Code(s): 17412476 ICD Code: I25.10 - ATHSCL HEART DISEASE OF [place] CORONARY ARTERY W/O ANG PCTRS Status: Acute Current Visit: No Qualifiers: Coronary Disease-Associated Artery/Lesion type: unspecified vessel or lesion type [place] vs. transplanted heart: [place] heart Associated angina: with unstable angina Qualified Code(s): I25.110 - Atherosclerotic heart disease of [place] coronary artery with unstable angina pectoris (4) Chronic back pain greater than 3 months duration SNOMED Code(s): 688171163547 ICD Code: M54.9 - DORSALGIA, UNSPECIFIED; G89.29 - OTHER CHRONIC PAIN Status: Acute Priority: Medium Current Visit: No Onset Date: 08/04/15 (5) Congestive heart failure SNOMED Code(s): 90818690 ICD Code: I50.9 - HEART FAILURE, UNSPECIFIED Status: Acute Current Visit : No Qualifiers: Heart failure type: other Qualified Code(s): I50.9 - Heart failure, unspecified (6) Generalized weakness SNOMED Code(s): 91271124 ICD Code: R53.1 - WEAKNESS Status: Acute Current Visit: No (7) Hyperglycemia due to type 2 diabetes mellitus SNOMED Code(s): 722920700088418, 127293062888460 ICD Code: E11.65 - TYPE 2 DIABETES MELLITUS WITH HYPERGLYCEMIA Status: Acute Current Visit: No (8) Hypotension due to medication Status: Acute Current Visit: No (9) Hypothyroidism SNOMED Code(s): 36568040 ICD Code: E03.9 - HYPOTHYROIDISM, UNSPECIFIED Status: Acute Current Visit : No Qualifiers: Hypothyroidism type: unspecified Qualified Code(s): E03.9 - Hypothyroidism , unspecified - Patient Instructions Diet: Heart Healthy Diet Activity: As Tolerated - Discharge Plan *PRESCRIPTION DRUG MONITORING PROGRAM REVIEWED*: Not Applicable *COPY OF PRESCRIPTION DRUG MONITORING REPORT IN PATIENT NASIR: Not Applicable Prescriptions/Med Rec: Losartan [Cozaar] 50 mg PO DAILY #30 tablet Metoprolol Succinate [Toprol XL 50mg] 100 mg PO DAILY #30 tab.er Home Medications: Home Meds Liraglutide [Victoza] 1.8 mg SUBCUT DAILY 12/12/14 [History] Ammonium Lactate [Lac-Hydrin 12% Crm] 1 applic TOP ASDIRECTED PRN 08/04/15 [ History] Aspirin [Halfprin] 81 mg PO BRK 08/04/15 [History] Clobetasol [Temovate 0.05% Oint] 1 applic TOP BID PRN 08/04/15 [History] Insulin Aspart [NovoLOG] 20 unit SUBCUT WITHBREAKFAST 08/04/15 [History] Omeprazole 20 mg PO ACBREAKFAST 06/01/17 [History] Hydrocodone/Acetaminophen [Hydrocodone-Acetamin 10-325 mg] 1 tab PO Q4H PRN [History] Warfarin Sodium 3 mg PO .HEATHERHSATSUN 04/04/19 [History] atorvaSTATin Calcium [Atorvastatin Calcium] 20 mg PO BEDTIME 04/04/19 [History] Insulin Degludec [Tresiba] 60 unit SQ BEDTIME 11/04/19 [History] methocarbamoL [Methocarbamol] 750 mg PO DAILY PRN 11/04/19 [History] Furosemide [Lasix] 60 mg PO DAILY 03/14/20 [History] Insulin Aspart [NovoLOG] 20 units SQ WITHLUNCH 03/14/20 [History] Levothyroxine Sodium [Levoxyl] 50 mcg PO DAILY 03/14/20 [History] Spironolactone [Aldactone] 25 mg PO DAILY 03/14/20 [History] Warfarin [Coumadin] 6 mg PO .MONFR 03/14/20 [History] Losartan [Cozaar] 50 mg PO DAILY #30 tablet 03/15/20 [Rx] Metoprolol Succinate [Toprol XL 50mg] 100 mg PO DAILY #30 tab.er 03/15/20 [Rx] Referrals: PCP,Unobtain [Primary Care Provider] - (dr. Beckham ) - Discharge Summary/Plan Comment DC Time >30 min.: Yes - General Info Date of Service: 03/15/20 Subjective Update: feeling well anxious about blood pressure - Review of Systems General: Denies: Fever Pulmonary: Denies: Shortness of Breath Cardiovascular: Reports: Edema (trace). Denies: Chest Pain Genitourinary: Denies: Dysuria Neurological: Denies: Confusion Psychiatric: Reports: Anxiety - Patient Data Vitals - Most Recent: Last Vital Signs Temp 97.7 F 03/15/20 07:56 Pulse 68 03/15/20 09:22 Resp 18 03/15/20 07:56 BP 128/71 03/15/20 09:22 Pulse Ox 99 03/15/20 07:56 Weight - Most Recent: 258 lb 6.4 oz I&O - Last 24 hours: Intake & Output 03/14/20 03/15/20 03/15/20 22:59 06:59 14:59 Intake Total 500 200 240 Output Total 400 Balance 500 -200 240 Lab Results - Last 24 hrs: Laboratory Results - last 24 hr 03/14/20 03/14/20 03/14/20 Range/Units 15:30 15:30 17:58 WBC 8.6 (5.0-10.0) 10^3/uL RBC 4.74 (4.6-6.2) 10^6/uL Hgb 14.6 (14.0-18.0) g/dL Hct 43.8 (40.0-54.0) % MCV 92.4 (80-100) fL MCH 30.8 (27.0-34.0) pg MCHC 33.3 (33.0-35.0) g/dL Plt Count 200 (150-450) 10^3/uL Neut % (Auto) 73.9 (42.2-75.2) % Lymph % (Auto) 13.4 L (20.5-50.1) % [place] % (Auto) 9.1 H (2-8) % Eos % (Auto) 3.0 (1.0-3.0) % Baso % (Auto) 0.6 (0.0-1.0) % PT (9.0-12.0) SEC INR (0.9-1.2) Sodium 137 (136-145) mmol/L Potassium 4.7 (3.5-5.1) mmol/L Chloride 101 (98-107) mmol/L Carbon Dioxide 26 (21-32) mmol/L Anion Gap 14.7 H (7-13) mEq/L BUN 43 H (7-18) mg/dL Creatinine 1.31 H (0.70-1.30) mg/dL Est Cr Clr Drug Dosing 58.74 mL/min Estimated GFR (MDRD) 56 BUN/Creatinine Ratio 32.8 (No establ ref range) Glucose 227 H (74-99) mg/dL POC Glucose 149 H (70-105) mg/dl Calcium 8.7 (8.5-10.1) mg/dL Total Bilirubin 0.4 (0.2-1.0) mg/dL AST 24 (15-37) U/L ALT 33 (16-63) U/L Alkaline Phosphatase 92 (46-116) U/L Troponin I < 0.017 (0.000-0.056) ng/mL Total Protein 7.3 (6.4-8.2) g/dL Albumin 3.5 (3.4-5.0) g/dL Globulin 3.8 Albumin/Globulin Ratio 0.9 TSH, Ultra Sensitive (0.36-3.74) uIU/mL Digoxin (0.9-2.0) ng/mL 03/14/20 03/15/20 03/15/20 Range/Units 21:24 05:40 05:40 WBC 7.2 (5.0-10.0) 10^3/uL RBC 4.59 L (4.6-6.2) 10^6/uL Hgb 14.1 (14.0-18.0) g/dL Hct 42.6 (40.0-54.0) % MCV 92.8 (80-100) fL MCH 30.7 (27.0-34.0) pg MCHC 33.1 (33.0-35.0) g/dL Plt Count 159 (150-450) 10^3/uL Neut % (Auto) 73.1 (42.2-75.2) % Lymph % (Auto) 14.9 L (20.5-50.1) % [place] % (Auto) 9.0 H (2-8) % Eos % (Auto) 2.6 (1.0-3.0) % Baso % (Auto) 0.4 (0.0-1.0) % PT (9.0-12.0) SEC INR (0.9-1.2) Sodium 140 (136-145) mmol/L Potassium 4.7 (3.5-5.1) mmol/L Chloride 105 (98-107) mmol/L Carbon Dioxide 25 (21-32) mmol/L Anion Gap 14.7 H (7-13) mEq/L BUN 39 H (7-18) mg/dL Creatinine 1.11 (0.70-1.30) mg/dL Est Cr Clr Drug Dosing 69.32 mL/min Estimated GFR (MDRD) > 60 BUN/Creatinine Ratio (No establ ref range) Glucose 169 H (74-99) mg/dL POC Glucose 202 H (70-105) mg/dl Calcium 8.7 (8.5-10.1) mg/dL Total Bilirubin (0.2-1.0) mg/dL AST (15-37) U/L ALT (16-63) U/L Alkaline Phosphatase (46-116) U/L Troponin I (0.000-0.056) ng/mL Total Protein (6.4-8.2) g/dL Albumin (3.4-5.0) g/dL Globulin Albumin/Globulin Ratio TSH, Ultra Sensitive 0.33 L (0.36-3.74) uIU/mL Digoxin (0.9-2.0) ng/mL 03/15/20 03/15/20 03/15/20 Range/Units 05:40 05:40 07:40 WBC (5.0-10.0) 10^3/uL RBC (4.6-6.2) 10^6/uL Hgb (14.0-18.0) g/dL Hct (40.0-54.0) % MCV (80-100) fL MCH (27.0-34.0) pg MCHC (33.0-35.0) g/dL Plt Count (150-450) 10^3/uL Neut % (Auto) (42.2-75.2) % Lymph % (Auto) (20.5-50.1) % [place] % (Auto) (2-8) % Eos % (Auto) (1.0-3.0) % Baso % (Auto) (0.0-1.0) % PT 15.7 H (9.0-12.0) SEC INR 1.7 H (0.9-1.2) Sodium (136-145) mmol/L Potassium (3.5-5.1) mmol/L Chloride (98-107) mmol/L Carbon Dioxide (21-32) mmol/L Anion Gap (7-13) mEq/L BUN (7-18) mg/dL Creatinine (0.70-1.30) mg/dL Est Cr Clr Drug Dosing mL/min Estimated GFR (MDRD) BUN/Creatinine Ratio (No establ ref range) Glucose (74-99) mg/dL POC Glucose 180 H (70-105) mg/dl Calcium (8.5-10.1) mg/dL Total Bilirubin (0.2-1.0) mg/dL AST (15-37) U/L ALT (16-63) U/L Alkaline Phosphatase (46-116) U/L Troponin I (0.000-0.056) ng/mL Total Protein (6.4-8.2) g/dL Albumin (3.4-5.0) g/dL Globulin Albumin/Globulin Ratio TSH, Ultra Sensitive (0.36-3.74) uIU/mL Digoxin < 0.2 L (0.9-2.0) ng/mL Med Orders - Current: Current Medications Hydrocodone Bitart/Acetaminophen ([place] 325-10 Mg) 1 tab PO Q6H PRN PRN Reason: mod Pain Aspirin (Halfprin) 81 mg PO BRK [facility] Last Admin: 03/15/20 09:39 Dose: 81 mg Atorvastatin Calcium (Lipitor) 20 mg PO DAILY [facility] Last Admin: 03/15/20 09:21 Dose: 20 mg Docusate Sodium (Colace) 100 mg PO BID PRN PRN Reason: Constipation Furosemide (Lasix) 40 mg PO DAILY [facility] Last Admin: 03/15/20 09:21 Dose: 40 mg Insulin Glargine (Lantus) 35 unit SUBCUT BEDTIME [facility] Last Admin: 03/14/20 21:45 Dose: 35 units Insulin Human Lispro (Humalog) 0 unit SUBCUT ACBED [facility]; Protocol Last Admin: 03/15/20 09:41 Dose: 1 units Insulin Human Lispro (Humalog) 15 unit SUBCUT BIDMEALS [facility] Last Admin: 03/15/20 09:42 Dose: 15 units Levothyroxine Sodium (Levothyroxine) 75 mcg PO ACBREAKFAST [facility] Last Admin: 03/15/20 05:49 Dose: 75 mcg Losartan Potassium (Cozaar) 50 mg PO DAILY [facility] Last Admin: 03/15/20 09:22 Dose: 50 mg Metoprolol Succinate (Toprol Xl) 200 mg PO DAILY [facility] Last Admin: 03/15/20 09:22 Dose: 200 mg Omeprazole (Omeprazole) 20 mg PO ACBREAKFAST [facility] Last Admin: 03/15/20 05:49 Dose: 20 mg Ondansetron HCl (Zofran Odt) 4 mg PO Q6H PRN PRN Reason: nausea, able to take PO Sodium Chloride (Saline Flush) 10 ml FLUSH ASDIRECTED PRN PRN Reason: Keep Vein Open Last Admin: 03/14/20 21:48 Dose: 10 ml Warfarin Sodium (Pharmacy To Dose - Warfarin) 1 dose .XX ASDIRECTED [facility] Warfarin Sodium (Coumadin) 6 mg PO ONETIME ONE Stop: 03/15/20 14:01 Zolpidem Tartrate (Ambien) 5 mg PO BEDTIME PRN PRN Reason: Sleep Discontinued Medications Digoxin (Lanoxin) 125 mcg PO DAILY@0800 [facility] Non-Formulary Medication (Metoprolol Succinate [Toprol Xl]) 100 mg PO DAILY [facility] - Exam General: Reports: Alert, Oriented Neck: Reports: Supple Lungs: Reports: Clear to Auscultation, Normal Respiratory Effort Cardiovascular: Reports: Irregular Rhythm GI/Abdominal Exam: Normal Bowel Sounds, Soft, Non-Tender, Other (obese) Extremities: Pedal Edema (trace b/l) Skin: Reports: Warm, Dry Neurological: Reports: No New Focal Deficit
[2020-03-15 11:37] VITALS: BP 104/65; PULSE 71
[2020-03-15] MEDS ORDERED: Warfarin 2 MG Tab PO ONE (14:00)
== END 2020-03-15 11:00 | disposition home or self-care (01) ==
LOC: DL.ED 14:41 → DL.MS 17:17
PROVIDERS: ADMIT Internal Medicine; ATTEND Internal Medicine
DX: I95.2 Hypotension due to drugs (principal); I13.0 Hypertensive heart and chronic kidney disease with heart failure and stage 1 through stage 4 chronic kidney disease, or unspecified chronic kidney disease; N18.3 Chronic kidney disease, stage 3 (moderate); E11.22 Type 2 diabetes mellitus with diabetic chronic kidney disease; E78.00 Pure hypercholesterolemia, unspecified; I50.9 Heart failure, unspecified; F41.9 Anxiety disorder, unspecified; E03.9 Hypothyroidism, unspecified; E66.9 Obesity, unspecified; I48.11 Longstanding persistent atrial fibrillation; I25.110 Atherosclerotic heart disease of native coronary artery with unstable angina pectoris; G89.29 Other chronic pain; M54.9 Dorsalgia, unspecified; E11.65 Type 2 diabetes mellitus with hyperglycemia; Z88.8 Allergy status to other drugs, medicaments and biological substances; Z79.890 Hormone replacement therapy; Z79.4 Long term (current) use of insulin; Z79.899 Other long term (current) drug therapy; Z95.0 Presence of cardiac pacemaker; Z79.82 Long term (current) use of aspirin; Z79.01 Long term (current) use of anticoagulants; Z68.41 Body mass index [BMI] 40.0-44.9, adult
CPT/HCPCS: 36415; 71045; 80048; 80053; 80162; 82962; 84443; 84484; 85025; 85610; 93005; 99285-25; A9270-GY; G0378; J1815-GY

== ENCOUNTER 2020-04-08 17:10 | Emergency (ER) | payer MEDICARE, BC ==
[2020-04-08 17:26] VITALS: BP 129/71; PULSE 90
[2020-04-08] MEDS ORDERED: Mupirocin Oint 22 GM Tube TOP ONE (17:42)
[2020-04-08] MEDS ORDERED: cefTRIAXone 1 GM, Lidocaine 1% 2.1 ML IM ONE ×2 (17:44)
--- NOTE | 2020-04-08 17:49 | EDM.PDOC ---
ED HPI GENERAL MEDICAL PROBLEM - General Chief Complaint: General Stated Complaint: STOMACH PROBLEMS Time Seen by Provider: 04/08/20 17:30 Source of Information: Reports: Patient, RN, RN Notes Reviewed History Limitations: Reports: No Limitations - History of Present Illness INITIAL COMMENTS - FREE TEXT/NARRATIVE: Patient presents to ER with complaint of belly button pain. Patient has vague symptoms, states he has had an irritation in his bellybutton but states it hurts deeper in. Patient denies any nausea, vomiting, diarrhea, acid indigestion, upset stomach. Patient states symptoms have been improving since he was hospitalized a few weeks ago regarding hypotension, dizziness. He states his blood pressure medications were changed and he states that has been improving. Patient also complains of hearing a noise in his ears when he turns his head, states he has been having some bad taste in the mouth and sore throat on the left side. He states he has been getting dark brown drainage with a foul smell from the left ear. Onset: Gradual - Related Data Allergies Allergy/AdvReac Type Severity Reaction Status Date / Time sitagliptin Allergy Cannot Verified 04/08/20 17:21 Remember lisinopril AdvReac Mild Cough Verified 04/08/20 17:21 Home Meds: Home Meds Liraglutide [Victoza] 1.8 mg SUBCUT DAILY 12/12/14 [History] Ammonium Lactate [Lac-Hydrin 12% Crm] 1 applic TOP ASDIRECTED PRN 08/04/15 [History] Aspirin [Halfprin] 81 mg PO BRK 08/04/15 [History] Clobetasol [Temovate 0.05% Oint] 1 applic TOP BID PRN 08/04/15 [History] Insulin Aspart [NovoLOG] 20 unit SUBCUT WITHBREAKFAST 08/04/15 [History] Omeprazole 20 mg PO ACBREAKFAST 06/01/17 [History] Hydrocodone/Acetaminophen [Hydrocodone-Acetamin 10-325 mg] 1 tab PO Q4H PRN 04/04/19 [History] Warfarin Sodium 3 mg PO .TUWEDTHSATSUN 04/04/19 [History] atorvaSTATin Calcium [Atorvastatin Calcium] 20 mg PO BEDTIME 04/04/19 [History] Insulin Degludec [Tresiba] 60 unit SQ BEDTIME 11/04/19 [History] methocarbamoL [Methocarbamol] 750 mg PO DAILY PRN 11/04/19 [History] Furosemide [Lasix] 60 mg PO DAILY 03/14/20 [History] Insulin Aspart [NovoLOG] 20 units SQ WITHLUNCH 03/14/20 [History] Levothyroxine Sodium [Levoxyl] 50 mcg PO DAILY 03/14/20 [History] Spironolactone [Aldactone] 25 mg PO DAILY 03/14/20 [History] Warfarin [Coumadin] 6 mg PO .MONFR 03/14/20 [History] Losartan [Cozaar] 50 mg PO DAILY #30 tablet 03/15/20 [Rx] Metoprolol Succinate [Toprol XL 50mg] 100 mg PO DAILY #30 tab.er 03/15/20 [Rx] Past Medical History HEENT History: Reports: Cataract Other HEENT History: ears are partly plugged Cardiovascular History: Reports: Afib, Automatic Implantable Cardioverter Defibrillators, CAD, Heart Failure, High Cholesterol, Hypertension, NM, Pacemaker, SOB on Exertion Respiratory History: Reports: Sleep Apnea Other Respiratory History: Pt wears CPAP machine at night, O2 at night PRN Gastrointestinal History: Reports: None, GERD Other Gastrointestinal History: ELEVATED LIVER ENZYMES & FATTY LIVER Genitourinary History: Reports: None Musculoskeletal History: Reports: Arthritis, Fracture Other Musculoskeletal History: disk out for last 3 years; LEFT ANKLE FRACTURE Neurological History: Reports: None Psychiatric History: Reports: Anxiety Endocrine/Metabolic History: Reports: Diabetes, Type II, Hypothyroidism, Obesity/BMI 30+ Hematologic History: Reports: None Immunologic History: Reports: None Oncologic (Cancer) History: Reports: Other (See Below) Other Oncologic History: testicular-both testicles removed Dermatologic History: Reports: Other (See Below) Other Dermatologic History: dry skin - Infectious Disease History Infectious Disease History: Reports: None Other Infectious Disease History: UNCERTAIN OF HISTORY - Past Surgical History Head Surgeries/Procedures: Reports: None HEENT Surgical History: Reports: Cataract Surgery Cardiovascular Surgical History: Reports: Pacer Respiratory Surgical History: Reports: None GI Surgical History: Reports: Appendectomy Male Surgical History: Reports: Other (See Below) Other Male Surgeries/Procedures: Testicular cancer- both testicles removed Endocrine Surgical History: Reports: None Neurological Surgical History: Reports: None Musculoskeletal Surgical History: Reports: None Oncologic Surgical History: Reports: Other (See Below) Other Oncologic Surgeries/Procedures: testicular-both testicles removed Dermatological Surgical History: Reports: None Social & Family History - Family History Family Medical History: Noncontributory Cardiac: Reports: Afib, CAD, Heart Failure, High Cholesterol, Hypertension, NM, Stent Respiratory: Reports: COPD Endocrine/Metabolic: Reports: Obesity/MBI 30+ - Tobacco Use Smoking Status *Q: Never Smoker - Caffeine Use Caffeine Use: Reports: None Other Caffeine Use: RARELY USES - Recreational Drug Use Recreational Drug Use: No - Living Situation & Occupation Living situation: Reports: Single, with Family Occupation: Employed ED ROS GENERAL - Review of Systems Review Of Systems: Comprehensive ROS is negative, except as noted in HPI. ED EXAM, GENERAL - Physical Exam Exam: See Below Exam Limited By: No Limitations General Appearance: Alert, WD/WN, No Apparent Distress Eye Exam: Bilateral Eye: EOMI, Normal Inspection Ears: Normal External Exam, Other (right ear drum obscured by cerumen, left ear obscured by dark brown/black cerumen. When cerumen removed, right TM normal, left TM draining a foul smelling green drainage, appears to have perforated.) Ear Exam: Right Ear: TM normal, Left Ear: Tenderness, TM Red, TM Bulging, TM Perforation, Other (Foul smelling green/brown drainage) Nose: Normal Inspection Throat/Mouth: Normal Inspection, Normal Lips, Normal Teeth, Normal Gums, Normal Oropharynx, Normal Voice, No Airway Compromise Head: Atraumatic, Normocephalic Neck: Normal Inspection, Supple, Non-Tender, Full Range of Motion, Lymphadenopathy (L) (+2 Anterior cervical) Respiratory/Chest: No Respiratory Distress, No Accessory Muscle Use, Chest Non- Tender, Decreased Breath Sounds Cardiovascular: Normal Peripheral Pulses, Regular Rate, Rhythm, No Edema, No Gallop, No JVD, No Murmur, No Rub GI/Abdominal: Normal Bowel Sounds, Soft, Non-Tender, Other (Skin in and around the umbilicus erythematous and angry red) (Male) Exam: Deferred Rectal (Males) Exam: Deferred Back Exam: Normal Inspection, Decreased Range of Motion Extremities: Normal Inspection, Normal Range of Motion, Non-Tender, Normal Capillary Refill, No Pedal Edema Neurological: Alert, Oriented, CN II-XII Intact, Normal Cognition, Normal Gait, Normal Reflexes, No Motor/Sensory Deficits Psychiatric: Normal Affect, Normal Mood Skin Exam: Warm, Dry, Intact, Normal Color, Erythema (Skin in and around the umbilicus is erythematous, tender, no drainage) Lymphatic: Adenopathy (left anterior cervical +2) Course - Vital Signs Last Recorded V/S: Last Vital Signs Temp 97.7 F 04/08/20 17:22 Pulse 90 04/08/20 17:22 Resp 16 04/08/20 17:22 BP 129/71 04/08/20 17:22 Pulse Ox 99 04/08/20 17:22 - Orders/Labs/Meds Meds: Medications Discontinued Medications Generic Name Dose Route Start Last Admin Trade Name Jgq PRN Reason Stop Dose Admin Ceftriaxone Sodium 1 gm/ 0 gm 04/08/20 17:44 04/08/20 17:51 Lidocaine HCl 2.1 ml IM 04/08/20 17:45 1 inj ONETIME ONE Administration Mupirocin 1 gm 04/08/20 17:42 04/08/20 17:51 Bactroban Oint TOP 04/08/20 17:43 1 applic ONETIME ONE Administration Departure - Departure Time of Disposition: 17:46 Disposition: Home, Self-Care 01 Condition: Fair Clinical Impression: Skin infection Left otitis media Qualifiers: Otitis media type: suppurative Chronicity: acute Recurrence: not specified as recurrent Spontaneous tympanic membrane rupture: with spontaneous rupture Qualified Code(s): H66.012 - Acute suppurative otitis media with spontaneous rupture of ear drum, left ear - Discharge Information *PRESCRIPTION DRUG MONITORING PROGRAM REVIEWED*: No *COPY OF PRESCRIPTION DRUG MONITORING REPORT IN PATIENT NASIR: No Instructions: Otitis Media, Adult, [id number] Referrals: Abby Santana NP [Primary Care Provider] - Forms: ED Department Discharge Additional Instructions: RX: Mupirocin Ointment for belly button 3-4 times daily after cleaning it with warm soapy water (use a clean qtip to apply) Augmentin (take with food to avoid upset stomach) Follow up with Abby Santana NP this week. Have her recheck your ear. Sepsis Event Note (ED) - Evaluation Sepsis Screening Result: No Definite Risk - Focused Exam Vital Signs: Vital Signs Temp Pulse Resp BP Pulse Ox 04/08/20 17:22 97.7 F 90 16 129/71 99
== END 2020-04-08 18:10 | disposition home or self-care (01) ==
LOC: DL.ED 17:10
DX: H66.002 Acute suppurative otitis media without spontaneous rupture of ear drum, left ear (principal); L08.9 Local infection of the skin and subcutaneous tissue, unspecified; I48.91 Unspecified atrial fibrillation; I25.10 Atherosclerotic heart disease of native coronary artery without angina pectoris; I11.0 Hypertensive heart disease with heart failure; I50.9 Heart failure, unspecified; I25.2 Old myocardial infarction; K21.9 Gastro-esophageal reflux disease without esophagitis; E11.9 Type 2 diabetes mellitus without complications; E03.9 Hypothyroidism, unspecified; E66.9 Obesity, unspecified; Z68.41 Body mass index [BMI] 40.0-44.9, adult; Z88.8 Allergy status to other drugs, medicaments and biological substances; Z79.899 Other long term (current) drug therapy; Z79.82 Long term (current) use of aspirin; Z79.4 Long term (current) use of insulin
CPT/HCPCS: 96372; 99283; A9270; J0696; J2001

== ENCOUNTER 2020-05-06 06:25 | Day surgery (SDC) | payer MEDICARE, BC ==
[~2020-05-06 06:25] MED LIST changes: +Dextrose 5%-0.45% NaCl 1,000 ML IV SCH; +Midazolam 1 MG/ML 2 ML SDV ONE; +fentaNYL 100 MCG/2 ML SDV ONE
[2020-05-06] MEDS ORDERED: Midazolam 1 MG/ML 2 ML SDV IV ONE ×7 (06:26→08:30)
[2020-05-06] MEDS ORDERED: fentaNYL 100 MCG/2 ML SDV IV ONE ×5 (06:26→08:35)
[2020-05-06 11:48] VITALS: BP 108/55; PULSE 69
--- NOTE | 2020-05-06 14:34 | OR ---
DATE: 05/06/2020 PROCEDURE: Total colonoscopy. INSTRUMENT USED: [id number] Olympus video colonoscope. PREMEDICATIONS: Fentanyl 150 mcg intravenous, Versed 4 mg intravenous, nasal O2 cannula. The procedure was done under pulse oximetry, BP recording, and acoustic warfare analyst. INDICATION: Screening colonoscopic examination is done for detection of any polypoid lesions and removal, endoscopic hemostasis therapy if needed. DESCRIPTION OF PROCEDURE: Initial rectal exam was unremarkable. Rigid anoscopy was normal. The colonoscope was passed with ease. Scattered diverticula were noted, more so in the left colon along with deformity. The scope was passed with ease up to the cecal area. No bleeding was noted from any of the visualized areas at the commencement of the examination. There was large amount of fecal material, especially large solid stools in the right colon that could not be aspirated clear. Photographs were taken of the cecum. No stricture. No vascular ectasia. No large isolated ulcerations seen. No evidence of diffuse inflammatory bowel disease in the form of friability, contact bleeding, or ulcerations. No polyp or tumor mass identified. Probing the proximal sides of folds and flexures using adequate distention and clearing up the stool material, withdrawal of the scope was made, cecum to rectum time over 6 minutes. The examination was inadequate due to the presence of large amount of stool material, Morris scale 1 in all the areas. Total score 3. No bleeding was noted from any of the visualized areas at the completion of examination. IMPRESSION: Diverticulosis. The patient tolerated the procedure well. [facility] /[id number]
== END 2020-05-06 10:48 | disposition home or self-care (01) ==
LOC: DL.ENDO 06:25
PROVIDERS: ATTEND Internal Medicine Gastroenterology
DX: Z12.11 Encounter for screening for malignant neoplasm of colon (principal); E66.01 Morbid (severe) obesity due to excess calories; I25.10 Atherosclerotic heart disease of native coronary artery without angina pectoris; I10 Essential (primary) hypertension; E78.5 Hyperlipidemia, unspecified; G47.33 Obstructive sleep apnea (adult) (pediatric); E11.9 Type 2 diabetes mellitus without complications; K21.9 Gastro-esophageal reflux disease without esophagitis; Z79.82 Long term (current) use of aspirin; Z79.899 Other long term (current) drug therapy; Z95.810 Presence of automatic (implantable) cardiac defibrillator; Z68.41 Body mass index [BMI] 40.0-44.9, adult
CPT/HCPCS: G0121; J2250; J3010; J7042

== ENCOUNTER 2020-05-11 10:01 | Emergency (ER) | payer MEDICARE, BC ==
--- NOTE | 2020-05-11 10:43 | EDM.PDOC ---
ED HPI GENERAL MEDICAL PROBLEM - General Chief Complaint: General Stated Complaint: STOMACH PROBLEMS Time Seen by Provider: 05/11/20 10:43 Source of Information: Reports: Patient, RN, RN Notes Reviewed History Limitations: Reports: No Limitations - History of Present Illness INITIAL COMMENTS - FREE TEXT/NARRATIVE: Patient presents to the ER with vague symptoms of "not feeling right ". Patient states he has had some nausea and feeling as though his head is heavy. Patient states the symptoms began this morning after awaking. Denies dizziness. States he was given antibiotics for a left ear infection a few weeks ago, did not finish that prescription, states he had a few left. Patient states he has been using ointment prescribed for breakdown of skin and sore inside the [facility]. Patient states he had an EGD on May 06, 2020. Patient denies any recent fever chills, vomiting or diarrhea, chest pains or shortness of breath. Patient is concerned that there is something being missed. Onset: Today Upper Abdomen Pain Score (Numeric/FACES): 3 - Related Data Allergies Allergy/AdvReac Type Severity Reaction Status Date / Time latex Allergy Rash Verified 05/11/20 10:20 sitagliptin Allergy Cannot Verified 05/11/20 10:20 Remember lisinopril AdvReac Mild Cough Verified 05/11/20 10:20 Home Meds: Home Meds Liraglutide [Victoza] 1.8 mg SUBCUT DAILY 12/12/14 [History] Ammonium Lactate [Lac-Hydrin 12% Crm] 1 applic TOP ASDIRECTED PRN 08/04/15 [History] Aspirin [Halfprin] 81 mg PO BRK 08/04/15 [History] Clobetasol [Temovate 0.05% Oint] 1 applic TOP BID PRN 08/04/15 [History] Insulin Aspart [NovoLOG] 17 unit SUBCUT WITHBREAKFAST 08/04/15 [History] Omeprazole 20 mg PO ACBREAKFAST 06/01/17 [History] Hydrocodone/Acetaminophen [Hydrocodone-Acetamin 10-325 mg] 1 tab PO Q4H PRN 04/04/19 [History] Warfarin Sodium 3 mg PO .TUWEDTHSATSUN 04/04/19 [History] atorvaSTATin Calcium [Atorvastatin Calcium] 20 mg PO BEDTIME 04/04/19 [History] Insulin Degludec [Tresiba] 60 unit SQ BEDTIME 11/04/19 [History] methocarbamoL [Methocarbamol] 750 mg PO DAILY PRN 11/04/19 [History] Furosemide [Lasix] 60 mg PO DAILY 03/14/20 [History] Insulin Aspart [NovoLOG] 17 units SQ WITHLUNCH 03/14/20 [History] Levothyroxine Sodium [Levoxyl] 50 mcg PO DAILY 03/14/20 [History] Spironolactone [Aldactone] 25 mg PO DAILY 03/14/20 [History] Warfarin [Coumadin] 6 mg PO .MONFR 03/14/20 [History] Losartan [Cozaar] 50 mg PO DAILY #30 tablet 03/15/20 [Rx] Metoprolol Succinate [Toprol XL 50mg] 100 mg PO DAILY #30 tab.er 03/15/20 [Rx] Acetaminophen 325 mg PO ASDIRECTED PRN 05/03/20 [History] Mupirocin Calcium [Mupirocin] 1 applic TOP ASDIRECTED 05/03/20 [History] Past Medical History HEENT History: Reports: Impaired Vision, Other (See Below) Other HEENT History: ears are partly plugged Cardiovascular History: Reports: Afib, Automatic Implantable Cardioverter Defibrillators, CAD, Heart Failure, High Cholesterol, Hypertension, [place], Pacemaker, SOB on Exertion Respiratory History: Reports: Sleep Apnea Other Respiratory History: Pt wears CPAP machine at night, O2 at night PRN Gastrointestinal History: Reports: GERD Other Gastrointestinal History: ELEVATED LIVER ENZYMES & FATTY LIVER Genitourinary History: Reports: None Musculoskeletal History: Reports: Arthritis, Fracture Other Musculoskeletal History: disk out for last 3 years; LEFT ANKLE FRACTURE Neurological History: Reports: None Psychiatric History: Reports: Anxiety Endocrine/Metabolic History: Reports: Diabetes, Type II, Hypothyroidism, Obesity /BMI 30+ Hematologic History: Reports: None Immunologic History: Reports: None Oncologic (Cancer) History: Reports: Other (See Below) Other Oncologic History: testicular-both testicles removed Dermatologic History: Reports: Other (See Below) Other Dermatologic History: dry skin - Infectious Disease History Infectious Disease History: Reports: None Other Infectious Disease History: UNCERTAIN OF HISTORY - Past Surgical History Head Surgeries/Procedures: Reports: None HEENT Surgical History: Reports: Cataract Surgery Cardiovascular Surgical History: Reports: Pacer Respiratory Surgical History: Reports: None GI Surgical History: Reports: Appendectomy, Colonoscopy Male Surgical History: Reports: Other (See Below) Other Male Surgeries/Procedures: Testicular cancer- both testicles removed Endocrine Surgical History: Reports: None Neurological Surgical History: Reports: None Musculoskeletal Surgical History: Reports: None Oncologic Surgical History: Reports: Other (See Below) Other Oncologic Surgeries/Procedures: testicular-both testicles removed Dermatological Surgical History: Reports: None Social & Family History - Family History Family Medical History: Noncontributory Cardiac: Reports: Afib, CAD, Heart Failure, High Cholesterol, Hypertension, [place], Stent Respiratory: Reports: COPD Endocrine/Metabolic: Reports: Obesity/MBI 30+ - Tobacco Use Smoking Status *Q: Never Smoker Second Hand Smoke Exposure: No - Caffeine Use Caffeine Use: Reports: None Other Caffeine Use: RARELY USES - Recreational Drug Use Recreational Drug Use: No - Living Situation & Occupation Living situation: Reports: Single, with Family Occupation: Employed ED ROS GENERAL - Review of Systems Review Of Systems: Comprehensive ROS is negative, except as noted in HPI. ED EXAM, GENERAL - Physical Exam Exam: See Below Exam Limited By: No Limitations General Appearance: Alert, WD/WN, No Apparent Distress Eye Exam: Bilateral Eye: EOMI, Normal Inspection Ears: Normal External Exam, Hearing Grossly Normal, Other (left TM purulent, green/yellow) Ear Exam: Left Ear: Tenderness, TM Bulging Nose: Normal Inspection Throat/Mouth: Normal Inspection, Normal Voice, No Airway Compromise Head: Atraumatic, Normocephalic Neck: Normal Inspection, Supple, Non-Tender, Full Range of Motion, Lymphadenopathy (L) (+2 pre auricular, ant cervical), Other Respiratory/Chest: No Respiratory Distress, No Accessory Muscle Use, Chest Non- Tender, Decreased Breath Sounds Cardiovascular: Normal Peripheral Pulses, No Edema, No Gallop, No JVD, No Murmur, No Rub, Irregularly Irregular Peripheral Pulses: 2+: Radial (L), Radial (R) GI/Abdominal: Normal Bowel Sounds, Soft, Non-Tender (Male) Exam: Deferred Rectal (Males) Exam: Deferred Back Exam: Normal Inspection, Decreased Range of Motion Extremities: Normal Inspection, Non-Tender, No Pedal Edema, Normal Capillary Refill, Limited Range of Motion Neurological: Alert, Oriented, CN II-XII Intact, Normal Cognition Psychiatric: Normal Affect, Normal Mood, Anxious Skin Exam: Warm, Dry, Intact, Normal Color, Wound/Incision (erythematous, flaking skin to the inside of the navel) Lymphatic: Adenopathy (left ant cervical +2, prequricular +2) Course - Vital Signs Last Recorded V/S: Last Vital Signs Temp 96.9 F 05/11/20 12:52 Pulse 70 05/11/20 12:52 Resp 20 05/11/20 12:52 BP 115/58 L 05/11/20 12:52 Pulse Ox 96 05/11/20 12:52 - Orders/Labs/Meds Labs: Laboratory Tests 05/11/20 05/11/20 05/11/20 Range/Units 11:03 11:03 12:06 WBC 7.3 (5.0-10.0) 10^3/uL RBC 5.06 (4.6-6.2) 10^6/uL Hgb 15.4 (14.0-18.0) g/dL Hct 47.1 (40.0-54.0) % MCV 93.1 (80-100) fL MCH 30.4 (27.0-34.0) pg MCHC 32.7 L (33.0-35.0) g/dL Plt Count 187 (150-450) 10^3/uL Neut % (Auto) 69.5 (42.2-75.2) % Lymph % (Auto) 18.0 L (20.5-50.1) % [place] % (Auto) 9.0 H (2-8) % Eos % (Auto) 3.0 (1.0-3.0) % Baso % (Auto) 0.5 (0.0-1.0) % Sodium 141 (136-145) mmol/L Potassium 4.6 (3.5-5.1) mmol/L Chloride 103 (98-107) mmol/L Carbon Dioxide 30 (21-32) mmol/L Anion Gap 12.6 (7-13) mEq/L BUN 38 H (7-18) mg/dL Creatinine 1.12 (0.70-1.30) mg/dL Est Cr Clr Drug Dosing 67.86 mL/min Estimated GFR (MDRD) > 60 BUN/Creatinine Ratio 33.9 (No establ ref range) Glucose 93 (74-99) mg/dL Calcium 9.0 (8.5-10.1) mg/dL Total Bilirubin 0.4 (0.2-1.0) mg/dL AST 22 (15-37) U/L ALT 34 (16-63) U/L Alkaline Phosphatase 89 (46-116) U/L C-Reactive Protein 0.8 (0.0-0.9) mg/dL Total Protein 7.4 (6.4-8.2) g/dL Albumin 3.7 (3.4-5.0) g/dL Globulin 3.7 Albumin/Globulin Ratio 1.0 Urine Color Light yellow (YELLOW) Urine Appearance Clear (CLEAR) Urine pH 7.0 (5.0-9.0) Ur Specific [place] 1.015 (1.005-1.030) Urine Protein Negative (NEGATIVE) Urine Glucose (UA) Negative (NEGATIVE) Urine Ketones Negative (NEGATIVE) Urine Occult Blood Negative (NEGATIVE) Urine Nitrite Negative (NEGATIVE) Urine Bilirubin Negative (NEGATIVE) Urine Urobilinogen 0.2 (0.2-1.0) mg/dL Ur Leukocyte Esterase Negative (NEGATIVE) Meds: Medications Discontinued Medications Generic Name Dose Route Start Last Admin Trade Name Freq PRN Reason Stop Dose Admin Iopamidol 100 ml 05/11/20 11:19 05/11/20 12:32 Isovue-300 (61%) IVPUSH 05/11/20 11:20 100 ml ONETIME ONE Administration - Radiology Interpretation Free Text/Narrative:: CT Max/face with contrast: PROCEDURE INFORMATION: Exam: CT Maxillofacial With Contrast Exam date and time: 05/11/2020 11:30 AM Age: 60 years old Clinical indication: Other: Drainage from left ear; Additional info: Drainage from left ear, ? mastoid TECHNIQUE: Imaging protocol: Computed tomography images of the face with intravenous contrast. Radiation optimization: All CT scans at this facility use at least one of these dose optimization techniques: automated exposure control; mA and/or kV adjustment per patient size (includes targeted exams where dose is matched to clinical indication); or iterative reconstruction. Contrast material: ISOVUE; Contrast volume: 100 ml; Contrast route: INTRAVENOUS (IV); COMPARISON: No relevant prior studies available. FINDINGS: Orbits: Orbits are normal. Globes are unremarkable. Bones/joints: There is a tiny rounded focus of ossification associated with the inner table of the anterior inferior left temporal bone which could be benign or associated with an ossified meningioma, measuring 7 mm. This is of uncertain clinical significance. Sinuses: Normal. No air-fluid levels. Soft tissues: Unremarkable. IMPRESSION: 1. No acute abnormality is seen involving the left ear, mastoids or overlying soft tissues. Recommend ENT consultation and direct visualization. 2. A 7 mm rounded focus of ossification associated with the inner table of the anterior inferior left temporal lobe could represent benign dural calcification or a tiny meningioma. Thank you for allowing us to participate in the care of your patient. Dictated and Authenticated by: Osvaldo Mar MD 05/11/2020 12:55 PM Central Time ([place] & [place]) See rad report Departure - Departure Time of Disposition: 13:15 Disposition: Home, Self-Care 01 Condition: Fair Clinical Impression: Left otitis media Qualifiers: Otitis media type: suppurative Chronicity: acute Recurrence: not specified as recurrent Spontaneous tympanic membrane rupture: with spontaneous rupture Qualified Code(s): H66.012 - Acute suppurative otitis media with spontaneous rupture of ear drum, left ear - Discharge Information *PRESCRIPTION DRUG MONITORING PROGRAM REVIEWED*: No *COPY OF PRESCRIPTION DRUG MONITORING REPORT IN PATIENT NASIR: No Instructions: Otitis Media, Adult, [id number] Forms: ED Department Discharge Additional Instructions: RX: Augmentin Follow-up with your primary care provider Follow-up with ENT Sepsis Event Note (ED) - Evaluation Sepsis Screening Result: No Definite Risk - Focused Exam Vital Signs: Vital Signs Temp Pulse Resp BP Pulse Ox 05/11/20 12:52 96.9 F 70 20 115/58 L 96 05/11/20 10:10 97.0 F 75 18 102/60 98
[2020-05-11] MEDS ORDERED: Iopamidol 612 MG/ML 100 ML Bottle IVPUSH ONE (11:19)
[2020-05-11 11:30] LABS: ANION GAP 12.6 mEq/L (7-13); CHLORIDE,CL 103 mmol/L (98-107); SODIUM,NA 141 mmol/L (136-145)
[2020-05-11 12:53] VITALS: BP 115/58; PULSE 70
--- NOTE | 2020-05-11 12:56 | CT ---
PROCEDURE INFORMATION: Exam: CT Maxillofacial With Contrast Exam date and time: 05/11/2020 11:30 AM Age: 60 years old Clinical indication: Other: Drainage from left ear; Additional info: Drainage from left ear, ? mastoid TECHNIQUE: Imaging protocol: Computed tomography images of the face with intravenous contrast. Radiation optimization: All CT scans at this facility use at least one of these dose optimization techniques: automated exposure control; mA and/or kV adjustment per patient size (includes targeted exams where dose is matched to clinical indication); or iterative reconstruction. Contrast material: ISOVUE; Contrast volume: 100 ml; Contrast route: INTRAVENOUS (IV); COMPARISON: No relevant prior studies available. FINDINGS: Orbits: Orbits are normal. Globes are unremarkable. Bones/joints: There is a tiny rounded focus of ossification associated with the inner table of the anterior inferior left temporal bone which could be benign or associated with an ossified meningioma, measuring 7 mm. This is of uncertain clinical significance. Sinuses: Normal. No air-fluid levels. Soft tissues: Unremarkable. IMPRESSION: 1. No acute abnormality is seen involving the left ear, mastoids or overlying soft tissues. Recommend ENT consultation and direct visualization. 2. A 7 mm rounded focus of ossification associated with the inner table of the anterior inferior left temporal lobe could represent benign dural calcification or a tiny meningioma.
== END 2020-05-11 13:22 | disposition home or self-care (01) ==
LOC: DL.ED 10:01
DX: H66.012 Acute suppurative otitis media with spontaneous rupture of ear drum, left ear (principal); I48.91 Unspecified atrial fibrillation; I11.0 Hypertensive heart disease with heart failure; I50.9 Heart failure, unspecified; I25.10 Atherosclerotic heart disease of native coronary artery without angina pectoris; E78.00 Pure hypercholesterolemia, unspecified; I25.2 Old myocardial infarction; K21.9 Gastro-esophageal reflux disease without esophagitis; M19.90 Unspecified osteoarthritis, unspecified site; E11.9 Type 2 diabetes mellitus without complications; E03.9 Hypothyroidism, unspecified; E66.9 Obesity, unspecified; Z68.41 Body mass index [BMI] 40.0-44.9, adult; Z91.040 Latex allergy status; Z88.8 Allergy status to other drugs, medicaments and biological substances; Z79.82 Long term (current) use of aspirin; Z79.4 Long term (current) use of insulin; Z79.899 Other long term (current) drug therapy
CPT/HCPCS: 36415; 70487; 80053; 81003; 85025; 86140; 99284; Q9967; 99283

== ENCOUNTER 2020-12-03 19:33 | Emergency (ER) | payer MEDICARE, BC ==
[2020-12-03 19:48] VITALS: BP 128/89; PULSE 89
--- NOTE | 2020-12-03 20:12 | CR ---
PROCEDURE INFORMATION: Exam: XR Left Hand Exam date and time: 12/03/2020 7:56 PM Age: 60 years old Clinical indication: Swelling and other: Swollen, bruised, no known injury; Hand; Left TECHNIQUE: Imaging protocol: XR Left hand. Views: 3 or more views. COMPARISON: No relevant prior studies available. FINDINGS: Bones/joints: Normal anatomic alignment and bone density. No acutely displaced fracture or dislocation. No aggressive osseous lesions are appreciated. Soft tissues: Mild soft tissue mild soft tissue swelling throughout the hand. Other findings: Multiple punctate calcifications anterior to the radiocarpal joint, most probably chronic in etiology. IMPRESSION: Swelling without acute skeletal pathology.
--- NOTE | 2020-12-03 20:22 | EDM.PDOC ---
ED HPI GENERAL MEDICAL PROBLEM - General Chief Complaint: Upper Extremity Injury/Pain Stated Complaint: LEFT HAND, SWALLON, CENTER BLACK AND BLUE Time Seen by Provider: 12/03/20 19:45 Source of Information: Reports: Patient History Limitations: Reports: No Limitations - History of Present Illness INITIAL COMMENTS - FREE TEXT/NARRATIVE: ED with c/o pain to left hand with swelling, noted bruising to palm while in shower. Denied injury. On coumadin, Last check 3 weeks ago. no dose change. No bleeding or other bruising. Left Hand Pain Score (Numeric/FACES): 7 - Related Data Allergies Allergy/AdvReac Type Severity Reaction Status Date / Time latex Allergy Rash Verified 12/03/20 19:49 sitagliptin Allergy Cannot Verified 12/03/20 19:49 Remember lisinopril AdvReac Mild Cough Verified 12/03/20 19:49 Home Meds: Home Meds Liraglutide [Victoza] 1.8 mg SUBCUT DAILY 12/12/14 [History] Ammonium Lactate [Lac-Hydrin 12% Crm] 1 applic TOP ASDIRECTED PRN 08/04/15 [History] Aspirin [Halfprin] 81 mg PO BRK 08/04/15 [History] Clobetasol [Temovate 0.05% Oint] 1 applic TOP BID PRN 08/04/15 [History] Insulin Aspart [NovoLOG] 17 unit SUBCUT WITHBREAKFAST 08/04/15 [History] Omeprazole 20 mg PO ACBREAKFAST 06/01/17 [History] Hydrocodone/Acetaminophen [Hydrocodone-Acetamin 10-325 mg] 1 tab PO Q4H PRN 04/04/19 [History] Warfarin Sodium 3 mg PO .TUWEDTHSATSUN 04/04/19 [History] atorvaSTATin Calcium [Atorvastatin Calcium] 20 mg PO BEDTIME 04/04/19 [History] Insulin Degludec [Tresiba] 60 unit SQ BEDTIME 11/04/19 [History] methocarbamoL [Methocarbamol] 750 mg PO DAILY PRN 11/04/19 [History] Furosemide [Lasix] 60 mg PO DAILY 03/14/20 [History] Insulin Aspart [NovoLOG] 17 units SQ WITHLUNCH 03/14/20 [History] Levothyroxine Sodium [Levoxyl] 50 mcg PO DAILY 03/14/20 [History] Spironolactone [Aldactone] 25 mg PO DAILY 03/14/20 [History] Warfarin [Coumadin] 6 mg PO .MONFR 03/14/20 [History] Losartan [Cozaar] 50 mg PO DAILY #30 tablet 03/15/20 [Rx] Metoprolol Succinate [Toprol XL 50mg] 100 mg PO DAILY #30 tab.er 03/15/20 [Rx] Acetaminophen 325 mg PO ASDIRECTED PRN 05/03/20 [History] Mupirocin Calcium [Mupirocin] 1 applic TOP ASDIRECTED 05/03/20 [History] Past Medical History HEENT History: Reports: Impaired Vision, Other (See Below) Other HEENT History: ears are partly plugged Cardiovascular History: Reports: Afib, Automatic Implantable Cardioverter Defibrillators, CAD, Heart Failure, High Cholesterol, Hypertension, [place], Pacemaker, SOB on Exertion Respiratory History: Reports: Sleep Apnea Other Respiratory History: Pt wears CPAP machine at night, O2 at night PRN Gastrointestinal History: Reports: GERD Other Gastrointestinal History: ELEVATED LIVER ENZYMES & FATTY LIVER Genitourinary History: Reports: None Musculoskeletal History: Reports: Arthritis, Fracture Other Musculoskeletal History: disk out for last 3 years; LEFT ANKLE FRACTURE Neurological History: Reports: None Psychiatric History: Reports: Anxiety Endocrine/Metabolic History: Reports: Diabetes, Type II, Hypothyroidism, Obesity/BMI 30+ Hematologic History: Reports: None Immunologic History: Reports: None Oncologic (Cancer) History: Reports: Other (See Below) Other Oncologic History: testicular-both testicles removed Dermatologic History: Reports: Other (See Below) Other Dermatologic History: dry skin - Infectious Disease History Infectious Disease History: Reports: None Other Infectious Disease History: UNCERTAIN OF HISTORY - Past Surgical History Head Surgeries/Procedures: Reports: None HEENT Surgical History: Reports: Cataract Surgery Cardiovascular Surgical History: Reports: Pacer Respiratory Surgical History: Reports: None GI Surgical History: Reports: Appendectomy, Colonoscopy Male Surgical History: Reports: Other (See Below) Other Male Surgeries/Procedures: Testicular cancer- both testicles removed Endocrine Surgical History: Reports: None Neurological Surgical History: Reports: None Musculoskeletal Surgical History: Reports: None Oncologic Surgical History: Reports: Other (See Below) Other Oncologic Surgeries/Procedures: testicular-both testicles removed Dermatological Surgical History: Reports: None Social & Family History - Family History Family Medical History: No Pertinent Family History Cardiac: Reports: Afib, CAD, Heart Failure, High Cholesterol, Hypertension, [place], Stent Respiratory: Reports: COPD Endocrine/Metabolic: Reports: Obesity/MBI 30+ - Tobacco Use Tobacco Use Status *Q: Never Tobacco User - Caffeine Use Caffeine Use: Reports: None Other Caffeine Use: RARELY USES - Recreational Drug Use Recreational Drug Use: No - Living Situation & Occupation Living situation: Reports: Single, with Family Occupation: Employed Review of Systems - Review of Systems Review Of Systems: Comprehensive ROS is negative, except as noted in HPI. ED EXAM, GENERAL - Physical Exam Exam: See Below Exam Limited By: No Limitations General Appearance: Alert, No Apparent Distress, Obese Eye Exam: Bilateral Eye: EOMI Ears: Normal External Exam Throat/Mouth: Normal Voice Head: Atraumatic, Normocephalic Neck: Normal Inspection Respiratory/Chest: No Respiratory Distress, Lungs Clear, Normal Breath Sounds Cardiovascular: Regular Rate, Rhythm GI/Abdominal: Soft Extremities: Other (slight swelling left palm, bruise distal 3rd and 4th palmar crease) Neurological: Alert, Oriented, Normal Cognition, No Motor/Sensory Deficits Psychiatric: Anxious Skin Exam: Warm, Dry, Intact, Ecchymosis (left distal palm) Course - Vital Signs Last Recorded V/S: Last Vital Signs Temp 96.3 F L 12/03/20 19:42 Pulse 89 12/03/20 19:42 Resp 20 12/03/20 19:42 BP 128/89 12/03/20 19:42 Pulse Ox 100 12/03/20 19:42 - Orders/Labs/Meds Labs: Laboratory Tests 12/03/20 12/03/20 Range/Units 19:48 19:48 WBC 8.2 (5.0-10.0) 10^3/uL RBC 4.85 (4.6-6.2) 10^6/uL Hgb 15.2 (14.0-18.0) g/dL Hct 45.2 (40.0-54.0) % MCV 93.2 (80-100) fL MCH 31.3 (27.0-34.0) pg MCHC 33.6 (33.0-35.0) g/dL Plt Count 169 (150-450) 10^3/uL Neut % (Auto) 67.0 (42.2-75.2) % Lymph % (Auto) 19.8 L (20.5-50.1) % [place] % (Auto) 10.1 H (2-8) % Eos % (Auto) 2.7 (1.0-3.0) % Baso % (Auto) 0.4 (0.0-1.0) % PT 35.4 H D (9.0-12.0) SEC INR 3.8 H (0.9-1.2) Departure - Departure Time of Disposition: 20:19 Disposition: Home, Self-Care 01 Condition: Good Clinical Impression: Chronic anticoagulation, Bruise - Discharge Information *PRESCRIPTION DRUG MONITORING PROGRAM REVIEWED*: No *COPY OF PRESCRIPTION DRUG MONITORING REPORT IN PATIENT NASIR: No Instructions: Hand Contusion Forms: ED Department Discharge Additional Instructions: use hand as tolerated clinic follow up if continued pain or wednesday light elevation at night recheck inr as prviously scheduled Sepsis Event Note (ED) - Evaluation Sepsis Screening Result: No Definite Risk
== END 2020-12-03 20:28 | disposition home or self-care (01) ==
LOC: DL.ED 19:33
DX: M79.81 Nontraumatic hematoma of soft tissue (principal); I48.91 Unspecified atrial fibrillation; I25.10 Atherosclerotic heart disease of native coronary artery without angina pectoris; I11.0 Hypertensive heart disease with heart failure; I50.9 Heart failure, unspecified; I25.2 Old myocardial infarction; K21.9 Gastro-esophageal reflux disease without esophagitis; M19.90 Unspecified osteoarthritis, unspecified site; E78.00 Pure hypercholesterolemia, unspecified; E11.9 Type 2 diabetes mellitus without complications; E03.9 Hypothyroidism, unspecified; E66.9 Obesity, unspecified; Z68.41 Body mass index [BMI] 40.0-44.9, adult; Z91.040 Latex allergy status; Z88.8 Allergy status to other drugs, medicaments and biological substances; Z79.82 Long term (current) use of aspirin; Z79.899 Other long term (current) drug therapy; Z79.4 Long term (current) use of insulin; Z79.01 Long term (current) use of anticoagulants
CPT/HCPCS: 36415; 73130-LT; 85025; 85610; 99282; 99283-25

== ENCOUNTER 2021-01-02 17:55 | Emergency (ER) | payer MEDICARE, BC ==
[2021-01-02 19:17] VITALS: BP 94/63; PULSE 80
--- NOTE | 2021-01-02 19:31 | EDM.PDOC ---
ED HPI GENERAL MEDICAL PROBLEM - General Chief Complaint: Back Pain or Injury Stated Complaint: MID BACK HURTING Time Seen by Provider: 01/02/21 19:20 Source of Information: Reports: Patient History Limitations: Reports: No Limitations - History of Present Illness INITIAL COMMENTS - FREE TEXT/NARRATIVE: This 60 yo male patient reports to the ED with increased mid back pain that started yesterday, but has gotten worse today. The patient reports he did take one of his pain pills yesterday which improved symptoms, but his pain has gotten worse this evening. The patient has a history of lower back pain, but this pain is different. The patient did not call or visit his PCP as he thought he could deal with the pain until it got worse tonight. Onset Date: 01/01/21 Duration: Constant Location: Reports: Back Quality: Reports: Ache, Pressure Severity: Moderate Improves with: Reports: None Worsens with: Reports: None Context: Reports: Other Associated Symptoms: Reports: No Other Symptoms Back Pain Score (Numeric/FACES): 4 - Related Data Allergies Allergy/AdvReac Type Severity Reaction Status Date / Time latex Allergy Rash Verified 01/02/21 19:01 sitagliptin Allergy Cannot Verified 01/02/21 19:01 Remember lisinopril AdvReac Mild Cough Verified 01/02/21 19:01 Home Meds: Home Meds Liraglutide [Victoza] 1.8 mg SUBCUT DAILY 12/12/14 [History] Ammonium Lactate [Lac-Hydrin 12% Crm] 1 applic TOP ASDIRECTED PRN 08/04/15 [History] Aspirin [Halfprin] 81 mg PO BRK 08/04/15 [History] Clobetasol [Temovate 0.05% Oint] 1 applic TOP BID PRN 08/04/15 [History] Insulin Aspart [NovoLOG] 17 unit SUBCUT WITHBREAKFAST 08/04/15 [History] Omeprazole 20 mg PO ACBREAKFAST 06/01/17 [History] Hydrocodone/Acetaminophen [Hydrocodone-Acetamin 10-325 mg] 1 tab PO Q4H PRN 04/04/19 [History] Warfarin Sodium 3 mg PO .TUWEDTHSATSUN 04/04/19 [History] atorvaSTATin Calcium [Atorvastatin Calcium] 20 mg PO BEDTIME 04/04/19 [History] Insulin Degludec [Tresiba] 60 unit SQ BEDTIME 11/04/19 [History] methocarbamoL [Methocarbamol] 750 mg PO DAILY PRN 11/04/19 [History] Furosemide [Lasix] 60 mg PO DAILY 03/14/20 [History] Insulin Aspart [NovoLOG] 17 units SQ WITHLUNCH 03/14/20 [History] Levothyroxine Sodium [Levoxyl] 50 mcg PO DAILY 03/14/20 [History] Spironolactone [Aldactone] 25 mg PO DAILY 03/14/20 [History] Warfarin [Coumadin] 6 mg PO .MONFR 03/14/20 [History] Losartan [Cozaar] 50 mg PO DAILY #30 tablet 03/15/20 [Rx] Metoprolol Succinate [Toprol XL 50mg] 100 mg PO DAILY #30 tab.er 03/15/20 [Rx] Acetaminophen 325 mg PO ASDIRECTED PRN 05/03/20 [History] Mupirocin Calcium [Mupirocin] 1 applic TOP ASDIRECTED 05/03/20 [History] Past Medical History HEENT History: Reports: Impaired Vision, Other (See Below) Other HEENT History: ears are partly plugged Cardiovascular History: Reports: Afib, Automatic Implantable Cardioverter Defibrillators, CAD, Heart Failure, High Cholesterol, Hypertension, [place], Pacemaker, SOB on Exertion Respiratory History: Reports: Sleep Apnea Other Respiratory History: Pt wears CPAP machine at night, O2 at night PRN Gastrointestinal History: Reports: GERD Other Gastrointestinal History: ELEVATED LIVER ENZYMES & FATTY LIVER Genitourinary History: Reports: None Musculoskeletal History: Reports: Arthritis, Fracture Other Musculoskeletal History: disk out for last 3 years; LEFT ANKLE FRACTURE Neurological History: Reports: None Psychiatric History: Reports: Anxiety Endocrine/Metabolic History: Reports: Diabetes, Type II, Hypothyroidism, Obesity/BMI 30+ Hematologic History: Reports: None Immunologic History: Reports: None Oncologic (Cancer) History: Reports: Other (See Below) Other Oncologic History: testicular-both testicles removed Dermatologic History: Reports: Other (See Below) Other Dermatologic History: dry skin - Infectious Disease History Infectious Disease History: Reports: None Other Infectious Disease History: UNCERTAIN OF HISTORY - Past Surgical History Head Surgeries/Procedures: Reports: None HEENT Surgical History: Reports: Cataract Surgery Cardiovascular Surgical History: Reports: Pacer Respiratory Surgical History: Reports: None GI Surgical History: Reports: Appendectomy, Colonoscopy Male Surgical History: Reports: Other (See Below) Other Male Surgeries/Procedures: Testicular cancer- both testicles removed Endocrine Surgical History: Reports: None Neurological Surgical History: Reports: None Musculoskeletal Surgical History: Reports: None Oncologic Surgical History: Reports: Other (See Below) Other Oncologic Surgeries/Procedures: testicular-both testicles removed Dermatological Surgical History: Reports: None Social & Family History - Family History Family Medical History: No Pertinent Family History Cardiac: Reports: Afib, CAD, Heart Failure, High Cholesterol, Hypertension, [place], Stent Respiratory: Reports: COPD Endocrine/Metabolic: Reports: Obesity/MBI 30+ - Tobacco Use Tobacco Use Status *Q: Never Tobacco User Second Hand Smoke Exposure: No - Caffeine Use Caffeine Use: Reports: None Other Caffeine Use: RARELY USES - Living Situation & Occupation Living situation: Reports: Single, with Family Occupation: Employed ED ROS GENERAL - Review of Systems Review Of Systems: Comprehensive ROS is negative, except as noted in HPI. ED EXAM,LOWER BACK PAIN/INJURY - Physical Exam Exam: See Below Exam Limited By: No Limitations General Appearance: Alert, WD/WN, No Apparent Distress Eye Exam: Bilateral Eye: EOMI, Normal Inspection, PERRL Ears: Normal External Exam, Normal Canal, Hearing Grossly Normal, Normal TMs Nose: Normal Inspection, Normal Mucosa, No Blood Throat/Mouth: Normal Inspection, Normal Lips, Normal Teeth, Normal Gums, Normal Oropharynx, Normal Voice, No Airway Compromise Head: Atraumatic, Normocephalic Neck: Normal Inspection, Supple, Non-Tender, Full Range of Motion Respiratory/Chest: No Respiratory Distress, Lungs Clear, Normal Breath Sounds, No Accessory Muscle Use, Chest Non-Tender Cardiovascular: Normal Peripheral Pulses, Regular Rate, Rhythm, No Edema, No Gallop, No JVD, No Murmur, No Rub GI/Abdominal: Normal Bowel Sounds, Soft, Non-Tender, No Organomegaly, No Distention, No Abnormal Bruit, No Mass (Male) Exam: Deferred Rectal (Males) Exam: Deferred Back Exam: Paraspinal Tenderness (mid back) Extremities: Normal Inspection, Normal Range of Motion, Non-Tender, No Pedal Edema, Normal Capillary Refill Neurological: Alert, Normal Mood/Affect, Normal Dorsiflexion, CN II-XII Intact, Normal Plantar Flexion, Normal Gait, Normal Reflexes, No Motor/Sensory Deficits, Oriented x 3 Psychiatric: Normal Affect, Normal Mood Skin Exam: Warm, Dry, Intact, Normal Color, No Rash Lymphatic: No Adenopathy Course - Vital Signs Last Recorded V/S: Last Vital Signs Temp 36.4 C 01/02/21 18:58 Pulse 80 01/02/21 18:58 Resp 18 01/02/21 18:58 BP 94/63 01/02/21 18:58 Pulse Ox 96 01/02/21 18:58 - Orders/Labs/Meds Orders: Active Orders 24 hr Category Date Time Status Ketorolac [Toradol] Med 01/02/21 20:45 Once 30 mg IM ONETIME ONE Orphenadrine [Norflex] Med 01/02/21 20:45 Once 60 mg IM ONETIME ONE Labs: Laboratory Tests 01/02/21 01/02/21 01/02/21 Range/Units 19:34 19:45 19:45 WBC 9.9 (5.0-10.0) 10^3/uL RBC 4.80 (4.6-6.2) 10^6/uL Hgb 15.3 (14.0-18.0) g/dL Hct 45.0 (40.0-54.0) % MCV 93.8 (80-100) fL MCH 31.9 (27.0-34.0) pg MCHC 34.0 (33.0-35.0) g/dL Plt Count 155 (150-450) 10^3/uL Neut % (Auto) 75.3 H (42.2-75.2) % Lymph % (Auto) 14.5 L (20.5-50.1) % [place] % (Auto) 7.2 (2-8) % Eos % (Auto) 2.8 (1.0-3.0) % Baso % (Auto) 0.2 (0.0-1.0) % Sodium 139 (136-145) mmol/L Potassium 4.9 (3.5-5.1) mmol/L Chloride 104 (98-107) mmol/L Carbon Dioxide 22 (21-32) mmol/L Anion Gap 17.9 H (7-13) mEq/L BUN 45 H (7-18) mg/dL Creatinine 1.29 (0.70-1.30) mg/dL Est Cr Clr Drug Dosing 58.91 mL/min Estimated GFR (MDRD) 57 BUN/Creatinine Ratio 34.9 (No establ ref range) Glucose 196 H (74-99) mg/dL Calcium 8.4 L (8.5-10.1) mg/dL Total Bilirubin 0.3 (0.2-1.0) mg/dL AST 17 (15-37) U/L ALT 32 (16-63) U/L Alkaline Phosphatase 78 (46-116) U/L Total Protein 7.4 (6.4-8.2) g/dL Albumin 3.5 (3.4-5.0) g/dL Globulin 3.9 Albumin/Globulin Ratio 0.9 Urine Color Yellow (YELLOW) Urine Appearance Clear (CLEAR) Urine pH 5.5 (5.0-9.0) Ur Specific [place] 1.020 (1.005-1.030) Urine Protein Negative (NEGATIVE) Urine Glucose (UA) Negative (NEGATIVE) Urine Ketones Negative (NEGATIVE) Urine Occult Blood Negative (NEGATIVE) Urine Nitrite Negative (NEGATIVE) Urine Bilirubin Negative (NEGATIVE) Urine Urobilinogen 0.2 (0.2-1.0) mg/dL Ur Leukocyte Esterase Negative (NEGATIVE) Departure - Departure Time of Disposition: 20:45 Disposition: Home, Self-Care 01 Condition: Fair Clinical Impression: Mid back pain - Discharge Information Instructions: Back Injury Prevention, [id number] Forms: ED Department Discharge Care Plan Goals: The patient was advised of the examination and lab results during the visit. The patient was given an injection of Toradol and Norflex while in the ED. The patient was encouraged to continue to take antiinflammatory medications as muscle relaxers as prescribed. If the patient has any additional symptoms or concerns, the patient should either return to the emergency department or visit his primary care facility. Sepsis Event Note (ED) - Evaluation Sepsis Screening Result: No Definite Risk - Focused Exam Vital Signs: Vital Signs Temp Pulse Resp BP Pulse Ox 01/02/21 18:58 36.4 C 80 18 94/63 96 - My Orders Last 24 Hours: My Active Orders 01/02/21 20:45 Ketorolac [Toradol] 30 mg IM ONETIME ONE Orphenadrine [Norflex] 60 mg IM ONETIME ONE - Assessment/Plan Last 24 Hours: My Active Orders 01/02/21 20:45 Ketorolac [Toradol] 30 mg IM ONETIME ONE Orphenadrine [Norflex] 60 mg IM ONETIME ONE
[2021-01-02 20:06] LABS: ANION GAP 17.9 mEq/L (7-13)
[2021-01-02] MEDS ORDERED: Ketorolac 30 MG/ML SDV IM ONE (20:45)
[2021-01-02] MEDS ORDERED: Orphenadrine 60 MG/2 ML Inj IM ONE (20:45)
== END 2021-01-02 21:07 | disposition home or self-care (01) ==
LOC: DL.ED 17:55
DX: M54.6 Pain in thoracic spine (principal); I48.91 Unspecified atrial fibrillation; I25.10 Atherosclerotic heart disease of native coronary artery without angina pectoris; I11.0 Hypertensive heart disease with heart failure; I50.9 Heart failure, unspecified; I25.2 Old myocardial infarction; E78.00 Pure hypercholesterolemia, unspecified; K21.9 Gastro-esophageal reflux disease without esophagitis; E11.9 Type 2 diabetes mellitus without complications; E03.9 Hypothyroidism, unspecified; E66.9 Obesity, unspecified; Z68.41 Body mass index [BMI] 40.0-44.9, adult; Z88.8 Allergy status to other drugs, medicaments and biological substances; Z91.040 Latex allergy status; Z79.4 Long term (current) use of insulin; Z79.01 Long term (current) use of anticoagulants; Z79.02 Long term (current) use of antithrombotics/antiplatelets; Z79.899 Other long term (current) drug therapy
CPT/HCPCS: 36415; 80053; 81003; 85025; 96372; 99283; J1885; J2360

== ENCOUNTER 2021-04-21 10:49 | Emergency (ER) | payer MEDICARE, BC ==
[2021-04-21 11:30] VITALS: BP 98/41; PULSE 86
[2021-04-21] MEDS ORDERED: Sodium Chloride 0.9% 10 ML Syringe FLUSH PRN (13:16)
[2021-04-21 13:52] LABS: ANION GAP 15.1 mEq/L (7-13)
[2021-04-21] MEDS ORDERED: GI Cocktail Oral Solution 30 ML PO ONE (14:36)
--- NOTE | 2021-04-21 15:31 | EDM.PDOC ---
Scribed by Merle Weston 04/21/21 1531 for Edna Tong MD ED HPI GENERAL MEDICAL PROBLEM - General Chief Complaint: Gastrointestinal Problem Stated Complaint: STOMACH PAIN, SWEATING,PAIN LEFT SIDE NECK Time Seen by Provider: 04/21/21 13:09 Source of Information: Reports: Patient, RN, RN Notes Reviewed History Limitations: Reports: No Limitations - History of Present Illness INITIAL COMMENTS - FREE TEXT/NARRATIVE: Patient presents to ED with complaints of abdominal pain. It started earlier this morning in the epigastric area. He also notes a twinge in the left neck and left arm. Patient has had this before. He has had work up before and has not found anything wrong. Patient does have a pacemaker but does not admit to any other cardiac problem. No shortness of breath. No nausea. No changes in urine or stool output. No fevers or chills. Had a colonoscopy in the last year which was normal. Onset: Today Duration: Getting Worse Location: Reports: Abdomen Quality: Reports: Ache Severity: Moderate Improves with: Reports: None Worsens with: Reports: None Associated Symptoms: Reports: No Other Symptoms Abdomen Pain Score (Numeric/FACES): 1 - Related Data Allergies Allergy/AdvReac Type Severity Reaction Status Date / Time latex Allergy Rash Verified 04/21/21 11:35 sitagliptin Allergy Cannot Verified 04/21/21 11:35 Remember lisinopril AdvReac Mild Cough Verified 04/21/21 11:35 Home Meds: Home Meds Liraglutide [Victoza] 1.8 mg SUBCUT DAILY 12/12/14 [History] Ammonium Lactate [Lac-Hydrin 12% Crm] 1 applic TOP ASDIRECTED PRN 08/04/15 [History] Aspirin [Halfprin] 81 mg PO BRK 08/04/15 [History] Clobetasol [Temovate 0.05% Oint] 1 applic TOP BID PRN 08/04/15 [History] Insulin Aspart [NovoLOG] 17 unit SUBCUT WITHBREAKFAST 08/04/15 [History] Omeprazole 20 mg PO ACBREAKFAST 06/01/17 [History] Hydrocodone/Acetaminophen [Hydrocodone-Acetamin 10-325 mg] 1 tab PO Q4H PRN 04/04/19 [History] Warfarin Sodium 3 mg PO .TUWEDTHSATSUN 04/04/19 [History] atorvaSTATin Calcium [Atorvastatin Calcium] 20 mg PO BEDTIME 04/04/19 [History] Insulin Degludec [Tresiba] 60 unit SQ BEDTIME 11/04/19 [History] methocarbamoL [Methocarbamol] 750 mg PO DAILY PRN 11/04/19 [History] Furosemide [Lasix] 60 mg PO DAILY 03/14/20 [History] Insulin Aspart [NovoLOG] 17 units SQ WITHLUNCH 03/14/20 [History] Levothyroxine Sodium [Levoxyl] 50 mcg PO DAILY 03/14/20 [History] Spironolactone [Aldactone] 25 mg PO DAILY 03/14/20 [History] Warfarin [Coumadin] 6 mg PO .MONFR 03/14/20 [History] Losartan [Cozaar] 50 mg PO DAILY #30 tablet 03/15/20 [Rx] Metoprolol Succinate [Toprol XL 50mg] 100 mg PO DAILY #30 tab.er 03/15/20 [Rx] Acetaminophen 325 mg PO ASDIRECTED PRN 05/03/20 [History] Mupirocin Calcium [Mupirocin] 1 applic TOP ASDIRECTED 05/03/20 [History] Past Medical History HEENT History: Reports: Impaired Vision, Other (See Below) Other HEENT History: ears are partly plugged Cardiovascular History: Reports: Afib, Automatic Implantable Cardioverter Defibrillators, CAD, Heart Failure, High Cholesterol, Hypertension, [place], Pacemaker, SOB on Exertion Respiratory History: Reports: Sleep Apnea Other Respiratory History: Pt wears CPAP machine at night, O2 at night PRN Gastrointestinal History: Reports: GERD Other Gastrointestinal History: ELEVATED LIVER ENZYMES & FATTY LIVER Genitourinary History: Reports: None Musculoskeletal History: Reports: Arthritis, Fracture Other Musculoskeletal History: disk out for last 3 years; LEFT ANKLE FRACTURE Neurological History: Reports: None Psychiatric History: Reports: Anxiety Endocrine/Metabolic History: Reports: Diabetes, Type II, Hypothyroidism, Obesity/BMI 30+ Hematologic History: Reports: None Immunologic History: Reports: None Oncologic (Cancer) History: Reports: Other (See Below) Other Oncologic History: testicular-both testicles removed Dermatologic History: Reports: Other (See Below) Other Dermatologic History: dry skin - Infectious Disease History Infectious Disease History: Reports: None Other Infectious Disease History: UNCERTAIN OF HISTORY - Past Surgical History Head Surgeries/Procedures: Reports: None HEENT Surgical History: Reports: Cataract Surgery Cardiovascular Surgical History: Reports: Pacer Respiratory Surgical History: Reports: None GI Surgical History: Reports: Appendectomy, Colonoscopy Male Surgical History: Reports: Other (See Below) Other Male Surgeries/Procedures: Testicular cancer- both testicles removed Endocrine Surgical History: Reports: None Neurological Surgical History: Reports: None Musculoskeletal Surgical History: Reports: None Oncologic Surgical History: Reports: Other (See Below) Other Oncologic Surgeries/Procedures: testicular-both testicles removed Dermatological Surgical History: Reports: None Social & Family History - Family History Family Medical History: No Pertinent Family History Cardiac: Reports: Afib, CAD, Heart Failure, High Cholesterol, Hypertension, [place], Stent Respiratory: Reports: COPD Endocrine/Metabolic: Reports: Obesity/MBI 30+ - Tobacco Use Tobacco Use Status *Q: Never Tobacco User - Caffeine Use Caffeine Use: Reports: Soda Other Caffeine Use: RARELY USES - Recreational Drug Use Recreational Drug Use: No - Living Situation & Occupation Living situation: Reports: Single, with Family Occupation: Employed ED ROS GENERAL - Review of Systems Review Of Systems: Comprehensive ROS is negative, except as noted in HPI. ED EXAM, GI/ABD - Physical Exam Exam: See Below Exam Limited By: No Limitations General Appearance: Alert, WD/WN, No Apparent Distress Eyes: Bilateral: Normal Appearance Ears: Normal External Exam, Normal Canal, Hearing Grossly Normal, Normal TMs Nose: Normal Inspection, Normal Mucosa, No Blood Throat/Mouth: Normal Inspection Head: Atraumatic, Normocephalic Neck: Normal Inspection, Supple, Non-Tender, Full Range of Motion Respiratory/Chest: No Respiratory Distress, Lungs Clear, Normal Breath Sounds, No Accessory Muscle Use, Chest Non-Tender Cardiovascular: Normal Peripheral Pulses, Regular Rate, Rhythm, No Edema, No Gallop, No JVD, No Murmur, No Rub GI/Abdominal Exam: Other (mild tenderness in epigsatric area. ) (Male) Exam: Deferred Rectal (Males) Exam: Deferred Back Exam: Normal Inspection, Full Range of Motion, NT Extremities: Normal Inspection, Normal Range of Motion, Non-Tender, Normal Capillary Refill, No Pedal Edema Neurological: Alert, Oriented, CN II-XII Intact, Normal Cognition, Normal Gait, Normal Reflexes, No Motor/Sensory Deficits Psychiatric: Normal Affect, Normal Mood Skin Exam: Warm, Dry, Intact, Normal Color, No Rash #1 Interpretation EKG Date: 04/21/21 Time: 10:29 Rhythm: Other (Afib/flutter and ventricular-paced rhythm.) Rate (Beats/Min): 60 Course - Vital Signs Last Recorded V/S: Last Vital Signs Temp 97.8 F 04/21/21 11:29 Pulse 86 04/21/21 11:29 Resp 18 04/21/21 11:29 BP 98/41 L 04/21/21 11:29 Pulse Ox 98 04/21/21 11:29 - Orders/Labs/Meds Orders: Active Orders 24 hr Category Date Time Status EKG Documentation Completion [RC] STAT Care 04/21/21 13:16 Active Peripheral IV Care [RC] . DIRECTED Care 04/21/21 13:17 Active Sodium Chloride 0.9% [Saline Flush] Med 04/21/21 13:16 Active 10 ml FLUSH ASDIRECTED PRN Peripheral IV Insertion Adult [OM.PC] Stat Oth 04/21/21 13:16 Ordered Medication Orders Sodium Chloride (Sodium Chloride 0.9% 10 Ml Syringe) 10 ml FLUSH ASDIRECTED PRN PRN Reason: Keep Vein Open Last Admin: 04/21/21 13:38 Dose: 10 ml Documented by: SAHIL Labs: Laboratory Tests 04/21/21 04/21/21 Range/Units 13:25 13:25 WBC 7.4 (5.0-10.0) 10^3/uL RBC 5.09 (4.6-6.2) 10^6/uL Hgb 16.2 (14.0-18.0) g/dL Hct 48.6 (40.0-54.0) % MCV 95.5 (80-100) fL MCH 31.8 (27.0-34.0) pg MCHC 33.3 (33.0-35.0) g/dL Plt Count 161 (150-450) 10^3/uL Neut % (Auto) 79.1 H (42.2-75.2) % Lymph % (Auto) 9.6 L (20.5-50.1) % [place] % (Auto) 9.1 H (2-8) % Eos % (Auto) 1.9 (1.0-3.0) % Baso % (Auto) 0.3 (0.0-1.0) % Sodium 142 (136-145) mmol/L Potassium 5.1 (3.5-5.1) mmol/L Chloride 105 (98-107) mmol/L Carbon Dioxide 27 (21-32) mmol/L Anion Gap 15.1 H (7-13) mEq/L BUN 37 H (7-18) mg/dL Creatinine 1.35 H (0.70-1.30) mg/dL Est Cr Clr Drug Dosing 55.59 mL/min Estimated GFR (MDRD) 54 BUN/Creatinine Ratio 27.4 (No establ ref range) Glucose 163 H (70-99) mg/dL Calcium 9.2 (8.5-10.1) mg/dL Total Bilirubin 0.6 (0.2-1.0) mg/dL AST 18 (15-37) U/L ALT 39 (16-63) U/L Alkaline Phosphatase 68 (46-116) U/L Troponin I High Sens 19 (<=76) pg/mL Total Protein 7.3 (6.4-8.2) g/dL Albumin 3.5 (3.4-5.0) g/dL Globulin 3.8 Albumin/Globulin Ratio 0.9 Meds: Medications Generic Name Dose Route Start Last Admin Trade Name Freq PRN Reason Stop Dose Admin Sodium Chloride 10 ml 04/21/21 13:16 04/21/21 13:38 Sodium Chloride 0.9% 10 Ml Syringe FLUSH 10 ml ASDIRECTED PRN Administration Keep Vein Open Discontinued Medications Generic Name Dose Route Start Last Admin Trade Name Freq PRN Reason Stop Dose Admin Al Hydroxide/Mg Hydroxide 30 ml 04/21/21 14:36 04/21/21 15:04 Gi Cocktail Oral Solution 30 Ml PO 04/21/21 14:37 30 ml ONETIME ONE Administration - Re-Assessments/Exams Free Text/Narrative Re-Assessment/Exam: Pt improved with GI cocktail. He reports his pain is gone and he would like to go home. 04/21/21 15:31 Departure - Departure Time of Disposition: 15:29 Disposition: Home, Self-Care 01 Condition: Good Clinical Impression: GERD (gastroesophageal reflux disease) Qualifiers: Esophagitis presence: esophagitis presence not specified Qualified Code(s): K21.9 - Gastro-esophageal reflux disease without esophagitis - Discharge Information *PRESCRIPTION DRUG MONITORING PROGRAM REVIEWED*: Not Applicable *COPY OF PRESCRIPTION DRUG MONITORING REPORT IN PATIENT NASIR: Not Applicable Instructions: Food Choices for Gastroesophageal Reflux Disease, Adult, [id number] Forms: ED Department Discharge Additional Instructions: Over the counter medicines as needed for epigastric discomfort. Follow up with primary care doctor in 3 to 5 days. Sepsis Event Note (ED) - Evaluation Sepsis Screening Result: No Definite Risk - Focused Exam Vital Signs: Vital Signs Temp Pulse Resp BP Pulse Ox 04/21/21 11:29 97.8 F 86 18 98/41 L 98 - My Orders Last 24 Hours: My Active Orders 04/21/21 13:16 EKG Documentation Completion [RC] STAT Sodium Chloride 0.9% [Saline Flush] 10 ml FLUSH ASDIRECTED PRN Peripheral IV Insertion Adult [OM.PC] Stat 04/21/21 13:17 Peripheral IV Care [RC] . DIRECTED - Assessment/Plan Last 24 Hours: My Active Orders 04/21/21 13:16 EKG Documentation Completion [RC] STAT Sodium Chloride 0.9% [Saline Flush] 10 ml FLUSH ASDIRECTED PRN Peripheral IV Insertion Adult [OM.PC] Stat 04/21/21 13:17 Peripheral IV Care [RC] . DIRECTED I have read and agree with the documentation that has been completed regarding this visit. By signing this record, I attest that the documentation was completed in my physical presence and is an accurate record of the encounter.
== END 2021-04-21 15:50 | disposition home or self-care (01) ==
LOC: DL.ED 10:49
DX: K21.9 Gastro-esophageal reflux disease without esophagitis (principal); I48.91 Unspecified atrial fibrillation; I25.10 Atherosclerotic heart disease of native coronary artery without angina pectoris; I11.0 Hypertensive heart disease with heart failure; I50.9 Heart failure, unspecified; E78.00 Pure hypercholesterolemia, unspecified; I25.2 Old myocardial infarction; E11.9 Type 2 diabetes mellitus without complications; E03.9 Hypothyroidism, unspecified; E66.9 Obesity, unspecified; Z68.41 Body mass index [BMI] 40.0-44.9, adult; Z95.0 Presence of cardiac pacemaker; Z91.040 Latex allergy status; Z88.8 Allergy status to other drugs, medicaments and biological substances; Z79.01 Long term (current) use of anticoagulants; Z79.4 Long term (current) use of insulin; Z79.899 Other long term (current) drug therapy
CPT/HCPCS: 36415; 80053; 84484; 85025; 93005; 99284; A9270

== ENCOUNTER 2021-05-14 16:56 | Emergency (ER) | payer MEDICARE, BC ==
[2021-05-14 17:15] VITALS: BP 126/56; PULSE 81
--- NOTE | 2021-05-14 17:30 | EDM.PDOC ---
"<David Marsh - Last Filed: 05/15/21 03:04> ED HPI GENERAL MEDICAL PROBLEM - General Chief Complaint: General Stated Complaint: BODY ACHES, SWEATING, STOMACH PAIN Time Seen by Provider: 05/14/21 17:25 - Related Data Allergies Allergy/AdvReac Type Severity Reaction Status Date / Time latex Allergy Rash Verified 04/21/21 11:35 sitagliptin Allergy Cannot Verified 04/21/21 11:35 Remember lisinopril AdvReac Mild Cough Verified 04/21/21 11:35 Home Meds: Home Meds Liraglutide [Victoza] 1.8 mg SUBCUT DAILY 12/12/14 [History] Ammonium Lactate [Lac-Hydrin 12% Crm] 1 applic TOP ASDIRECTED PRN 08/04/15 [History] Aspirin [Halfprin] 81 mg PO BRK 08/04/15 [History] Clobetasol [Temovate 0.05% Oint] 1 applic TOP BID PRN 08/04/15 [History] Insulin Aspart [NovoLOG] 17 unit SUBCUT WITHBREAKFAST 08/04/15 [History] Omeprazole 20 mg PO ACBREAKFAST 06/01/17 [History] Hydrocodone/Acetaminophen [Hydrocodone-Acetamin 10-325 mg] 1 tab PO Q4H PRN 04/04/19 [History] Warfarin Sodium 3 mg PO .TUWEDTHSATSUN 04/04/19 [History] atorvaSTATin Calcium [Atorvastatin Calcium] 20 mg PO BEDTIME 04/04/19 [History] Insulin Degludec [Tresiba] 60 unit SQ BEDTIME 11/04/19 [History] methocarbamoL [Methocarbamol] 750 mg PO DAILY PRN 11/04/19 [History] Furosemide [Lasix] 60 mg PO DAILY 03/14/20 [History] Insulin Aspart [NovoLOG] 17 units SQ WITHLUNCH 03/14/20 [History] Levothyroxine Sodium [Levoxyl] 50 mcg PO DAILY 03/14/20 [History] Spironolactone [Aldactone] 25 mg PO DAILY 03/14/20 [History] Warfarin [Coumadin] 6 mg PO .MONFR 03/14/20 [History] Losartan [Cozaar] 50 mg PO DAILY #30 tablet 03/15/20 [Rx] Metoprolol Succinate [Toprol XL 50mg] 100 mg PO DAILY #30 tab.er 03/15/20 [Rx] Acetaminophen 325 mg PO ASDIRECTED PRN 05/03/20 [History] Mupirocin Calcium [Mupirocin] 1 applic TOP ASDIRECTED 05/03/20 [History] ED EXAM, GENERAL - Physical Exam Psychiatric: Anxious Course - Re-Assessments/Exams Free Text/Narrative Re-Assessment/Exam: Results of labs and CT discussed with patient Departure - Departure Time of Disposition: 20:03 Disposition: Home, Self-Care 01 Condition: Good Clinical Impression: Gustatory sweating, Pulmonary nodule, Renal calculi Obesity Qualifiers: Obesity type: unspecified obesity type Obesity classification: adult class 3 (BMI >= 40) Serious obesity comorbidity presence: unspecified whether serious comorbidity present Body mass index: BMI 45.0-49.9 Qualified Code(s): E66.01 - Morbid (severe) obesity due to excess calories - Discharge Information *PRESCRIPTION DRUG MONITORING PROGRAM REVIEWED*: No *COPY OF PRESCRIPTION DRUG MONITORING REPORT IN PATIENT NASIR: No Instructions: Kidney Stones, [id number], Pulmonary Nodule, [id number] Referrals: Abby Santana NP [Primary Care Provider] - Forms: ED Department Discharge Additional Instructions: Follow up clinic with primary care regarding pulmonary nodule in right lung base within 6 months monitor blood sugars continue home medications <Luly Mckenzie Judith - Last Filed: 05/15/21 08:09> ED HPI GENERAL MEDICAL PROBLEM - General Source of Information: Reports: Patient, RN, RN Notes Reviewed History Limitations: Reports: No Limitations - History of Present Illness INITIAL COMMENTS - FREE TEXT/NARRATIVE: González is a 61 y/o male who presents to the ED via personal vehicle with complaints of diaphoresis and abdominal discomfort. The patient reports his symptoms have been ongoing in severity over the course of the year. He underwent a limited abdominal US to further evaluate his gallbladder and pancreas 10 days ago which was WNL. He has an appointment to follow with a remote broadcast technician next week and reports he has been told he has fatty liver disease. He denies fever, shaking chills, chest pain, palpitations, shortness of breath, nausea, vomiting, constipation, diarrhea, or dysuria. He denies melena or hematochezia. He states he has been able to eat and drink, per his normal routine, with his last meal today at noon. He feels he is belching more than normal, but denies abdominal pain. Past Medical History HEENT History: Reports: Impaired Vision, Other (See Below) Other HEENT History: ears are partly plugged Cardiovascular History: Reports: Afib, Automatic Implantable Cardioverter Defibrillators, CAD, Heart Failure, High Cholesterol, Hypertension, [place], Pacemaker, SOB on Exertion Respiratory History: Reports: Sleep Apnea Other Respiratory History: Pt wears CPAP machine at night, O2 at night PRN Gastrointestinal History: Reports: GERD Other Gastrointestinal History: ELEVATED LIVER ENZYMES & FATTY LIVER Genitourinary History: Reports: None Musculoskeletal History: Reports: Arthritis, Fracture Other Musculoskeletal History: disk out for last 3 years; LEFT ANKLE FRACTURE Neurological History: Reports: None Psychiatric History: Reports: Anxiety Endocrine/Metabolic History: Reports: Diabetes, Type II, Hypothyroidism, Obesity/BMI 30+ Hematologic History: Reports: None Immunologic History: Reports: None Oncologic (Cancer) History: Reports: Other (See Below) Other Oncologic History: testicular-both testicles removed Dermatologic History: Reports: Other (See Below) Other Dermatologic History: dry skin - Infectious Disease History Infectious Disease History: Reports: None Other Infectious Disease History: UNCERTAIN OF HISTORY - Past Surgical History Head Surgeries/Procedures: Reports: None HEENT Surgical History: Reports: Cataract Surgery Cardiovascular Surgical History: Reports: Pacer Respiratory Surgical History: Reports: None GI Surgical History: Reports: Appendectomy, Colonoscopy Male Surgical History: Reports: Other (See Below) Other Male Surgeries/Procedures: Testicular cancer- both testicles removed Endocrine Surgical History: Reports: None Neurological Surgical History: Reports: None Musculoskeletal Surgical History: Reports: None Oncologic Surgical History: Reports: Other (See Below) Other Oncologic Surgeries/Procedures: testicular-both testicles removed Dermatological Surgical History: Reports: None Social & Family History - Family History Family Medical History: No Pertinent Family History Cardiac: Reports: Afib, CAD, Heart Failure, High Cholesterol, Hypertension, [place], Stent Respiratory: Reports: COPD Endocrine/Metabolic: Reports: Obesity/MBI 30+ - Caffeine Use Caffeine Use: Reports: Soda Other Caffeine Use: RARELY USES - Living Situation & Occupation Living situation: Reports: Single, with Family Occupation: Employed ED ROS GENERAL - Review of Systems Review Of Systems: Comprehensive ROS is negative, except as noted in HPI. ED EXAM, GENERAL - Physical Exam Exam: See Below Exam Limited By: No Limitations General Appearance: Alert, No Apparent Distress, Obese, Other (Ill-kept) Eye Exam: Bilateral Eye: EOMI, Normal Inspection, PERRL (3mm) Ears: Normal External Exam, Hearing Grossly Normal Nose: Normal Inspection, Normal Mucosa, No Blood Throat/Mouth: Normal Inspection, Normal Oropharynx, Normal Voice, No Airway Compromise Head: Atraumatic, Normocephalic Neck: Normal Inspection, Supple, Non-Tender, Full Range of Motion. No: Lymphadenopathy (L), Lymphadenopathy (R) Respiratory/Chest: No Respiratory Distress, Lungs Clear, Normal Breath Sounds, No Accessory Muscle Use, Chest Non-Tender Cardiovascular: Normal Peripheral Pulses, Regular Rate, Rhythm, No Edema, No Gallop, No JVD, No Murmur, No Rub Peripheral Pulses: 2+: Radial (L), Radial (R) GI/Abdominal: Normal Bowel Sounds, Soft, Non-Tender, No Distention, No Abnormal Bruit, No Mass, Pelvis Stable (Male) Exam: Deferred Rectal (Males) Exam: Deferred Back Exam: Normal Inspection, Full Range of Motion Extremities: Normal Inspection, Normal Range of Motion, Non-Tender, Normal Capillary Refill, No Pedal Edema Neurological: Alert, Oriented, CN II-XII Intact, Normal Cognition, Normal Gait, Normal Reflexes, No Motor/Sensory Deficits Psychiatric: Normal Affect, Normal Mood Skin Exam: Warm, Dry, Intact, Normal Color, No Rash. No: Cyanosis, Jaundice, Mottled, Pallor #1 Interpretation EKG Date: 05/14/21 Time: 17:49 Rhythm: Other (V-Paced) Rate (Beats/Min): 75 [place]: LAD-Left [place] Deviation Comparison: No Change EKG Interpretation Comments: V-paced; LAD; No evidence of acute myocardial ischemia Course - Vital Signs Last Recorded V/S: Last Vital Signs Temp 97.6 F 05/14/21 17:11 Pulse 81 05/14/21 17:11 Resp 16 05/14/21 17:11 BP 126/56 L 05/14/21 17:11 Pulse Ox 99 05/14/21 17:11 - Orders/Labs/Meds Labs: Laboratory Tests 05/14/21 05/14/21 05/14/21 Range/Units 17:35 17:35 17:35 WBC 8.2 (5.0-10.0) 10^3/uL RBC 5.01 (4.6-6.2) 10^6/uL Hgb 16.0 (14.0-18.0) g/dL Hct 48.0 (40.0-54.0) % MCV 95.8 (80-100) fL MCH 31.9 (27.0-34.0) pg MCHC 33.3 (33.0-35.0) g/dL Plt Count 183 (150-450) 10^3/uL Neut % (Auto) 75.2 (42.2-75.2) % Lymph % (Auto) 12.7 L (20.5-50.1) % Winn % (Auto) 8.9 H (2-8) % Eos % (Auto) 2.7 (1.0-3.0) % Baso % (Auto) 0.5 (0.0-1.0) % Sodium 140 (136-145) mmol/L Potassium 5.0 (3.5-5.1) mmol/L Chloride 102 (98-107) mmol/L Carbon Dioxide 29 (21-32) mmol/L Anion Gap 14.0 H (7-13) mEq/L BUN 47 H (7-18) mg/dL Creatinine 1.52 H (0.70-1.30) mg/dL Est Cr Clr Drug Dosing 44.39 mL/min Estimated GFR (MDRD) 47 BUN/Creatinine Ratio 30.9 (No establ ref range) Glucose 143 H (70-99) mg/dL Calcium 9.1 (8.5-10.1) mg/dL Magnesium 2.2 (1.8-2.4) mg/dL Total Bilirubin 0.5 (0.2-1.0) mg/dL AST 18 (15-37) U/L ALT 34 (16-63) U/L Alkaline Phosphatase 70 (46-116) U/L Troponin I High Sens 26 (<=76) pg/mL C-Reactive Protein < 0.2 (0.0-0.9) mg/dL B-Natriuretic Peptide 117 H (0-100) pg/ml Total Protein 7.4 (6.4-8.2) g/dL Albumin 3.6 (3.4-5.0) g/dL Globulin 3.8 Albumin/Globulin Ratio 0.9 Amylase 89 (25-115) U/L Lipase 167 (73-393) U/L Urine Color (YELLOW) Urine Appearance (CLEAR) Urine pH (5.0-9.0) Ur Specific [place] (1.005-1.030) Urine Protein (NEGATIVE) Urine Glucose (UA) (NEGATIVE) Urine Ketones (NEGATIVE) Urine Occult Blood (NEGATIVE) Urine Nitrite (NEGATIVE) Urine Bilirubin (NEGATIVE) Urine Urobilinogen (0.2-1.0) mg/dL Ur Leukocyte Esterase (NEGATIVE) Urine Opiates Screen (NEGATIVE) Ur Oxycodone Screen (NEGATIVE) Urine Methadone Screen (NEGATIVE) Ur Barbiturates Screen (NEGATIVE) U Tricyclic Antidepress (NEGATIVE) Ur Phencyclidine Scrn (NEGATIVE) Ur Amphetamine Screen (NEGATIVE) U Methamphetamines Scrn (NEGATIVE) Urine MDMA Screen (NEGATIVE) U Benzodiazepines Scrn (NEGATIVE) Urine Cocaine Screen (NEGATIVE) U Marijuana (THC) Screen (NEGATIVE) Ethyl Alcohol < 3 (0) mg/dL 05/14/21 05/14/21 Range/Units 19:09 19:09 WBC (5.0-10.0) 10^3/uL RBC (4.6-6.2) 10^6/uL Hgb (14.0-18.0) g/dL Hct (40.0-54.0) % MCV (80-100) fL MCH (27.0-34.0) pg MCHC (33.0-35.0) g/dL Plt Count (150-450) 10^3/uL Neut % (Auto) (42.2-75.2) % Lymph % (Auto) (20.5-50.1) % Winn % (Auto) (2-8) % Eos % (Auto) (1.0-3.0) % Baso % (Auto) (0.0-1.0) % Sodium (136-145) mmol/L Potassium (3.5-5.1) mmol/L Chloride (98-107) mmol/L Carbon Dioxide (21-32) mmol/L Anion Gap (7-13) mEq/L BUN (7-18) mg/dL Creatinine (0.70-1.30) mg/dL Est Cr Clr Drug Dosing mL/min Estimated GFR (MDRD) BUN/Creatinine Ratio (No establ ref range) Glucose (70-99) mg/dL Calcium (8.5-10.1) mg/dL Magnesium (1.8-2.4) mg/dL Total Bilirubin (0.2-1.0) mg/dL AST (15-37) U/L ALT (16-63) U/L Alkaline Phosphatase (46-116) U/L Troponin I High Sens (<=76) pg/mL C-Reactive Protein (0.0-0.9) mg/dL B-Natriuretic Peptide (0-100) pg/ml Total Protein (6.4-8.2) g/dL Albumin (3.4-5.0) g/dL Globulin Albumin/Globulin Ratio Amylase (25-115) U/L Lipase (73-393) U/L Urine Color Yellow (YELLOW) Urine Appearance Clear (CLEAR) Urine pH 7.0 (5.0-9.0) Ur Specific [place] 1.020 (1.005-1.030) Urine Protein Negative (NEGATIVE) Urine Glucose (UA) Negative (NEGATIVE) Urine Ketones Negative (NEGATIVE) Urine Occult Blood Negative (NEGATIVE) Urine Nitrite Negative (NEGATIVE) Urine Bilirubin Negative (NEGATIVE) Urine Urobilinogen 0.2 (0.2-1.0) mg/dL Ur Leukocyte Esterase Negative (NEGATIVE) Urine Opiates Screen Negative (NEGATIVE) Ur Oxycodone Screen Negative (NEGATIVE) Urine Methadone Screen Negative (NEGATIVE) Ur Barbiturates Screen Negative (NEGATIVE) U Tricyclic Antidepress Negative (NEGATIVE) Ur Phencyclidine Scrn Negative (NEGATIVE) Ur Amphetamine Screen Negative (NEGATIVE) U Methamphetamines Scrn Negative (NEGATIVE) Urine MDMA Screen Negative (NEGATIVE) U Benzodiazepines Scrn Negative (NEGATIVE) Urine Cocaine Screen Negative (NEGATIVE) U Marijuana (THC) Screen Negative (NEGATIVE) Ethyl Alcohol (0) mg/dL - Radiology Interpretation Free Text/Narrative:: [facility] Final Radiology Report Call: [phone] assistance Online chat: [email or web address] Name: GONZÁLEZ ENRIQUEZ Age: 61Years M Date: 05/14/2021 SSN: -- : [id number] Study: CT ABDOMEN PELVIS WO CONT Requesting Physician: DAVID MARSH Images: [id number] Addl Studies: Provided Clinical History: abdominal discomfort one year Contrast: Without Contrast Medium: Contrast Amount: Contrast Method: Page 1 of 2 PROCEDURE INFORMATION: Exam: CT Abdomen And Pelvis Without Contrast Exam date and time: 05/14/2021 7:21 PM Age: 61 years old Clinical indication: Abdominal pain; Generalized; Patient HX: Post prandial sweating; Additional info: Abdominal discomfort one year TECHNIQUE: Imaging protocol: Computed tomography of the abdomen and pelvis without contrast. Radiation optimization: All CT scans at this facility use at least one of these dose optimization techniques: automated exposure control; mA and/or kV adjustment per patient size (includes targeted exams where dose is matched to clinical indication); or iterative reconstruction. COMPARISON: CT Abdomen Pelvis w Cont 08/29/2020 2:08 PM FINDINGS: Tubes, catheters and devices: Cardiac leads noted. Lungs: Small unchanged pulmonary nodule in the right base. Small tiny nodule in the left base laterally. There is a perifissural nodule that appears benign in the right base. However, it is increased in size from prior. Today it measures about 6 mm in average diameter. Recommend follow-up CT Chest in 6-12 months. (References: MacSalvador and Catarina) Liver: Normal. No mass. Gallbladder and bile ducts: Normal. No calcified stones. No ductal dilation. Pancreas: Normal. No ductal dilation. Spleen: Normal. No splenomegaly. Adrenal glands: Normal. No mass. GONZÁLEZ ENRIQUEZ | Final Radiology Report CONFIDENTIALITY STATEMENT This report is intended only for use by the referring physician, and only in accordance with law. If you received this in error, call [phone]. Page 2 of 2 Kidneys and ureters: The right kidney is atrophic which is similar to prior. Bilateral kidneys are somewhat lobular also similar to prior. Small probable cyst seen on the left kidney. Scarring noted on the right kidney. A nonobstructing 3 mm calcification is again seen in the right kidney lower pole. Stomach and bowel: Unremarkable. No obstruction. No mucosal thickening. Appendix: No evidence of appendicitis. Intraperitoneal space: Unremarkable. No free air. No significant fluid collection. Vasculature: Unremarkable. No abdominal aortic aneurysm. Lymph nodes: Unremarkable. No enlarged lymph nodes. Urinary bladder: Unremarkable as visualized. Reproductive: Unremarkable as visualized. Bones/joints: Unremarkable. No acute fracture. Soft tissues: Unremarkable. IMPRESSION: 1. No acute intra-abdominal pathology. No findings to explain the patient's symptoms. 2. Incidental note of the new 6 mm right perifissural nodule. Follow-up recommended in 6-12 months based on Fleischner society. COMMENTS: Consistent with the [employer]'s Incidental Findings Committee white paper (J Am Toni Radiol 2018): Any incidental renal lesion less than 1 cm or classified as too small to characterize, or any incidental cystic renal lesion characterized as simple- appearing, is likely benign. No follow-up imaging is recommended for these lesions per consensus recommendations based on imaging criteria. REFERENCES: 1. Rehana H, et al. Guidelines for Management of Incidental Pulmonary Nodules Detected on CT Images: From the Fleischner Society 2017. Radiology. 2017;284(1):228-243. 2. Catarina J, et al. Updated Fleischner Society Guidelines for Managing Incidental Pulmonary Nodules: Common Questions and Challenging Scenarios. Radiographics. 2018;38(5):0402-0172. Thank you for allowing us to participate in the care of your patient. Dictated and Authenticated by: Niles Duval MD 05/14/2021 7:53 PM Central Time ([place] & [place]) - Re-Assessments/Exams Free Text/Narrative Re-Assessment/Exam: 05/14/21 Care of patient transferred to [facility] at [facility]. Sepsis Event Note (ED) - Evaluation Sepsis Screening Result: No Definite Risk"
[2021-05-14 18:03] LABS: CHLORIDE,CL 102 mmol/L (98-107); SODIUM,NA 140 mmol/L (136-145)
[2021-05-14 19:50] LABS: AMPHETAMINES,URINE NEGATIVE (NEGATIVE); BARBITURATES,URINE NEGATIVE (NEGATIVE); BENZODIAZEPINE,URINE NEGATIVE (NEGATIVE); MDMA (ECSTASY), URINE NEGATIVE (NEGATIVE); METHADONE,URINE NEGATIVE (NEGATIVE); METHAMPHETAMINES,URINE NEGATIVE (NEGATIVE); OPIATES,URINE NEGATIVE (NEGATIVE); OXYCODONE,URINE NEGATIVE (NEGATIVE); PHENCYCLIDINE,URINE NEGATIVE (NEGATIVE); TCA,URINE NEGATIVE (NEGATIVE)
--- NOTE | 2021-05-14 19:54 | CT ---
PROCEDURE INFORMATION: Exam: CT Abdomen And Pelvis Without Contrast Exam date and time: 05/14/2021 7:21 PM Age: 61 years old Clinical indication: Abdominal pain; Generalized; Patient HX: Post prandial sweating; Additional info: Abdominal discomfort one year TECHNIQUE: Imaging protocol: Computed tomography of the abdomen and pelvis without contrast. Radiation optimization: All CT scans at this facility use at least one of these dose optimization techniques: automated exposure control; mA and/or kV adjustment per patient size (includes targeted exams where dose is matched to clinical indication); or iterative reconstruction. COMPARISON: CT Abdomen Pelvis w Cont 08/29/2020 2:08 PM FINDINGS: Tubes, catheters and devices: Cardiac leads noted. Lungs: Small unchanged pulmonary nodule in the right base. Small tiny nodule in the left base laterally. There is a perifissural nodule that appears benign in the right base. However, it is increased in size from prior. Today it measures about 6 mm in average diameter. Recommend follow-up CT Chest in 6-12 months. (References: Rehana and Catarina) Liver: Normal. No mass. Gallbladder and bile ducts: Normal. No calcified stones. No ductal dilation. Pancreas: Normal. No ductal dilation. Spleen: Normal. No splenomegaly. Adrenal glands: Normal. No mass. Kidneys and ureters: The right kidney is atrophic which is similar to prior. Bilateral kidneys are somewhat lobular also similar to prior. Small probable cyst seen on the left kidney. Scarring noted on the right kidney. A nonobstructing 3 mm calcification is again seen in the right kidney lower pole. Stomach and bowel: Unremarkable. No obstruction. No mucosal thickening. Appendix: No evidence of appendicitis. Intraperitoneal space: Unremarkable. No free air. No significant fluid collection. Vasculature: Unremarkable. No abdominal aortic aneurysm. Lymph nodes: Unremarkable. No enlarged lymph nodes. Urinary bladder: Unremarkable as visualized. Reproductive: Unremarkable as visualized. Bones/joints: Unremarkable. No acute fracture. Soft tissues: Unremarkable. IMPRESSION: 1. No acute intra-abdominal pathology. No findings to explain the patient's symptoms. 2. Incidental note of the new 6 mm right perifissural nodule. Follow-up recommended in 6-12 months based on Fleischner society. COMMENTS: Consistent with the [employer]'s Incidental Findings Committee white paper (J Am Toni Radiol 2018): Any incidental renal lesion less than 1 cm or classified as too small to characterize, or any incidental cystic renal lesion characterized as simple-appearing, is likely benign. No follow-up imaging is recommended for these lesions per consensus recommendations based on imaging criteria. REFERENCES: 1. Rehana Leary, et al. Guidelines for Management of Incidental Pulmonary Nodules Detected on CT Images: From the Fleischner Society 2017. Radiology. 2017;284(1):228-243. 2. Catarina J, et al. Updated Fleischner Society Guidelines for Managing Incidental Pulmonary Nodules: Common Questions and Challenging Scenarios. Radiographics. 2018;38(5):6749-0621.
== END 2021-05-14 20:17 | disposition home or self-care (01) ==
LOC: DL.ED 16:56
DX: N20.0 Calculus of kidney (principal); R91.8 Other nonspecific abnormal finding of lung field; G50.8 Other disorders of trigeminal nerve; E66.01 Morbid (severe) obesity due to excess calories; Z68.42 Body mass index [BMI] 45.0-49.9, adult; I48.91 Unspecified atrial fibrillation; I25.10 Atherosclerotic heart disease of native coronary artery without angina pectoris; I11.0 Hypertensive heart disease with heart failure; I50.9 Heart failure, unspecified; E78.00 Pure hypercholesterolemia, unspecified; I25.2 Old myocardial infarction; K21.9 Gastro-esophageal reflux disease without esophagitis; E11.9 Type 2 diabetes mellitus without complications; E03.9 Hypothyroidism, unspecified; Z95.1 Presence of aortocoronary bypass graft; Z79.82 Long term (current) use of aspirin; Z79.4 Long term (current) use of insulin; Z79.01 Long term (current) use of anticoagulants; Z79.899 Other long term (current) drug therapy; Z91.040 Latex allergy status; Z88.8 Allergy status to other drugs, medicaments and biological substances
CPT/HCPCS: 36415; 74176; 80053; 80305-QW; 80307; 81003; 82150; 83690; 83735; 83880; 84484; 85025; 86140; 93005; 93010; 99284; 99284-25

== ENCOUNTER 2021-07-31 11:32 | Emergency (ER) | payer MEDICARE, BC ==
[2021-07-31 11:46] VITALS: BP 92/48; PULSE 90
--- NOTE | 2021-07-31 12:08 | EDM.PDOC ---
ED HPI GENERAL MEDICAL PROBLEM - General Chief Complaint: Cardiovascular Problem Stated Complaint: LOW BP Time Seen by Provider: 07/31/21 11:55 Source of Information: Reports: Patient, RN, RN Notes Reviewed History Limitations: Reports: No Limitations - History of Present Illness INITIAL COMMENTS - FREE TEXT/NARRATIVE: González is a 61 y/o male with a history of who presents to the ED via personal vehicle with complaints of malaise and low blood pressure. The patient reports he felt "off" this morning which prompted him to check his blood pressure which he noted was low; 90s SBP. He states he did take his blood pressure medications this morning. The patient denies recent illness, fever, shaking chills, cough, sore throat, vision changes, dizziness, chest pain/pressure, palpitations, shortness of breath, dyspepsia, nausea, vomiting, dysuria, hematuria, constipation, or diarrhea. He denies pain. He has taken no PRN medications for his symptoms. The patient denies tobacco, alcohol, or recreational drug use. He notes he has intentionally lost 20 lbs in the past 2 months. - Related Data Allergies Allergy/AdvReac Type Severity Reaction Status Date / Time latex Allergy Rash Verified 04/21/21 11:35 sitagliptin Allergy Cannot Verified 04/21/21 11:35 Remember lisinopril AdvReac Mild Cough Verified 04/21/21 11:35 Home Meds: Home Meds Liraglutide [Victoza] 1.8 mg SUBCUT DAILY 12/12/14 [History] Ammonium Lactate [Lac-Hydrin 12% Crm] 1 applic TOP ASDIRECTED PRN 08/04/15 [His tory] Aspirin [Halfprin] 81 mg PO BRK 08/04/15 [History] Clobetasol [Temovate 0.05% Oint] 1 applic TOP BID PRN 08/04/15 [History] Insulin Aspart [NovoLOG] 17 unit SUBCUT WITHBREAKFAST 08/04/15 [History] Omeprazole 20 mg PO ACBREAKFAST 06/01/17 [History] Hydrocodone/Acetaminophen [Hydrocodone-Acetamin 10-325 mg] 1 tab PO Q4H PRN 04/04/19 [History] Warfarin Sodium 3 mg PO .[id number] 04/04/19 [History] atorvaSTATin Calcium [Atorvastatin Calcium] 20 mg PO BEDTIME 04/04/19 [History] Insulin Degludec [Tresiba] 60 unit SQ BEDTIME 11/04/19 [History] methocarbamoL [Methocarbamol] 750 mg PO DAILY PRN 11/04/19 [History] Furosemide [Lasix] 60 mg PO DAILY 03/14/20 [History] Insulin Aspart [NovoLOG] 17 units SQ WITHLUNCH 03/14/20 [History] Levothyroxine Sodium [Levoxyl] 50 mcg PO DAILY 03/14/20 [History] Spironolactone [Aldactone] 25 mg PO DAILY 03/14/20 [History] Warfarin [Coumadin] 6 mg PO .MONFR 03/14/20 [History] Losartan [Cozaar] 50 mg PO DAILY #30 tablet 03/15/20 [Rx] Metoprolol Succinate [Toprol XL 50mg] 100 mg PO DAILY #30 tab.er 03/15/20 [Rx] Acetaminophen 325 mg PO ASDIRECTED PRN 05/03/20 [History] Mupirocin Calcium [Mupirocin] 1 applic TOP ASDIRECTED 05/03/20 [History] Past Medical History HEENT History: Reports: Impaired Vision, Other (See Below) Other HEENT History: ears are partly plugged Cardiovascular History: Reports: Afib, Automatic Implantable Cardioverter Defibrillators, CAD, Heart Failure, High Cholesterol, Hypertension, NC, Pacemaker, SOB on Exertion Respiratory History: Reports: Sleep Apnea Other Respiratory History: Pt wears CPAP machine at night, O2 at night PRN Gastrointestinal History: Reports: GERD Other Gastrointestinal History: ELEVATED LIVER ENZYMES & FATTY LIVER Genitourinary History: Reports: None Musculoskeletal History: Reports: Arthritis, Fracture Other Musculoskeletal History: disk out for last 3 years; LEFT ANKLE FRACTURE Neurological History: Reports: None Psychiatric History: Reports: Anxiety Endocrine/Metabolic History: Reports: Diabetes, Type II, Hypothyroidism, Obesity/BMI 30+ Hematologic History: Reports: None Immunologic History: Reports: None Oncologic (Cancer) History: Reports: Other (See Below) Other Oncologic History: testicular-both testicles removed Dermatologic History: Reports: Other (See Below) Other Dermatologic History: dry skin - Infectious Disease History Infectious Disease History: Reports: Other (See Below) Other Infectious Disease History: UNCERTAIN OF HISTORY - Past Surgical History Head Surgeries/Procedures: Reports: None HEENT Surgical History: Reports: Cataract Surgery Cardiovascular Surgical History: Reports: Pacer Respiratory Surgical History: Reports: None GI Surgical History: Reports: Appendectomy, Colonoscopy Male Surgical History: Reports: Other (See Below) Other Male Surgeries/Procedures: Testicular cancer- both testicles removed Endocrine Surgical History: Reports: None Neurological Surgical History: Reports: None Musculoskeletal Surgical History: Reports: None Oncologic Surgical History: Reports: Other (See Below) Other Oncologic Surgeries/Procedures: testicular-both testicles removed Dermatological Surgical History: Reports: None Social & Family History - Family History Family Medical History: No Pertinent Family History Cardiac: Reports: Afib, CAD, Heart Failure, High Cholesterol, Hypertension, NC, Stent Respiratory: Reports: COPD Endocrine/Metabolic: Reports: Obesity/MBI 30+ - Tobacco Use Tobacco Use Status *Q: Unknown Ever Used Tobacco - Caffeine Use Caffeine Use: Reports: Coffee Other Caffeine Use: RARELY USES - Recreational Drug Use Recreational Drug Use: No - Living Situation & Occupation Living situation: Reports: Single, with Family Occupation: Employed ED ROS GENERAL - Review of Systems Review Of Systems: Comprehensive ROS is negative, except as noted in HPI. ED EXAM, GENERAL - Physical Exam Exam: Not Obtained Exam Limited By: No Limitations General Appearance: Alert, No Apparent Distress, Obese Eye Exam: Bilateral Eye: EOMI, Normal Inspection, PERRL (3mm) Ears: Normal External Exam, Hearing Grossly Normal Nose: Normal Inspection, Normal Mucosa, No Blood Throat/Mouth: Normal Inspection, Normal Oropharynx, Normal Voice, No Airway Compromise Head: Atraumatic, Normocephalic Neck: Normal Inspection, Supple, Non-Tender, Full Range of Motion Respiratory/Chest: No Respiratory Distress, Lungs Clear, Normal Breath Sounds, No Accessory Muscle Use, Chest Non-Tender Cardiovascular: Normal Peripheral Pulses, Regular Rate, Rhythm, No Edema, No Gallop, No JVD, No Murmur, No Rub Peripheral Pulses: 2+: Radial (L), Radial (R) GI/Abdominal: Normal Bowel Sounds, Soft, Non-Tender, No Distention, No Abnormal Bruit, No Mass, Pelvis Stable (Male) Exam: Deferred Rectal (Males) Exam: Deferred Back Exam: Normal Inspection, Full Range of Motion Extremities: Normal Inspection, Normal Range of Motion, Non-Tender, No Pedal Edema, Normal Capillary Refill Neurological: Alert, Oriented, CN II-XII Intact, Normal Cognition, Normal Gait, No Motor/Sensory Deficits Psychiatric: Normal Affect, Normal Mood Skin Exam: Warm, Dry, Intact, Normal Color, No Rash. No: Cyanosis, Jaundice, Mottled, Pallor #1 Interpretation EKG Date: 07/31/21 Time: 12:22 Rhythm: Other (V-Paced, Atrial sensed) Rate (Beats/Min): 71 [place]: LAD-Left [place] Deviation Comparison: No Change EKG Interpretation Comments: V-Pace, A-sensed; LAD; Inverted T-waves; No evidence of acute myocardial ischemia Course - Vital Signs Last Recorded V/S: Last Vital Signs Temp 98.0 F 07/31/21 11:44 Pulse 90 07/31/21 11:44 Resp 20 07/31/21 11:44 BP 92/48 L 07/31/21 11:44 Pulse Ox 95 07/31/21 11:44 - Orders/Labs/Meds Labs: Laboratory Tests 07/31/21 07/31/21 07/31/21 Range/Units 12:24 12:24 12:24 WBC 7.0 (5.0-10.0) 10^3/uL RBC 5.14 (4.6-6.2) 10^6/uL Hgb 16.1 (14.0-18.0) g/dL Hct 48.5 (40.0-54.0) % MCV 94.4 (80-100) fL MCH 31.3 (27.0-34.0) pg MCHC 33.2 (33.0-35.0) g/dL Plt Count 191 (150-450) 10^3/uL Neut % (Auto) 75.7 H (42.2-75.2) % Lymph % (Auto) 11.0 L (20.5-50.1) % Todd % (Auto) 11.3 H (2-8) % Eos % (Auto) 1.6 (1.0-3.0) % Baso % (Auto) 0.4 (0.0-1.0) % Sodium 138 (136-145) mmol/L Potassium 5.0 (3.5-5.1) mmol/L Chloride 101 (98-107) mmol/L Carbon Dioxide 23 (21-32) mmol/L Anion Gap 19.0 H (7-13) mEq/L BUN 38 H (7-18) mg/dL Creatinine 1.75 H (0.70-1.30) mg/dL Est Cr Clr Drug Dosing 42.89 mL/min Estimated GFR (MDRD) 40 BUN/Creatinine Ratio 21.7 (No establ ref range) Glucose 163 H (70-99) mg/dL Lactic Acid 3.7 H* (0.4-2.0) mmol/L Calcium 9.5 (8.5-10.1) mg/dL Total Bilirubin 0.7 (0.2-1.0) mg/dL AST 22 (15-37) U/L ALT 44 (16-63) U/L Alkaline Phosphatase 69 (46-116) U/L Troponin I High Sens 25 (<=76) pg/mL C-Reactive Protein 1.1 H (0.0-0.9) mg/dL B-Natriuretic Peptide 120 H (0-100) pg/ml Total Protein 8.2 (6.4-8.2) g/dL Albumin 3.9 (3.4-5.0) g/dL Globulin 4.3 Albumin/Globulin Ratio 0.9 Amylase 83 (25-115) U/L Lipase 212 (73-393) U/L Urine Color (YELLOW) Urine Appearance (CLEAR) Urine pH (5.0-9.0) Ur Specific [place] (1.005-1.030) Urine Protein (NEGATIVE) Urine Glucose (UA) (NEGATIVE) Urine Ketones (NEGATIVE) Urine Occult Blood (NEGATIVE) Urine Nitrite (NEGATIVE) Urine Bilirubin (NEGATIVE) Urine Urobilinogen (0.2-1.0) mg/dL Ur Leukocyte Esterase (NEGATIVE) Urine Opiates Screen (NEGATIVE) Ur Oxycodone Screen (NEGATIVE) Urine Methadone Screen (NEGATIVE) Ur Barbiturates Screen (NEGATIVE) U Tricyclic Antidepress (NEGATIVE) Ur Phencyclidine Scrn (NEGATIVE) Ur Amphetamine Screen (NEGATIVE) U Methamphetamines Scrn (NEGATIVE) Urine MDMA Screen (NEGATIVE) U Benzodiazepines Scrn (NEGATIVE) Urine Cocaine Screen (NEGATIVE) U Marijuana (THC) Screen (NEGATIVE) Ethyl Alcohol < 3 (0) mg/dL SARS-CoV-2 RNA (VIKI) (NEGATIVE) 07/31/21 07/31/21 07/31/21 Range/Units 12:56 14:50 14:50 WBC (5.0-10.0) 10^3/uL RBC (4.6-6.2) 10^6/uL Hgb (14.0-18.0) g/dL Hct (40.0-54.0) % MCV (80-100) fL MCH (27.0-34.0) pg MCHC (33.0-35.0) g/dL Plt Count (150-450) 10^3/uL Neut % (Auto) (42.2-75.2) % Lymph % (Auto) (20.5-50.1) % Todd % (Auto) (2-8) % Eos % (Auto) (1.0-3.0) % Baso % (Auto) (0.0-1.0) % Sodium (136-145) mmol/L Potassium (3.5-5.1) mmol/L Chloride (98-107) mmol/L Carbon Dioxide (21-32) mmol/L Anion Gap (7-13) mEq/L BUN (7-18) mg/dL Creatinine (0.70-1.30) mg/dL Est Cr Clr Drug Dosing mL/min Estimated GFR (MDRD) BUN/Creatinine Ratio (No establ ref range) Glucose (70-99) mg/dL Lactic Acid (0.4-2.0) mmol/L Calcium (8.5-10.1) mg/dL Total Bilirubin (0.2-1.0) mg/dL AST (15-37) U/L ALT (16-63) U/L Alkaline Phosphatase (46-116) U/L Troponin I High Sens (<=76) pg/mL C-Reactive Protein (0.0-0.9) mg/dL B-Natriuretic Peptide (0-100) pg/ml Total Protein (6.4-8.2) g/dL Albumin (3.4-5.0) g/dL Globulin Albumin/Globulin Ratio Amylase (25-115) U/L Lipase (73-393) U/L Urine Color Yellow (YELLOW) Urine Appearance Slightly cloudy (CLEAR) Urine pH 7.0 (5.0-9.0) Ur Specific [place] 1.020 (1.005-1.030) Urine Protein Negative (NEGATIVE) Urine Glucose (UA) 500 H (NEGATIVE) Urine Ketones Negative (NEGATIVE) Urine Occult Blood Negative (NEGATIVE) Urine Nitrite Negative (NEGATIVE) Urine Bilirubin Negative (NEGATIVE) Urine Urobilinogen 0.2 (0.2-1.0) mg/dL Ur Leukocyte Esterase Negative (NEGATIVE) Urine Opiates Screen Negative (NEGATIVE) Ur Oxycodone Screen Negative (NEGATIVE) Urine Methadone Screen Negative (NEGATIVE) Ur Barbiturates Screen Negative (NEGATIVE) U Tricyclic Antidepress Negative (NEGATIVE) Ur Phencyclidine Scrn Negative (NEGATIVE) Ur Amphetamine Screen Negative (NEGATIVE) U Methamphetamines Scrn Negative (NEGATIVE) Urine MDMA Screen Negative (NEGATIVE) U Benzodiazepines Scrn Negative (NEGATIVE) Urine Cocaine Screen Negative (NEGATIVE) U Marijuana (THC) Screen Negative (NEGATIVE) Ethyl Alcohol (0) mg/dL SARS-CoV-2 RNA (VIKI) Positive H (NEGATIVE) Meds: Medications Discontinued Medications Generic Name Dose Route Start Last Admin Trade Name Freq PRN Reason Stop Dose Admin Sodium Chloride 1,000 mls @ 999 mls/hr 07/31/21 13:06 07/31/21 13:25 Normal Saline IV 07/31/21 14:06 999 mls/hr .BOLUS ONE Administration - Re-Assessments/Exams Free Text/Narrative Re-Assessment/Exam: 07/31/21 NS 1L bolus initiated while labs pending. Findings of examination and ab work reviewed with patient. Patient instructed to decrease furosemide dose to 20mg QD until he follows up with his PCP in 1-2 days. Red flag signs and symptoms which would warrant immediate reevaluation reviewed. Patient verbalized understanding and agreement with the plan of care. Departure - Departure Time of Disposition: 15:25 Disposition: Home, Self-Care 01 Condition: Fair Clinical Impression: Acute hypotension, History of COVID-19, Dehydration Instructions: Hypotension, Dehydration, Adult Forms: ED Department Discharge Additional Instructions: 1.) Reduce your Lasix dose by half; take 20mg every day. 2.) Follow up with your primary care facility tomorrow for a blood pressure recheck. 3.) Follow up with your primary care provider in 3-5 days regarding today's visit. 4.) Continue on your previously prescribed medications. 5.) Return to the emergency department with any return of symptoms. Sepsis Event Note (ED) - Evaluation Sepsis Screening Result: No Definite Risk
[2021-07-31 12:51] LABS: CHLORIDE,CL 101 mmol/L (98-107); SODIUM,NA 138 mmol/L (136-145)
[2021-07-31] MEDS ORDERED: Sodium Chloride 0.9% 1,000 ML IV ONE (13:06)
[2021-07-31 15:11] LABS: BARBITURATES,URINE NEGATIVE (NEGATIVE); BENZODIAZEPINE,URINE NEGATIVE (NEGATIVE); MDMA (ECSTASY), URINE NEGATIVE (NEGATIVE); METHADONE,URINE NEGATIVE (NEGATIVE); METHAMPHETAMINES,URINE NEGATIVE (NEGATIVE); OPIATES,URINE NEGATIVE (NEGATIVE); OXYCODONE,URINE NEGATIVE (NEGATIVE); PHENCYCLIDINE,URINE NEGATIVE (NEGATIVE); TCA,URINE NEGATIVE (NEGATIVE)
[2021-07-31 15:12] LABS: AMPHETAMINES,URINE NEGATIVE (NEGATIVE)
== END 2021-07-31 15:30 | disposition home or self-care (01) ==
LOC: DL.ED 11:32
DX: I95.9 Hypotension, unspecified (principal); U07.1 COVID-19; E86.0 Dehydration; I48.91 Unspecified atrial fibrillation; I11.0 Hypertensive heart disease with heart failure; I50.9 Heart failure, unspecified; I25.10 Atherosclerotic heart disease of native coronary artery without angina pectoris; E78.00 Pure hypercholesterolemia, unspecified; I25.2 Old myocardial infarction; E11.9 Type 2 diabetes mellitus without complications; E03.9 Hypothyroidism, unspecified; E66.9 Obesity, unspecified; K21.9 Gastro-esophageal reflux disease without esophagitis; Z68.41 Body mass index [BMI] 40.0-44.9, adult; Z95.0 Presence of cardiac pacemaker; Z91.040 Latex allergy status; Z88.8 Allergy status to other drugs, medicaments and biological substances; Z79.82 Long term (current) use of aspirin; Z79.01 Long term (current) use of anticoagulants; Z79.899 Other long term (current) drug therapy; Z79.4 Long term (current) use of insulin
CPT/HCPCS: 36415; 80053; 80305-QW; 80307; 81003; 82150; 83605; 83690; 83880; 84484; 85025; 86140; 93005; 99285-25; J7030; U0002

== ENCOUNTER 2021-09-14 22:03 | Emergency (ER) | payer MEDICARE, BC ==
--- NOTE | 2021-09-14 22:42 | EDM.PDOC ---
"ED HPI GENERAL MEDICAL PROBLEM - General Stated Complaint: TOP OF THE STOMACH & UPPER BACK BROTH CRAMPING Time Seen by Provider: 09/14/21 22:30 Source of Information: Reports: Patient History Limitations: Reports: No Limitations - History of Present Illness INITIAL COMMENTS - FREE TEXT/NARRATIVE: This 61 yo male patient reports to the ED with left upper quadrant abdominal pain. The patient describes his pain as more of a cramping that goes into his back. The patient reports his symptoms started just after going to bed. The patient reports he had a normal bowel movement today. The patient had turkey chili for dinner (at about 1730). The patient has not taken anything for his symptoms at this time. The patient denies similar symptoms in the past. Onset: Today Duration: Constant Location: Reports: Abdomen (LUQ) Quality: Reports: Ache, Sharp Severity: Moderate Improves with: Reports: None Worsens with: Reports: None Context: Reports: Other Associated Symptoms: Reports: No Other Symptoms - Related Data Allergies Allergy/AdvReac Type Severity Reaction Status Date / Time latex Allergy Rash Verified 09/14/21 22:32 sitagliptin Allergy Cannot Verified 09/14/21 22:32 Remember lisinopril AdvReac Mild Cough Verified 09/14/21 22:32 Home Meds: Home Meds Liraglutide [Victoza] 1.8 mg SUBCUT DAILY 12/12/14 [History] Ammonium Lactate [Lac-Hydrin 12% Crm] 1 applic TOP ASDIRECTED PRN 08/04/15 [History] Aspirin [Halfprin] 81 mg PO BRK 08/04/15 [History] Clobetasol [Temovate 0.05% Oint] 1 applic TOP BID PRN 08/04/15 [History] Insulin Aspart [NovoLOG] 17 unit SUBCUT WITHBREAKFAST 08/04/15 [History] Omeprazole 20 mg PO ACBREAKFAST 06/01/17 [History] Hydrocodone/Acetaminophen [Hydrocodone-Acetamin 10-325 mg] 1 tab PO Q4H PRN 04/04/19 [History] Warfarin Sodium 3 mg PO .TUWEDTHSATSUN 04/04/19 [History] atorvaSTATin Calcium [Atorvastatin Calcium] 20 mg PO BEDTIME 04/04/19 [History] Insulin Degludec [Tresiba] 60 unit SQ BEDTIME 11/04/19 [History] methocarbamoL [Methocarbamol] 750 mg PO DAILY PRN 11/04/19 [History] Furosemide [Lasix] 60 mg PO DAILY 03/14/20 [History] Insulin Aspart [NovoLOG] 17 units SQ WITHLUNCH 03/14/20 [History] Levothyroxine Sodium [Levoxyl] 50 mcg PO DAILY 03/14/20 [History] Spironolactone [Aldactone] 25 mg PO DAILY 03/14/20 [History] Warfarin [Coumadin] 6 mg PO .MONFR 03/14/20 [History] Losartan [Cozaar] 50 mg PO DAILY #30 tablet 03/15/20 [Rx] Metoprolol Succinate [Toprol XL 50mg] 100 mg PO DAILY #30 tab.er 03/15/20 [Rx] Acetaminophen 325 mg PO ASDIRECTED PRN 05/03/20 [History] Mupirocin Calcium [Mupirocin] 1 applic TOP ASDIRECTED 05/03/20 [History] Past Medical History HEENT History: Reports: Impaired Vision, Other (See Below) Other HEENT History: ears are partly plugged Cardiovascular History: Reports: Afib, Automatic Implantable Cardioverter Defibrillators, CAD, Heart Failure, High Cholesterol, Hypertension, MT, Pacemaker, SOB on Exertion Respiratory History: Reports: Sleep Apnea Other Respiratory History: Pt wears CPAP machine at night, O2 at night PRN Gastrointestinal History: Reports: GERD Other Gastrointestinal History: ELEVATED LIVER ENZYMES & FATTY LIVER Genitourinary History: Reports: None Musculoskeletal History: Reports: Arthritis, Fracture Other Musculoskeletal History: disk out for last 3 years; LEFT ANKLE FRACTURE Neurological History: Reports: None Psychiatric History: Reports: Anxiety Endocrine/Metabolic History: Reports: Diabetes, Type II, Hypothyroidism, Obesity/BMI 30+ Hematologic History: Reports: None Immunologic History: Reports: None Oncologic (Cancer) History: Reports: Other (See Below) Other Oncologic History: testicular-both testicles removed Dermatologic History: Reports: Other (See Below) Other Dermatologic History: dry skin - Infectious Disease History Infectious Disease History: Reports: Other (See Below) Other Infectious Disease History: UNCERTAIN OF HISTORY - Past Surgical History Head Surgeries/Procedures: Reports: None HEENT Surgical History: Reports: Cataract Surgery Cardiovascular Surgical History: Reports: Pacer Respiratory Surgical History: Reports: None GI Surgical History: Reports: Appendectomy, Colonoscopy Male Surgical History: Reports: Other (See Below) Other Male Surgeries/Procedures: Testicular cancer- both testicles removed Endocrine Surgical History: Reports: None Neurological Surgical History: Reports: None Musculoskeletal Surgical History: Reports: None Oncologic Surgical History: Reports: Other (See Below) Other Oncologic Surgeries/Procedures: testicular-both testicles removed Dermatological Surgical History: Reports: None Social & Family History - Family History Family Medical History: No Pertinent Family History Cardiac: Reports: Afib, CAD, Heart Failure, High Cholesterol, Hypertension, MT, Stent Respiratory: Reports: COPD Endocrine/Metabolic: Reports: Obesity/MBI 30+ - Caffeine Use Caffeine Use: Reports: Coffee Other Caffeine Use: RARELY USES - Living Situation & Occupation Living situation: Reports: Single, with Family Occupation: Employed ED ROS GENERAL - Review of Systems Review Of Systems: Comprehensive ROS is negative, except as noted in HPI. ED EXAM, GI/ABD - Physical Exam Exam: See Below Exam Limited By: No Limitations General Appearance: Alert, WD/WN, Moderate Distress, Obese Eyes: Bilateral: Normal Appearance, EOMI Ears: Normal External Exam, Normal Canal, Hearing Grossly Normal, Normal TMs Nose: Normal Inspection, Normal Mucosa, No Blood Throat/Mouth: Normal Inspection, Normal Lips, Normal Teeth, Normal Gums, Normal Oropharynx, Normal Voice, No Airway Compromise Head: Atraumatic, Normocephalic Neck: Normal Inspection, Supple, Non-Tender, Full Range of Motion Respiratory/Chest: No Respiratory Distress, Lungs Clear, Normal Breath Sounds, No Accessory Muscle Use, Chest Non-Tender Cardiovascular: Normal Peripheral Pulses, Regular Rate, Rhythm, No Edema, No Gallop, No JVD, No Murmur, No Rub GI/Abdominal Exam: Normal Bowel Sounds, Soft, No Organomegaly, No Distention, No Abnormal Bruit, No Mass, Pelvis Stable, Tender (Left uppe quadrant) (Male) Exam: Deferred Rectal (Males) Exam: Deferred Back Exam: Normal Inspection, Full Range of Motion, NT Extremities: Normal Inspection, Normal Range of Motion, Non-Tender, Normal Capillary Refill, No Pedal Edema Neurological: Alert, Oriented, CN II-XII Intact, Normal Cognition, Normal Gait, Normal Reflexes, No Motor/Sensory Deficits Psychiatric: Normal Affect, Normal Mood Skin Exam: Warm, Dry, Intact, Normal Color, No Rash Lymphatic: No Adenopathy Course - Vital Signs Last Recorded V/S: Last Vital Signs Temp 97.1 F 09/14/21 23:13 Pulse 68 09/14/21 23:13 Resp 20 09/14/21 23:13 BP 91/73 09/14/21 23:13 Pulse Ox 96 09/14/21 23:13 - Orders/Labs/Meds Orders: Active Orders 24 hr Category Date Time Status CULTURE BLOOD [BC] Stat Lab 09/14/21 22:30 Received REFLEX LACTIC ACID YES OR NO [CHEM] Routine Lab 09/14/21 23:07 Received Labs: Laboratory Tests 09/14/21 09/14/21 09/14/21 Range/Units 22:30 22:30 22:30 WBC 7.6 (5.0-10.0) 10^3/uL RBC 5.19 (4.6-6.2) 10^6/uL Hgb 16.1 (14.0-18.0) g/dL Hct 49.3 (40.0-54.0) % MCV 95.0 (80-100) fL MCH 31.0 (27.0-34.0) pg MCHC 32.7 L (33.0-35.0) g/dL Plt Count 187 (150-450) 10^3/uL Neut % (Auto) 72.3 (42.2-75.2) % Lymph % (Auto) 13.8 L (20.5-50.1) % [place] % (Auto) 11.4 H (2-8) % Eos % (Auto) 2.2 (1.0-3.0) % Baso % (Auto) 0.3 (0.0-1.0) % Sodium 135 L (136-145) mmol/L Potassium 4.6 (3.5-5.1) mmol/L Chloride 99 (98-107) mmol/L Carbon Dioxide 21 (21-32) mmol/L Anion Gap 19.6 H (7-13) mEq/L BUN 32 H (7-18) mg/dL Creatinine 1.66 H (0.70-1.30) mg/dL Est Cr Clr Drug Dosing 45.21 mL/min Estimated GFR (MDRD) 42 BUN/Creatinine Ratio 19.3 (No establ ref range) Glucose 152 H (70-99) mg/dL Lactic Acid 2.1 H* (0.4-2.0) mmol/L Calcium 9.2 (8.5-10.1) mg/dL Total Bilirubin 0.5 (0.2-1.0) mg/dL AST 24 (15-37) U/L ALT 41 (16-63) U/L Alkaline Phosphatase 73 (46-116) U/L Total Protein 7.9 (6.4-8.2) g/dL Albumin 3.9 (3.4-5.0) g/dL Globulin 4.0 Albumin/Globulin Ratio 1.0 Amylase 70 (25-115) U/L Lipase 198 (73-393) U/L Urine Color (YELLOW) Urine Appearance (CLEAR) Urine pH (5.0-9.0) Ur Specific [place] (1.005-1.030) Urine Protein (NEGATIVE) Urine Glucose (UA) (NEGATIVE) Urine Ketones (NEGATIVE) Urine Occult Blood (NEGATIVE) Urine Nitrite (NEGATIVE) Urine Bilirubin (NEGATIVE) Urine Urobilinogen (0.2-1.0) mg/dL Ur Leukocyte Esterase (NEGATIVE) 09/14/21 Range/Units 22:33 WBC (5.0-10.0) 10^3/uL RBC (4.6-6.2) 10^6/uL Hgb (14.0-18.0) g/dL Hct (40.0-54.0) % MCV (80-100) fL MCH (27.0-34.0) pg MCHC (33.0-35.0) g/dL Plt Count (150-450) 10^3/uL Neut % (Auto) (42.2-75.2) % Lymph % (Auto) (20.5-50.1) % [place] % (Auto) (2-8) % Eos % (Auto) (1.0-3.0) % Baso % (Auto) (0.0-1.0) % Sodium (136-145) mmol/L Potassium (3.5-5.1) mmol/L Chloride (98-107) mmol/L Carbon Dioxide (21-32) mmol/L Anion Gap (7-13) mEq/L BUN (7-18) mg/dL Creatinine (0.70-1.30) mg/dL Est Cr Clr Drug Dosing mL/min Estimated GFR (MDRD) BUN/Creatinine Ratio (No establ ref range) Glucose (70-99) mg/dL Lactic Acid (0.4-2.0) mmol/L Calcium (8.5-10.1) mg/dL Total Bilirubin (0.2-1.0) mg/dL AST (15-37) U/L ALT (16-63) U/L Alkaline Phosphatase (46-116) U/L Total Protein (6.4-8.2) g/dL Albumin (3.4-5.0) g/dL Globulin Albumin/Globulin Ratio Amylase (25-115) U/L Lipase (73-393) U/L Urine Color Yellow (YELLOW) Urine Appearance Clear (CLEAR) Urine pH 6.0 (5.0-9.0) Ur Specific [place] 1.025 (1.005-1.030) Urine Protein Negative (NEGATIVE) Urine Glucose (UA) >=1000 H (NEGATIVE) Urine Ketones Negative (NEGATIVE) Urine Occult Blood Negative (NEGATIVE) Urine Nitrite Negative (NEGATIVE) Urine Bilirubin Negative (NEGATIVE) Urine Urobilinogen 0.2 (0.2-1.0) mg/dL Ur Leukocyte Esterase Negative (NEGATIVE) - Radiology Interpretation Free Text/Narrative:: [facility] Final Radiology Report Call: [phone] assistance Online chat: [email or web address] Name: LIZETH ENRIQUEZ Age: 61Years M Date: 09/14/2021 SSN: -- : [id number] Study: CT ABDOMEN PELVIS WO CONT Requesting Physician: Álvaro Henry Images: [phone] Addl Studies: Provided Clinical History: left upper quadrant abdominal pain Contrast: Without Contrast Medium: Contrast Amount: Contrast Method: Page 1 of 2 PROCEDURE INFORMATION: Exam: CT Abdomen And Pelvis Without Contrast Exam date and time: 09/14/2021 11:44 PM Age: 61 years old Clinical indication: Other: Left sided pain; Additional info: Left upper quadrant abdominal pain TECHNIQUE: Imaging protocol: Computed tomography of the abdomen and pelvis without contrast. Radiation optimization: All CT scans at this facility use at least one of these dose optimization techniques: automated exposure control; mA and/or kV adjustment per patient size (includes targeted exams where dose is matched to clinical indication); or iterative reconstruction. COMPARISON: CT Abdomen Pelvis wo Cont 05/14/2021 7:21 PM FINDINGS: Heart: There is a small pericardial effusion. There are atherosclerotic calcifications inclusive of the coronary arteries. Liver: The liver is normal in architecture, without suspicious abnormality. Gallbladder and bile ducts: No calcified gallstones. No ductal dilation. Pancreas: The pancreatic parenchyma is normal in bulk and sharply marginated. Duct is not dilated. No calcifications, masses, or abnormal fluid collections. Spleen: Spleen is normal in size. No mass or fluid collection. Adrenal glands: 2 cm right adrenal adenoma. No further workup required. Normal left adrenal gland. Kidneys and ureters: Mild global right renal atrophy. There are several punctate parenchymal calcifications. No calculi in either renal sinus or in either ureter. Compensatory hypertrophy of left kidney. No hydronephrosis. No solid renal mass. Stomach and bowel: Stomach is distended with heterogeneous material, presumably food. There are no dilated or thickened small bowel loops. Gas and stool are seen in the colon to the rectum. No mass. There are multiple colonic diverticula, concentrated primarily distally. LIZETH ENRIQUEZ | Final Radiology Report CONFIDENTIALITY STATEMENT This report is intended only for use by the referring physician, and only in accordance with law. If you received this in error, call [phone]. Page 2 of 2 Appendix: There is no evidence for appendicitis. Intraperitoneal space: No pneumoperitoneum, ascites, mass or stranding of fat. Vasculature: There is atherosclerotic calcification of the aorto-iliac tree. There is no abdominal aortic aneurysm. Lymph nodes: There are no enlarged celiac, mesenteric, periportal, extraperitoneal or inguinal lymph nodes. Urinary bladder: There is no bladder wall thickening, mass, or calculus. Reproductive: Prostate gland is normal in size. The seminal vesicles are unremarkable. Bones/joints: Multiple healed right-sided rib fractures.Age appropriate spondylosis. There are no suspicious lytic or osteosclerotic lesions. There are no acute fractures. Severe right hip degenerative joint disease. Retrolisthesis L4 on L5.There is L5 spondylolysis. Soft tissues: Soft tissues are unremarkable. IMPRESSION: 1. There is a small pericardial effusion. 2. Stomach is distended with heterogeneous material, presumably food. No apparent obstruction. COMMENTS: Consistent with the [employer]'s Incidental Findings Committee white paper (J Am Toni Radiol 2017): For any incidental adrenal lesion greater than 1 cm but less than 4 cm classified in this report as benign, likely benign, or containing fat (including classification as an adenoma or myelolipoma), no follow-up imaging is recommended per consensus recommendations based on imaging criteria. Further lab evaluation could be pursued if warranted based on clinical findings. Thank you for allowing us to participate in the care of your patient. Dictated and Authenticated by: Mohamud Hernandez MD 09/15/2021 12:05 AM Central Time ([place] & [place]) Departure - Departure Time of Disposition: 00:15 Disposition: Home, Self-Care 01 Condition: Fair Clinical Impression: Nonspecific abdominal pain - Discharge Information *PRESCRIPTION DRUG MONITORING PROGRAM REVIEWED*: Not Applicable *COPY OF PRESCRIPTION DRUG MONITORING REPORT IN PATIENT NASIR: Not Applicable Forms: ED Department Discharge Care Plan Goals: The patient was advised of the examination, lab and CT results during the visit. The patient's symptoms had resolved during the visit. The patient was encouraged to continue to monitor his symptoms. If the patient has any additional symptoms or concerns, the patient should either return to the emergency department or visit his primary care facility. Sepsis Event Note (ED) - Focused Exam Vital Signs: Vital Signs Temp Pulse Resp BP Pulse Ox 09/14/21 23:13 97.1 F 68 20 91/73 96 09/14/21 22:20 97.2 F 86 22 H 102/85 96 - My Orders Last 24 Hours: My Active Orders 09/14/21 22:30 CULTURE BLOOD [BC] Stat 09/14/21 23:07 REFLEX LACTIC ACID YES OR NO [CHEM] Routine - Assessment/Plan Last 24 Hours: My Active Orders 09/14/21 22:30 CULTURE BLOOD [BC] Stat 09/14/21 23:07 REFLEX LACTIC ACID YES OR NO [CHEM] Routine"
[2021-09-14 22:57] LABS: ANION GAP 19.6 mEq/L (7-13)
--- NOTE | 2021-09-15 00:06 | CT ---
PROCEDURE INFORMATION: Exam: CT Abdomen And Pelvis Without Contrast Exam date and time: 09/14/2021 11:44 PM Age: 61 years old Clinical indication: Other: Left sided pain; Additional info: Left upper quadrant abdominal pain TECHNIQUE: Imaging protocol: Computed tomography of the abdomen and pelvis without contrast. Radiation optimization: All CT scans at this facility use at least one of these dose optimization techniques: automated exposure control; mA and/or kV adjustment per patient size (includes targeted exams where dose is matched to clinical indication); or iterative reconstruction. COMPARISON: CT Abdomen Pelvis wo Cont 05/14/2021 7:21 PM FINDINGS: Heart: There is a small pericardial effusion. There are atherosclerotic calcifications inclusive of the coronary arteries. Liver: The liver is normal in architecture, without suspicious abnormality. Gallbladder and bile ducts: No calcified gallstones. No ductal dilation. Pancreas: The pancreatic parenchyma is normal in bulk and sharply marginated. Duct is not dilated. No calcifications, masses, or abnormal fluid collections. Spleen: Spleen is normal in size. No mass or fluid collection. Adrenal glands: 2 cm right adrenal adenoma. No further workup required. Normal left adrenal gland. Kidneys and ureters: Mild global right renal atrophy. There are several punctate parenchymal calcifications. No calculi in either renal sinus or in either ureter. Compensatory hypertrophy of left kidney. No hydronephrosis. No solid renal mass. Stomach and bowel: Stomach is distended with heterogeneous material, presumably food. There are no dilated or thickened small bowel loops. Gas and stool are seen in the colon to the rectum. No mass. There are multiple colonic diverticula, concentrated primarily distally. Appendix: There is no evidence for appendicitis. Intraperitoneal space: No pneumoperitoneum, ascites, mass or stranding of fat. Vasculature: There is atherosclerotic calcification of the aorto-iliac tree. There is no abdominal aortic aneurysm. Lymph nodes: There are no enlarged celiac, mesenteric, periportal, extraperitoneal or inguinal lymph nodes. Urinary bladder: There is no bladder wall thickening, mass, or calculus. Reproductive: Prostate gland is normal in size. The seminal vesicles are unremarkable. Bones/joints: Multiple healed right-sided rib fractures.Age appropriate spondylosis. There are no suspicious lytic or osteosclerotic lesions. There are no acute fractures. Severe right hip degenerative joint disease. Retrolisthesis L4 on L5.There is L5 spondylolysis. Soft tissues: Soft tissues are unremarkable. IMPRESSION: 1. There is a small pericardial effusion. 2. Stomach is distended with heterogeneous material, presumably food. No apparent obstruction. COMMENTS: Consistent with the [employer]'s Incidental Findings Committee white paper (J Am Toni Radiol 2017): For any incidental adrenal lesion greater than 1 cm but less than 4 cm classified in this report as benign, likely benign, or containing fat (including classification as an adenoma or myelolipoma), no follow-up imaging is recommended per consensus recommendations based on imaging criteria. Further lab evaluation could be pursued if warranted based on clinical findings.
[2021-09-15 00:19] VITALS: BP 105/66; PULSE 72
== END 2021-09-15 00:25 | disposition home or self-care (01) ==
LOC: DL.ED 22:03
DX: R10.12 Left upper quadrant pain (principal); I48.91 Unspecified atrial fibrillation; I25.10 Atherosclerotic heart disease of native coronary artery without angina pectoris; I11.0 Hypertensive heart disease with heart failure; I50.9 Heart failure, unspecified; I25.2 Old myocardial infarction; E78.00 Pure hypercholesterolemia, unspecified; K21.9 Gastro-esophageal reflux disease without esophagitis; M19.90 Unspecified osteoarthritis, unspecified site; E11.9 Type 2 diabetes mellitus without complications; E03.9 Hypothyroidism, unspecified; E66.9 Obesity, unspecified; Z68.41 Body mass index [BMI] 40.0-44.9, adult; Z91.040 Latex allergy status; Z88.8 Allergy status to other drugs, medicaments and biological substances; Z79.82 Long term (current) use of aspirin; Z79.4 Long term (current) use of insulin; Z79.899 Other long term (current) drug therapy
CPT/HCPCS: 36415; 74176; 80053; 81003; 82150; 83605; 83690; 85025; 87040; 99284-25

== ENCOUNTER 2022-06-22 09:21 | Emergency (ER) | payer MEDICARE, BC ==
[2022-06-22 11:00] VITALS: BP 103/86; PULSE 83
[2022-06-22] MEDS ORDERED: Ciprofloxacin 0.3% Ophth Soln 5 ML Bottle EARLF ONE (11:01)
[2022-06-22] MEDS ORDERED: Amoxicillin/Clavulanate K 875-125 MG Tab PO ONE (11:02)
== END 2022-06-22 11:23 | disposition home or self-care (01) ==
LOC: DL.ED 09:21
DX: H60.332 Swimmer's ear, left ear (principal); I11.0 Hypertensive heart disease with heart failure; I50.9 Heart failure, unspecified; I25.10 Atherosclerotic heart disease of native coronary artery without angina pectoris; I25.2 Old myocardial infarction; E11.9 Type 2 diabetes mellitus without complications; E66.9 Obesity, unspecified; Z68.42 Body mass index [BMI] 45.0-49.9, adult; Z91.040 Latex allergy status; Z88.8 Allergy status to other drugs, medicaments and biological substances; Z79.899 Other long term (current) drug therapy; Z79.82 Long term (current) use of aspirin; Z79.4 Long term (current) use of insulin; Z79.01 Long term (current) use of anticoagulants; Z90.49 Acquired absence of other specified parts of digestive tract
CPT/HCPCS: 99282; A9270-GY

== ENCOUNTER 2022-09-06 08:39 | Emergency (ER) | payer MEDICARE, BC ==
[2022-09-06] MEDS ORDERED: Cephalexin 500 MG Cap PO ONE (08:40)
[2022-09-06 09:04] VITALS: BP 104/75; PULSE 89
[2022-09-06] MEDS ORDERED: Mupirocin Oint 22 GM Tube TOP ONE (09:10)
[2022-09-06] MEDS ORDERED: Cephalexin 500 MG Cap ONE (09:14)
== END 2022-09-06 09:34 | disposition home or self-care (01) ==
LOC: DL.ED 08:39
DX: S91.102A Unspecified open wound of left great toe without damage to nail, initial encounter (principal); I11.0 Hypertensive heart disease with heart failure; I50.9 Heart failure, unspecified; I48.91 Unspecified atrial fibrillation; I25.10 Atherosclerotic heart disease of native coronary artery without angina pectoris; K21.9 Gastro-esophageal reflux disease without esophagitis; I25.2 Old myocardial infarction; E11.9 Type 2 diabetes mellitus without complications; E03.9 Hypothyroidism, unspecified; E66.9 Obesity, unspecified; Z91.040 Latex allergy status; Z68.41 Body mass index [BMI] 40.0-44.9, adult; Z88.8 Allergy status to other drugs, medicaments and biological substances; Z79.82 Long term (current) use of aspirin; Z79.01 Long term (current) use of anticoagulants; Z79.899 Other long term (current) drug therapy; Z95.0 Presence of cardiac pacemaker; W26.8XXA Contact with other sharp object(s), not elsewhere classified, initial encounter
CPT/HCPCS: 99283; A9270

== ENCOUNTER 2023-01-17 08:44 | Emergency (ER) | payer MEDICARE, BC ==
[2023-01-17] MEDS ORDERED: Ondansetron 4 MG Tab.DIS PO ONE (08:45)
[2023-01-17] MEDS ORDERED: Sodium Chloride 0.9% 10 ML Syringe FLUSH PRN (09:03)
[2023-01-17 09:11] VITALS: BP 82/58; PULSE 92
[2023-01-17 09:41] LABS: ANION GAP 16.1 mEq/L (7-13)
[2023-01-17] MEDS ORDERED: HYDROmorphone 1 MG/ML Syringe IVPUSH ONE (09:58)
[2023-01-17] MEDS ORDERED: Famotidine 20 MG/2 ML SDV IVPUSH ONE (09:58)
[2023-01-17] MEDS ORDERED: Ondansetron 4 MG/2 ML SDV IV ONE (09:58)
[2023-01-17] MEDS ORDERED: Sodium Chloride 0.9% 1,000 ML IV ONE (09:59)
[2023-01-17] MEDS ORDERED: Ondansetron 4 MG Tab.DIS ONE (10:19)
== END 2023-01-17 10:27 | disposition home or self-care (01) ==
LOC: DL.ED 08:44
DX: M54.6 Pain in thoracic spine (principal); R11.2 Nausea with vomiting, unspecified; I48.91 Unspecified atrial fibrillation; I25.10 Atherosclerotic heart disease of native coronary artery without angina pectoris; I25.2 Old myocardial infarction; I11.0 Hypertensive heart disease with heart failure; I50.9 Heart failure, unspecified; E78.00 Pure hypercholesterolemia, unspecified; K21.9 Gastro-esophageal reflux disease without esophagitis; M19.90 Unspecified osteoarthritis, unspecified site; E11.9 Type 2 diabetes mellitus without complications; E03.9 Hypothyroidism, unspecified; E66.9 Obesity, unspecified; Z68.41 Body mass index [BMI] 40.0-44.9, adult; Z95.0 Presence of cardiac pacemaker; Z91.040 Latex allergy status; Z88.8 Allergy status to other drugs, medicaments and biological substances; Z79.01 Long term (current) use of anticoagulants; Z79.82 Long term (current) use of aspirin; Z79.4 Long term (current) use of insulin; Z79.899 Other long term (current) drug therapy
CPT/HCPCS: 36415; 71045; 80053; 82150; 83880; 84484; 85025; 85610; 93005; 93010; 96374; 96375; 99284; A9270; J1170; J2405; J3490; J7030

== ENCOUNTER 2023-02-16 16:57 | Emergency (ER) | payer MEDICARE, BC ==
[2023-02-16 17:44] VITALS: BP 108/84; PULSE 89
[2023-02-16] MEDS ORDERED: cefTRIAXone 2 GM Vial IVPUSH ONE (18:30)
[2023-02-16] MEDS ORDERED: cefTRIAXone 2 GM Vial IM ONE (18:39)
[2023-02-16] MEDS ORDERED: Lidocaine 1% 5 ML VIAL ONE (18:48)
== END 2023-02-16 20:37 | disposition home or self-care (01) ==
LOC: DL.ED 16:57
DX: R06.02 Shortness of breath (principal); R50.9 Fever, unspecified; D72.829 Elevated white blood cell count, unspecified; I11.0 Hypertensive heart disease with heart failure; I50.9 Heart failure, unspecified; K21.9 Gastro-esophageal reflux disease without esophagitis; E03.9 Hypothyroidism, unspecified; E11.9 Type 2 diabetes mellitus without complications; I48.91 Unspecified atrial fibrillation; I25.2 Old myocardial infarction; Z79.82 Long term (current) use of aspirin; Z79.01 Long term (current) use of anticoagulants; Z95.0 Presence of cardiac pacemaker
CPT/HCPCS: 36415; 71045; 81001; 83880; 84484; 85025; 85610; 87804; 93005; 93010; 96372; 99284; 99285; J0696; U0002; J3490

== ENCOUNTER 2023-02-19 20:37 | Emergency (ER) | payer MEDICARE, BC ==
[2023-02-19 21:04] VITALS: BP 112/53; PULSE 86
[2023-02-19] MEDS ORDERED: Albuterol/Ipratropium 3.0-0.5 MG/3 ML Neb Soln NEB ONE (21:19)
[2023-02-19 21:58] LABS: BASOPHILS PERCENT AUTO 0.5 % (0.0-1.0); EOSINOPHILS PERCENT AUTO 6.5 % (1.0-3.0); HEMATOCRIT 47.9 % (40.0-54.0); HEMOGLOBIN 15.9 g/dL (14.0-18.0); LYMPHOCYTES PERCENT AUTO 14.7 % (20.5-50.1); MEAN CORPUSCULAR HEMOGLOBIN 31.5 pg (27.0-34.0); MEAN CORPUSCULAR HGB CONC 33.2 g/dL (33.0-35.0); MONOCYTES PERCENT AUTO 10.4 % (2-8); NEUTROPHILS PERCENT AUTO 67.9 % (42.2-75.2); PLATELET COUNT,PLT 177 10^3/uL (150-450); RED BLOOD CELL COUNT 5.04 10^6/uL (4.6-6.2); WHITE BLOOD CELL COUNT,WBC 6.2 10^3/uL (5.0-10.0)
[2023-02-19 22:13] LABS: INR 2.1 (0.9-1.2); PROTHROMBIN TIME 21.4 SEC (9.0-12.0)
[2023-02-19 22:19] LABS: ANION GAP 10.3 mEq/L (7-13); C-REACTIVE PROTEIN 1.9 mg/dL (0.0-0.9); CALCIUM 8.9 mg/dL (8.5-10.1); CREATININE 1.42 mg/dL (0.70-1.30); EST CRCL DRUG DOSING (CG) 52.18 mL/min; POTASSIUM,K 4.3 mmol/L (3.5-5.1)
[2023-02-19 22:35] LABS: CORONAVIRUS COVID-19 NAA NEGATIVE (NEGATIVE); INFLUENZA A NAA NEGATIVE (NEGATIVE); INFLUENZA B NAA NEGATIVE (NEGATIVE); RESPIRATORY SYNCYTIAL VIR NAA NEGATIVE (NEGATIVE)
[2023-02-19] MEDS ORDERED: Albuterol 6.7 GM Inhaler INH ONE (23:41)
== END 2023-02-20 00:01 | disposition home or self-care (01) ==
LOC: DL.ED 20:37
DX: R06.02 Shortness of breath (principal); R06.2 Wheezing; I48.91 Unspecified atrial fibrillation; I25.10 Atherosclerotic heart disease of native coronary artery without angina pectoris; I11.0 Hypertensive heart disease with heart failure; I50.9 Heart failure, unspecified; I25.2 Old myocardial infarction; E78.00 Pure hypercholesterolemia, unspecified; E11.9 Type 2 diabetes mellitus without complications; E03.9 Hypothyroidism, unspecified; E66.9 Obesity, unspecified; Z68.41 Body mass index [BMI] 40.0-44.9, adult; Z88.8 Allergy status to other drugs, medicaments and biological substances; Z91.040 Latex allergy status; Z79.82 Long term (current) use of aspirin; Z79.4 Long term (current) use of insulin; Z79.899 Other long term (current) drug therapy; Z20.822 Contact with and (suspected) exposure to COVID-19
CPT/HCPCS: 0241U; 36415; 71046; 80048; 83880; 84484; 85025; 85610; 86140; 93005; 94640; 99285; A9270; 93010; 99283; J7620-GY

== ENCOUNTER 2023-03-02 18:09 | Emergency (ER) | payer MEDICARE, BC ==
[2023-03-02 19:01] VITALS: BP 102/69; PULSE 85
== END 2023-03-02 22:28 | disposition home or self-care (01) ==
LOC: DL.ED 18:09
DX: R07.89 Other chest pain (principal); I48.91 Unspecified atrial fibrillation; I10 Essential (primary) hypertension; I25.2 Old myocardial infarction; K21.9 Gastro-esophageal reflux disease without esophagitis; E11.9 Type 2 diabetes mellitus without complications; Z91.040 Latex allergy status; Z88.8 Allergy status to other drugs, medicaments and biological substances; Z91.09 Other allergy status, other than to drugs and biological substances; Z79.82 Long term (current) use of aspirin; Z79.01 Long term (current) use of anticoagulants; Z79.4 Long term (current) use of insulin; Z95.0 Presence of cardiac pacemaker; E66.9 Obesity, unspecified; Z68.41 Body mass index [BMI] 40.0-44.9, adult
CPT/HCPCS: 71101-LT; 99283

== ENCOUNTER 2023-03-09 21:36 | Emergency (ER) | payer MEDICARE, BC ==
[2023-03-09] MEDS ORDERED: Ketorolac 30 MG/ML SDV IM ONE (23:12)
[2023-03-10 00:07] VITALS: BP 149/69; PULSE 94
== END 2023-03-10 00:07 | disposition home or self-care (01) ==
LOC: DL.ED 21:36
DX: R10.9 Unspecified abdominal pain (principal); I48.91 Unspecified atrial fibrillation; I25.10 Atherosclerotic heart disease of native coronary artery without angina pectoris; I11.0 Hypertensive heart disease with heart failure; I50.9 Heart failure, unspecified; E78.00 Pure hypercholesterolemia, unspecified; I25.2 Old myocardial infarction; K21.9 Gastro-esophageal reflux disease without esophagitis; M19.90 Unspecified osteoarthritis, unspecified site; E11.9 Type 2 diabetes mellitus without complications; E03.9 Hypothyroidism, unspecified; E66.9 Obesity, unspecified; Z86.16 Personal history of COVID-19; Z91.040 Latex allergy status; Z88.8 Allergy status to other drugs, medicaments and biological substances; Z79.82 Long term (current) use of aspirin; Z79.899 Other long term (current) drug therapy; Z79.4 Long term (current) use of insulin; Z79.01 Long term (current) use of anticoagulants
CPT/HCPCS: 96372; 99284; J1885

== ENCOUNTER 2023-03-22 07:18 | Emergency (ER) | payer MEDICARE, BC ==
[2023-03-22] MEDS ORDERED: Sodium Chloride 0.9% 10 ML Syringe FLUSH PRN (07:35)
[2023-03-22 07:46] LABS: BASOPHILS PERCENT AUTO 0.3 % (0.0-1.0); EOSINOPHILS PERCENT AUTO 3.7 % (1.0-3.0); HEMATOCRIT 46.8 % (40.0-54.0); HEMOGLOBIN 15.2 g/dL (14.0-18.0); LYMPHOCYTES PERCENT AUTO 10.3 % (20.5-50.1); MEAN CORPUSCULAR HEMOGLOBIN 31.7 pg (27.0-34.0); MEAN CORPUSCULAR HGB CONC 32.5 g/dL (33.0-35.0); MEAN CORPUSCULAR VOLUME 97.5 fL (80-100); MONOCYTES PERCENT AUTO 6.2 % (2-8); NEUTROPHILS PERCENT AUTO 79.5 % (42.2-75.2); PLATELET COUNT,PLT 191 10^3/uL (150-450); WHITE BLOOD CELL COUNT,WBC 8.7 10^3/uL (5.0-10.0)
[2023-03-22 07:49] VITALS: BP 122/64; PULSE 78
[2023-03-22 08:11] LABS: A/G RATIO 1.1; ALBUMIN 3.4 g/dL (3.4-5.0); ANION GAP 13.8 mEq/L (7-13); BILIRUBIN TOTAL 0.6 mg/dL (0.2-1.0); BUN/CREATININE RATIO 19.3 (No establ ref range); CALCIUM 8.8 mg/dL (8.5-10.1); CREATININE 1.35 mg/dL (0.70-1.30); EST CRCL DRUG DOSING (CG) 53.04 mL/min; POTASSIUM,K 4.8 mmol/L (3.5-5.1); PROTEIN TOTAL,TP 6.6 g/dL (6.4-8.2)
== END 2023-03-22 08:57 | disposition home or self-care (01) ==
LOC: DL.ED 07:18
DX: R07.89 Other chest pain (principal); I48.91 Unspecified atrial fibrillation; I25.10 Atherosclerotic heart disease of native coronary artery without angina pectoris; I11.0 Hypertensive heart disease with heart failure; I50.9 Heart failure, unspecified; E78.00 Pure hypercholesterolemia, unspecified; I25.2 Old myocardial infarction; K21.9 Gastro-esophageal reflux disease without esophagitis; M19.90 Unspecified osteoarthritis, unspecified site; E11.9 Type 2 diabetes mellitus without complications; E03.9 Hypothyroidism, unspecified; E66.9 Obesity, unspecified; Z68.41 Body mass index [BMI] 40.0-44.9, adult; Z86.16 Personal history of COVID-19; Z91.040 Latex allergy status; Z88.8 Allergy status to other drugs, medicaments and biological substances; Z79.82 Long term (current) use of aspirin; Z79.4 Long term (current) use of insulin; Z79.899 Other long term (current) drug therapy; Z79.01 Long term (current) use of anticoagulants; Z20.822 Contact with and (suspected) exposure to COVID-19
CPT/HCPCS: 36415; 71045; 80053; 83880; 84484; 85025; 93005; 93010; 99284; 99285; J3490

== ENCOUNTER 2023-04-03 18:02 | Emergency (ER) | payer MEDICARE, BC ==
[2023-04-03] MEDS ORDERED: Simethicone 80 MG Tab.Chew PO ONE (19:38)
[2023-04-03 20:33] VITALS: BP 113/86; PULSE 94
== END 2023-04-03 20:32 | disposition home or self-care (01) ==
LOC: DL.ED 18:02
DX: R10.12 Left upper quadrant pain (principal); R14.0 Abdominal distension (gaseous); R14.2 Eructation; I48.91 Unspecified atrial fibrillation; I25.10 Atherosclerotic heart disease of native coronary artery without angina pectoris; I11.0 Hypertensive heart disease with heart failure; I50.9 Heart failure, unspecified; K21.9 Gastro-esophageal reflux disease without esophagitis; Z95.0 Presence of cardiac pacemaker; Z91.040 Latex allergy status; Z88.8 Allergy status to other drugs, medicaments and biological substances; Z79.4 Long term (current) use of insulin; Z79.01 Long term (current) use of anticoagulants; Z79.899 Other long term (current) drug therapy; Z79.82 Long term (current) use of aspirin
CPT/HCPCS: 99283; A9270

== ENCOUNTER 2023-04-05 02:18 | Emergency (ER) | payer MEDICARE, BC ==
[2023-04-05] MEDS ORDERED: Sodium Chloride 0.9% 10 ML Syringe FLUSH PRN (02:56)
[2023-04-05 03:27] LABS: BASOPHILS PERCENT AUTO 0.5 % (0.0-1.0); EOSINOPHILS PERCENT AUTO 6.6 % (1.0-3.0); HEMATOCRIT 46.5 % (40.0-54.0); LYMPHOCYTES PERCENT AUTO 14.1 % (20.5-50.1); MEAN CORPUSCULAR HEMOGLOBIN 31.4 pg (27.0-34.0); MEAN CORPUSCULAR HGB CONC 32.3 g/dL (33.0-35.0); MEAN CORPUSCULAR VOLUME 97.5 fL (80-100); MONOCYTES PERCENT AUTO 8.6 % (2-8); NEUTROPHILS PERCENT AUTO 70.2 % (42.2-75.2); PLATELET COUNT,PLT 159 10^3/uL (150-450); RED BLOOD CELL COUNT 4.77 10^6/uL (4.6-6.2); WHITE BLOOD CELL COUNT,WBC 6.2 10^3/uL (5.0-10.0)
[2023-04-05 03:42] LABS: ALBUMIN 3.3 g/dL (3.4-5.0); ANION GAP 13.5 mEq/L (7-13); BILIRUBIN TOTAL 0.4 mg/dL (0.2-1.0); BUN/CREATININE RATIO 25.5 (No establ ref range); CALCIUM 8.7 mg/dL (8.5-10.1); CREATININE 1.41 mg/dL (0.70-1.30); EST CRCL DRUG DOSING (CG) 51.88 mL/min; MAGNESIUM 2.2 mg/dL (1.8-2.4); POTASSIUM,K 4.5 mmol/L (3.5-5.1); PROTEIN TOTAL,TP 6.6 g/dL (6.4-8.2)
[2023-04-05] MEDS ORDERED: Simethicone 80 MG Tab.Chew PO ONE (04:20)
[2023-04-05 04:45] VITALS: BP 93/60; PULSE 71
== END 2023-04-05 04:45 | disposition home or self-care (01) ==
LOC: DL.ED 02:18
DX: R06.02 Shortness of breath (principal); R10.11 Right upper quadrant pain; R14.3 Flatulence; I48.91 Unspecified atrial fibrillation; I10 Essential (primary) hypertension; I25.10 Atherosclerotic heart disease of native coronary artery without angina pectoris; I25.2 Old myocardial infarction; K21.9 Gastro-esophageal reflux disease without esophagitis; E03.9 Hypothyroidism, unspecified; E78.00 Pure hypercholesterolemia, unspecified; E11.9 Type 2 diabetes mellitus without complications; E66.9 Obesity, unspecified; Z68.41 Body mass index [BMI] 40.0-44.9, adult; Z95.5 Presence of coronary angioplasty implant and graft; Z86.16 Personal history of COVID-19; Z79.4 Long term (current) use of insulin; Z79.01 Long term (current) use of anticoagulants; Z79.899 Other long term (current) drug therapy; Z79.82 Long term (current) use of aspirin; Z91.040 Latex allergy status; Z88.8 Allergy status to other drugs, medicaments and biological substances
CPT/HCPCS: 36415; 71046; 80053; 83735; 83880; 85025; 99285; A9270; J3490

== ENCOUNTER 2023-04-12 06:34 | Emergency (ER) | payer MEDICARE, BC ==
[2023-04-12] MEDS ORDERED: Albuterol/Ipratropium 3.0-0.5 MG/3 ML Neb Soln NEB ONE (07:21)
[2023-04-12 07:52] LABS: BASOPHILS PERCENT AUTO 0.5 % (0.0-1.0); HEMATOCRIT 45.9 % (40.0-54.0); HEMOGLOBIN 14.9 g/dL (14.0-18.0); LYMPHOCYTES PERCENT AUTO 12.6 % (20.5-50.1); MEAN CORPUSCULAR HEMOGLOBIN 31.9 pg (27.0-34.0); MEAN CORPUSCULAR HGB CONC 32.5 g/dL (33.0-35.0); MEAN CORPUSCULAR VOLUME 98.3 fL (80-100); MONOCYTES PERCENT AUTO 10.8 % (2-8); NEUTROPHILS PERCENT AUTO 68.1 % (42.2-75.2); PLATELET COUNT,PLT 135 10^3/uL (150-450); RED BLOOD CELL COUNT 4.67 10^6/uL (4.6-6.2); WHITE BLOOD CELL COUNT,WBC 5.7 10^3/uL (5.0-10.0)
[2023-04-12 08:11] LABS: B-TYPE NATRIURETIC PEPTIDE,BNP 91 pg/ml (0-100)
[2023-04-12 08:14] LABS: ALANINE AMINOTRANSFERASE,ALT 35 U/L (16-63); ALBUMIN 3.3 g/dL (3.4-5.0); ALKALINE PHOSPHATASE 74 U/L (46-116); ANION GAP 9.2 mEq/L (7-13); ASPARTATE AMNIOTRANSFERASE,AST 19 U/L (15-37); BILIRUBIN TOTAL 0.6 mg/dL (0.2-1.0); BLOOD UREA NITROGEN,BUN 31 mg/dL (7-18); CALCIUM 8.6 mg/dL (8.5-10.1); CARBON DIOXIDE,CO2 30 mmol/L (21-32); CHLORIDE,CL 106 mmol/L (98-107); CREATININE 1.24 mg/dL (0.70-1.30); EST CRCL DRUG DOSING (CG) 58.99 mL/min; GLUCOSE RANDOM 178 mg/dL (70-99); POTASSIUM,K 5.2 mmol/L (3.5-5.1); PROTEIN TOTAL,TP 6.7 g/dL (6.4-8.2); SODIUM,NA 140 mmol/L (136-145)
[2023-04-12 08:21] LABS: A/G RATIO 0.97; C-REACTIVE PROTEIN < 0.2 mg/dL (0.0-0.9); ESTIMATED GFR 65 mL/min (>=60)
[2023-04-12 08:23] LABS: LACTIC ACID 1.7 mmol/L (0.4-2.0)
[2023-04-12 09:43] VITALS: BP 125/83; PULSE 74
== END 2023-04-12 09:27 | disposition home or self-care (01) ==
LOC: DL.ED 06:34
DX: J10.1 Influenza due to other identified influenza virus with other respiratory manifestations (principal); R91.1 Solitary pulmonary nodule; E11.65 Type 2 diabetes mellitus with hyperglycemia; E87.5 Hyperkalemia; I48.91 Unspecified atrial fibrillation; E78.00 Pure hypercholesterolemia, unspecified; E03.9 Hypothyroidism, unspecified; I10 Essential (primary) hypertension; I25.2 Old myocardial infarction; K21.9 Gastro-esophageal reflux disease without esophagitis; E66.9 Obesity, unspecified; Z68.41 Body mass index [BMI] 40.0-44.9, adult; Z20.822 Contact with and (suspected) exposure to COVID-19; Z79.4 Long term (current) use of insulin; Z86.16 Personal history of COVID-19; Z95.810 Presence of automatic (implantable) cardiac defibrillator; Z79.82 Long term (current) use of aspirin; Z79.01 Long term (current) use of anticoagulants; Z79.899 Other long term (current) drug therapy; Z91.040 Latex allergy status; Z88.8 Allergy status to other drugs, medicaments and biological substances
CPT/HCPCS: 36415; 71250; 80053; 83605; 83880; 84145; 85025; 86140; 87804; 94640; 99284; 99285; U0002; J7620-GY

== ENCOUNTER 2023-04-18 18:57 | Emergency (ER) | payer MEDICARE, BC ==
[2023-04-18] MEDS ORDERED: Sodium Chloride 0.9% 10 ML Syringe FLUSH PRN (19:11)
[2023-04-18] MEDS ORDERED: methylPREDNISolone Sodium Succinate 125 MG/2 ML SDV IV ONE (19:11)
[2023-04-18] MEDS ORDERED: Albuterol/Ipratropium 3.0-0.5 MG/3 ML Neb Soln NEB PRN (19:11)
[2023-04-18 19:23] LABS: BASOPHILS PERCENT AUTO 0.4 % (0.0-1.0); EOSINOPHILS PERCENT AUTO 5.8 % (1.0-3.0); HEMATOCRIT 47.4 % (40.0-54.0); HEMOGLOBIN 15.5 g/dL (14.0-18.0); LYMPHOCYTES PERCENT AUTO 13.7 % (20.5-50.1); MEAN CORPUSCULAR HGB CONC 32.7 g/dL (33.0-35.0); MEAN CORPUSCULAR VOLUME 97.7 fL (80-100); MONOCYTES PERCENT AUTO 9.6 % (2-8); NEUTROPHILS PERCENT AUTO 70.5 % (42.2-75.2); PLATELET COUNT,PLT 196 10^3/uL (150-450); RED BLOOD CELL COUNT 4.85 10^6/uL (4.6-6.2); WHITE BLOOD CELL COUNT,WBC 8.2 10^3/uL (5.0-10.0)
[2023-04-18 19:44] VITALS: BP 133/105; PULSE 69
[2023-04-18 19:46] LABS: ANION GAP 13.6 mEq/L (7-13); CALCIUM 8.9 mg/dL (8.5-10.1); CREATININE 1.42 mg/dL (0.70-1.30); EST CRCL DRUG DOSING (CG) 51.51 mL/min; POTASSIUM,K 4.6 mmol/L (3.5-5.1)
== END 2023-04-18 20:36 | disposition home or self-care (01) ==
LOC: DL.ED 18:57
DX: J40 Bronchitis, not specified as acute or chronic (principal); I25.10 Atherosclerotic heart disease of native coronary artery without angina pectoris; I11.0 Hypertensive heart disease with heart failure; I50.9 Heart failure, unspecified; E11.9 Type 2 diabetes mellitus without complications; E03.9 Hypothyroidism, unspecified; E66.9 Obesity, unspecified; Z68.41 Body mass index [BMI] 40.0-44.9, adult; Z91.040 Latex allergy status; Z88.8 Allergy status to other drugs, medicaments and biological substances; Z79.82 Long term (current) use of aspirin; Z79.4 Long term (current) use of insulin; Z79.01 Long term (current) use of anticoagulants; Z79.899 Other long term (current) drug therapy; Z95.0 Presence of cardiac pacemaker
CPT/HCPCS: 36415; 71045; 80048; 83880; 84484; 85025; 85379; 93005; 96374; 99285; J2930; J3490; J7620-GY

== ENCOUNTER 2023-04-21 07:49 | Inpatient (IN) | payer MEDICARE, BC ==
[2023-04-21] MEDS ORDERED: Albuterol/Ipratropium 3.0-0.5 MG/3 ML Neb Soln NEB ONE ×3 (08:08→13:00)
[2023-04-21] MEDS ORDERED: Sodium Chloride 0.9% 10 ML Syringe FLUSH PRN ×2 (08:08→13:45)
[2023-04-21] MEDS ORDERED: Magnesium Sulfate/Water 2 GM in Premix Bag 1 BAG IV ONE ×2 (08:09→08:11)
[2023-04-21] MEDS ORDERED: Dexamethasone 4 MG/ML SDV IVPUSH ONE (08:09)
[2023-04-21 08:18] LABS: BASOPHILS PERCENT AUTO 0.2 % (0.0-1.0); EOSINOPHILS PERCENT AUTO 0.3 % (1.0-3.0); HEMATOCRIT 48.7 % (40.0-54.0); HEMOGLOBIN 15.8 g/dL (14.0-18.0); LYMPHOCYTES PERCENT AUTO 15.8 % (20.5-50.1); MEAN CORPUSCULAR HEMOGLOBIN 31.8 pg (27.0-34.0); MEAN CORPUSCULAR HGB CONC 32.4 g/dL (33.0-35.0); MONOCYTES PERCENT AUTO 10.4 % (2-8); NEUTROPHILS PERCENT AUTO 73.3 % (42.2-75.2); PLATELET COUNT,PLT 245 10^3/uL (150-450); RED BLOOD CELL COUNT 4.97 10^6/uL (4.6-6.2); WHITE BLOOD CELL COUNT,WBC 12.3 10^3/uL (5.0-10.0)
[2023-04-21] MEDS ORDERED: Albuterol 0.083% 2.5 MG/3 ML Neb Soln NEB ONE (08:26)
[2023-04-21] MEDS ORDERED: Albuterol 0.083% 2.5 MG/3 ML Neb Soln ONE (08:28)
[2023-04-21 08:41] LABS: LACTIC ACID 1.5 mmol/L (0.4-2.0)
[2023-04-21 08:47] LABS: A/G RATIO 0.9; ALANINE AMINOTRANSFERASE,ALT 39 U/L (16-63); ALBUMIN 3.5 g/dL (3.4-5.0); ALKALINE PHOSPHATASE 74 U/L (46-116); ANION GAP 12.4 mEq/L (7-13); ASPARTATE AMNIOTRANSFERASE,AST 23 U/L (15-37); B-TYPE NATRIURETIC PEPTIDE,BNP 132 pg/ml (0-100); BILIRUBIN TOTAL 0.4 mg/dL (0.2-1.0); BLOOD UREA NITROGEN,BUN 49 mg/dL (7-18); BUN/CREATININE RATIO 39.2 (No establ ref range); CALCIUM 8.5 mg/dL (8.5-10.1); CARBON DIOXIDE,CO2 26 mmol/L (21-32); CHLORIDE,CL 107 mmol/L (98-107); CREATININE 1.25 mg/dL (0.70-1.30); EST CRCL DRUG DOSING (CG) 58.52 mL/min; GLUCOSE RANDOM 73 mg/dL (70-99); POTASSIUM,K 4.4 mmol/L (3.5-5.1); PROTEIN TOTAL,TP 7.2 g/dL (6.4-8.2); SODIUM,NA 141 mmol/L (136-145)
[2023-04-21 08:49] LABS: ESTIMATED GFR 65 mL/min (>=60)
[2023-04-21 08:50] LABS: C-REACTIVE PROTEIN < 0.2 mg/dL (0.0-0.9)
[2023-04-21 08:58] LABS: INR 2.5 (0.9-1.2); PROTHROMBIN TIME 24.6 SEC (9.0-12.0); PTT,PARTIAL THROMBOPLSTIN TIME 28.8 SEC (22.0-34.0)
[2023-04-21] MEDS ORDERED: Acetaminophen/HYDROcodone 325-10 MG Tab PO PRN (13:23)
[2023-04-21] MEDS ORDERED: Non-Formulary Medication 1 Each (Methocarbamol 750 MG Tablet) PO PRN (13:23)
[2023-04-21] MEDS ORDERED: CLOBETASOL TOP PRN (13:23)
[2023-04-21] MEDS ORDERED: Acetaminophen 325 MG Tab PO PRN (13:45)
[2023-04-21] MEDS ORDERED: Ondansetron 4 MG Tab.DIS PO PRN (13:45)
[2023-04-21] MEDS ORDERED: Albuterol 0.083% 2.5 MG/3 ML Neb Soln NEB PRN (13:45)
[2023-04-21] MEDS ORDERED: Furosemide 20 MG Tab PO SCH (14:00)
[2023-04-21] MEDS ORDERED: Glucagon,Human Recombinant 1 MG Vial IM PRN (14:25)
[2023-04-21] MEDS ORDERED: Insulin Lispro 100 Units/ML 3 ML Vial SUBCUT PRN (14:25)
[2023-04-21] MEDS ORDERED: 50% Dextrose in Water 50 ML Syringe IVPUSH PRN (14:25)
[2023-04-21] MEDS: Levothyroxine 75 MCG Tab PO SCH (14:54)
[2023-04-21] MEDS: methylPREDNISolone Sodium Succinate 40 MG/1 ML SDV IVPUSH SCH ×2 (15:02→21:35)
[2023-04-21] MEDS: Furosemide 20 MG Tab PO SCH (16:27)
[2023-04-21] MEDS: Insulin Lispro 100 Units/ML 3 ML Vial SUBCUT SCH ×2 (17:18→21:34)
[2023-04-21] MEDS: Albuterol/Ipratropium 3.0-0.5 MG/3 ML Neb Soln NEB SCH (17:42)
[2023-04-21] MEDS ORDERED: Formoterol/Mometasone 200-5 MCG 8.8 GM Inhaler IH SCH (18:00)
[2023-04-21] MEDS ORDERED: Insulin Glarg,Human.Rec.Analog 100 Unit/ML SUBCUT SCH (21:00)
[2023-04-21] MEDS ORDERED: Zolpidem 5 MG Tab PO PRN (23:50)
[2023-04-22] MEDS: Albuterol/Ipratropium 3.0-0.5 MG/3 ML Neb Soln NEB SCH ×3 (00:10→13:38)
[2023-04-22] MEDS: Levothyroxine 75 MCG Tab PO SCH (05:56)
[2023-04-22] MEDS: methylPREDNISolone Sodium Succinate 40 MG/1 ML SDV IVPUSH SCH ×2 (05:56→14:16)
[2023-04-22] MEDS ORDERED: Omeprazole 20 MG Cap.CR PO SCH (06:00)
[2023-04-22 06:36] LABS: HEMOGLOBIN 15.3 g/dL (14.0-18.0); LYMPHOCYTES PERCENT AUTO 6.6 % (20.5-50.1); MEAN CORPUSCULAR HEMOGLOBIN 31.4 pg (27.0-34.0); MEAN CORPUSCULAR HGB CONC 32.6 g/dL (33.0-35.0); MEAN CORPUSCULAR VOLUME 96.3 fL (80-100); MONOCYTES PERCENT AUTO 2.7 % (2-8); NEUTROPHILS PERCENT AUTO 90.7 % (42.2-75.2); PLATELET COUNT,PLT 179 10^3/uL (150-450); RED BLOOD CELL COUNT 4.88 10^6/uL (4.6-6.2); WHITE BLOOD CELL COUNT,WBC 6.2 10^3/uL (5.0-10.0)
[2023-04-22 06:50] LABS: INR 2.3 (0.9-1.2); PROTHROMBIN TIME 22.9 SEC (9.0-12.0)
[2023-04-22 06:53] LABS: ANION GAP 17.2 mEq/L (7-13); CALCIUM 8.9 mg/dL (8.5-10.1); CREATININE 1.63 mg/dL (0.70-1.30); EST CRCL DRUG DOSING (CG) 44.88 mL/min; POTASSIUM,K 5.2 mmol/L (3.5-5.1)
[2023-04-22] MEDS ORDERED: Levothyroxine 50 MCG Tab PO SCH (07:00)
[2023-04-22] MEDS ORDERED: Aspirin 81 MG Tab.EC PO SCH (08:00)
[2023-04-22] MEDS ORDERED: Non-Formulary Medication 1 Each (Insulin Aspart 100 UNIT/ML Pen) SUBCUT SCH (08:00)
[2023-04-22] MEDS: Insulin Lispro 100 Units/ML 3 ML Vial SUBCUT SCH ×2 (08:08→12:07)
[2023-04-22] MEDS ORDERED: GI Cocktail Oral Solution 30 ML PO PRN (08:59)
[2023-04-22] MEDS ORDERED: Spironolactone 25 MG Tab PO SCH (09:00)
[2023-04-22] MEDS ORDERED: Non-Formulary Medication 1 Each (Liraglutide [Victoza] 18 MG/3 ML Pen) SUBCUT SCH (09:00)
[2023-04-22] MEDS ORDERED: Pantoprazole 40 MG Tab.CR PO SCH (09:00)
[2023-04-22] MEDS ORDERED: Furosemide 40 MG Tab PO SCH (09:00)
[2023-04-22] MEDS ORDERED: traZODone 50 MG Tab PO SCH (09:00)
[2023-04-22] MEDS ORDERED: Non-Formulary Medication 1 Each (Dapagliflozin Propanediol [Farxiga] 10 MG Tablet) PO SCH (09:00)
[2023-04-22] MEDS ORDERED: Losartan 50 MG Tab PO SCH (09:00)
[2023-04-22] MEDS ORDERED: Metoprolol Succinate 50 MG Tab.ER PO SCH (09:00)
[2023-04-22 11:38] VITALS: BP 104/55
[2023-04-22] MEDS ORDERED: Non-Formulary Medication 1 Each (Insulin Aspart 100 UNIT/ML Pen) SQ SCH (12:00)
[2023-04-22] MEDS ORDERED: Iopamidol 755 Mg/ML 100 ML Bottle IVPUSH ONE (13:21)
[2023-04-22 13:41] VITALS: PULSE 70
[2023-04-22] MEDS ORDERED: Warfarin 2 MG Tab PO SCH (14:00)
[2023-04-22] MEDS: Furosemide 20 MG Tab PO SCH (14:13)
[2023-04-22] MEDS ORDERED: Azithromycin 250 MG Tab PO SCH (14:30)
[2023-04-22] MEDS ORDERED: Insulin Glarg,Human.Rec.Analog 100 Unit/ML SUBCUT SCH (21:00)
[2023-04-22] MEDS ORDERED: Formoterol/Mometasone 200-5 MCG 8.8 GM Inhaler IH SCH (21:00)
[2023-04-22] MEDS ORDERED: atorvaSTATin 20 MG Tab PO SCH (21:00)
[2023-04-23] MEDS ORDERED: predniSONE 10 MG Tab PO SCH (09:00)
[2023-04-23] MEDS ORDERED: Warfarin 2 MG Tab PO SCH (14:00)
== END 2023-04-22 15:30 | disposition home or self-care (01) | DRG 202 ==
LOC: DL.ED 07:49 → DL.MS 13:17 → UNDOADMIN 13:18 → DL.MS 13:18
PROVIDERS: ADMIT Emergency Medicine; ATTEND Emergency Medicine
DX: J45.41 Moderate persistent asthma with (acute) exacerbation (principal); J45.909 Unspecified asthma, uncomplicated; R09.02 Hypoxemia; I25.10 Atherosclerotic heart disease of native coronary artery without angina pectoris; I11.0 Hypertensive heart disease with heart failure; J18.9 Pneumonia, unspecified organism; Z68.41 Body mass index [BMI] 40.0-44.9, adult; I13.0 Hypertensive heart and chronic kidney disease with heart failure and stage 1 through stage 4 chronic kidney disease, or unspecified chronic kidney disease; K21.9 Gastro-esophageal reflux disease without esophagitis; R91.8 Other nonspecific abnormal finding of lung field; M19.90 Unspecified osteoarthritis, unspecified site; E11.9 Type 2 diabetes mellitus without complications; I48.20 Chronic atrial fibrillation, unspecified; E66.9 Obesity, unspecified; E66.01 Morbid (severe) obesity due to excess calories; Z20.822 Contact with and (suspected) exposure to COVID-19; N18.31 Chronic kidney disease, stage 3a; E78.00 Pure hypercholesterolemia, unspecified; I50.9 Heart failure, unspecified; E03.9 Hypothyroidism, unspecified; E11.22 Type 2 diabetes mellitus with diabetic chronic kidney disease; H54.7 Unspecified visual loss; R07.9 Chest pain, unspecified; Z95.0 Presence of cardiac pacemaker; Z91.040 Latex allergy status; Z79.82 Long term (current) use of aspirin; Z79.4 Long term (current) use of insulin; Z79.899 Other long term (current) drug therapy; Z79.01 Long term (current) use of anticoagulants; I25.2 Old myocardial infarction; Z86.16 Personal history of COVID-19; Z90.49 Acquired absence of other specified parts of digestive tract; Z85.47 Personal history of malignant neoplasm of testis
CPT/HCPCS: 36415; 71046; 80053; 83605; 83880; 84145; 84484; 85025; 85379; 85610; 85730; 86140; 87040 ×2; 87186; 87804 ×2; 94640 ×10; 96374; 96375; 96376; 99285 ×2; J1100; J3475 ×2; U0002; 71275; 80048; 82947; 83735; 93005; 93010; 94010; 99223; 99238; A9270-GY; J1815-GY; J2920; J3490; J7613-GY; J7620-GY; Q9967

== ENCOUNTER 2023-08-20 00:53 | Emergency (ER) | payer MEDICARE, BC ==
[2023-08-20] MEDS ORDERED: Sodium Chloride 0.9% 10 ML Syringe FLUSH PRN (00:57)
[2023-08-20 01:30] LABS: BASOPHILS PERCENT AUTO 0.5 % (0.0-1.0); EOSINOPHILS PERCENT AUTO 6.9 % (1.0-3.0); HEMATOCRIT 49.7 % (40.0-54.0); LYMPHOCYTES PERCENT AUTO 14.5 % (20.5-50.1); MEAN CORPUSCULAR HEMOGLOBIN 31.2 pg (27.0-34.0); MEAN CORPUSCULAR HGB CONC 32.2 g/dL (33.0-35.0); MEAN CORPUSCULAR VOLUME 96.9 fL (80-100); MONOCYTES PERCENT AUTO 9.8 % (2-8); NEUTROPHILS PERCENT AUTO 68.3 % (42.2-75.2); PLATELET COUNT,PLT 151 10^3/uL (150-450); RED BLOOD CELL COUNT 5.13 10^6/uL (4.6-6.2); WHITE BLOOD CELL COUNT,WBC 6.6 10^3/uL (5.0-10.0)
[2023-08-20 01:48] LABS: INR 3.4 (0.9-1.2); PROTHROMBIN TIME 33.2 SEC (9.0-12.0); PTT,PARTIAL THROMBOPLSTIN TIME 36.8 SEC (22.0-34.0)
[2023-08-20 01:49] LABS: B-TYPE NATRIURETIC PEPTIDE,BNP 138 pg/ml (0-100)
[2023-08-20 01:53] LABS: A/G RATIO 0.9; ALANINE AMINOTRANSFERASE,ALT 39 U/L (16-63); ALBUMIN 3.5 g/dL (3.4-5.0); ALKALINE PHOSPHATASE 79 U/L (46-116); ANION GAP 15.6 mEq/L (7-13); ASPARTATE AMNIOTRANSFERASE,AST 25 U/L (15-37); BILIRUBIN TOTAL 0.5 mg/dL (0.2-1.0); BLOOD UREA NITROGEN,BUN 26 mg/dL (7-18); BUN/CREATININE RATIO 18.2 (No establ ref range); C-REACTIVE PROTEIN 0.16 ng/dL (<=0.30); CARBON DIOXIDE,CO2 28 mmol/L (21-32); CHLORIDE,CL 100 mmol/L (98-107); CREATININE 1.43 mg/dL (0.70-1.30); EST CRCL DRUG DOSING (CG) 51.15 mL/min; GLUCOSE RANDOM 180 mg/dL (70-99); POTASSIUM,K 4.6 mmol/L (3.5-5.1); PROTEIN TOTAL,TP 7.2 g/dL (6.4-8.2); SODIUM,NA 139 mmol/L (136-145)
[2023-08-20 01:54] LABS: ESTIMATED GFR 55 mL/min (>=60)
[2023-08-20 01:55] LABS: LACTIC ACID 1.7 mmol/L (0.4-2.0)
[2023-08-20 01:59] LABS: CORONAVIRUS COVID-19 NAA NEGATIVE (NEGATIVE); INFLUENZA A NAA NEGATIVE (NEGATIVE); INFLUENZA B NAA NEGATIVE (NEGATIVE); RESPIRATORY SYNCYTIAL VIR NAA NEGATIVE (NEGATIVE)
[2023-08-20] MEDS ORDERED: Furosemide 40 MG/4 ML VIAL IVPUSH ONE (02:14)
[2023-08-20 03:42] VITALS: BP 102/80; PULSE 71
== END 2023-08-20 03:47 | disposition home or self-care (01) ==
LOC: DL.ED 00:53
DX: I11.0 Hypertensive heart disease with heart failure (principal); I50.9 Heart failure, unspecified; I25.10 Atherosclerotic heart disease of native coronary artery without angina pectoris; I48.91 Unspecified atrial fibrillation; E78.00 Pure hypercholesterolemia, unspecified; I25.2 Old myocardial infarction; J45.909 Unspecified asthma, uncomplicated; K21.9 Gastro-esophageal reflux disease without esophagitis; M19.90 Unspecified osteoarthritis, unspecified site; E11.9 Type 2 diabetes mellitus without complications; E03.9 Hypothyroidism, unspecified; E66.9 Obesity, unspecified; Z20.822 Contact with and (suspected) exposure to COVID-19; Z86.16 Personal history of COVID-19; Z95.5 Presence of coronary angioplasty implant and graft; Z79.01 Long term (current) use of anticoagulants; Z79.4 Long term (current) use of insulin; Z79.82 Long term (current) use of aspirin; Z79.899 Other long term (current) drug therapy; Z88.8 Allergy status to other drugs, medicaments and biological substances; Z91.040 Latex allergy status; Z68.41 Body mass index [BMI] 40.0-44.9, adult
CPT/HCPCS: 0241U; 36415; 71045; 80053; 83605; 83735; 83880; 84145; 84484; 85025; 85610; 85730; 86140; 93005; 93010; 96374; 99284; 99285-25; J1940; J3490

== ENCOUNTER 2023-09-05 13:22 | Emergency (ER) | payer MEDICARE, BC ==
[2023-09-05] MEDS ORDERED: Sodium Chloride 0.9% 10 ML Syringe FLUSH PRN (13:30)
[2023-09-05] MEDS ORDERED: Albuterol/Ipratropium 3.0-0.5 MG/3 ML Neb Soln NEB ONE (13:32)
[2023-09-05 13:42] LABS: BASOPHILS PERCENT AUTO 0.4 % (0.0-1.0); EOSINOPHILS PERCENT AUTO 8.2 % (1.0-3.0); HEMATOCRIT 52.9 % (40.0-54.0); LYMPHOCYTES PERCENT AUTO 18.6 % (20.5-50.1); MEAN CORPUSCULAR HEMOGLOBIN 30.9 pg (27.0-34.0); MEAN CORPUSCULAR HGB CONC 32.1 g/dL (33.0-35.0); MEAN CORPUSCULAR VOLUME 96.2 fL (80-100); MONOCYTES PERCENT AUTO 9.6 % (2-8); NEUTROPHILS PERCENT AUTO 63.2 % (42.2-75.2); PLATELET COUNT,PLT 184 10^3/uL (150-450); WHITE BLOOD CELL COUNT,WBC 7.8 10^3/uL (5.0-10.0)
[2023-09-05] MEDS ORDERED: methylPREDNISolone Sodium Succinate 125 MG/2 ML SDV IVPUSH ONE (13:57)
[2023-09-05 14:04] LABS: ALBUMIN 3.9 g/dL (3.4-5.0); BILIRUBIN TOTAL 0.5 mg/dL (0.2-1.0); BUN/CREATININE RATIO 16.9 (No establ ref range); CALCIUM 9.2 mg/dL (8.5-10.1); CREATININE 1.3 mg/dL (0.70-1.30); EST CRCL DRUG DOSING (CG) 56.27 mL/min; PROTEIN TOTAL,TP 7.8 g/dL (6.4-8.2)
[2023-09-05 14:40] LABS: INR 1.7 (0.9-1.2); PROTHROMBIN TIME 17.5 SEC (9.0-12.0); PTT,PARTIAL THROMBOPLSTIN TIME 30.3 SEC (22.0-34.0)
[2023-09-05 15:09] LABS: CORONAVIRUS COVID-19 NAA NEGATIVE (NEGATIVE); INFLUENZA A NAA NEGATIVE (NEGATIVE); INFLUENZA B NAA NEGATIVE (NEGATIVE); RESPIRATORY SYNCYTIAL VIR NAA NEGATIVE (NEGATIVE)
[2023-09-05 15:14] VITALS: BP 96/53; PULSE 71
[2023-09-05] MEDS ORDERED: Take Home: predniSONE 20 MG, 4 Tab Pack PO ONE (15:20)
[2023-09-05] MEDS ORDERED: Albuterol 6.7 GM Inhaler INH ONE (15:21)
== END 2023-09-05 15:40 | disposition home or self-care (01) ==
LOC: DL.ED 13:22
DX: J45.901 Unspecified asthma with (acute) exacerbation (principal); E11.9 Type 2 diabetes mellitus without complications; E03.9 Hypothyroidism, unspecified; E66.9 Obesity, unspecified; K21.9 Gastro-esophageal reflux disease without esophagitis; I11.0 Hypertensive heart disease with heart failure; I50.9 Heart failure, unspecified; I25.2 Old myocardial infarction; Z95.0 Presence of cardiac pacemaker; I25.10 Atherosclerotic heart disease of native coronary artery without angina pectoris; Z86.16 Personal history of COVID-19; I48.91 Unspecified atrial fibrillation; Z20.822 Contact with and (suspected) exposure to COVID-19; Z79.84 Long term (current) use of oral hypoglycemic drugs; Z79.4 Long term (current) use of insulin; Z79.01 Long term (current) use of anticoagulants; Z91.040 Latex allergy status; Z88.8 Allergy status to other drugs, medicaments and biological substances; Z68.41 Body mass index [BMI] 40.0-44.9, adult; Z90.49 Acquired absence of other specified parts of digestive tract
CPT/HCPCS: 0241U; 36415; 71045; 80053; 83690; 83880; 84484; 85025; 85379; 85610; 85730; 93005; 93010; 94640; 94762; 96374; 99284; 99285; A9270; J2930; J3490; J7620-GY

== ENCOUNTER 2024-01-16 18:36 | Emergency (ER) | payer MEDICARE, BC ==
[2024-01-16] MEDS: Cyclobenzaprine 10 MG Tab PO ONE (19:05)
[2024-01-16 19:19] LABS: BASOPHILS PERCENT AUTO 0.5 % (0.0-1.0); HEMATOCRIT 45.6 % (40.0-54.0); HEMOGLOBIN 14.6 g/dL (14.0-18.0); LYMPHOCYTES PERCENT AUTO 17.9 % (20.5-50.1); MEAN CORPUSCULAR HEMOGLOBIN 31.5 pg (27.0-34.0); MEAN CORPUSCULAR VOLUME 98.3 fL (80-100); MONOCYTES PERCENT AUTO 8.4 % (2-8); NEUTROPHILS PERCENT AUTO 69.2 % (42.2-75.2); PLATELET COUNT,PLT 153 10^3/uL (150-450); RED BLOOD CELL COUNT 4.64 10^6/uL (4.6-6.2); WHITE BLOOD CELL COUNT,WBC 6.3 10^3/uL (5.0-10.0)
[2024-01-16 19:34] LABS: INR 2.3 (0.9-1.2); PROTHROMBIN TIME 22.9 SEC (9.0-12.0)
[2024-01-16 19:35] VITALS: BP 117/75; PULSE 70
[2024-01-16 19:43] LABS: BLOOD UREA NITROGEN,BUN 33 mg/dL (7-18); C-REACTIVE PROTEIN < 0.50 ng/dL (<=0.50); CARBON DIOXIDE,CO2 28 mmol/L (21-32); CHLORIDE,CL 106 mmol/L (98-107); CREATININE 1.42 mg/dL (0.70-1.30); EST CRCL DRUG DOSING (CG) 51.51 mL/min; ESTIMATED GFR 56 mL/min (>=60); GLUCOSE RANDOM 148 mg/dL (70-99); SODIUM,NA 142 mmol/L (136-145)
== END 2024-01-16 19:57 | disposition home or self-care (01) ==
LOC: DL.ED 18:36
DX: M54.12 Radiculopathy, cervical region (principal); E78.00 Pure hypercholesterolemia, unspecified; I11.0 Hypertensive heart disease with heart failure; I25.10 Atherosclerotic heart disease of native coronary artery without angina pectoris; I25.2 Old myocardial infarction; E11.9 Type 2 diabetes mellitus without complications; E03.9 Hypothyroidism, unspecified; E66.9 Obesity, unspecified; K21.9 Gastro-esophageal reflux disease without esophagitis; I48.91 Unspecified atrial fibrillation; Z68.42 Body mass index [BMI] 45.0-49.9, adult; Z86.16 Personal history of COVID-19; Z95.0 Presence of cardiac pacemaker; Z91.040 Latex allergy status; Z88.8 Allergy status to other drugs, medicaments and biological substances; Z79.4 Long term (current) use of insulin; Z79.01 Long term (current) use of anticoagulants; Z79.899 Other long term (current) drug therapy; Z79.51 Long term (current) use of inhaled steroids; Z79.82 Long term (current) use of aspirin
CPT/HCPCS: 36415; 80048; 84484; 85025; 85610; 86140; 93005; 99283; A9270

== ENCOUNTER 2024-03-05 10:14 | Emergency (ER) | payer MEDICARE, BC ==
[2024-03-05 11:15] VITALS: BP 122/73; PULSE 89
== END 2024-03-05 11:24 | disposition home or self-care (01) ==
LOC: DL.ED 10:14
DX: E11.65 Type 2 diabetes mellitus with hyperglycemia (principal); I11.0 Hypertensive heart disease with heart failure; I50.9 Heart failure, unspecified; I25.2 Old myocardial infarction; I25.10 Atherosclerotic heart disease of native coronary artery without angina pectoris; I48.91 Unspecified atrial fibrillation; J45.909 Unspecified asthma, uncomplicated; K21.9 Gastro-esophageal reflux disease without esophagitis; E03.9 Hypothyroidism, unspecified; Z91.040 Latex allergy status; Z88.8 Allergy status to other drugs, medicaments and biological substances; Z88.1 Allergy status to other antibiotic agents; Z79.82 Long term (current) use of aspirin; Z79.899 Other long term (current) drug therapy; Z79.01 Long term (current) use of anticoagulants
CPT/HCPCS: 82947; 99284

== ENCOUNTER 2024-04-14 20:32 | Emergency (ER) | payer MEDICARE, BC ==
[2024-04-14] MEDS: Sodium Chloride 0.9% 1,000 ML IV ONE (21:11)
[2024-04-14 21:14] VITALS: BP 91/63; PULSE 76
[2024-04-14 21:27] LABS: PROTHROMBIN TIME 29.1 SEC (9.0-12.0)
[2024-04-14 21:36] LABS: ANION GAP 13.6 mEq/L (7-13); CREATININE 1.25 mg/dL (0.70-1.30); EST CRCL DRUG DOSING (CG) 57.76 mL/min; POTASSIUM,K 4.6 mmol/L (3.5-5.1)
== END 2024-04-14 22:04 | disposition home or self-care (01) ==
LOC: DL.ED 20:32
DX: R58 Hemorrhage, not elsewhere classified (principal); I95.9 Hypotension, unspecified; Z79.01 Long term (current) use of anticoagulants
CPT/HCPCS: 36415; 80048; 85610; 96360; 99283; J7030

== ENCOUNTER 2024-04-21 15:17 | Emergency (ER) | payer MEDICARE, BC ==
[2024-04-21 16:13] VITALS: BP 115/97; PULSE 71
== END 2024-04-21 16:37 | disposition home or self-care (01) ==
LOC: DL.ED 15:17
DX: K21.9 Gastro-esophageal reflux disease without esophagitis (principal); I11.0 Hypertensive heart disease with heart failure; I50.9 Heart failure, unspecified; I25.10 Atherosclerotic heart disease of native coronary artery without angina pectoris; E78.00 Pure hypercholesterolemia, unspecified; J45.909 Unspecified asthma, uncomplicated; M19.90 Unspecified osteoarthritis, unspecified site; E11.9 Type 2 diabetes mellitus without complications; E03.9 Hypothyroidism, unspecified; E66.9 Obesity, unspecified; Z90.49 Acquired absence of other specified parts of digestive tract; Z79.899 Other long term (current) drug therapy; Z79.4 Long term (current) use of insulin; Z79.82 Long term (current) use of aspirin; Z91.040 Latex allergy status; Z88.8 Allergy status to other drugs, medicaments and biological substances
CPT/HCPCS: 99283

== ENCOUNTER 2024-07-26 21:45 | Emergency (ER) | payer MEDICARE, BC ==
[2024-07-26 22:21] VITALS: BP 143/76; PULSE 95
== END 2024-07-26 22:51 | disposition home or self-care (01) ==
LOC: DL.ED 21:45
DX: E11.649 Type 2 diabetes mellitus with hypoglycemia without coma (principal); I10 Essential (primary) hypertension; E66.9 Obesity, unspecified; E03.9 Hypothyroidism, unspecified; Z68.39 Body mass index [BMI] 39.0-39.9, adult; Z91.040 Latex allergy status; Z88.8 Allergy status to other drugs, medicaments and biological substances; Z79.82 Long term (current) use of aspirin; Z79.01 Long term (current) use of anticoagulants; Z79.899 Other long term (current) drug therapy; Z90.49 Acquired absence of other specified parts of digestive tract
CPT/HCPCS: 82947; 99284

== ENCOUNTER 2024-09-07 07:08 | Emergency (ER) | payer MEDICARE, BC ==
[2024-09-07 07:46] LABS: BASOPHILS PERCENT AUTO 0.6 % (0.0-1.0); EOSINOPHILS PERCENT AUTO 1.7 % (1.0-3.0); HEMATOCRIT 47.5 % (40.0-54.0); LYMPHOCYTES PERCENT AUTO 9.4 % (20.5-50.1); MEAN CORPUSCULAR HEMOGLOBIN 28.6 pg (27.0-34.0); MEAN CORPUSCULAR HGB CONC 31.6 g/dL (33.0-35.0); MEAN CORPUSCULAR VOLUME 90.5 fL (80-100); MONOCYTES PERCENT AUTO 8.9 % (2-8); NEUTROPHILS PERCENT AUTO 79.4 % (42.2-75.2); PLATELET COUNT,PLT 264 10^3/uL (150-450); RED BLOOD CELL COUNT 5.25 10^6/uL (4.6-6.2); WHITE BLOOD CELL COUNT,WBC 7.3 10^3/uL (5.0-10.0)
[2024-09-07 08:09] LABS: INR 2.6 (0.9-1.2); PROTHROMBIN TIME 25.8 SEC (9.0-12.0)
[2024-09-07 08:17] LABS: A/G RATIO 1.1; ALBUMIN 3.6 g/dL (3.4-5.0); ANION GAP 17.8 mEq/L (7-13); BILIRUBIN TOTAL 0.9 mg/dL (0.2-1.0); BUN/CREATININE RATIO 18.6 (No establ ref range); CALCIUM 9.4 mg/dL (8.5-10.1); CREATININE 1.83 mg/dL (0.70-1.30); EST CRCL DRUG DOSING (CG) 39.45 mL/min; MAGNESIUM 2.3 mg/dL (1.8-2.4); POTASSIUM,K 4.8 mmol/L (3.5-5.1); PROTEIN TOTAL,TP 6.9 g/dL (6.4-8.2)
[2024-09-07] MEDS: Furosemide 40 MG/4 ML VIAL IVPUSH ONE (08:32)
[2024-09-07 10:11] VITALS: BP 128/108; PULSE 66
== END 2024-09-07 09:56 | disposition home or self-care (01) ==
LOC: DL.ED 07:08
DX: I11.0 Hypertensive heart disease with heart failure (principal); I50.9 Heart failure, unspecified; I25.10 Atherosclerotic heart disease of native coronary artery without angina pectoris; I25.2 Old myocardial infarction; E78.00 Pure hypercholesterolemia, unspecified; I48.91 Unspecified atrial fibrillation; K21.9 Gastro-esophageal reflux disease without esophagitis; E11.9 Type 2 diabetes mellitus without complications; E66.9 Obesity, unspecified; E03.9 Hypothyroidism, unspecified; Z90.49 Acquired absence of other specified parts of digestive tract; Z95.0 Presence of cardiac pacemaker; Z79.01 Long term (current) use of anticoagulants; Z79.899 Other long term (current) drug therapy; Z79.4 Long term (current) use of insulin; Z79.84 Long term (current) use of oral hypoglycemic drugs; Z79.890 Hormone replacement therapy; Z79.82 Long term (current) use of aspirin; Z91.040 Latex allergy status; Z88.8 Allergy status to other drugs, medicaments and biological substances; Z68.41 Body mass index [BMI] 40.0-44.9, adult
CPT/HCPCS: 36415; 71045; 80053; 83735; 83880; 84484; 85025; 85610; 87428; 93005; 96374; 99285; J1940

== ENCOUNTER 2024-09-07 14:54 | Emergency (ER) | payer MEDICARE, BC ==
[2024-09-07 15:05] VITALS: BP 128/92
[2024-09-07] MEDS: Insulin Regular, Human 100 Units/ML 3 ML Vial IV ONE (15:37)
[2024-09-07] MEDS: Furosemide 40 MG/4 ML VIAL IVPUSH ONE (15:39)
[2024-09-07] MEDS: Insulin Regular, Human 100 Units/ML 10 ML Vial ONE (15:48)
[2024-09-07 15:55] LABS: ALBUMIN 3.3 g/dL (3.4-5.0); ANION GAP 16.7 mEq/L (7-13); BILIRUBIN TOTAL 0.8 mg/dL (0.2-1.0); BUN/CREATININE RATIO 17.4 (No establ ref range); CALCIUM 9.2 mg/dL (8.5-10.1); CREATININE 2.07 mg/dL (0.70-1.30); EST CRCL DRUG DOSING (CG) 34.88 mL/min; POTASSIUM,K 4.7 mmol/L (3.5-5.1); PROTEIN TOTAL,TP 6.3 g/dL (6.4-8.2)
[2024-09-07 16:03] LABS: A/G RATIO 1.1
[2024-09-07] MEDS: ALPRAZolam 0.25 MG Tab PO ONE (16:49)
[2024-09-07 16:53] VITALS: PULSE 72
[2024-09-07 17:27] LABS: APPEARANCE,URINE CLEAR (CLEAR); BILIRUBIN,URINE NEGATIVE (NEGATIVE); COLOR,URINE YELLOW (YELLOW); GLUCOSE,URINE 500 (NEGATIVE); KETONES,URINE NEGATIVE (NEGATIVE); LEUKOCYTE ESTERASE,URINE NEGATIVE (NEGATIVE); NITRITE,URINE NEGATIVE (NEGATIVE); OCCULT BLOOD,URINE NEGATIVE (NEGATIVE); PROTEIN,URINE 30 (NEGATIVE); UROBILINOGEN,URINE 0.2 mg/dL (0.2-1.0)
[2024-09-07 17:36] LABS: WBC,URINE NOT SEEN /HPF (0-5/HPF)
[2024-09-07 17:37] LABS: BACTERIA,URINE OCCASIONAL /HPF (0-FEW/HPF); EPITHELIAL CELLS,URINE OCCASIONAL /HPF (NOT SEEN); MUCUS,URINE RARE /LPF (NOT SEEN); RBC,URINE 0-5 /HPF (0-5)
[2024-09-07] MEDS: Acetaminophen/HYDROcodone 325-10 MG Tab PO ONE (18:20)
== END 2024-09-07 18:33 | disposition home or self-care (01) ==
LOC: DL.ED 14:54
DX: I11.0 Hypertensive heart disease with heart failure (principal); I50.9 Heart failure, unspecified; E11.65 Type 2 diabetes mellitus with hyperglycemia; I25.10 Atherosclerotic heart disease of native coronary artery without angina pectoris; I25.2 Old myocardial infarction; I48.91 Unspecified atrial fibrillation; E78.00 Pure hypercholesterolemia, unspecified; K21.9 Gastro-esophageal reflux disease without esophagitis; E11.9 Type 2 diabetes mellitus without complications; E66.9 Obesity, unspecified; E03.9 Hypothyroidism, unspecified; Z95.0 Presence of cardiac pacemaker; Z90.49 Acquired absence of other specified parts of digestive tract; Z79.82 Long term (current) use of aspirin; Z79.899 Other long term (current) drug therapy; Z79.4 Long term (current) use of insulin; Z79.01 Long term (current) use of anticoagulants; Z79.890 Hormone replacement therapy; Z91.040 Latex allergy status; Z88.8 Allergy status to other drugs, medicaments and biological substances; Z68.41 Body mass index [BMI] 40.0-44.9, adult
CPT/HCPCS: 36415; 51798; 80053; 81001; 82947; 83880; 84484; 96374; 99284; A9270; J1940

== ENCOUNTER 2024-09-08 07:32 | Emergency (ER) | payer MEDICARE, BC ==
[2024-09-08 07:43] VITALS: BP 113/74; PULSE 95
== END 2024-09-08 08:13 | disposition home or self-care (01) ==
LOC: DL.ED 07:32
DX: T83.091A Other mechanical complication of indwelling urethral catheter, initial encounter (principal); I48.91 Unspecified atrial fibrillation; I25.10 Atherosclerotic heart disease of native coronary artery without angina pectoris; I25.2 Old myocardial infarction; I11.0 Hypertensive heart disease with heart failure; I50.9 Heart failure, unspecified; E78.00 Pure hypercholesterolemia, unspecified; J45.909 Unspecified asthma, uncomplicated; K21.9 Gastro-esophageal reflux disease without esophagitis; M19.90 Unspecified osteoarthritis, unspecified site; E11.9 Type 2 diabetes mellitus without complications; E03.9 Hypothyroidism, unspecified; E66.9 Obesity, unspecified; Z90.49 Acquired absence of other specified parts of digestive tract; Z88.8 Allergy status to other drugs, medicaments and biological substances; Z91.040 Latex allergy status; Z79.4 Long term (current) use of insulin; Z79.51 Long term (current) use of inhaled steroids; Z79.82 Long term (current) use of aspirin; Z79.01 Long term (current) use of anticoagulants; Z79.890 Hormone replacement therapy; Z79.899 Other long term (current) drug therapy; Z68.41 Body mass index [BMI] 40.0-44.9, adult
CPT/HCPCS: 99283

== ENCOUNTER 2024-09-08 10:44 | Emergency (ER) | payer MEDICARE, BC ==
[2024-09-08 11:19] VITALS: BP 114/42; PULSE 114
== END 2024-09-08 11:22 | disposition home or self-care (01) ==
LOC: DL.ED 10:44
DX: T83.091A Other mechanical complication of indwelling urethral catheter, initial encounter (principal); I25.10 Atherosclerotic heart disease of native coronary artery without angina pectoris; I48.91 Unspecified atrial fibrillation; I25.2 Old myocardial infarction; I11.0 Hypertensive heart disease with heart failure; I50.9 Heart failure, unspecified; E78.00 Pure hypercholesterolemia, unspecified; J45.909 Unspecified asthma, uncomplicated; K21.9 Gastro-esophageal reflux disease without esophagitis; M19.90 Unspecified osteoarthritis, unspecified site; E11.9 Type 2 diabetes mellitus without complications; E03.9 Hypothyroidism, unspecified; E66.9 Obesity, unspecified; Z90.49 Acquired absence of other specified parts of digestive tract; Z88.8 Allergy status to other drugs, medicaments and biological substances; Z91.040 Latex allergy status; Z79.4 Long term (current) use of insulin; Z79.82 Long term (current) use of aspirin; Z79.01 Long term (current) use of anticoagulants; Z79.51 Long term (current) use of inhaled steroids; Z79.890 Hormone replacement therapy; Z79.899 Other long term (current) drug therapy
CPT/HCPCS: 99283

== ENCOUNTER 2024-09-08 17:01 | Emergency (ER) | payer MEDICARE, BC ==
[2024-09-08 17:26] LABS: BASOPHILS PERCENT AUTO 0.2 % (0.0-1.0); HEMATOCRIT 44.6 % (40.0-54.0); HEMOGLOBIN 14.2 g/dL (14.0-18.0); LYMPHOCYTES PERCENT AUTO 9.6 % (20.5-50.1); MEAN CORPUSCULAR HEMOGLOBIN 28.7 pg (27.0-34.0); MEAN CORPUSCULAR HGB CONC 31.8 g/dL (33.0-35.0); MEAN CORPUSCULAR VOLUME 90.1 fL (80-100); MONOCYTES PERCENT AUTO 12.1 % (2-8); NEUTROPHILS PERCENT AUTO 77.1 % (42.2-75.2); PLATELET COUNT,PLT 226 10^3/uL (150-450); RED BLOOD CELL COUNT 4.95 10^6/uL (4.6-6.2); WHITE BLOOD CELL COUNT,WBC 8.2 10^3/uL (5.0-10.0)
[2024-09-08 17:49] LABS: ALBUMIN 3.2 g/dL (3.4-5.0); ANION GAP 15.1 mEq/L (7-13); BILIRUBIN TOTAL 0.6 mg/dL (0.2-1.0); BUN/CREATININE RATIO 22.8 (No establ ref range); CALCIUM 8.8 mg/dL (8.5-10.1); CREATININE 1.97 mg/dL (0.70-1.30); EST CRCL DRUG DOSING (CG) 36.65 mL/min; MAGNESIUM 2.3 mg/dL (1.8-2.4); POTASSIUM,K 4.1 mmol/L (3.5-5.1); PROTEIN TOTAL,TP 6.4 g/dL (6.4-8.2)
[2024-09-08] MEDS: Sodium Chloride 0.9% 500 ML IV SCH (19:00)
[2024-09-08] MEDS ORDERED: Sodium Chloride 0.9% 1,000 ML IV SCH (20:15)
[2024-09-08 23:21] VITALS: BP 101/58; PULSE 78
== END 2024-09-08 23:46 | disposition critical access hospital (66) ==
LOC: DL.ED 17:01
DX: I95.2 Hypotension due to drugs (principal); T50.1X5A Adverse effect of loop [high-ceiling] diuretics, initial encounter; I13.0 Hypertensive heart and chronic kidney disease with heart failure and stage 1 through stage 4 chronic kidney disease, or unspecified chronic kidney disease; I50.9 Heart failure, unspecified; N18.31 Chronic kidney disease, stage 3a; E66.01 Morbid (severe) obesity due to excess calories; R79.89 Other specified abnormal findings of blood chemistry; I25.10 Atherosclerotic heart disease of native coronary artery without angina pectoris; I48.91 Unspecified atrial fibrillation; I25.2 Old myocardial infarction; E78.00 Pure hypercholesterolemia, unspecified; J45.909 Unspecified asthma, uncomplicated; K21.9 Gastro-esophageal reflux disease without esophagitis; M19.90 Unspecified osteoarthritis, unspecified site; E11.9 Type 2 diabetes mellitus without complications; E03.9 Hypothyroidism, unspecified; Z90.49 Acquired absence of other specified parts of digestive tract; Z88.8 Allergy status to other drugs, medicaments and biological substances; Z91.040 Latex allergy status; Z79.4 Long term (current) use of insulin; Z79.82 Long term (current) use of aspirin; Z79.01 Long term (current) use of anticoagulants; Z79.51 Long term (current) use of inhaled steroids; Z79.890 Hormone replacement therapy; Z79.899 Other long term (current) drug therapy; Z68.41 Body mass index [BMI] 40.0-44.9, adult
CPT/HCPCS: 36415; 71045; 80053; 83735; 83880; 84484; 85025; 93005; 96360; 99285; J7040

== ENCOUNTER 2024-09-10 15:07 | Inpatient (IN) | payer MEDICARE, BC ==
[2024-09-10 16:22] LABS: BASOPHILS PERCENT AUTO 0.6 % (0.0-1.0); EOSINOPHILS PERCENT AUTO 1.2 % (1.0-3.0); HEMATOCRIT 45.1 % (40.0-54.0); HEMOGLOBIN 14.3 g/dL (14.0-18.0); LYMPHOCYTES PERCENT AUTO 10.5 % (20.5-50.1); MEAN CORPUSCULAR HEMOGLOBIN 28.5 pg (27.0-34.0); MEAN CORPUSCULAR HGB CONC 31.7 g/dL (33.0-35.0); MEAN CORPUSCULAR VOLUME 89.8 fL (80-100); MONOCYTES PERCENT AUTO 12.3 % (2-8); NEUTROPHILS PERCENT AUTO 75.4 % (42.2-75.2); PLATELET COUNT,PLT 246 10^3/uL (150-450); RED BLOOD CELL COUNT 5.02 10^6/uL (4.6-6.2); WHITE BLOOD CELL COUNT,WBC 7.3 10^3/uL (5.0-10.0)
[2024-09-10 16:46] LABS: APPEARANCE,URINE CLOUDY (CLEAR); BILIRUBIN,URINE NEGATIVE (NEGATIVE); COLOR,URINE YELLOW (YELLOW); GLUCOSE,URINE 500 (NEGATIVE); KETONES,URINE NEGATIVE (NEGATIVE); LEUKOCYTE ESTERASE,URINE SMALL (NEGATIVE); NITRITE,URINE NEGATIVE (NEGATIVE); OCCULT BLOOD,URINE LARGE (NEGATIVE); PROTEIN,URINE 100 (NEGATIVE); UROBILINOGEN,URINE 0.2 mg/dL (0.2-1.0)
[2024-09-10 16:48] LABS: A/G RATIO 0.97; ALBUMIN 3.2 g/dL (3.4-5.0); ANION GAP 14.2 mEq/L (7-13); BILIRUBIN TOTAL 0.8 mg/dL (0.2-1.0); BUN/CREATININE RATIO 25.8 (No establ ref range); CALCIUM 8.8 mg/dL (8.5-10.1); CREATININE 1.86 mg/dL (0.70-1.30); EST CRCL DRUG DOSING (CG) 38.82 mL/min; MAGNESIUM 2.4 mg/dL (1.8-2.4); POTASSIUM,K 5.2 mmol/L (3.5-5.1); PROTEIN TOTAL,TP 6.5 g/dL (6.4-8.2)
[2024-09-10 17:02] LABS: AMORPHOUS SEDIMENT,URINE RARE /HPF (NOT SEEN); BACTERIA,URINE RARE /HPF (0-FEW/HPF); EPITHELIAL CELLS,URINE RARE /HPF (NOT SEEN); MUCUS,URINE FEW /LPF (NOT SEEN); RBC,URINE PACKED /HPF (0-5)
[2024-09-10 17:36] LABS: INR 2.1 (0.9-1.2); PROTHROMBIN TIME 21.2 SEC (9.0-12.0)
[2024-09-10] MEDS ORDERED: Magnesium Hydroxide 400 MG/5 ML Susp 30 ML Cup PO PRN (18:15)
[2024-09-10] MEDS ORDERED: Bisacodyl 5 MG Tab PO PRN (18:15)
[2024-09-10] MEDS ORDERED: hydrALAZINE 20 MG/ML SDV IVPUSH PRN (18:15)
[2024-09-10] MEDS ORDERED: Acetaminophen 325 MG Tab PO PRN (18:15)
[2024-09-10] MEDS ORDERED: Metoprolol Tartrate 5 MG/5 ML SDV IVPUSH PRN (18:15)
[2024-09-10] MEDS ORDERED: Metoclopramide 10 MG/2 ML SDV IV PRN (18:15)
[2024-09-10] MEDS ORDERED: Polyethylene Glycol 3350 Powder 17 GM Packet PO PRN (18:15)
[2024-09-10] MEDS ORDERED: Sennosides/Docusate Sodium 50-8.6 MG Tab PO PRN (18:15)
[2024-09-10] MEDS ORDERED: Naloxone 2 MG/2 ML Syringe IVPUSH PRN (18:15)
[2024-09-10] MEDS ORDERED: Acetaminophen/oxyCODONE 325-5 MG Tab PO PRN (18:15)
[2024-09-10] MEDS ORDERED: Ondansetron 4 MG/2 ML SDV IVPUSH PRN (18:15)
[2024-09-10 18:39] LABS: C-REACTIVE PROTEIN 0.53 ng/dL (<=0.50)
[2024-09-10] MEDS ORDERED: [UNRECOGNIZED DRUG - OTHER] TOP PRN (19:09)
[2024-09-10] MEDS ORDERED: Clotrimazole 1% Crm 30 GM Tube TOP PRN (19:09)
[2024-09-10] MEDS ORDERED: EMOLLIENT TOP PRN (19:09)
[2024-09-10] MEDS ORDERED: CLOBETASOL TOP PRN (19:09)
[2024-09-10] MEDS ORDERED: Menthol/Zinc Oxide Ointment 113 GM Tube TOP PRN (19:09)
[2024-09-10] MEDS ORDERED: 50% Dextrose in Water 50 ML Syringe IVPUSH PRN (19:12)
[2024-09-10] MEDS ORDERED: Glucagon,Human Recombinant 1 MG Vial IM PRN (19:12)
[2024-09-10] MEDS: guaiFENesin 600 MG Tab.ER PO SCH (20:55)
[2024-09-10] MEDS: Melatonin 3 MG Tab PO PRN (20:55)
[2024-09-10] MEDS: Warfarin 2 MG Tab PO ONE (21:06)
[2024-09-10] MEDS: traZODone 50 MG Tab PO SCH (21:06)
[2024-09-11] MEDS: Midodrine 5 MG Tab PO ONE (00:58)
[2024-09-11] MEDS: Albuterol/Ipratropium 3.0-0.5 MG/3 ML Neb Soln NEB PRN (01:30)
[2024-09-11] MEDS: Midodrine 5 MG Tab PO SCH (04:53)
[2024-09-11 06:21] LABS: BASOPHILS PERCENT AUTO 0.4 % (0.0-1.0); EOSINOPHILS PERCENT AUTO 1.4 % (1.0-3.0); HEMATOCRIT 42.8 % (40.0-54.0); HEMOGLOBIN 13.7 g/dL (14.0-18.0); LYMPHOCYTES PERCENT AUTO 11.4 % (20.5-50.1); MEAN CORPUSCULAR HEMOGLOBIN 28.4 pg (27.0-34.0); MEAN CORPUSCULAR VOLUME 88.8 fL (80-100); MONOCYTES PERCENT AUTO 10.7 % (2-8); NEUTROPHILS PERCENT AUTO 76.1 % (42.2-75.2); PLATELET COUNT,PLT 215 10^3/uL (150-450); RED BLOOD CELL COUNT 4.82 10^6/uL (4.6-6.2); WHITE BLOOD CELL COUNT,WBC 7.4 10^3/uL (5.0-10.0)
[2024-09-11 06:39] LABS: INR 2.1 (0.9-1.2); PROTHROMBIN TIME 20.8 SEC (9.0-12.0)
[2024-09-11 06:48] LABS: ANION GAP 15.4 mEq/L (7-13); BILIRUBIN TOTAL 0.9 mg/dL (0.2-1.0); CALCIUM 8.7 mg/dL (8.5-10.1); CREATININE 1.77 mg/dL (0.70-1.30); EST CRCL DRUG DOSING (CG) 40.79 mL/min; MAGNESIUM 2.2 mg/dL (1.8-2.4); POTASSIUM,K 4.4 mmol/L (3.5-5.1); PROTEIN TOTAL,TP 5.9 g/dL (6.4-8.2)
[2024-09-11 06:49] LABS: A/G RATIO 1.03
[2024-09-11] MEDS: Insulin Lispro 100 Units/ML 3 ML Vial SUBCUT SCH (09:55)
[2024-09-11] MEDS: Tolterodine 2 MG Cap.ER PO ONE (10:10)
[2024-09-11] MEDS: Metoprolol Succinate 25 MG Tab.ER PO SCH (10:11)
[2024-09-11] MEDS: Phenazopyridine 95 MG Tab PO ONE (10:12)
[2024-09-11] MEDS: Insulin Glarg,Human.Rec.Analog 100 Unit/ML 10 ML Vial SUBCUT SCH (10:13)
[2024-09-11] MEDS: Non-Formulary Medication 1 Each (Dapagliflozin Propanediol [Farxiga] 10 MG Tablet) PO SCH (14:57)
[2024-09-11] MEDS: diphenhydrAMINE 50 MG/ML SDV IVPUSH PRN (20:55)
[2024-09-11] MEDS: Phenazopyridine 95 MG Tab PO SCH (20:56)
[2024-09-11] MEDS: atorvaSTATin 20 MG Tab PO SCH (20:57)
[2024-09-11] MEDS: Tolterodine 2 MG Cap.ER PO SCH (20:57)
[2024-09-11] MEDS: traZODone 50 MG Tab PO SCH (20:57)
[2024-09-11] MEDS: Warfarin 2 MG Tab PO ONE (20:57)
[2024-09-11] MEDS ORDERED: traZODone 50 MG Tab PO SCH (21:00)
[2024-09-11] MEDS: Formoterol/Mometasone 200-5 MCG 8.8 GM Inhaler IH SCH (21:08)
[2024-09-11] MEDS: HYDROmorphone 1 MG/ML Syringe IVPUSH PRN (23:19)
[2024-09-12] MEDS: Omeprazole 20 MG Cap.CR PO SCH (05:24)
[2024-09-12] MEDS: Levothyroxine 75 MCG Tab PO SCH (05:25)
[2024-09-12] MEDS: Pantoprazole 40 MG Tab.CR PO SCH (05:25)
[2024-09-12 06:05] LABS: BASOPHILS PERCENT AUTO 0.3 % (0.0-1.0); EOSINOPHILS PERCENT AUTO 2.4 % (1.0-3.0); HEMATOCRIT 46.3 % (40.0-54.0); HEMOGLOBIN 14.6 g/dL (14.0-18.0); LYMPHOCYTES PERCENT AUTO 18.3 % (20.5-50.1); MEAN CORPUSCULAR HEMOGLOBIN 28.3 pg (27.0-34.0); MEAN CORPUSCULAR HGB CONC 31.5 g/dL (33.0-35.0); MEAN CORPUSCULAR VOLUME 89.7 fL (80-100); MONOCYTES PERCENT AUTO 14.8 % (2-8); NEUTROPHILS PERCENT AUTO 64.2 % (42.2-75.2); PLATELET COUNT,PLT 231 10^3/uL (150-450); RED BLOOD CELL COUNT 5.16 10^6/uL (4.6-6.2); WHITE BLOOD CELL COUNT,WBC 7.7 10^3/uL (5.0-10.0)
[2024-09-12 06:37] LABS: INR 2.2 (0.9-1.2); PROTHROMBIN TIME 21.4 SEC (9.0-12.0)
[2024-09-12 06:42] LABS: ALBUMIN 3.1 g/dL (3.4-5.0); ANION GAP 14.8 mEq/L (7-13); BILIRUBIN TOTAL 0.8 mg/dL (0.2-1.0); BUN/CREATININE RATIO 26.3 (No establ ref range); CALCIUM 8.7 mg/dL (8.5-10.1); CREATININE 1.98 mg/dL (0.70-1.30); EST CRCL DRUG DOSING (CG) 36.46 mL/min; MAGNESIUM 2.4 mg/dL (1.8-2.4); POTASSIUM,K 4.8 mmol/L (3.5-5.1); PROTEIN TOTAL,TP 6.4 g/dL (6.4-8.2)
[2024-09-12 06:44] LABS: A/G RATIO 0.94
[2024-09-12] MEDS: Midodrine 5 MG Tab PO ONE (07:54)
[2024-09-12] MEDS: Aspirin 81 MG Tab.EC PO SCH (08:44)
[2024-09-12] MEDS: Empagliflozin 10 MG Tab PO SCH (08:44)
[2024-09-12] MEDS ORDERED: Empagliflozin 10 MG Tab PO ONE (17:00)
[2024-09-12] MEDS: Midodrine 5 MG Tab PO SCH (17:56)
[2024-09-12] MEDS: traZODone 50 MG Tab PO SCH (20:39)
[2024-09-12] MEDS: Warfarin 2 MG Tab PO ONE (20:39)
[2024-09-13 07:23] LABS: ALBUMIN 2.9 g/dL (3.4-5.0); ANION GAP 12.9 mEq/L (7-13); BUN/CREATININE RATIO 30.5 (No establ ref range); CALCIUM 8.7 mg/dL (8.5-10.1); CREATININE 1.64 mg/dL (0.70-1.30); EST CRCL DRUG DOSING (CG) 44.02 mL/min; MAGNESIUM 2.3 mg/dL (1.8-2.4); POTASSIUM,K 4.9 mmol/L (3.5-5.1); PROTEIN TOTAL,TP 6.3 g/dL (6.4-8.2)
[2024-09-13 07:24] LABS: A/G RATIO 0.85
[2024-09-13 07:25] LABS: BASOPHILS PERCENT AUTO 0.3 % (0.0-1.0); EOSINOPHILS PERCENT AUTO 1.3 % (1.0-3.0); HEMATOCRIT 44.6 % (40.0-54.0); LYMPHOCYTES PERCENT AUTO 6.4 % (20.5-50.1); MEAN CORPUSCULAR HEMOGLOBIN 28.2 pg (27.0-34.0); MEAN CORPUSCULAR HGB CONC 31.4 g/dL (33.0-35.0); MEAN CORPUSCULAR VOLUME 89.9 fL (80-100); MONOCYTES PERCENT AUTO 8.3 % (2-8); NEUTROPHILS PERCENT AUTO 83.7 % (42.2-75.2); PLATELET COUNT,PLT 224 10^3/uL (150-450); RED BLOOD CELL COUNT 4.96 10^6/uL (4.6-6.2); WHITE BLOOD CELL COUNT,WBC 11.5 10^3/uL (5.0-10.0)
[2024-09-13 07:42] LABS: INR 2.7 (0.9-1.2); PROTHROMBIN TIME 26.3 SEC (9.0-12.0)
[2024-09-13 12:05] VITALS: BP 126/83; PULSE 75
[2024-09-13] MEDS ORDERED: Warfarin 2 MG Tab PO ONE (21:00)
== END 2024-09-13 13:15 | disposition home or self-care (01) | DRG 291 ==
LOC: DL.ED 15:07 → DL.MS 17:24 → DL.ED 17:39 → OBSVTOIN 09-12 14:47
PROVIDERS: ADMIT Internal Medicine; ATTEND Internal Medicine
PROC: 5A09357 Assistance with Respiratory Ventilation, Less than 24 Consecutive Hours, Continuous Positive Airway Pressure (ICD-10-PCS; principal; 2024-09-12)
DX: I11.0 Hypertensive heart disease with heart failure (principal); I50.9 Heart failure, unspecified; J45.901 Unspecified asthma with (acute) exacerbation; I13.0 Hypertensive heart and chronic kidney disease with heart failure and stage 1 through stage 4 chronic kidney disease, or unspecified chronic kidney disease; I50.23 Acute on chronic systolic (congestive) heart failure; Z68.41 Body mass index [BMI] 40.0-44.9, adult; E11.9 Type 2 diabetes mellitus without complications; E44.0 Moderate protein-calorie malnutrition; H54.7 Unspecified visual loss; I48.91 Unspecified atrial fibrillation; I25.10 Atherosclerotic heart disease of native coronary artery without angina pectoris; E78.00 Pure hypercholesterolemia, unspecified; J45.909 Unspecified asthma, uncomplicated; Z79.890 Hormone replacement therapy; K21.9 Gastro-esophageal reflux disease without esophagitis; M19.90 Unspecified osteoarthritis, unspecified site; F41.9 Anxiety disorder, unspecified; E03.9 Hypothyroidism, unspecified; E66.9 Obesity, unspecified; R41.0 Disorientation, unspecified; T43.215A Adverse effect of selective serotonin and norepinephrine reuptake inhibitors, initial encounter; R33.9 Retention of urine, unspecified; I42.9 Cardiomyopathy, unspecified; G47.33 Obstructive sleep apnea (adult) (pediatric); N18.30 Chronic kidney disease, stage 3 unspecified; I72.9 Aneurysm of unspecified site; I27.20 Pulmonary hypertension, unspecified; I95.9 Hypotension, unspecified; E87.5 Hyperkalemia; E11.22 Type 2 diabetes mellitus with diabetic chronic kidney disease; I08.1 Rheumatic disorders of both mitral and tricuspid valves; Z91.040 Latex allergy status; Z88.8 Allergy status to other drugs, medicaments and biological substances; Z79.82 Long term (current) use of aspirin; Z79.4 Long term (current) use of insulin; Z79.01 Long term (current) use of anticoagulants; Z79.899 Other long term (current) drug therapy; Z79.51 Long term (current) use of inhaled steroids; I25.2 Old myocardial infarction; Z95.0 Presence of cardiac pacemaker; Z87.81 Personal history of (healed) traumatic fracture; Z90.49 Acquired absence of other specified parts of digestive tract; Z98.49 Cataract extraction status, unspecified eye; Z86.16 Personal history of COVID-19
CPT/HCPCS: 36415 ×3; 71045; 80053 ×3; 81001; 83605 ×2; 83690; 83735 ×3; 83880; 84145; 84484; 85025 ×3; 85610 ×3; 86140; 87086; 87428; 93005; 93010; 94660; 96374; 96375; 99223; 99233; 99285 ×2; A9270 ×29; G0378 ×4; J1171; J1200; J1815 ×2; 97161-GP; 97165-GO; 99238; J7620-GY

== ENCOUNTER 2024-09-14 17:04 | Emergency (ER) | payer MEDICARE, BC ==
[2024-09-14 17:27] LABS: BASOPHILS PERCENT AUTO 0.3 % (0.0-1.0); EOSINOPHILS PERCENT AUTO 1.3 % (1.0-3.0); HEMATOCRIT 45.5 % (40.0-54.0); HEMOGLOBIN 14.2 g/dL (14.0-18.0); LYMPHOCYTES PERCENT AUTO 7.1 % (20.5-50.1); MEAN CORPUSCULAR HEMOGLOBIN 27.9 pg (27.0-34.0); MEAN CORPUSCULAR HGB CONC 31.2 g/dL (33.0-35.0); MEAN CORPUSCULAR VOLUME 89.4 fL (80-100); MONOCYTES PERCENT AUTO 9.2 % (2-8); NEUTROPHILS PERCENT AUTO 82.1 % (42.2-75.2); PLATELET COUNT,PLT 222 10^3/uL (150-450); RED BLOOD CELL COUNT 5.09 10^6/uL (4.6-6.2); WHITE BLOOD CELL COUNT,WBC 9.3 10^3/uL (5.0-10.0)
[2024-09-14] MEDS: Sodium Chloride 0.9% 10 ML Syringe FLUSH PRN (17:44)
[2024-09-14 17:49] LABS: A/G RATIO 0.94; ALBUMIN 3.1 g/dL (3.4-5.0); ANION GAP 16.1 mEq/L (7-13); BUN/CREATININE RATIO 21.6 (No establ ref range); CALCIUM 8.5 mg/dL (8.5-10.1); CREATININE 1.94 mg/dL (0.70-1.30); EST CRCL DRUG DOSING (CG) 37.22 mL/min; MAGNESIUM 2.1 mg/dL (1.8-2.4); POTASSIUM,K 4.1 mmol/L (3.5-5.1); PROTEIN TOTAL,TP 6.4 g/dL (6.4-8.2)
[2024-09-14 18:52] VITALS: BP 94/72; PULSE 77
== END 2024-09-14 19:41 | disposition home or self-care (01) ==
LOC: DL.ED 17:04
DX: I11.0 Hypertensive heart disease with heart failure (principal); I50.9 Heart failure, unspecified; I48.91 Unspecified atrial fibrillation; I25.10 Atherosclerotic heart disease of native coronary artery without angina pectoris; I25.2 Old myocardial infarction; E78.00 Pure hypercholesterolemia, unspecified; J45.909 Unspecified asthma, uncomplicated; K21.9 Gastro-esophageal reflux disease without esophagitis; M19.90 Unspecified osteoarthritis, unspecified site; E11.9 Type 2 diabetes mellitus without complications; E03.9 Hypothyroidism, unspecified; E66.9 Obesity, unspecified; Z90.49 Acquired absence of other specified parts of digestive tract; Z88.8 Allergy status to other drugs, medicaments and biological substances; Z91.040 Latex allergy status; Z79.4 Long term (current) use of insulin; Z79.82 Long term (current) use of aspirin; Z79.01 Long term (current) use of anticoagulants; Z79.51 Long term (current) use of inhaled steroids; Z79.890 Hormone replacement therapy; Z79.899 Other long term (current) drug therapy; Z68.41 Body mass index [BMI] 40.0-44.9, adult
CPT/HCPCS: 36415; 71045; 80053; 83735; 83880; 84484; 85025; 93005; 93010; 99284; 99285; J3490

== ENCOUNTER 2024-10-03 18:43 | Emergency (ER) | payer MEDICARE, BC ==
[2024-10-03] MEDS ORDERED: Sodium Chloride 0.9% 10 ML Syringe FLUSH PRN (19:02)
[2024-10-03 19:29] LABS: BASOPHILS PERCENT AUTO 0.4 % (0.0-1.0); EOSINOPHILS PERCENT AUTO 1.7 % (1.0-3.0); HEMATOCRIT 44.7 % (40.0-54.0); LYMPHOCYTES PERCENT AUTO 10.6 % (20.5-50.1); MEAN CORPUSCULAR HEMOGLOBIN 27.5 pg (27.0-34.0); MEAN CORPUSCULAR HGB CONC 31.3 g/dL (33.0-35.0); MEAN CORPUSCULAR VOLUME 87.8 fL (80-100); MONOCYTES PERCENT AUTO 8.4 % (2-8); NEUTROPHILS PERCENT AUTO 78.9 % (42.2-75.2); PLATELET COUNT,PLT 277 10^3/uL (150-450); RED BLOOD CELL COUNT 5.09 10^6/uL (4.6-6.2)
[2024-10-03 19:47] LABS: B-TYPE NATRIURETIC PEPTIDE,BNP 1450 pg/ml (0-100)
[2024-10-03 19:51] LABS: INR 1.4 (0.9-1.2); PROTHROMBIN TIME 14.4 SEC (9.0-12.0); PTT,PARTIAL THROMBOPLSTIN TIME 28.5 SEC (22.0-34.0)
[2024-10-03 19:54] LABS: ALANINE AMINOTRANSFERASE,ALT 24 U/L (16-63); ALBUMIN 2.9 g/dL (3.4-5.0); ALKALINE PHOSPHATASE 72 U/L (46-116); ANION GAP 16.8 mEq/L (7-13); ASPARTATE AMNIOTRANSFERASE,AST 19 U/L (15-37); BILIRUBIN TOTAL 0.7 mg/dL (0.2-1.0); BLOOD UREA NITROGEN,BUN 34 mg/dL (7-18); BUN/CREATININE RATIO 15.5 (No establ ref range); CALCIUM 9.1 mg/dL (8.5-10.1); CARBON DIOXIDE,CO2 28 mmol/L (21-32); CHLORIDE,CL 104 mmol/L (98-107); CREATININE 2.19 mg/dL (0.70-1.30); GLUCOSE RANDOM 138 mg/dL (70-99); MAGNESIUM 2.4 mg/dL (1.8-2.4); POTASSIUM,K 3.8 mmol/L (3.5-5.1); SODIUM,NA 145 mmol/L (136-145)
[2024-10-03 19:55] LABS: A/G RATIO 0.71; ESTIMATED GFR 33 mL/min (>=60)
[2024-10-03 19:57] LABS: LACTIC ACID 5.7 mmol/L (0.4-2.0)
[2024-10-03 20:52] LABS: APPEARANCE,URINE CLOUDY (CLEAR); BILIRUBIN,URINE NEGATIVE (NEGATIVE); COLOR,URINE YELLOW (YELLOW); GLUCOSE,URINE 500 (NEGATIVE); KETONES,URINE NEGATIVE (NEGATIVE); LEUKOCYTE ESTERASE,URINE SMALL (NEGATIVE); NITRITE,URINE POSITIVE (NEGATIVE); OCCULT BLOOD,URINE LARGE (NEGATIVE); PH,URINE 6.5 (5.0-9.0); PROTEIN,URINE 100 (NEGATIVE); UROBILINOGEN,URINE 0.2 mg/dL (0.2-1.0)
[2024-10-03] MEDS: Furosemide 40 MG/4 ML VIAL IVPUSH ONE (21:01)
[2024-10-03 21:07] VITALS: BP 104/66; PULSE 88
[2024-10-03 21:14] LABS: BACTERIA,URINE MANY /HPF (0-FEW/HPF); EPITHELIAL CELLS,URINE FEW /HPF (NOT SEEN); MUCUS,URINE FEW /LPF (NOT SEEN); RBC,URINE 20-30 /HPF (0-5)
[2024-10-03 21:15] LABS: WBC,URINE >100 /HPF (0-5/HPF)
[2024-10-03 21:55] LABS: LACTIC ACID 4.1 mmol/L (0.4-2.0)
== END 2024-10-03 21:59 ==
LOC: DL.ED 18:43
DX: I13.0 Hypertensive heart and chronic kidney disease with heart failure and stage 1 through stage 4 chronic kidney disease, or unspecified chronic kidney disease (principal); I50.9 Heart failure, unspecified; N18.31 Chronic kidney disease, stage 3a; R79.89 Other specified abnormal findings of blood chemistry; I48.91 Unspecified atrial fibrillation; I25.10 Atherosclerotic heart disease of native coronary artery without angina pectoris; I25.2 Old myocardial infarction; E78.00 Pure hypercholesterolemia, unspecified; E11.22 Type 2 diabetes mellitus with diabetic chronic kidney disease; J45.909 Unspecified asthma, uncomplicated; K21.9 Gastro-esophageal reflux disease without esophagitis; M19.90 Unspecified osteoarthritis, unspecified site; E03.9 Hypothyroidism, unspecified; E66.9 Obesity, unspecified; Z90.49 Acquired absence of other specified parts of digestive tract; Z88.8 Allergy status to other drugs, medicaments and biological substances; Z91.040 Latex allergy status; Z79.4 Long term (current) use of insulin; Z79.82 Long term (current) use of aspirin; Z79.01 Long term (current) use of anticoagulants; Z79.51 Long term (current) use of inhaled steroids; Z79.890 Hormone replacement therapy; Z79.899 Other long term (current) drug therapy
CPT/HCPCS: 36415; 71046; 71250; 80053; 81001; 83605; 83735; 83880; 84484; 85025; 85610; 85730; 87086; 87428-QW; 93005; 96374; 99285-25; J1940

== ENCOUNTER 2024-10-13 10:06 | Inpatient (IN) | payer MEDICARE, BC, MEDICAID ==
[2024-10-13] MEDS ORDERED: Sodium Chloride 0.9% 10 ML Syringe FLUSH PRN (14:43)
[2024-10-13] MEDS ORDERED: Ondansetron 4 MG/2 ML SDV IVPUSH PRN (14:43)
[2024-10-13] MEDS ORDERED: Albuterol 6.7 GM Inhaler INH PRN (14:49)
[2024-10-13] MEDS ORDERED: [UNRECOGNIZED DRUG - OTHER] TOP PRN (14:50)
[2024-10-13] MEDS ORDERED: Clotrimazole 1% Crm 30 GM Tube TOP PRN (14:50)
[2024-10-13] MEDS ORDERED: Betamethasone Dipropionate/Clotrimazole 0.05-1% Crm 15 GM Tube TOP PRN (14:50)
[2024-10-13] MEDS ORDERED: CLOBETASOL TOP PRN (14:50)
[2024-10-13] MEDS ORDERED: EMOLLIENT TOP PRN (14:50)
[2024-10-13] MEDS: hydrALAZINE 25 MG Tab PO SCH (16:53)
[2024-10-13] MEDS: Amiodarone 200 MG Tab PO SCH (16:54)
[2024-10-13] MEDS: Potassium Chloride 10 MEQ Tab.ER PO SCH (16:58)
[2024-10-13] MEDS: Formoterol/Mometasone 200-5 MCG 8.8 GM Inhaler INH SCH (16:59)
[2024-10-13] MEDS: Bumetanide 1 MG Tab PO SCH (17:01)
[2024-10-13] MEDS: Insulin Lispro 100 Units/ML 3 ML Vial SUBCUT SCH (18:12)
[2024-10-13] MEDS: Tamsulosin 0.4 MG Cap.ER PO SCH (21:03)
[2024-10-13] MEDS: oxyCODONE 5 MG Tab PO PRN (21:03)
[2024-10-13] MEDS: atorvaSTATin 20 MG Tab PO SCH (21:03)
[2024-10-13] MEDS: traZODone 50 MG Tab PO SCH (21:03)
[2024-10-13] MEDS: Insulin Glarg,Human.Rec.Analog 100 Unit/ML 10 ML Vial SUBCUT SCH (21:08)
[2024-10-13] MEDS: Melatonin 3 MG Tab PO PRN (22:14)
[2024-10-13] MEDS: Acetaminophen/HYDROcodone 325-10 MG Tab PO PRN (22:14)
[2024-10-14] MEDS: Pantoprazole 40 MG Tab.CR PO SCH (06:31)
[2024-10-14] MEDS: Levothyroxine 75 MCG Tab PO SCH (06:31)
[2024-10-14] MEDS: Metolazone 2.5 MG Tab PO SCH (06:31)
[2024-10-14] MEDS: Insulin Lispro 100 Units/ML 3 ML Vial SUBCUT SCH ×2 (10:26→23:49)
[2024-10-14] MEDS: Magnesium Oxide 400 MG Tab PO SCH (10:28)
[2024-10-14] MEDS: Losartan 25 MG Tab PO SCH (10:28)
[2024-10-14] MEDS: Aspirin 81 MG Tab.EC PO SCH (10:28)
[2024-10-14] MEDS: Docusate Sodium 100 MG Cap PO PRN (10:30)
[2024-10-14] MEDS: Warfarin 2 MG Tab PO SCH (13:05)
[2024-10-14] MEDS ORDERED: Gabapentin 100 MG Cap PO SCH (15:04)
[2024-10-14] MEDS ORDERED: Glucagon,Human Recombinant 1 MG Vial IM PRN (17:40)
[2024-10-14] MEDS ORDERED: 50% Dextrose in Water 50 ML Syringe IVPUSH PRN (17:40)
[2024-10-14] MEDS: Melatonin 3 MG Tab PO PRN (21:56)
[2024-10-14] MEDS: Amiodarone 200 MG Tab PO SCH (21:56)
[2024-10-15] MEDS ORDERED: Insulin Lispro 100 Units/ML 3 ML Vial SUBCUT ONE (12:23)
[2024-10-15] MEDS: Insulin Lispro 100 Units/ML 3 ML Vial SUBCUT ONE (12:39)
[2024-10-15] MEDS: Acetaminophen 325 MG Tab PO PRN (16:24)
[2024-10-15] MEDS: Insulin Lispro 100 Units/ML 3 ML Vial SUBCUT SCH (18:25)
[2024-10-16] MEDS ORDERED: Amiodarone 200 MG Tab PO SCH (09:00)
[2024-10-16 10:44] LABS: HEMOGLOBIN 12.8 g/dL (14.0-18.0); MEAN CORPUSCULAR HEMOGLOBIN 26.4 pg (27.0-34.0); MEAN CORPUSCULAR HGB CONC 31.2 g/dL (33.0-35.0); MEAN CORPUSCULAR VOLUME 84.7 fL (80-100); RED BLOOD CELL COUNT 4.84 10^6/uL (4.6-6.2); WHITE BLOOD CELL COUNT,WBC 5.6 10^3/uL (5.0-10.0)
[2024-10-16 11:30] LABS: APPEARANCE,URINE CLOUDY (CLEAR); BILIRUBIN,URINE NEGATIVE (NEGATIVE); COLOR,URINE YELLOW (YELLOW); GLUCOSE,URINE NEGATIVE (NEGATIVE); KETONES,URINE NEGATIVE (NEGATIVE); LEUKOCYTE ESTERASE,URINE LARGE (NEGATIVE); NITRITE,URINE NEGATIVE (NEGATIVE); OCCULT BLOOD,URINE TRACE-INTACT (NEGATIVE); PROTEIN,URINE NEGATIVE (NEGATIVE); UROBILINOGEN,URINE 0.2 mg/dL (0.2-1.0)
[2024-10-16 11:59] LABS: EPITHELIAL CELLS,URINE NOT SEEN /HPF (NOT SEEN); RBC,URINE 0-5 /HPF (0-5); WBC,URINE SEMI-PACKED /HPF (0-5/HPF)
[2024-10-16 12:00] LABS: BACTERIA,URINE MANY /HPF (0-FEW/HPF)
[2024-10-16 12:07] LABS: ANION GAP 14.5 mEq/L (7-13); CALCIUM 9.3 mg/dL (8.5-10.1); CREATININE 2.11 mg/dL (0.70-1.30); EST CRCL DRUG DOSING (CG) 34.22 mL/min; INR 2.9 (0.9-1.2); POTASSIUM,K 3.5 mmol/L (3.5-5.1); PROTHROMBIN TIME 27.7 SEC (9.0-12.0)
[2024-10-16] MEDS: Warfarin** 1 MG TABLET PO SCH (13:11)
[2024-10-16] MEDS: Ondansetron 4 MG Tab.DIS PO PRN (15:07)
[2024-10-17 06:30] LABS: BASOPHILS PERCENT AUTO 0.3 % (0.0-1.0); HEMATOCRIT 41.7 % (40.0-54.0); LYMPHOCYTES PERCENT AUTO 11.4 % (20.5-50.1); MEAN CORPUSCULAR HEMOGLOBIN 26.7 pg (27.0-34.0); MEAN CORPUSCULAR HGB CONC 31.2 g/dL (33.0-35.0); MEAN CORPUSCULAR VOLUME 85.6 fL (80-100); MONOCYTES PERCENT AUTO 9.3 % (2-8); PLATELET COUNT,PLT 200 10^3/uL (150-450); RED BLOOD CELL COUNT 4.87 10^6/uL (4.6-6.2); WHITE BLOOD CELL COUNT,WBC 5.9 10^3/uL (5.0-10.0)
[2024-10-17 06:44] LABS: INR 3.2 (0.9-1.2); PROTHROMBIN TIME 30.8 SEC (9.0-12.0)
[2024-10-17 06:52] LABS: ANION GAP 14.5 mEq/L (7-13); CALCIUM 9.2 mg/dL (8.5-10.1); CREATININE 2.02 mg/dL (0.70-1.30); EST CRCL DRUG DOSING (CG) 35.74 mL/min; POTASSIUM,K 3.5 mmol/L (3.5-5.1)
[2024-10-17] MEDS ORDERED: MEXILETINE 150 MG PO SCH (14:00)
[2024-10-17] MEDS: Warfarin 2 MG Tab PO SCH (14:37)
[2024-10-17] MEDS: MEXILETINE 150 MG PO SCH ×2 (14:38→15:53)
[2024-10-18 06:55] LABS: INR 3.2 (0.9-1.2); PROTHROMBIN TIME 31.2 SEC (9.0-12.0)
[2024-10-18] MEDS: Magnesium Citrate Solution 296 ML Bottle PO ONE (11:05)
[2024-10-18] MEDS: Warfarin 2 MG Tab PO ONE (13:53)
[2024-10-19 06:10] LABS: INR 3.5 (0.9-1.2); PROTHROMBIN TIME 33.7 SEC (9.0-12.0)
[2024-10-19] MEDS: Lactulose Soln 10 GM/15 ML 30 ML UD Cup PO ONE (10:21)
[2024-10-19] MEDS: Bisacodyl 10 MG Supp RECTAL ONE (10:22)
[2024-10-19] MEDS: ALPRAZolam 0.25 MG Tab PO PRN (12:23)
[2024-10-19] MEDS: Warfarin** 1 MG TABLET PO ONE (14:07)
[2024-10-20 06:42] LABS: INR 2.9 (0.9-1.2); PROTHROMBIN TIME 28.2 SEC (9.0-12.0)
[2024-10-20] MEDS: Warfarin** 1 MG TABLET PO ONE (13:34)
[2024-10-21 06:04] LABS: INR 2.6 (0.9-1.2); PROTHROMBIN TIME 25.7 SEC (9.0-12.0)
[2024-10-21] MEDS: Sennosides/Docusate Sodium 50-8.6 MG Tab PO SCH (08:25)
[2024-10-21 13:23] LABS: HEMATOCRIT 39.8 % (40.0-54.0); HEMOGLOBIN 12.5 g/dL (14.0-18.0); MEAN CORPUSCULAR HEMOGLOBIN 26.8 pg (27.0-34.0); MEAN CORPUSCULAR HGB CONC 31.4 g/dL (33.0-35.0); MEAN CORPUSCULAR VOLUME 85.2 fL (80-100); RED BLOOD CELL COUNT 4.67 10^6/uL (4.6-6.2); WHITE BLOOD CELL COUNT,WBC 5.8 10^3/uL (5.0-10.0)
[2024-10-21 13:25] LABS: ANION GAP 11.1 mEq/L (7-13); CALCIUM 8.9 mg/dL (8.5-10.1); CREATININE 1.85 mg/dL (0.70-1.30); EST CRCL DRUG DOSING (CG) 39.03 mL/min; POTASSIUM,K 3.1 mmol/L (3.5-5.1)
[2024-10-21] MEDS: Warfarin 2 MG Tab PO ONE (14:42)
[2024-10-22 07:14] LABS: INR 2.8 (0.9-1.2); PROTHROMBIN TIME 27.3 SEC (9.0-12.0)
[2024-10-22] MEDS: Warfarin 2 MG Tab PO ONE (14:30)
[2024-10-23 06:49] LABS: INR 3.1 (0.9-1.2); PROTHROMBIN TIME 29.6 SEC (9.0-12.0)
[2024-10-23] MEDS: Warfarin** 1 MG TABLET PO ONE (14:37)
[2024-10-23 16:38] LABS: HEMATOCRIT 39.8 % (40.0-54.0); HEMOGLOBIN 12.4 g/dL (14.0-18.0); MEAN CORPUSCULAR HGB CONC 31.2 g/dL (33.0-35.0); MEAN CORPUSCULAR VOLUME 86.5 fL (80-100); RED BLOOD CELL COUNT 4.6 10^6/uL (4.6-6.2); WHITE BLOOD CELL COUNT,WBC 6.1 10^3/uL (5.0-10.0)
[2024-10-23 16:41] LABS: ANION GAP 12.8 mEq/L (7-13); CALCIUM 9.1 mg/dL (8.5-10.1); CREATININE 2.13 mg/dL (0.70-1.30); EST CRCL DRUG DOSING (CG) 33.9 mL/min; POTASSIUM,K 3.8 mmol/L (3.5-5.1)
[2024-10-24 06:44] LABS: INR 3.2 (0.9-1.2)
[2024-10-24] MEDS: cefTRIAXone 1 GM Vial IVPUSH SCH (10:06)
[2024-10-24] MEDS: Warfarin** 1 MG TABLET PO ONE (13:10)
[2024-10-24 15:06] LABS: A/G RATIO 0.72; ALBUMIN 3.1 g/dL (3.4-5.0); ANION GAP 11.2 mEq/L (7-13); BILIRUBIN TOTAL 0.8 mg/dL (0.2-1.0); BUN/CREATININE RATIO 42.4 (No establ ref range); CALCIUM 9.2 mg/dL (8.5-10.1); CREATININE 2.17 mg/dL (0.70-1.30); EST CRCL DRUG DOSING (CG) 33.27 mL/min; POTASSIUM,K 3.2 mmol/L (3.5-5.1); PROTEIN TOTAL,TP 7.4 g/dL (6.4-8.2)
[2024-10-25 07:17] LABS: INR 3.1 (0.9-1.2); PROTHROMBIN TIME 30.3 SEC (9.0-12.0)
[2024-10-25] MEDS ORDERED: MEXILETINE 150 MG PO SCH (09:49)
[2024-10-25] MEDS: Warfarin** 1 MG TABLET PO ONE (13:40)
[2024-10-25] MEDS: MEXILETINE 150 MG PO SCH (13:42)
[2024-10-26 06:49] LABS: INR 2.7 (0.9-1.2); PROTHROMBIN TIME 26.1 SEC (9.0-12.0)
[2024-10-26] MEDS ORDERED: Amiodarone 200 MG Tab PO SCH (09:00)
[2024-10-26 10:12] VITALS: BP 107/75; PULSE 70
[2024-10-26] MEDS: Warfarin** 1 MG TABLET PO ONE (10:28)
== END 2024-10-26 10:30 | DRG 947 ==
LOC: DL.MS 13:53
PROVIDERS: ADMIT Internal Medicine; ATTEND Internal Medicine
DX: R53.81 Other malaise (principal); I21.4 Non-ST elevation (NSTEMI) myocardial infarction; I47.20 Ventricular tachycardia, unspecified; I42.8 Other cardiomyopathies; H54.7 Unspecified visual loss; I25.10 Atherosclerotic heart disease of native coronary artery without angina pectoris; E78.00 Pure hypercholesterolemia, unspecified; I11.0 Hypertensive heart disease with heart failure; I50.9 Heart failure, unspecified; G47.33 Obstructive sleep apnea (adult) (pediatric); M19.90 Unspecified osteoarthritis, unspecified site; E11.9 Type 2 diabetes mellitus without complications; F15.90 Other stimulant use, unspecified, uncomplicated; I27.20 Pulmonary hypertension, unspecified; I48.91 Unspecified atrial fibrillation; E03.9 Hypothyroidism, unspecified; E66.9 Obesity, unspecified; Z88.8 Allergy status to other drugs, medicaments and biological substances; Z91.040 Latex allergy status; Z79.82 Long term (current) use of aspirin; Z79.4 Long term (current) use of insulin; Z79.01 Long term (current) use of anticoagulants; Z79.1 Long term (current) use of non-steroidal anti-inflammatories (NSAID); Z79.51 Long term (current) use of inhaled steroids; Z79.899 Other long term (current) drug therapy; Z95.810 Presence of automatic (implantable) cardiac defibrillator; Z87.81 Personal history of (healed) traumatic fracture; Z51.5 Encounter for palliative care; Z79.02 Long term (current) use of antithrombotics/antiplatelets; Z98.49 Cataract extraction status, unspecified eye; Z90.49 Acquired absence of other specified parts of digestive tract; Z98.890 Other specified postprocedural states; Z68.37 Body mass index [BMI] 37.0-37.9, adult
CPT/HCPCS: 36415; 80048; 80053; 81001; 82947; 85025; 85027; 85610; 87086; 87088; 87186; 97110-GO; 97110-GP; 97116-GP; 97161-GP; 97165-GO; 97530-GO; 97530-GP; 99306; 99309; 99316; A9270-GY; J0696; J1815-GY

== ENCOUNTER 2024-11-07 16:33 | Emergency (ER) | payer MEDICARE, BC ==
[2024-11-07] MEDS: Glucose Gel 15 GM in 37.5 GM Tube ONE (16:43)
[2024-11-07 16:59] LABS: BASOPHILS PERCENT AUTO 0.3 % (0.0-1.0); EOSINOPHILS PERCENT AUTO 1.9 % (1.0-3.0); HEMATOCRIT 40.8 % (40.0-54.0); HEMOGLOBIN 12.9 g/dL (14.0-18.0); LYMPHOCYTES PERCENT AUTO 10.9 % (20.5-50.1); MEAN CORPUSCULAR HEMOGLOBIN 27.5 pg (27.0-34.0); MEAN CORPUSCULAR HGB CONC 31.6 g/dL (33.0-35.0); MONOCYTES PERCENT AUTO 8.7 % (2-8); NEUTROPHILS PERCENT AUTO 78.2 % (42.2-75.2); PLATELET COUNT,PLT 243 10^3/uL (150-450); RED BLOOD CELL COUNT 4.69 10^6/uL (4.6-6.2); WHITE BLOOD CELL COUNT,WBC 7.7 10^3/uL (5.0-10.0)
[2024-11-07] MEDS: Norepinephrine Bit/D5W Premix 250 ML ONE (17:03)
[2024-11-07] MEDS: Norepinephrine Bit/D5W Premix 250 ML IV SCH (17:03)
[2024-11-07] MEDS: Adenosine 6 MG/2 ML SDV IVPUSH ONE (17:08)
[2024-11-07] MEDS: 50% Dextrose in Water 50 ML Syringe ONE (17:14)
[2024-11-07 17:29] LABS: INR 1.7 (0.9-1.2)
[2024-11-07 17:36] LABS: BILIRUBIN TOTAL 0.5 mg/dL (0.2-1.0)
[2024-11-07 17:51] LABS: APPEARANCE,URINE SLIGHTLY CLOUDY (CLEAR); BILIRUBIN,URINE NEGATIVE (NEGATIVE); COLOR,URINE YELLOW (YELLOW); GLUCOSE,URINE NEGATIVE (NEGATIVE); KETONES,URINE NEGATIVE (NEGATIVE); LEUKOCYTE ESTERASE,URINE NEGATIVE (NEGATIVE); NITRITE,URINE NEGATIVE (NEGATIVE); OCCULT BLOOD,URINE NEGATIVE (NEGATIVE); PROTEIN,URINE TRACE (NEGATIVE); UROBILINOGEN,URINE 0.2 mg/dL (0.2-1.0)
[2024-11-07] MEDS ORDERED: Amiodarone 150 MG/3 ML SDV IV ONE (17:51)
[2024-11-07 17:58] LABS: ALBUMIN 3.1 g/dL (3.4-5.0); ANION GAP 15.2 mEq/L (7-13); BUN/CREATININE RATIO 33.6 (No establ ref range); CALCIUM 8.6 mg/dL (8.5-10.1); CREATININE 2.95 mg/dL (0.70-1.30); EST CRCL DRUG DOSING (CG) 25.3 mL/min; MAGNESIUM 3.4 mg/dL (1.8-2.4); POTASSIUM,K 5.2 mmol/L (3.5-5.1); PROTEIN TOTAL,TP 6.6 g/dL (6.4-8.2)
[2024-11-07 17:59] LABS: TSH ULTRASENSITIVE 5.68 uIU/mL (0.36-3.74)
[2024-11-07 18:00] LABS: A/G RATIO 0.89
[2024-11-07 18:24] LABS: BACTERIA,URINE FEW /HPF (0-FEW/HPF); EPITHELIAL CELLS,URINE FEW /HPF (NOT SEEN); MUCUS,URINE FEW /LPF (NOT SEEN); RBC,URINE 0-5 /HPF (0-5)
[2024-11-07 18:25] LABS: HYALINE CASTS,URINE RARE
[2024-11-07 18:56] VITALS: BP 95/73; PULSE 74
== END 2024-11-07 19:39 ==
LOC: DL.ED 16:33
DX: I47.20 Ventricular tachycardia, unspecified (principal); I13.0 Hypertensive heart and chronic kidney disease with heart failure and stage 1 through stage 4 chronic kidney disease, or unspecified chronic kidney disease; I50.9 Heart failure, unspecified; N18.9 Chronic kidney disease, unspecified; T82.119A Breakdown (mechanical) of unspecified cardiac electronic device, initial encounter; E11.649 Type 2 diabetes mellitus with hypoglycemia without coma; R79.89 Other specified abnormal findings of blood chemistry; I25.2 Old myocardial infarction; K21.9 Gastro-esophageal reflux disease without esophagitis; E66.9 Obesity, unspecified; Z90.49 Acquired absence of other specified parts of digestive tract; Z95.0 Presence of cardiac pacemaker; Z79.82 Long term (current) use of aspirin; Z79.899 Other long term (current) drug therapy; Z79.4 Long term (current) use of insulin; Z91.040 Latex allergy status; Z88.8 Allergy status to other drugs, medicaments and biological substances; Z68.38 Body mass index [BMI] 38.0-38.9, adult
CPT/HCPCS: 36415; 51702; 71045; 80053; 81001; 82947; 83735; 83880; 84443; 84484; 85025; 85610; 93005; 93010; 94762; 96365; 96366; 96375; 99285; A9270; J0153